=== PATIENT | male | born 1955 | race Caucasian/White ===

== ENCOUNTER 2019-03-14 15:33 | Emergency (ER) | payer OTHER ==
--- OUTSIDE RECORDS SUMMARY | 2019-03-14 15:35 | XMS REPORT ---
:1955 [facility] [address] [place] [address] Care Team Providers Name Role Phone Unavailable Unavailable Unavailable Problems This patient has no known problems. Allergies, Adverse Reactions, Alerts This patient has no known allergies or adverse reactions. Medications This patient has no known medications.
[2019-03-14] MEDS ORDERED: METOPROLOL TARTRATE 5 MG/5 ML INJ IV ONE (15:47)
[2019-03-14] MEDS ORDERED: NA CHLORIDE 0.9% 1,000 ML ONE (15:48)
[2019-03-14 16:14] LABS: Absolute Lymphocytes (CBC) 1.3 K/uL (0.7-4.9); Basophils % 0.3 % (0-1.3); Hematocrit 30.5 % (39.6-49.0); Lymphocytes % 4.1 % (15.3-44.8); MPV 9.5 fL (7.6-11.3); RBC Red Blood Cell Count 3.16 M/uL (4.33-5.43)
[2019-03-14 16:18] LABS: Protime INR 2.06
[2019-03-14 16:29] LABS: Blood Morphology Comment NOT SEEN (NOT SEEN); Platelet Estimate ADEQ
[2019-03-14] MEDS ORDERED: PANTOPRAZOLE 40 MG INJ ONE (16:33)
[2019-03-14 16:43] LABS: ALT/SGPT 26 U/L (12-78); AST/SGOT 36 U/L (15-37); Albumin 1.5 g/dL (3.4-5.0); Alkaline Phosphatase 77 U/L (45-117); BUN Blood Urea Nitrogen 13 mg/dL (7-18); Bicarbonate 16 mmol/L (21-32); Bilirubin Direct 0.6 mg/dL (0-0.2); Bilirubin Total 0.9 mg/dL (0.2-1.0); Creatine Phosphokinase 54 U/L (39-308); Glucose Level 75 mg/dL (74-106); Lipase 671 U/L (73-393); Protein, Total 5.6 g/dL (6.4-8.2); Sodium Level 140 mmol/L (136-145); Troponin (Emerg Dept Use Only) < 0.02 ng/mL (0.0-0.045)
[2019-03-14] MEDS ORDERED: NOREPINEPHRINE 4mg/D5W 250mL 4 MG/250 ML BAG IV ONE (16:47)
[2019-03-14 16:52] LABS: Magnesium 0.7 mg/dL (1.8-2.4)
[2019-03-14] MEDS ORDERED: NA CHLORIDE 0.9% 2,000 ML ONE (16:56)
--- NOTE | 2019-03-14 17:53 | RAD REPORT ---
EXAM DESCRIPTION: CT - Abdomen Pelvis Wo Contrast - 03/14/2019 5:27 pm CLINICAL HISTORY: Abdominal pain COMPARISON: None TECHNIQUE: Computed axial tomography of the abdomen and pelvis was obtained. IV and oral contrast we re not requested. All CT scans are performed using dose optimization technique as appropriate and may include automated exposure control or mA/KV adjustment according to patient size. FINDINGS: The evaluation of solid organs, vessels and bowel is limited secondary to the lack of con trast administration. A line has its tip posterior to the right common femoral vessels. It is not appear to lie within a ve ssel. Fatty liver Postsurgical changes of a Whipple's under procedure A 5 x 2.5 centimeter ill-defined fluid collection abuts a loop of bowel within the left abdomen. A 4 x 1.5 centimeter fluid collection abuts a loop of bowel within the anterior left abdomen near midline . . There is ill-defined fluid within the anterior lower abdomen. The spleen, adrenals and kidneys appear grossly normal. A filter is present within the IVC appear No bowel obstruction Small incisional hernia is suspected IMPRESSION: A right femoral line is malpositioned. Postsurgical changes of a Whipple's procedure. There are several small fluid collections probably early abscesses. Additional ill-defined fluid with in the abdomen probably infectious.
[2019-03-14] MEDS ORDERED: VANCOMYCIN 2 GM in NA CHLORIDE 0.9% 500 ML IVPB ONE (18:00)
[2019-03-14] MEDS ORDERED: CEFEPIME/SWI 1gm 10 ML IVP SCH (18:00)
[2019-03-14] MEDS ORDERED: LIDOCAINE 1% MPF 30 ML VIAL ONE (18:01)
--- NOTE | 2019-03-14 18:09 | RAD REPORT ---
EXAM DESCRIPTION: Stan Single View03/14/2019 4:23 pm CLINICAL HISTORY: sob COMPARISON: none FINDINGS: The lungs appear clear of acute infiltrate. The heart is normal size IMPRESSION: No acute abnormalities displayed
[2019-03-14] MEDS ORDERED: FENTANYL CITR 100 MCG/2 ML ONE ×2 (19:16→21:36)
[2019-03-14] MEDS ORDERED: ONDANSETRON 4 MG/2 ML VIAL ONE (19:16)
[2019-03-14] MEDS ORDERED: D5W 250 ML IV ONE ×2 (19:56→20:29)
[2019-03-14] MEDS ORDERED: NOREPINEPHRINE 4 MG/4 ML VIAL ONE (19:56)
[2019-03-14] MEDS ORDERED: Magnesium Sulfate 2gm IVPB 2 G/50 ML BAG IV ONE (20:09)
[2019-03-14] MEDS ORDERED: NA CHLORIDE 0.9% 500 ML ONE (20:09)
[2019-03-14] MEDS ORDERED: KCL 20 MEQ/100 mL IVPB 20 MEQ/100 ML BAG IV ONE (20:09)
--- NOTE | 2019-03-14 20:10 | RAD REPORT ---
EXAM DESCRIPTION: RADChest Single View03/14/2019 7:29 pm CLINICAL HISTORY: Device placement/central venous catheter placement IMPRESSION: Central venous catheter with its tip in the superior vena cava No pneumothorax
[2019-03-14] MEDS ORDERED: CALCIUM GLUCONATE 1 GM IVPB 1 GM/50 ML BAG IV ONE (20:13)
--- NOTE | 2019-03-14 20:27 | ER ---
Nurse's Notes [facility] Name: Delroy Novoa Jr Age: 63 yrs Sex: Male : 1955 Arrival Date: 03/14/2019 Time: 15:41 Bed 3 Private MD: Diagnosis: Severe sepsis with septic shock;Intra-Abdominal Abscess Presentation: 03/14 15:40 Presenting complaint: EMS states: Toned out for SOB on exertion transferring from [facility] wheelchair to bed, pt was in A Fib / RVR HR 120s on arrival at residence, until just prior to arrival to ER and he jumped to 190s, BP systolic 80s. Pt c/o LUQ abdominal pain. Transition of care: patient was not received from another setting of care. Onset of symptoms was March 14, 2019. Risk Assessment: Do you want to hurt yourself or someone else? Patient reports no desire to harm self or others. Initial Sepsis Screen: Does the patient meet any 2 criteria? RR > 20 per min. Systolic BP < 90 mmHg. Mean Arterial Pressure (MAP) < 65. HR > 90 bpm. Yes Does the patient have a suspected source of infection? Yes: Acute abdominal pain. Care prior to arrival: Medication(s) given: Normal saline infusion, 500 mL, IV initiated. 20 GA, in the right forearm. 15:40 Method Of Arrival: EMS: [facility] 15:40 Acuity: CHELSIE 2 Historical: - Allergies: 15:56 Ativan; 16:33 Zosyn; tw2 16:33 Hydrocodone-Acetaminophen; tw2 - Home Meds: 16:09 pregabalin 100 mg Oral 1 cap 2 times per day [Active]; enoxaparin 40 mg/0.4 mL tw2 subcutaneous syrg once daily [Active]; enoxaparin 40 mg/0.4 mL subcutaneous syrg every 12 hours [Active]; digoxin 125 mcg Oral tab 1 tab once daily [Active]; paroxetine HCl 10 mg oral tab 1 tab once daily [Active]; tramadol 50 mg Oral tab 2 tabs every 6 hours [Active]; chlorpromazine 25 mg Oral tab 1 tab [Active]; pantoprazole 40 mg oral TbEC 1 tab once daily [Active]; 16:15 Lantus 100 unit/mL Sub-Q soln [Active]; tw2 - PMHx: 16:09 Sleep Apnea; Respiratory failure d/t sepsis; GI Bleed; tw2 16:15 Diabetes - IDDM; 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 - Social history:: Smoking status: Patient uses tobacco products, chewing tobacco, per daughter, Kay Bundy, ph#[phone]. - Ebola Screening: : Patient denies travel to an Ebola-affected area in the 21 days before illness onset. Screenin:29 Abuse screen: Denies threats or abuse. Nutritional screening: No deficits noted. tw2 Tuberculosis screening: No symptoms or risk factors identified. Fall Risk Secondary diagnosis (15 points) impaired mobility. Assessment: 15:42 General: Appears distressed, obese, Behavior is calm, cooperative. Pain: Complains of tw2 pain in abdomen. Neuro: Level of Consciousness is awake, alert, obeys commands, Oriented to person, place, time, situation. Cardiovascular: Heart tones S1 S2 Capillary refill is > 3 seconds. Respiratory: Airway is patent Respiratory effort is labored, Respiratory pattern is regular, symmetrical, Breath sounds are diminished bilaterally. GI: Abdomen is round obese, Bowel sounds present X 4 quads. Reports lower abdominal pain, upper abdominal pain, pt reports a week ago having b/l james drains to abdomen removed. : No signs and/or symptoms were reported regarding the genitourinary system. EENT: No signs and/or symptoms were reported regarding the EENT system. Derm: Skin is fragile, is thin, Skin is Skin is dusky, pale, Skin temperature is cold. Musculoskeletal: Range of motion: intact in all extremities. 16:43 Reassessment: No changes from previously documented assessment. Patient and/or family tw2 updated on plan of care and expected duration. Pain level reassessed. pt still alert and oriented at this time. 17:30 Reassessment: No changes from previously documented assessment. Patient and/or family tw2 updated on plan of care and expected duration. Pain level reassessed. 18:30 Reassessment: Jean-Paul Marie at [facility],RN at bedside at this time attempted to perform central tw2 line placement in LEFT IJ, pt not tolerating it well at this time, lidocaine at bedside for pts comfort level to help tolerate px at this time. 18:43 Reassessment: Jean-Paul Marie PA at bedside at this time with KARYNA Lanier at bedside at this tw2 time to assist with IJ central line place, Dr. Nguyễn at bedside at this time to help with placement at this time. 19:18 General: Appears in no apparent distress. comfortable, Behavior is calm, cooperative, jd3 appropriate for age. Pain: Complains of pain in abdomen. Neuro: Level of Consciousness is awake, alert, obeys commands, Oriented to person, place, time, situation. Cardiovascular: Heart tones S1 S2 present Capillary refill is > 3 seconds Rhythm is sinus tachycardia. Respiratory: Airway is patent Respiratory effort is even, unlabored, Respiratory pattern is regular, symmetrical, Breath sounds are diminished. GI: Abdomen is round obese, Bowel sounds present X 4 quads. Reports lower abdominal pain, upper abdominal pain. : No signs and/or symptoms were reported regarding the genitourinary system. EENT: No signs and/or symptoms were reported regarding the EENT system. Derm: Skin is intact, Skin is dry, Skin is normal, Skin temperature is warm. Musculoskeletal: Circulation, motion, and sensation intact. Range of motion: intact in all extremities. 19:57 Reassessment: Patient appears in no apparent distress at this time. No changes from jd3 previously documented assessment. Patient and/or family updated on plan of care and expected duration. Pain level reassessed. awaiting disposition. 21:12 Reassessment: Patient appears in no apparent distress at this time. No changes from jd3 previously documented assessment. Patient and/or family updated on plan of care and expected duration. Pain level reassessed. report given to [facility] K[facility]NA Austin. 21:45 Reassessment: Patient appears in no apparent distress at this time. No changes from jd3 previously documented assessment. Patient and/or family updated on plan of care and expected duration. Pain level reassessed. report given to Life flight nurse. 22:14 Reassessment: Patient appears in no apparent distress at this time. Patient and/or jd3 family updated on plan of care and expected duration. Pain level reassessed. assisted life flight with moving the pt over to the life flight stretcher. pt with IV accesses healthy with no redness or swelling, medication infusing at prescribed rate. pt with even and unlabored respirations. Vital Signs: 15:41 BP 77 / 39; Pulse 80; Resp 22; Temp 97.8(TE); Pulse Ox 96% on R/A; Weight 131.09 kg tw2 (R); Height 6 ft. 1 in. (185.42 cm); 15:55 BP 72 / 39; Pulse 197; Resp 22; Pulse Ox 97% on R/A; tw2 16:00 BP 59 / 43; Pulse 107; Resp 22; Pulse Ox 97% on R/A; tw2 16:15 BP 87 / 64; Pulse 111; Resp 18; Pulse Ox 98% on R/A; tw2 16:42 BP 56 / 46; Pulse 111; Resp 26; Pulse Ox 100% on R/A; tw2 17:00 BP 86 / 55; Pulse 111; Resp 20; Pulse Ox 100% on R/A; tw2 17:25 BP 78 / 48; Pulse 111; Resp 20; Pulse Ox 93% on R/A; tw2 17:30 BP 77 / 42; Pulse 112; Resp 22; Pulse Ox 98% on 2 lpm NC; rv 17:35 BP 58 / 44; Pulse 114; Resp 25; Pulse Ox 100% on 2 lpm NC; rv 17:40 BP 104 / 90; Pulse 110; Resp 19; Pulse Ox 100% on R/A; tw2 17:45 BP 71 / 33; Pulse 115; Resp 24; Pulse Ox 99% on 2 lpm NC; rv 17:50 BP 111 / 88; Pulse 115; Resp 27; Pulse Ox 100% on 2 lpm NC; rv 17:55 BP 130 / 92; Pulse 114; Resp 25; Pulse Ox 100% on 2 lpm NC; rv 18:00 BP 92 / 61; Pulse 112; Resp 28; Pulse Ox 100% on 2 lpm NC; rv 18:05 BP 93 / 61; Pulse 113; Resp 27; Pulse Ox 100% on 2 lpm NC; rv 18:10 BP 105 / 72; Pulse 122; Resp 19; Pulse Ox 100% on R/A; tw2 18:15 BP 95 / 57; Pulse 112; Resp 26; Pulse Ox 100% on 2 lpm NC; rv 18:20 BP 86 / 63; Pulse 118; Resp 17; Pulse Ox 100% on 2 lpm NC; tw2 18:25 BP 105 / 80; Pulse 107; Resp 17; Pulse Ox 100% on 2 lpm NC; tw2 18:30 BP 105 / 46; Pulse 149; Resp 20; Pulse Ox 100% on 2 lpm NC; tw2 18:35 BP 126 / 75; Pulse 115; Resp 20; Pulse Ox 100% on 2 lpm NC; tw2 18:40 BP 104 / 70; Pulse 113; Resp 23; Pulse Ox 99% on 2 lpm NC; tw2 19:23 BP 88 / 57; Pulse 115; Resp 21 S; Pulse Ox 99% on R/A; jd3 19:57 BP 91 / 52; Pulse 117; Resp 19 S; Pulse Ox 100% on 2 lpm NC; jd3 20:10 BP 82 / 40; Pulse 115; Resp 25 S; Pulse Ox 100% on 2 lpm NC; jd3 20:22 BP 80 / 57; Pulse 118; Resp 23 S; Pulse Ox 99% on 2 lpm NC; jd3 20:22 BP 96 / 31; Pulse 116; Resp 25 S; Pulse Ox 100% on 2 lpm NC; jd3 20:33 BP 103 / 60; Pulse 116; Resp 24 S; Pulse Ox 100% on 2 lpm NC; jd3 20:40 BP 72 / 40; Pulse 114; Resp 25 S; Pulse Ox 100% on 2 lpm NC; jd3 20:41 BP 69 / 34; Pulse 114; Resp 24 S; Pulse Ox 100% on 2 lpm NC; jd3 20:51 BP 85 / 50; Pulse 113; Resp 19 S; Pulse Ox 100% on 2 lpm NC; jd3 20:55 BP 86 / 53; Pulse 112; Resp 25 S; Pulse Ox 100% on 2 lpm NC; jd3 21:07 BP 94 / 59; Pulse 115; Resp 20 S; Pulse Ox 100% on 2 lpm NC; jd3 21:31 BP 93 / 54; Pulse 115; Resp 19 S; Temp 97.8(O); Pulse Ox 100% on 2 lpm NC; jd3 15:41 Body Mass Index 38.13 (131.09 kg, 185.42 cm) tw2 15:55 provider at bedside at this time, medicated as ordered tw2 16:15 provider at bedside at this time performing central line tw2 16:42 provider at bedside at this time, RT at bedside for ABG \T\ hgb at this time. tw2 ED Course: 15:40 Placed in gown. Bed in low position. Call light in reach. Side rails up X2. Cardiac tw2 monitor on. Pulse ox on. NIBP on. Warm blanket given. 15:41 Patient arrived in ED. jr8 15:41 Frank Worthington PA is PHCP. jr8 15:41 Stef Nguyễn MD is Attending Physician. jr8 15:41 Arm band placed on. EKG completed in triage. Results shown to MD. tw2 15:45 Inserted saline lock: 22 gauge in right forearm, using aseptic technique. Blood tw2 collected. 15:48 Inserted saline lock: 20 gauge in left antecubital area, using aseptic technique. tw2 ,using aseptic technique. per KARYNA Martell Blood collected. 15:56 Triage completed. jl7 16:01 Filomena Wheeler RN is Primary Nurse. tw2 16:28 Assisted provider with central line placement. Set up central line tray. Triple lumen tw2 line placed in right femoral. Line placed by Frank MANUEL Placement verified by blood return, Dressed with Tegaderm, Patient tolerated well. Before procedure, did Practitioner(s) obtain informed consent? Yes. Patient \T\ family education about procedure, CLABSI prevention and S/S of infection? Yes. 16:30 Chest Single View XRAY In Process Unspecified. EDMS 16:30 Notified Nurse Practitioner and/or Physician Neon Tube Pumper of a critical lab result(s), WBC hb 32.0. 17:30 CT Abd/Pelvis - Without Contrast In Process Unspecified. EDMS 18:08 Assisted provider with central line placement. Set up central line tray. Triple lumen tw2 line placed in left femoral. CT results show placement of RIGHT central line as not in position and it has not been used at this time, PRICILLA Danielle to removed after placement of left femoral central line, pt needed more lidocaine to help during procedure as he was unable to keep left leg still at this time. pt did not tolerate placement of the LEFT femoral central line, Jean-Paul Marie PA preparing to do LEFT IJ central line placement at this time. 19:00 Primary Nurse role handed off by Filomena Wheeler RN jd3 19:00 Report given to KARYNA Whipple. tw2 19:00 One on one care till 2144. jd3 19:02 Nathen Pandya, KARYNA is Primary Nurse. jd3 19:09 Assisted provider with central line placement. Set up central line tray. Triple lumen tw2 line placed in left internal jugular. Line placed by Stef Nguyễn MD Placement verified by CXR, blood return, Dressed with Tegaderm, Patient tolerated well. 19:14 IV discontinued, intact, bleeding controlled, No redness/swelling at site. Pressure tw2 dressing applied, Central line to RIGHT femoral discontinued by Jean-Paul Marie PA and pressure dressing applied. 19:29 Chest Single View XRAY In Process Unspecified. EDMS 20:06 Notified Nurse Practitioner and/or Physician Neon Tube Pumper of a critical lab result(s), aa1 lactate 6.7. 21:51 Gallagher cath inserted, using sterile technique, 16 Fr., by ri, balloon inflated, to jd3 gravity drainage, returned ventura urine. Patient tolerated well. Administered Medications: 15:55 Drug: Metoprolol 5 mg Route: IVP; Site: left antecubital; tw2 16:00 Follow up: Response: No adverse reaction; No adverse reaction, HR lowered at this time. tw2 16:00 Drug: NS 0.9% 1000 ml Route: IV; Rate: 1000 ml; Site: left antecubital; tw2 17:20 Follow up: Response: No adverse reaction; IV Status: Completed infusion; IV Intake: tw2 1000ml 16:42 Drug: ProTONIX 40 mg Route: IVP; Site: left antecubital; tw2 18:29 Follow up: Response: No adverse reaction tw2 17:00 Drug: Levophed (4 mg/250 mL D5W 4 mcg/min {Note: started at 10mcg/kg per pricilla danielle.} jr8 Route: IV; Rate: calculated rate; Site: left antecubital; 17:31 Follow up: Rate change 12 mcg/kg/min; d/t pts condition jr8 18:28 Follow up: Rate change 20 mcg/kg/min; per Jean-Paul Marie PA at this time tw2 21:50 Follow up: Response: No adverse reaction; IV Status: Infusion continued upon transfer jd3 17:00 Drug: NS 0.9% 1000 ml Route: IV; Rate: 1 bolus; Site: right forearm; jr8 19:10 Follow up: Response: No adverse reaction; IV Status: Completed infusion jd3 18:10 Drug: Cefepime 1 grams {Note: IVP available only from pharmacy.} Route: IVPB; Rate: 200 tw2 ml/hr; Infused Over: 5 mins; Site: right forearm; 18:14 Follow up: Response: No adverse reaction; IV Status: Completed infusion tw2 18:15 Drug: vancoMYCIN 2 grams Route: IVPB; Rate: calculated rate; Site: right forearm; tw2 20:15 Follow up: Response: No adverse reaction; IV Status: Completed infusion jd3 19:08 Drug: NS 0.9% 1000 ml Route: IV; Rate: 1 bolus; Site: right forearm; tw2 20:00 Follow up: Response: No adverse reaction; IV Status: Completed infusion jd3 19:18 Drug: Zofran 4 mg Route: IVP; Site: right forearm; tw2 20:18 Follow up: Response: No adverse reaction jd3 19:20 Drug: fentaNYL (PF) 50 mcg Route: IVP; Site: right forearm; tw2 20:20 Follow up: Response: No adverse reaction; RASS: Alert and Calm (0) jd3 20:15 Drug: Potassium Chloride 20 mEq Route: IV; Rate: calculated rate; Site: left jugular; jd3 21:50 Follow up: Response: No adverse reaction; IV Status: Completed infusion jd3 20:15 Drug: Magnesium Sulfate 2 grams Route: IVPB; Infused Over: 2 hrs; Site: left jugular; jd3 21:50 Follow up: Response: No adverse reaction; IV Status: Completed infusion jd3 20:15 Drug: Calcium Gluconate 1 grams Route: IVPB; Infused Over: 60 mins; Site: left jugular; jd3 21:15 Follow up: Response: No adverse reaction; IV Status: Completed infusion jd3 20:15 Drug: NS 0.9% 500 ml Route: IV; Rate: bolus; Site: left jugular; jd3 21:50 Follow up: Response: No adverse reaction; IV Status: Completed infusion jd3 20:52 Drug: Rick-Synephrine 100 mcg/min Route: IV; Rate: calculated rate; Site: left jugular; jd3 21:50 Follow up: Response: No adverse reaction; IV Status: Infusion continued upon transfer jd3 21:45 Drug: fentaNYL (PF) 25 mcg Route: IVP; Site: left antecubital; jd3 21:50 Follow up: Response: No adverse reaction jd3 21:57 Drug: NS 0.9% 100 ml Route: IV; Rate: calculated rate; Site: left jugular; jd3 03/15 01:07 Follow up: Response: No adverse reaction; IV Status: Infusion continued upon transfer jd3 Point of Care Testing: Blood Glucose: 03/14 15:44 Blood Glucose: 76 mg/dL; tw2 15:44 provider notified. tw2 Ranges: Intake: 17:20 IV: 1000ml; Total: 1000ml. tw2 Outcome: 20:24 ER care complete, transfer ordered by . jr8 22:13 Transferred by helicopter to [facility], Transfer form completed. X-rays jd3 sent w/ patient. 22:13 Condition: stable 22:13 Instructed on the need for transfer, Demonstrated understanding of instructions. 22:31 Patient left the ED. jd3 Signatures: Dispatcher [employer] EDMS Sury Salguero RN RN aa1 Frank Worthington PA PA jr8 Yolande Rubio RN RN Filomena Wheeler RN RN tw2 Jayshree Deras RN RN jl7 Nathen Pandya RN RN jd3 Martin Herman RN RN rv Corrections: (The following items were deleted from the chart) 16:33 16:09 Allergies: unknown abx; tw2 tw2 18:35 18:30 Reassessment: Jean-Paul Marie [facility],RN at bedside at this time attempted to perform tw2 central line placement in LEFT IJ, pt not tolerating it well at this time, lidocaine at bedside for pts comfort tw2 21:08 19:57 BP 91 / 52; Pulse 117bpm; Resp 19bpm; Spontaneous; Pulse Ox 100% RA; jd3 jd3 21:08 20:22 BP 96 / 31; Pulse 116bpm; Resp 25bpm; Spontaneous; Pulse Ox 100% RA; jd3 jd3 22:30 19:57 Reassessment: Patient appears in no apparent distress at this time. No changes jd3 from previously documented assessment. Patient and/or family updated on plan of care and expected duration. Pain level reassessed. awaiting disposition. jd3 22:30 21:12 Reassessment: report given to [facility] K[facility]NA Austin [facility] 21:45 Reassessment: report given to Life flight nurse [place] [id number] 22:51 22:50 Nathen Pandya RN is Primary Nurse. [place] [id number] 22: 22:50 Patient left the ED. [place] [id number] 22: 22:50 Primary Nurse role handed off by Filomena Wheeler RN [place] [id number] 22:52 19:05 KARYNA Sena primary nurse [place] [id number] 22:54 21:31 BP 93 / 54; Pulse 115bpm; Resp 19bpm; Spontaneous; Pulse Ox 100% 2 lpm Nasal jd3 Cannula; [facility] 03/15 00:53 03/14 21:31 BP 93 / 54; Pulse 115bpm; Resp 19bpm; Spontaneous; Pulse Ox 100% 2 lpm jd3 Nasal Cannula; Temp 97.8F Oral; [facility] 03/15 01:14 01:13 Response: No adverse reaction; IV Status: Infusion continued upon transfer hi romo
--- NOTE | 2019-03-14 20:27 | EDPHYS ---
Physician Documentation [facility] Name: Delroy Novoa Jr Age: 63 yrs Sex: Male : 1955 Arrival Date: 03/14/2019 Time: 15:41 Bed 3 Private MD: ED Physician Stef Nguyễn HPI: 03/14 15:55 This 63 yrs old Male presents to ER via Unassigned with complaints of jr8 shortness of breath. 15:55 The patient has shortness of breath at rest. Onset: The symptoms/episode began/occurred jr8 acutely, today. Duration: The symptoms are intermittent. The patient's shortness of breath has no apparent modifying factors. Associated signs and symptoms: The patient has no apparent associated signs or symptoms. Severity of symptoms: At their worst the symptoms were moderate in the emergency department the symptoms have resolved. It is unknown whether or not the patient has had similar symptoms in the past. The patient has been recently seen by a physician:. Patient stated that he was just released from rehabilitation facility after undergoing Whipple procedure for pancreatic cancer. Stated that while transferring from furniture started to have acute onset shortness of breath. Stated that he feels better now. Stated that he has been nauseated and had vomited a few times over last few days. EMS also said patients BP has been persistently low for them. Patient with history of atrial fib. Currently in RVR. Historical: - Allergies: 15:56 Ativan; jl7 16:33 Zosyn; tw2 16:33 Hydrocodone-Acetaminophen; tw2 - Home Meds: 16:09 pregabalin 100 mg Oral 1 cap 2 times per day [Active]; enoxaparin 40 mg/0.4 mL tw2 subcutaneous syrg once daily [Active]; enoxaparin 40 mg/0.4 mL subcutaneous syrg every 12 hours [Active]; digoxin 125 mcg Oral tab 1 tab once daily [Active]; paroxetine HCl 10 mg oral tab 1 tab once daily [Active]; tramadol 50 mg Oral tab 2 tabs every 6 hours [Active]; chlorpromazine 25 mg Oral tab 1 tab [Active]; pantoprazole 40 mg oral TbEC 1 tab once daily [Active]; 16:15 Lantus 100 unit/mL Sub-Q soln [Active]; tw2 - PMHx: 16:09 Sleep Apnea; Respiratory failure d/t sepsis; GI Bleed; tw2 16:15 Diabetes - IDDM; 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 - Social history:: Smoking status: Patient uses tobacco products, chewing tobacco, per daughter, Kay Bundy, ph#[phone]. - Ebola Screening: : Patient denies travel to an Ebola-affected area in the 21 days before illness onset. ROS: 15:55 Eyes: Negative for injury, pain, redness, and discharge, ENT: Negative for injury, jr8 pain, and discharge, Neck: Negative for injury, pain, and swelling, Cardiovascular: Negative for chest pain, palpitations, and edema, Back: Negative for injury and pain, MS/Extremity: Negative for injury and deformity, Skin: Negative for injury, rash, and discoloration, Neuro: Negative for headache, weakness, numbness, tingling, and seizure. 15:55 Respiratory: Positive for shortness of breath. 15:55 Abdomen/GI: Positive for abdominal pain, nausea and vomiting, Negative for diarrhea. Exam: 15:55 Eyes: Pupils equal round and reactive to light, extra-ocular motions intact. Lids and jr8 lashes normal. Conjunctiva and sclera are non-icteric and not injected. Cornea within normal limits. Periorbital areas with no swelling, redness, or edema. ENT: Nares patent. No nasal discharge, no septal abnormalities noted. Tympanic membranes are normal and external auditory canals are clear. Oropharynx with no redness, swelling, or masses, exudates, or evidence of obstruction, uvula midline. Mucous membranes moist. Neck: Trachea midline, no thyromegaly or masses palpated, and no cervical lymphadenopathy. Supple, full range of motion without nuchal rigidity, or vertebral point tenderness. No Meningismus. Back: No spinal tenderness. No costovertebral tenderness. Full range of motion. MS/ Extremity: Pulses equal, no cyanosis. Neurovascular intact. Full, normal range of motion. Neuro: Awake and alert, GCS 15, oriented to person, place, time, and situation. Cranial nerves II-XII grossly intact. Motor strength 5/5 in all extremities. Sensory grossly intact. Cerebellar exam normal. Normal gait. 15:55 Respiratory: Lungs have equal breath sounds bilaterally, clear to auscultation and percussion. No rales, rhonchi or wheezes noted. No increased work of breathing, no retractions or nasal flaring. 15:55 Cardiovascular: Rate: tachycardic, Rhythm: irregularly irregular, Pulses: Pulses are 2+ in right radial artery and left radial artery. Heart sounds: normal, normal S1and S2, no S3 or S4, no murmur, no rub, no gallop, Edema: is not appreciated, JVD: is not appreciated. 15:55 Abdomen/GI: Inspection: obese scar(s), vertical mid abdominal scar noted, Bowel sounds: active, all quadrants, Palpation: soft, in all quadrants, moderate abdominal tenderness, in the upper abdomen , mass, is not appreciated, rebound tenderness, is not appreciated, voluntary guarding, is not appreciated, involuntary guarding, is not appreciated, no appreciated organomegaly, Indicators: McBurney's point is not tender, Blackwell's sign is negative, Rovsing's sign is negative, Liver: tenderness, is not appreciated. 15:55 Skin: Appearance: Color: pale, Temperature: cool. Vital Signs: 15:41 BP 77 / 39; Pulse 80; Resp 22; Temp 97.8(TE); Pulse Ox 96% on R/A; Weight 131.09 kg tw2 (R); Height 6 ft. 1 in. (185.42 cm); 15:55 BP 72 / 39; Pulse 197; Resp 22; Pulse Ox 97% on R/A; tw2 16:00 BP 59 / 43; Pulse 107; Resp 22; Pulse Ox 97% on R/A; tw2 16:15 BP 87 / 64; Pulse 111; Resp 18; Pulse Ox 98% on R/A; tw2 16:42 BP 56 / 46; Pulse 111; Resp 26; Pulse Ox 100% on R/A; tw2 17:00 BP 86 / 55; Pulse 111; Resp 20; Pulse Ox 100% on R/A; tw2 17:25 BP 78 / 48; Pulse 111; Resp 20; Pulse Ox 93% on R/A; tw2 17:30 BP 77 / 42; Pulse 112; Resp 22; Pulse Ox 98% on 2 lpm NC; rv 17:35 BP 58 / 44; Pulse 114; Resp 25; Pulse Ox 100% on 2 lpm NC; rv 17:40 BP 104 / 90; Pulse 110; Resp 19; Pulse Ox 100% on R/A; tw2 17:45 BP 71 / 33; Pulse 115; Resp 24; Pulse Ox 99% on 2 lpm NC; rv 17:50 BP 111 / 88; Pulse 115; Resp 27; Pulse Ox 100% on 2 lpm NC; rv 17:55 BP 130 / 92; Pulse 114; Resp 25; Pulse Ox 100% on 2 lpm NC; rv 18:00 BP 92 / 61; Pulse 112; Resp 28; Pulse Ox 100% on 2 lpm NC; rv 18:05 BP 93 / 61; Pulse 113; Resp 27; Pulse Ox 100% on 2 lpm NC; rv 18:10 BP 105 / 72; Pulse 122; Resp 19; Pulse Ox 100% on R/A; tw2 18:15 BP 95 / 57; Pulse 112; Resp 26; Pulse Ox 100% on 2 lpm NC; rv 18:20 BP 86 / 63; Pulse 118; Resp 17; Pulse Ox 100% on 2 lpm NC; tw2 18:25 BP 105 / 80; Pulse 107; Resp 17; Pulse Ox 100% on 2 lpm NC; tw2 18:30 BP 105 / 46; Pulse 149; Resp 20; Pulse Ox 100% on 2 lpm NC; tw2 18:35 BP 126 / 75; Pulse 115; Resp 20; Pulse Ox 100% on 2 lpm NC; tw2 18:40 BP 104 / 70; Pulse 113; Resp 23; Pulse Ox 99% on 2 lpm NC; tw2 19:23 BP 88 / 57; Pulse 115; Resp 21 S; Pulse Ox 99% on R/A; jd3 19:57 BP 91 / 52; Pulse 117; Resp 19 S; Pulse Ox 100% on 2 lpm NC; jd3 20:10 BP 82 / 40; Pulse 115; Resp 25 S; Pulse Ox 100% on 2 lpm NC; jd3 20:22 BP 80 / 57; Pulse 118; Resp 23 S; Pulse Ox 99% on 2 lpm NC; jd3 20:22 BP 96 / 31; Pulse 116; Resp 25 S; Pulse Ox 100% on 2 lpm NC; jd3 20:33 BP 103 / 60; Pulse 116; Resp 24 S; Pulse Ox 100% on 2 lpm NC; jd3 20:40 BP 72 / 40; Pulse 114; Resp 25 S; Pulse Ox 100% on 2 lpm NC; jd3 20:41 BP 69 / 34; Pulse 114; Resp 24 S; Pulse Ox 100% on 2 lpm NC; jd3 20:51 BP 85 / 50; Pulse 113; Resp 19 S; Pulse Ox 100% on 2 lpm NC; jd3 20:55 BP 86 / 53; Pulse 112; Resp 25 S; Pulse Ox 100% on 2 lpm NC; jd3 21:07 BP 94 / 59; Pulse 115; Resp 20 S; Pulse Ox 100% on 2 lpm NC; jd3 21:31 BP 93 / 54; Pulse 115; Resp 19 S; Temp 97.8(O); Pulse Ox 100% on 2 lpm NC; jd3 15:41 Body Mass Index 38.13 (131.09 kg, 185.42 cm) tw2 15:55 provider at bedside at this time, medicated as ordered tw2 16:15 provider at bedside at this time performing central line tw2 16:42 provider at bedside at this time, RT at bedside for ABG \T\ hgb at this time. tw2 Procedures: 19:20 Central Line: the site was prepped with Betadine, in sterile fashion, a triple lumen jr8 catheter was inserted, in the right femoral vein, in 1 attempts. placement was verified, by blood return, the patient tolerated the procedure, well, Had to discontinue after checking placement. Variant in anatomy that caused malalignment of line. 19:20 Central Line: the site was prepped with Betadine, in sterile fashion, a triple lumen jr8 catheter was inserted, in the left internal jugular vein, in 1 attempts. placement was verified, by CXR, by blood return, the site was dressed with using sterile technique, the patient tolerated the procedure, well. MDM: 15:41 Patient medically screened. jr8 19:19 ED course: Abx were initially delayed due to extremely hard IV access. IJ finally jr8 placed successfully . 20:22 Data reviewed: vital signs, nurses notes, lab test result(s), EKG, radiologic studies, jr8 CT scan, plain films. Data interpreted: Pulse oximetry: on room air is 98 %. Interpretation: normal. Counseling: I had a detailed discussion with the patient and/or guardian regarding: the historical points, exam findings, and any diagnostic results supporting the discharge/admit diagnosis, lab results, radiology results, the need to transfer to another facility, for higher level of care. ED course: Dr. Martin at [facility] accepted patient to MICU. 03/14 15:42 Order name: Basic Metabolic Panel; Complete Time: 17:04 [facility] 03/14 15:42 Order name: Blood Culture Adult (2) [facility] 03/14 15:42 Order name: CBC with Diff; Complete Time: 16:50 [facility] 03/14 15:42 Order name: CPK; Complete Time: 17:04 [facility] 03/14 15:42 Order name: Lactate; Complete Time: 17:04 [facility] 03/14 15:42 Order name: LFT's; Complete Time: 17:04 [facility] 03/14 15:42 Order name: Lipase; Complete Time: 17:04 [facility] 03/14 15:42 Order name: Procalcitonin; Complete Time: 16:50 [facility] 03/14 15:42 Order name: Protime (+inr); Complete Time: 16:50 [facility] 03/14 15:42 Order name: Ptt, Activated; Complete Time: 16:50 [facility] 03/14 15:42 Order name: Troponin (emerg Dept Use Only); Complete Time: 17:04 [facility] 03/14 15:42 Order name: TS; Complete Time: 16:50 [facility] 03/14 15:42 Order name: Magnesium; Complete Time: 17:04 [facility] 03/14 15:42 Order name: Chest Single View XRAY; Complete Time: 19:04 [facility] 03/14 16:04 Order name: Glucose, Ancillary Testing; Complete Time: 16:12 EDMS 03/14 16:32 Order name: Manual Differential EDNM 03/14 16:42 Order name: CT Abd/Pelvis - Without Contrast; Complete Time: 19:04 tw2 03/14 19:01 Order name: Chest Single View XRAY; Complete Time: 20:21 ak1 03/14 19:43 Order name: ABO/RH no charge; Complete Time: 20:00 EDMS 03/14 20:08 Order name: Lactate Sepsis 2 HR Follow-up; Complete Time: 20:12 EDMS 03/14 22:01 Order name: ABG; Complete Time: 22:19 03/14 15:42 Order name: Accucheck; Complete Time: 16:03/14 15:42 Order name: Cardiac monitoring; Complete Time: 16:03/14 15:42 Order name: EKG - Nurse/Tech; Complete Time: 16:03/14 15:42 Order name: IV Saline Lock - Large Bore; Complete Time: 16:03/14 15:42 Order name: Labs collected and sent; Complete Time: 16:03/14 15:42 Order name: O2 Per Protocol; Complete Time: 16:03/14 15:42 Order name: O2 Sat Monitoring; Complete Time: 16:03/14 21:50 Order name: Cath; Complete Time: 21:50 jd3 Administered Medications: 15:55 Drug: Metoprolol 5 mg Route: IVP; Site: left antecubital; tw2 16:00 Follow up: Response: No adverse reaction; No adverse reaction, HR lowered at this time. tw2 16:00 Drug: NS 0.9% 1000 ml Route: IV; Rate: 1000 ml; Site: left antecubital; tw2 17:20 Follow up: Response: No adverse reaction; IV Status: Completed infusion; IV Intake: tw2 1000ml 16:42 Drug: ProTONIX 40 mg Route: IVP; Site: left antecubital; tw2 18:29 Follow up: Response: No adverse reaction tw2 17:00 Drug: Levophed (4 mg/250 mL D5W 4 mcg/min {Note: started at 10mcg/kg per pricilla zaragoza.} [facility] Route: IV; Rate: calculated rate; Site: left antecubital; 17:31 Follow up: Rate change 12 mcg/kg/min; d/t pts condition jr8 18:28 Follow up: Rate change 20 mcg/kg/min; per Jean-Paul Marie PA at this time tw2 21:50 Follow up: Response: No adverse reaction; IV Status: Infusion continued upon transfer jd3 17:00 Drug: NS 0.9% 1000 ml Route: IV; Rate: 1 bolus; Site: right forearm; jr8 19:10 Follow up: Response: No adverse reaction; IV Status: Completed infusion jd3 18:10 Drug: Cefepime 1 grams {Note: IVP available only from pharmacy.} Route: IVPB; Rate: 200 tw2 ml/hr; Infused Over: 5 mins; Site: right forearm; 18:14 Follow up: Response: No adverse reaction; IV Status: Completed infusion tw2 18:15 Drug: vancoMYCIN 2 grams Route: IVPB; Rate: calculated rate; Site: right forearm; tw2 20:15 Follow up: Response: No adverse reaction; IV Status: Completed infusion jd3 19:08 Drug: NS 0.9% 1000 ml Route: IV; Rate: 1 bolus; Site: right forearm; tw2 20:00 Follow up: Response: No adverse reaction; IV Status: Completed infusion jd3 19:18 Drug: Zofran 4 mg Route: IVP; Site: right forearm; tw2 20:18 Follow up: Response: No adverse reaction jd3 19:20 Drug: fentaNYL (PF) 50 mcg Route: IVP; Site: right forearm; tw2 20:20 Follow up: Response: No adverse reaction; RASS: Alert and Calm (0) jd3 20:15 Drug: Potassium Chloride 20 mEq Route: IV; Rate: calculated rate; Site: left jugular; jd3 21:50 Follow up: Response: No adverse reaction; IV Status: Completed infusion jd3 20:15 Drug: Magnesium Sulfate 2 grams Route: IVPB; Infused Over: 2 hrs; Site: left jugular; jd3 21:50 Follow up: Response: No adverse reaction; IV Status: Completed infusion jd3 20:15 Drug: Calcium Gluconate 1 grams Route: IVPB; Infused Over: 60 mins; Site: left jugular; jd3 21:15 Follow up: Response: No adverse reaction; IV Status: Completed infusion jd3 20:15 Drug: NS 0.9% 500 ml Route: IV; Rate: bolus; Site: left jugular; jd3 21:50 Follow up: Response: No adverse reaction; IV Status: Completed infusion jd3 20:52 Drug: Rick-Synephrine 100 mcg/min Route: IV; Rate: calculated rate; Site: left jugular; jd3 21:50 Follow up: Response: No adverse reaction; IV Status: Infusion continued upon transfer jd3 21:45 Drug: fentaNYL (PF) 25 mcg Route: IVP; Site: left antecubital; jd3 21:50 Follow up: Response: No adverse reaction jd3 21:57 Drug: NS 0.9% 100 ml Route: IV; Rate: calculated rate; Site: left jugular; jd3 03/15 01:07 Follow up: Response: No adverse reaction; IV Status: Infusion continued upon transfer jd3 Point of Care Testing: Blood Glucose: 03/14 15:44 Blood Glucose: 76 mg/dL; tw2 15:44 provider notified. tw2 Ranges: Critical Glucose Levels:Adult <50 mg/dl or >400 mg/dl <40 mg/dl or >180 mg/dl Disposition: 03/15 02:41 Critical Care:. jr8 Disposition: 03/14/19 20:24 Transfer ordered to [facility]. Diagnosis are Severe sepsis with septic shock, Intra-Abdominal Abscess . - Reason for transfer: Higher level of care. - Accepting physician is Dr. Beka Martin. - Condition is Serious. - Problem is new. - Symptoms have improved. Critical care time excluding procedures: 02:41 Critical care time: Bedside Care: 20 minutes, Consultation: 15 minutes, Family jr8 Intervention: 15 minutes. Total time: 50 minutes Addendum: 03/16/2019 15:17 Co-signature as Attending Physician, Stef Nguyễn MD. m a2 Signatures: Dispatcher [employer] EDMS Frank Worthington PA PA jr8 Filomena Wheeler RN RN tw2 Jayshree Deras RN RN jl7 Nathen Pandya RN RN jd3 Stef Nguyễn MD MD ma2 Corrections: (The following items were deleted from the chart) 03/14 16:11 15:55 Patient stated that he was just released from rehabilitation facility after jr8 undergoing Whipple procedure for pancreatic cancer. Stated that while transferring from furniture started to have acute onset shortness of breath. Stated that he feels better now. EMS noted that patient had coffee ground like emesis to mouth. Stated that he has been nauseated and had vomited a few times over last few days. EMS also said patients BP has been persistently low for them . jr8 16:33 16:09 Allergies: unknown abx; tw2 tw2 17:04 16:27 Arterial Blood Gas+RC.LAB.BRZ ordered. EDNM EDMS 22:31 20:24 03/14/2019 20:24 Transfer ordered to [facility]. Diagnosis is jd3 Severe sepsis with septic shock; Intra-Abdominal Abscess . Reason for transfer: Higher level of care. Accepting physician is Dr. Beka Martin. Condition is Serious. Problem is new. Symptoms have improved. jr8 22:50 22:31 03/14/2019 20:24 Transfer ordered to [facility]. Diagnosis is jd3 Severe sepsis with septic shock; Intra-Abdominal Abscess . Reason for transfer: Higher level of care. Accepting physician is Dr. Beka Martin. Condition is Serious. Problem is new. Symptoms have improved. jd3
[2019-03-14] MEDS ORDERED: Phenylephrine HCl 10 MG/ML 1 ML VIAL ONE (20:29)
[2019-03-14] MEDS ORDERED: NA CHLORIDE 0.9% 100 ML IV ONE (21:40)
[2019-03-14 22:13] LABS: Arterial Blood Carboxyhemoglob 0.8 % (0-1.5); Blood Gas Oxyhemoglobin 94.8 % (94-97); Blood O2 Saturation 96.9 % (92-98.5)
[2019-03-14 22:43] VITALS: TEMP 97.8
[2019-03-14 23:16] VITALS: O2SAT 100
[2019-03-14 23:29] VITALS: BP 93/54
--- NOTE | 2019-03-16 20:51 | EKG ---
Test Date: 2019-03-14 Test Time: 15:52:42 Slat [employer]ister: HOPE MEASUREMENT RESULTS: Intervals: Rate: 100 NM: 160 QRSD: 84 QT: 336 QTc: 433 [place]: P: 63 NM: 160 QRS: 12 T: 61 INTERPRETIVE STATEMENTS: Normal sinus rhythm Low voltage QRS Nonspecific T wave abnormality Abnormal ECG No previous ECG available for comparison Electronically Signed On 03-16-19 20:47:08 [employer] by Ean Mo
== END 2019-03-14 22:50 | disposition short-term general hospital (02) ==
LOC: ER 15:33
PROC: 06HM33Z Insertion of Infusion Device into Right Femoral Vein, Percutaneous Approach (ICD-10-PCS; principal; 2019-03-14)
PROC: 05HN33Z Insertion of Infusion Device into Left Internal Jugular Vein, Percutaneous Approach (ICD-10-PCS; 2019-03-14)
DX: A41.9 Sepsis, unspecified organism (principal); R65.21 Severe sepsis with septic shock; L02.211 Cutaneous abscess of abdominal wall; E11.9 Type 2 diabetes mellitus without complications; Z72.0 Tobacco use; Z85.07 Personal history of malignant neoplasm of pancreas
CPT/HCPCS: 96365; 96367; 96361; 96368; 93005; 87040 ×2; 85025; 80048; 36415; 86900; 83735; 86850; 82550; 85610; 86901; 82947; 80076; 83605 ×2; 85730; 84484; 83690; 84145; 74176; 71045 ×2; 82805; 51702; 96375; 99291; 99292; 36556 ×2; J2370; C9113; J3010 ×2; J3475; J0610; J0692; J7060 ×2; J7040 ×2; J7030 ×2; J2405

== ENCOUNTER 2019-05-01 14:50 | Inpatient (IN) | payer OTHER ==
--- OUTSIDE RECORDS SUMMARY | 2019-05-01 14:52 | XMS REPORT ---
:1955 [facility] Address [address] [place] [address] Care Team Providers Name Role Phone Unavailable Unavailable Unavailable Problems This patient has no known problems. Allergies, Adverse Reactions, Alerts This patient has no known allergies or adverse reactions. Medications This patient has no known medications.
--- OUTSIDE RECORDS SUMMARY | 2019-05-01 14:53 | XMS REPORT | Continuity of Care Document ---
:1955 Author Organization [facility] Address [address] [place] [address] Allergies, Adverse Reactions, Alerts Allergen Type Severity Reaction Last Updated Verified Status Lorazepam Allergy Moderate RASH/ITCHING April 12, Yes Active ([id number]) 2019 Piperacillin Adverse Moderate ITCHING April 12, Yes Active ([id number]) Reaction 2019 Tazobactam Adverse Moderate ITCHING April 12, Yes Active ([id number]) Reaction 2019 Medications Medication Status Dose Units Route Sig Qty Days Start End Instructions Date Date Acetamin/Codeine Active 2 ORAL Every 6 15 300/30 Mg * Hours As Needed as needed for Amino Active 30 ORAL Once Acids-Protein Daily Hydrolysat Ascorbic Acid Active 1 ORAL Daily 30 30 Chlorpromazine Active 25 ORAL Three Hcl Times Daily Before Meals Digoxin Discontinued 0.125 ORAL Once Daily for April 18, 2019 Hypertension 11:58am (One-Time) Digoxin Active 1 ORAL Once Daily Docusate Sodium Active 1 ORAL Twice A Day 60 30 Gabapentin Active 1 ORAL Three Times A Day 90 Ipratropium-Albuterol Active 1 RESPIRATORY Twice A Day as 60 30 (INHALATION) needed for Shortness Of Breath Metoprolol Discontinued 25 ORAL Twice A Day for April 18, Tartrate Hypertension 2019 11:58am (One-Time) Nystatin Active TOPICAL Twice A Day (Topical) Oyster Shell Active 1 ORAL Once Daily 60 30 Pantoprazole Discontinued 40 ORAL Before March Sodium Breakfast for 2019 Gerd 11:58am Paroxetine * Active 1 ORAL Daily 30 30 Prednisone Discontinued 20 ORAL Daily for 5 March Steroids 2019 12:57pm Zolpidem Tartrate Discontinued 5 ORAL At Bedtime As April 18, 2019 Needed as needed 12:49pm (One-Time) for Insomnia Amlodipine Besylate Discontinued 1 ORAL Daily April 11, 2019 Cyclobenzaprine Hcl Discontinued 10 ORAL Every 12 October Hours As 2014 Needed as 6:28pm needed for Muscle Spasms Ferrous Sulfate Discontinued 1 ORAL Daily 30 April 18, 2019 Glipizide Discontinued 1 ORAL Once Daily 60 April 18, 2019 Hydrocodone-Acetaminop Discontinued 1 ORAL Every 6 Hours March hen 10/325MG * As Needed as 2019 needed for Pain Hydrocodone-Acetaminop Discontinued 2 ORAL Every 6 Hours March hen 10/325MG* As Needed 2019 Levofloxacin Discontinued 1 ORAL Daily 29 OctoberMarch 27, 20142019 6:28pm Losartan Discontinued 1 ORAL Daily 23 April Potassium/Hctz 100/25 2019 Mg * Methylprednisolone Discontinued 1 ORAL As Directed 23 OctoberMarch 27, 20142019 6:28pm Pantoprazole Sodium Discontinued 40 ORAL Before March Paroxetine Hcl * Discontinued 20 ORAL Once Daily April 11, 2019 Problems Active Problems Medical Problem Onset Date Status Accidental overdose Active Degenerative arthritis of hip Active Degenerative joint disease of left hip Active Encounter for chronic pain management Active Generalized muscle ache Active Generalized muscle ache Active Generalized muscle ache Active Generalized muscle ache Active Generalized muscle ache Active 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 Hypotension Active Insomnia Active Left hip pain Active Lumbar radiculopathy Active Morbid obesity Active Pancreatic cancer Active Rib pain on left side Active Rib pain on left side Active Tachycardia Active UTI (urinary tract infection) Active Procedures Procedure Date Performed Status COMPREHEN METABOLIC PANEL March 25, 2019 completed COMPLETE CBC W/AUTO DIFF WBC March 25, 2019 completed ROUTINE VENIPUNCTURE March 25, 2019 completed March 25, 2019 completed VITAMIN D 25 HYDROXY March 26, 2019 completed ASSAY OF PSA TOTAL March 26, 2019 completed ASSAY THYROID STIM HORMONE March 26, 2019 completed LIPID PANEL March 26, 2019 completed ASSAY OF DIGOXIN TOTAL March 26, 2019 completed GLYCOSYLATED HEMOGLOBIN TEST March 26, 2019 completed ROUTINE VENIPUNCTURE March 26, 2019 completed March 26, 2019 completed ASSAY OF AMMONIA April 11, 2019 completed COMPREHEN METABOLIC PANEL April 11, 2019 completed COMPLETE CBC W/AUTO DIFF WBC April 11, 2019 completed ROUTINE VENIPUNCTURE April 11, 2019 completed April 11, 2019 completed Computed tomography of abdomen and pelvis without April 11, 2019 completed contrast X-ray of chest, single view April 12, 2019 completed Computed tomography of head without contrast April 12, 2019 completed X-ray of chest, single view April 15, 2019 completed Relevant Diagnostic Tests and/or Laboratory Data Laboratory Results Test Date/Time Result Interpretation Reference Result Comment Performing Range Site White Blood Amada 7.6 4.0-12.3 [facility], [address] Count 2019 8:[address] [place] [id number] Red Blood Count Amada 2.94 3.80-5.80 [facility], [address] 2019 8:[address] [place] [address]1979 Hemoglobin Amada 9.6 11.7-17.2 [facility], [address] 2019 8:[address] [place] [address]28 Hematocrit Amada 29.2 35.0-51.0 [facility], [address] 2019 8:[address] [place] [address] [place] [address] Mean Amada 99.3 83-100 [facility], [address] Corpuscular 2019 Volume 8:[address] [place] [address] 99670 Mean Amada 32.7 26.8-33.4 [facility], [address] Corpuscular 2019 Hemoglobin 8:[address] [place] [address] 31961 Mean Amada 32.9 30-35 [facility], [address] Corpuscular 2019 Hemoglobin 8:[address] [place], [place] [id number] Concent Red Cell Amada 20.5 12.0-14.0 [facility], [address] Distribution 2019 Width 8:[address] [place] [address] 9[address]46 Platelet Count March 213 175-450 [facility], [address] 2019 8:[address] [place] [address] 34599 Mean Platelet Amada 9.1 9.4-12.6 [facility], [address] Volume 2019 8:[address] [place] [address] 85560 Neutrophils (%) March 79.4 44.7-82.4 [facility], [address] (Auto) 2019 8:[address] [place] [address] 23616 Immature Amada 0.7 0.0-0.4 [facility], [address] Granulocyte % 2019 (Auto) 8:[address] [place] [address] 10084 Lymphocytes (%) Amada 12.6 10.0-50.0 [facility], [address] (Auto) 2019 8:[address] [place] [address] 46319 Monocytes (%) March 7.3 3.9-13.4 [facility], [address] (Auto) 2019 8:[address] [place] [address] 26179 Eosinophils (%) Amada 0 0.0-6.4 [facility], [address] [facility] [address] (Auto) 2019 8:43[facility] [address] Basophils (%) Amada 0.0 0.2-1.2 [facility], [address] [facility] (Auto) 2019 8:43[facility] [address] Neutrophils # Amada 6.00 1.78-5.38 [facility], [address] [facility] (Auto) 2019 8:43[facility] 310[address] Absolute Amada 0.1 0.0-0.03 [facility], [address] [facility] Immature 2019 Granulocyte 8:43[facility] [address] (auto Lymphocytes # Amada 1.0 1.32-3.57 [facility], [address] [facility] (Auto) 2019 8:43[facility] [address] Monocytes # Amada 0.55 0.30-0.82 [facility], [address] [facility] (Auto) 2019 8:43[facility] 55463 Eosinophils # Amada 0.00 0.04-0.54 [facility], [address] [facility] (Auto) 2019 8:43[facility] 318[address] Basophils # Amada 0.00 0.01-0.08 [facility], [address] [facility] (Auto) 2019 8:43[facility] 95971 Nucleated Red Amada 0 0-0.2 [facility], [address] [facility] Blood Cells % 2019 8:43[facility] 14505 Nucleated Red Amada 0 0 [facility], [address] [facility] Blood Cells # 2019 8:43[facility] 6[address] Urine Color Amada YELLOW [facility], [address] [facility] 2019 5:33pm [facility] [address] Urine Amada TUBID CLEAR [facility], [address] [facility] Appearance 2019 5:33pm [facility] 09393 Urine Glucose Amada NEGATIVE NEGATIVE [facility], [address] [facility] (UA) 2019 5:33pm [facility] 27291 Urine Bilirubin Amada NEGATIVE NEGATIVE [facility], [address] [facility] 2019 5:33pm [facility] 74545 Urine Ketones Amada NEGATIVE NEGATIVE [facility], [address] [facility] 2019 5:33pm [facility] 04452 Urine Specific Amada 1.005 1.003-1.03 [facility], [address] [facility] [place] 2019 0 5:33pm [place] [address] Urine Blood March LARGE NEGATIVE [facility], [address] 2019 5:33pm [place] [address] Urine pH March 8.500 5-9 [facility], [address] 2019 5:33pm [place] [address] Urine Protein March 2+ (100 NEGATIVE [facility], [address] 2019 mg/dL) 5:33pm [facility] 935[address] Urine Amada 0.2 0.2-1.0 [facility], [address] Urobilinogen 2019 5:33pm [place] [address] Urine Nitrate March POSITIVE NEGATIVE [facility], [address] 2019 5:33pm [place] [address] Urine Leukocyte March 3+ LARGE NEGATIVE [facility], [address] Esterase 2019 5:33pm [place] [address] Urine RBC March 4-6 0-5 [facility], [address] 2019 5:33pm [place] [address] Urine WBC March 30-49 0-5 [facility], 104 2019 5:33pm [place] [address] Urine Amada 0-5 0-5 [facility], [address] Epithelial 2019 Cells 5:33pm [facility] 14126 Urine Bacteria March LARGE None [facility], [address] 2019 (3+) Detect 5:33pm [facility] [address] Urine Culture March YES [facility], [address] Reflexed 2019 5:33pm [facility] [address]120 Arterial Blood March 7.43 7.35-7.45 [facility], [address] pH 2019 10:45am [facility] 10941 Arterial Blood March 38 35-45 [facility], [address] Partial 2019 Pressure CO2 10:45am [facility] 24996 Arterial Blood March 84 75-100 [facility], [address] Partial 2019 Pressure O2 10:45am [facility] 37988 Arterial Blood March 25.0 22-26 [facility], [address] HCO3 2019 10:45am [facility] 71582 POC Capillary March 93 70 - 110 [facility], [address] Blood Glucose 2019 (Chem) 10:29pm [facility] 69984 Arterial Blood March 0.7 -2.0-2.0 [facility], [address] Base Excess 2019 10:45am [facility] 69690 Arterial Blood March 23.5 23.0-33.0 [facility], [address] Total CO2 2019 10:45am [facility] 35337 Arterial Blood March 97 95-100 This is a [facility], [address] Oxygen 2019 calculated Saturation 10:45am result. [facility] 34922 Oxygen Content March 5.5 [facility], [address] 2019 10:45am [facility] 18586 Lactic Acid Amada 1.89 0.5-2.2 [facility], [address] Level 2019 7:11am [facility] 20914 Random Glucose March 87 82-115 [facility], [address] 2019 8:48am [facility] 07436 Blood Urea March 14 8-23 [facility], [address] Nitrogen 2019 8:48am [facility] 70324 Serum March 281 280-300 [facility], [address] Osmolality 2019 8:48am [facility] 75844 Creatinine Amada 0.8 0.70-1.20 [facility], [address] 2019 8:48am [facility] 31160 Glomerular Amada > 60.00 GFR RESULTS ARE [facility], [address] Filtration Rate 2019 REPORTED IN Calc 8:48am mL/min/1.73m2.N [facility] 72811 ormal GFR: >60mL/minModera tely decreased GFR: 30-59 mL/minSeverely decreased GFR: 15-29 mL/minKidney Failure (or Dialysis): <15 mL/minThe calculated eGFR is not valid for patients younger than 18 years or older than 75 years. BUN/Creatinine March 17.5 12-20 [facility], [address] Ratio 2019 8:48am [facility] 13911 Sodium Level March 141 135-145 [facility], [address] 2019 8:48am [facility] 26759 Potassium Level March 3.3 3.5-5.2 [facility], [address] 2019 8:48am [facility] 51614 Chloride Level March 105 98-108 [facility] [address] 2019 8:48am [facility] 35930 Carbon Dioxide March 26 21-32 [facility], [address] Level 2019 8:48[facility] [address] Anion Gap Amada 13.3 12-20 [facility], 104 2019 8:48[facility] [address]82 Calcium Level Amada 7.5 8.8-10.2 [facility], 104 2019 8:48[facility] [address]846 Phosphorus Amada 2.9 2.5-4.5 [facility], [address] [facility] Level 2019 8:43[facility] [address] Magnesium Level Amada 2.0 1.6-2.4 [facility], 104 2019 8:43[facility] 9[address]75 Total Protein Amada 6.3 6.6-8.7 [facility], [address] [facility] 2019 8:43[facility] 76427 Albumin Amada 2.3 3.5-5.2 [facility], [address] [facility] 2019 8:43[facility] [address]120 Globulin Amada 4.0 [facility], [address] [facility] 2019 8:43[facility] [address]693 Albumin/Globuli Amada 0.6 >1.0 [facility], [address] n Ratio 2019 8:43[facility] 53286 Total Bilirubin March 0.4 0.0-1.2 [facility], [address] [facility] 2019 8:43[facility] [address]642 Aspartate Amino March 65 15-40 [facility], [address] [facility] Transf 2019 (AST/SGOT) 8:43[facility] [address]63 Alanine March 26 0-41 [facility], 104 Aminotransferas 2019 e (ALT/SGPT) 8:43[facility] 36678 Ammonia Amada 51.3 16-60 [facility], [address] [facility] 2019 10:05[facility] 26830 Hemoglobin A1c March 4.6 4.0-6.0 [facility], [address] [facility] 2019 7:39[facility] [address] DF-Xlm-W-Type Amada 392 0-125 [facility], [address] [facility] Natriuretic 2019 Peptide 6:12[facility] 17068 Prostate Amada 0.21 0.0-4.00 [facility], [address] [facility] Specific 2019 Antigen Total 11:07[facility] 31255 Total Alkaline Amada 110 40-130 [facility], [address] [facility] Phosphatase 2019 8:43am [facility] 66414 Cholesterol March 47 150-200 [facility], [address] [place] [address] Level 2019 7:39am [facility] 73328 Triglycerides March 54 <[address] 2019 7:39am [facility] 369[address] HDL Cholesterol March 16 >55 HDL EXPECTED [address] 2019 VALUES:FEMALES: 7:39am >65 mg/dL NO [facility] [address]135 RISK 45-65 mg/dL MODERATE RISK <45 mg/dL HIGH RISKMALES: >55 mg/dL NO RISK 35-55 mg/dL MODERATE RISK <35 mg/dL HIGH RISK LDL Cholesterol April 12 <100 LDL Expected [address] 2019 Values:Optimal 7:39am <100 mg/dLNear [facility] [address]64[address] optimal/above optimal 100-129 mg/dLBorderline high 130-159 mg/dLHigh 160-189 mg/dLVery high >190 mg/dL Coronary Heart March 2.[address] Disease Risk 2019 NATIONAL Ratio 7:39am CHOLESTEROL [facility] [address]3333 GUIDELINES [facility] ([facility]) guidelines for classificaton, testing and management of cholesterol levels in adults over 20 years of age. This new classification creates three categories of risk for coronary heart disease, regardless of age or sex, according to total and LDL cholesterols levels: Based on total cholesterol levelDesirable <200 mg/dlBorderline -high 200-239 mg/dlHigh >=240 mg/dl Based on cholesterol ratioCHD RISK CHOL/HDL RATIO ----- MALE FEMALE0.5 x Average 3.4 3.31.0 x Average 5.0 4.42.0 x Average 9.6 7.13.0 x Average 13.5 11.0 Cortisol 8am March 9.3 6.20-19.[address] Sample 2019 8:24am [facility] 01833 Digoxin Level Amada 0.63 0.8-2.0 A specimen [address] 2019 should be 4:07pm collected at [place] [address] least 6 to 8 hours after drug administration. By this time, serum digoxin levels are expected to be in equilibrium with tissue levels and should correlate with pharmacologic effects. Vancomycin March 28.9 01-11 Results have [address] Level Trough 2019 been 10:50pm broadcasted to [place] [address] patient's location and called to (ROOPA). By NELIA LEWIS 04/13/19 [email or web address] read back for confirmation. Thyroid March 0.51 0.36-3.74 [place] [address] [address] Stimulating 2019 Hormone (TSH) 7:39am [place] [address] Free Thyroxine March 0.91 0.93-1.[address] 2019 7:39am [place] [address] Vitamin D March 5.56 6.4-49.[address] 25-Hydroxy 2019 11:07am [place] [address] Troponin I March < 0.30 0.0-0.[address] 2019 clinical 8:24am studies have [place] [address] shown elevations of cTnI in patients with myocardial injury, as seen in unstable angina pectoris, cardiac contusions, and heart transplants. Elevations have also been seen in patients with rhabdomyolysis and polymyositis.El evated troponin levels point to myocardial injury, but are not necessarily indicative of an ischemic mechanism. The term NC should be used when there is evidence of cardiac damage, as detected by marker proteins in a clinical setting consistent with myocardial ischemia. If the clinical circumstance suggests that an ischemic mechanism is unlikely, other causes of cardiac injury should be considered.For diagnostic purposes, the results should always be assessed in conjunction with the patient's medical history, clinical examination and other findings. Microbiology Results Procedure Source Result Collection Result Result Performing Date/Time Date/Time Comment Site Blood Culture BLOOD FINAL REPORT. April 12March [facility], [address] 2019 8:39am 2019 8:44am [place] [address] Urine Culture URINE,STEPHANIE PROTEUS April 11March [facility], [address] [place] 2019 5:33pm 2019 8:42am [place] [id number] Diagnostic Imaging Reports Report Dictated Date/Time Dictated By Status April 11, 2019 3:25pm YANI MADERA MD completed Patient: BOBBI NOVOA JR MR#: [id number] : [address] AISHA JAFFE DO Pt Status : REG ER Pt Location: [facility] Date/Time: 04/11/19 1335 Primary Care Physician: AISHA JAFFE DO Technologist(s): PENNY UCELLAR Procedure(s): [id number] CT/CT ABD & PELVIS W/O Signed EXAM: CT Abdomen and Pelvis WITHOUT contrast INDICATION: Pain. COMPARISON: None. TECHNIQUE: Abdomen and pelvis were scanned utilizing a multidetector helical scanner from the lung base to the pubic symphysis without administration of IV contrast. Absence of intravenous contrast decreases sensitivity for detection of focal lesions and vascular pathology. Coronal and sagittal reformations were obtained. Routine protocol was performed. IV CONTRAST: None. ORAL CONTRAST: Water RADIATION DOSE: Total DLP 1559.66 mGy*cm Estimated effective dose: (DLP x 0.015 x size factor) mSv COMPLICATIONS: None FINDINGS: LINES and TUBES: None. LOWER THORAX: Unremarkable HEPATOBILIARY: The liver is markedly diffuse hypodense compared to the spleen, consistent with diffuse hepatic diffuse hepatic steatosis. No focal hepatic lesions. Mild pneumobilia. GALLBLADDER: Absent. SPLEEN: No splenomegaly. PANCREAS: Findings suggestive of pancreatic head resection. No focal masses or ductal dilatation. ADRENALS: No adrenal nodules KIDNEYS/URETERS: No hydronephrosis. 2.5 cm lesion exophytic of the lower pole of the right kidney demonstrate a higher than water attenuation, possibly due to hyperkinesis content or hemorrhage. No stones. GI TRACT: Evaluation limited due to the lack of contrast postoperative changes involving small bowel loops in the left anterior mid abdomen with postoperative changes suggesting of partial gastrectomy with gastrojejunal anastomosis. There is mild distention of the jejunal loop up to 4.6 cm extending into an infiltration in the epigastric region as seen on axial image 27 series 2, however, there is gas and stool throughout the colon and rectum. There is swirling of the mesenteric vasculature in the midabdomen as seen on axial image 48 which may be post surgical anatomic change, however, which can also be seen with internal hernia. Diffuse wall thickening of the rectosigmoid which may reflect stercoral colitis. There is also evidence of status post right hemicolectomy and transverse colon resection, with ileal ascending anastomosis. Descending and sigmoid colon diverticulosis, consistent with mild nonspecific stranding of the surrounding fat. PELVIC ORGANS/BLADDER: Unremarkable. LYMPH NODES: Mildly prominent lymph nodes in the left upper quadrant and retroperitoneum. This may reflect reactive lymphadenopathy. VESSELS: An IVC filter is present. Atherosclerotic secretions of the aorta and iliac arteries without aneurysmal dilatation. PERITONEUM / RETROPERITONEUM: No free air or fluid. BONES: There are degenerative changes in the lumbar spine. Severe degenerative changes of the right hip. SOFT TISSUES: Anasarca. IMPRESSION: 1. Mild colonic diverticulosis with concern for descending/sigmoid diverticulitis without abscess formation. 2. Findings may reflect mild stercoral colitis. 3. Postoperative changes involving the gastrointestinal tract including probable status post Whipple's procedure as detailed above. Recommend correlation with past surgical history. Mild focal ileus involving the pharyngeal jejunal loop. 4. Mildly complex right lower pole renal cyst. Consider further evaluation with nonemergent ultrasound of kidneys. 5. Severe hepatic steatosis. 6. Mild upper abdominal mesenteric and retroperitoneal lymphadenopathy may be reactive, however, recommend attention on follow-up. Signed by: Dr. Jessica Madera M.D. on 04/11/2019 3:25 PM Transcribed By: [employer] SIGNED <electronically signed by YANI MADERA MD> [id number] YANI MADERA MD April 12, 2019 9:35am BARBIE HONG MD completed Patient: BOBBI NOVOA JR MR#: [id number] : [address] SHERRI HOUSE MD Pt Status: ADM IN [facility] Date/Time: 04/12/19 0805 Primary Care Physician: AISHA JAFFE DO Technologist(s): PENNY CUELLAR Procedure(s): [id number] RAD/CHEST 1 VIEW Signed EXAMINATION: CHEST 1 VIEW INDICATION: Pneumonia COMPARISON: CT abdomen and pelvis 04/11/2019 FINDINGS: AP view TUBES and LINES: None. LUNGS: Lungs are well inflated. Bibasilar airspace opacities, left greater than right, unchanged. No new consolidations or pulmonary edema. PLEURA: Trace bilateral pleural effusions, stable. No pneumothorax. HEART AND MEDIASTINUM: The cardiac silhouette is prominent likely due to presence of a small pericardial effusion as noted on recent CT abdomen and pelvis. BONES AND SOFT TISSUES: No acute osseous lesion. Soft tissues are unremarkable. UPPER ABDOMEN: No free air under the diaphragm. IMPRESSION: Bibasilar airspace opacities are suggestive of atelectasis when compared to CT from 04/11/2019. No new consolidations. Trace bilateral pleural effusions, unchanged. Signed by: Dr. Barbie Easley M.D. on 04/12/2019 9:35 AM Transcribed By: [employer] SIGNED <electronically signed by BARBIE EASLEY MD> BARBIE EASLEY MD April 12, 2019 2:29pm BELGICA ESCOBEDO MD completed Patient: BOBBI NOVOA JR MR#: [id number] : 1955 Ordering DrHector: SHERRI HOUSE MD Pt Status: ADM IN Pt Location: [facility] Date/Time: 04/12/19 0856 Primary Care Physician: AISHA JAFFE DO Technologist(s): PENNY CUELLAR Procedure(s): [id number] CT/CT HEAD W/O CONTRAST Signed EXAMINATION: Head CT Images made available for interpretation on 04/12/2019 at 2:25 PM. HISTORY: Right-sided numbness, history of cancer, episodes of hypoglycemia COMPARISON: None. TECHNIQUE: Multidetector axial images were obtained without contrast from the foramen magnum to the vertex . The images were reconstructed using brain and bone algorithms. Thin section brain images were reformatted into coronal and sagittal planes. Image quality: Motion/streaking artifact limits the evaluation of the skull base and posterior cranial fossa. Dose modulation, iterative reconstruction, and/or weight based adjustment of the mA/kV was utilized to reduce the radiation dose to as low as reasonably achievable. FINDINGS: Parenchyma: 1. Few scattered white matter hypodensities, most likely nonspecific chronic microvascular ischemic changes. 2. No mass or hemorrhage. No CT evidence of acute territorial vascular insult. Extra-axial spaces:No abnormal density. No extra-axial fluid collections Brain volume: Normal for age. Ventricles: No hydrocephalus or displacement. Arteries: No density suggestive of thrombus. Dural sinuses: No abnormal density. Foramen magnum: No mass, Chiari malformation, or basilar invagination. Sella: No obvious mass. Paranasal/mastoid sinuses: Imaged portions unremarkable. Skull/Scalp: No lytic or blastic lesions. No fractures. IMPRESSION: 1. No acute intracranial hemorrhage or cortical infarct. If there is clinical concern for acute infarction consider brain MRI for further evaluation. 2. Mild white matter chronic microvascular ischemic changes. Signed by: Dr. Belgica Escobedo M.D. on 04/12/2019 2:29 PM Transcribed By: [employer] SIGNED <electronically signed by BELGICA ESCOBEDO MD> [id number] BELGICA ESCOBEDO MD April 15, 2019 7:36am Roel Figueroa DO completed Patient: BOBBI NOVOA JR MR#: [id number] : [address] AMANUEL BANERJEE MD [facility]: [id number] Pt Location: [facility] Date/Time: 04/15/19 0600 Primary Care Physician: AISHA JAFFE DO Technologist(s): QIANA DE LEÓN Procedure(s): [id number] RAD/CHEST 1 VIEW Signed EXAMINATION: CHEST 1 VIEW INDICATION: Pulmonary edema COMPARISON: Chest x-ray 04/12/2019 FINDINGS: TUBES and LINES: None. LUNGS/PLEURA: Low lung volumes. Slightly prominent pulmonary interstitial lung markings. Prominent central pulmonary vasculature. The costophrenic sulci are not well delineated. No pneumothorax HEART AND MEDIASTINUM: The cardiomediastinal silhouette is borderline enlarged. BONES AND SOFT TISSUES: No acute osseous lesion. Soft tissues are unremarkable. UPPER ABDOMEN: No free air under the diaphragm. IMPRESSION: Low lung volumes with bibasilar atelectasis. Pulmonary vascular congestion. Early mild pulmonary interstitial edema and trace pleural effusions are possible. Borderline cardiomegaly versus cardiac accentuation due to low lung volume. Signed by: Roel Figueroa DO on 04/15/2019 7:36 AM Transcribed By: [employer] SIGNED <electronically signed by Roel Figueroa DO> Roel Figueroa DO Health Concerns No known health concerns documented Advance Directives Advance Directive Response Recorded Date/Time Advance Directives No November 18, 2014 4:16am Advance Directive on File No April 11, 2019 7:13pm Directive to Physicians/Living Will No November 18, 2014 4:16am Health Care Proxy No November 18, 2014 4:16am Name of Surrogate/Decision Maker EDUIN SANTANA April 11, 2019 11:17am Organ Donor No November 18, 2014 4:16am Medical Power of Dairy Frozen Manager No November 18, 2014 4:16am Patient/Family Given Education Material No April 11, 2019 7:13pm R/T Directives? 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 Pancreatic cancer Encounters Encounter Location(s) Arrival/Admit Date Discharge/Depart Date Provider(s) Discharged [place] April 11, 2019 [facility] Ctr Registered [place] April 11, 2019 [facility] 10:03am [facility] C[facility] Registered [place] March 26, 2019 [facility] 11:01am [facility] Ctr Registered [place] March 25, 2019 [facility] 1:50pm [facility] Ctr Recent Diagnosis Onset Date UTI (urinary tract infection) 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 [address] Contact Info. Home Phone: Payer Policy Id Coverage Id Subscriber's Subscriber Id Effective Expiration Name Date Date Medicare [id number] Bobbi Novoa Jr [id number] 2009 Plan of Treatment Future Tests Future scheduled test information is unavailable Pending Tests Pending diagnostic test information is unavailable Future Visits Future appointment information is unavailable Referrals to Other Providers Referral information is unavailable Future Procedures Future procedure information is unavailable Future Medications Future medication information is unavailable Patient Instructions Metoprolol extended-release tablets Pantoprazole tablets Digoxin tablets or capsules Social History Smoking Status Status Date of Observation Smokes tobacco daily (finding) April 11, 2019 7:13pm Observation Status Observation Response Date of Response Hx Physical Abuse No April 11, 2019 7:56pm Assigned Sex Male Vital Signs Vital Reading Result Collection Date/Time Hospital Discharge Instructions Additional Instructions Instructions Physician Documentation [place] follow up instructions * If you have any questions or concerns, please contact [phone] and ask for the hospitalist on duty. If you are having a medical emergency, please report to the nearest emergency room in your area. * Access your patient portal or follow up with your PCP regarding any procedures or tests that have not yet been resulted. Follow up with: manager of sales, PCP, director independent Follow up appointment in: 7 days Activity on discharge: fall precautions Diet on discharge: cardiac Condition on discharge: stable
[2019-05-01] MEDS ORDERED: NA CHLORIDE 0.9% 1,000 ML ONE ×3 (15:12→19:47)
[2019-05-01 15:31] LABS: Absolute Lymphocytes (CBC) 0.4 K/uL (0.7-4.9); Basophils % 0.4 % (0-1.3); Hematocrit 35.2 % (39.6-49.0); Lymphocytes % 4.8 % (15.3-44.8); MPV 8.8 fL (7.6-11.3); RBC Red Blood Cell Count 3.47 M/uL (4.33-5.43)
[2019-05-01 15:32] LABS: Protime INR 1.28
[2019-05-01 16:38] LABS: ALT/SGPT 24 U/L (12-78); AST/SGOT 48 U/L (15-37); Albumin 1.7 g/dL (3.4-5.0); Alkaline Phosphatase 104 U/L (45-117); BUN Blood Urea Nitrogen 12 mg/dL (7-18); Bicarbonate 24 mmol/L (21-32); Bilirubin Direct 0.3 mg/dL (0-0.2); Bilirubin Total 0.5 mg/dL (0.2-1.0); Glucose Level 144 mg/dL (74-106); Magnesium 1.5 mg/dL (1.8-2.4); NT PRO-BNP 800 pg/mL (<125); Potassium 3.8 mmol/L (3.5-5.1); Protein, Total 5.4 g/dL (6.4-8.2); Sodium Level 141 mmol/L (136-145); Troponin (Emerg Dept Use Only) < 0.02 ng/mL (0.0-0.045)
--- NOTE | 2019-05-01 17:08 | RAD REPORT ---
EXAM DESCRIPTION: RAD - Chest Single View - 05/01/2019 5:01 pm CLINICAL HISTORY: CONGESTION Chest pain. COMPARISON: Chest Single View dated 03/14/2019; Chest Single View dated 03/14/2019 FINDINGS: Portable technique limits examination quality. The left lung base is hazy suspicious for mild infiltrate/ pleural effusion. The remainder the visual ized lung torres are clear. The heart is normal in size. No displaced fractures.
[2019-05-01 17:31] LABS: Anisocytosis 1+; Blood Morphology Comment NOTED (NOT SEEN); Platelet Estimate ADEQ; Urine White Blood Cell Casts OK
[2019-05-01] MEDS ORDERED: CEFTRIAXONE/SWI 1gm 1 GM/10 ML SYR ONE (17:48)
[2019-05-01] MEDS ORDERED: AZITHROMYCIN IV 500 MG in NA CHLORIDE 0.9% 250 ML IVPB ONE (18:00)
--- NOTE | 2019-05-01 18:03 | ER ---
Nurse's Notes [facility] Name: Delroy Novoa Jr Age: 63 yrs Sex: Male : 1955 Arrival Date: 05/01/2019 Time: 14:56 Bed 4 Private MD: Diagnosis: Pneumonia in diseases classified elsewhere Presentation: 05/01 14:46 Presenting complaint: EMS states: called out for high HR and chills. Daughter informed EMS that pt was taken off of Metoprolol 2 days ago d/t some orthostatic issues. Today he started having high HR, denies CP, SOB. Daughter gave 1/2 tab of his metoprolol. Transition of care: patient was not received from another setting of care. Onset of symptoms was May 01, 2019. Risk Assessment: Do you want to hurt yourself or someone else? Patient reports no desire to harm self or others. Initial Sepsis Screen: Does the patient meet any 2 criteria? HR > 90 bpm. No. Patient's initial sepsis screen is negative. Does the patient have a suspected source of infection? No. Patient's initial sepsis screen is negative. Care prior to arrival: None. 14:46 Method Of Arrival: EMS[facility] 14:46 Acuity: CHELSIE 2 sv Triage Assessment: 14:46 General: Appears in no apparent distress. comfortable, obese, well developed, Behavior sv is calm, cooperative, appropriate for age, Reports chills for 0-12 hours. Pain: Denies pain. Neuro: Level of Consciousness is awake, alert, obeys commands, Oriented to person, place, time, situation, Speech is normal. Cardiovascular: Rhythm is sinus tachycardia. Respiratory: Respiratory effort is even, unlabored, Respiratory pattern is regular, symmetrical. Derm: Skin is normal. Historical: - Allergies: 15:00 Ativan; sv 15:00 Hydrocodone-Acetaminophen; sv 15:00 Zosyn; sv - Home Meds: 15:00 gabapentin 300 mg oral cap twice a day [Active]; metoprolol tartrate 25 mg Oral tab 1 sv tab 2 times per day [Active]; pantoprazole 40 mg Oral TbEC 1 tab once daily [Active]; digoxin 125 mcg Oral tab 1 tab once daily [Active]; paroxetine HCl 10 mg Oral tab 1 tab once daily [Active]; - PMHx: 15:00 Diabetes - IDDM; GI Bleed; Respiratory failure d/t sepsis; Sleep Apnea; toxic megacolon;sv 15:32 Atrial Fib; sv - PSHx: 15:00 whipple surgery; pancreatic cancer; sv - Immunization history:: Adult Immunizations up to date. - Coronavirus screen:: The patient has NOT traveled to [place], [place], or [place] in the past 14 days. Proceed with normal triage process as indicated. The patient has NOT had contact with known/suspected case of Coronavirus? Proceed with normal triage procedures. - Social history:: Patient/guardian denies using alcohol, street drugs, The patient lives with family, Smoking status: Patient denies any tobacco usage or history of. - Family history:: not pertinent. - Ebola Screening: : No symptoms or risks identified at this time. Screenin:01 Abuse screen: Denies threats or abuse. Denies injuries from another. Nutritional sv screening: No deficits noted. Tuberculosis screening: No symptoms or risk factors identified. Fall Risk None identified. Assessment: 15:15 General: Appears ill, Behavior is calm. Pain: Denies pain. Neuro: Level of ah Consciousness is awake, alert, obeys commands, Oriented to person, place, time, situation, Appropriate for age Bottle Inspector are equal bilaterally Speech is normal. Cardiovascular: Denies chest pain, Heart tones S1 S2 present Capillary refill < 3 seconds Patient's skin is warm and dry. Pulses are palpable in right radial artery, right dorsalis pedis artery, left radial artery and left dorsalis pedis artery Rhythm is sinus tachycardia. Respiratory: Airway is patent Respiratory effort is even, unlabored, Breath sounds are clear bilaterally. GI: Abdomen is round Bowel sounds present X 4 quads. : No signs and/or symptoms were reported regarding the genitourinary system. Derm: No deficits noted. Skin is intact, is healthy with good turgor, Skin is pale, Skin temperature is warm. 15:15 Reassessment: Informed MD that patient blood pressure had decreased and he gave orders to hold the metoprolol at this time and just adminitster the NS and monitor his BP. 15:22 Reassessment: Daughter states that he has been off of his Coumadin and is unsure how sv long he has been off of it. Pt was here in February for a GI bleed. He got transferred to a rehabilitation and was discharged about a week ago to his daughter. 15:58 Reassessment: Inside lab at the bedside to obtain recollect. sv 16:36 Reassessment: Xray at the bedside. sv 17:10 Reassessment: Patient appears in no apparent distress at this time. No changes from sv previously documented assessment. Patient and/or family updated on plan of care and expected duration. Pain level reassessed. Patient is alert, oriented x 3, equal unlabored respirations, skin warm/dry/pink. Dr Nguyễn discussed pt being admitted with pt and daughter. Pt ok with admission. 17:30 Reassessment: Shavon from inside lab at bedside obtaining lactate and blood cultures. sv 17:35 Reassessment: Dr Lala at the bedside. sv 18:32 Reassessment: Patient appears in no apparent distress at this time. Patient and/or ah family updated on plan of care and expected duration. Pain level reassessed. Patient is alert, oriented x 3, equal unlabored respirations, skin warm/dry/pink. 19:00 General: Appears in no apparent distress. comfortable, Behavior is calm, cooperative, rr5 appropriate for age, ongoing central line insertion by dr. paz. 19:00 Pain: Denies pain. Neuro: Level of Consciousness is awake, alert, obeys commands, rr5 Oriented to person, place, time, situation, Appropriate for age. Cardiovascular: Capillary refill < 3 seconds Patient's skin is warm and dry. Respiratory: Airway is patent Respiratory effort is even, unlabored, Respiratory pattern is regular, symmetrical. GI: Abdomen is round obese. : No signs and/or symptoms were reported regarding the genitourinary system. EENT: No signs and/or symptoms were reported regarding the EENT system. Derm: Skin is intact, is healthy with good turgor, is fragile, is thin, Skin is pink, warm \T\ dry. Skin temperature is warm Bruising that is dark purple, on right arm and left arm. Musculoskeletal: Capillary refill < 3 seconds. 19:35 Reassessment: Central line insertion attempt multiple times unsuccessful by Ed rr5 provider. dr. paz order to start Levophed drip in peripheral line. 20:20 Reassessment: Patient appears in no apparent distress at this time. Patient is alert, rr5 oriented x 3, equal unlabored respirations, skin warm/dry/pink. BP rechecked, no complaints made for ICU admission. 21:00 Reassessment: Patient appears in no apparent distress at this time. Patient is alert, rr5 oriented x 3, equal unlabored respirations, skin warm/dry/pink. transfer to ICU awake conscious and coherent not in distress, denies any pain. attached air sampling and monitoring vitally stable, with IV cannula intact ongoing Levophed drip at 10 mcg/min. Vital Signs: 14:48 BP 111 / 91; Pulse 130; Resp 20; Temp 97.6; Pulse Ox 100% ; Weight 131.54 kg; Height 5 sv ft. 10 in. (177.80 cm); Pain 0/10; 15:21 BP 82 / 58; Pulse 126; Resp 20; Pulse Ox 97% ; sv 15:44 BP 88 / 58 RA (man/); sv 16:12 BP 71 / 60; Pulse 10; Resp 17; Pulse Ox 88% on R/A; sv 16:47 BP 85 / 52; Pulse 101; Resp 24; Pulse Ox 100% on 3 lpm NC; sv 17:19 BP 77 / 49; Pulse 102; Resp 20; Pulse Ox 100% on 3 lpm NC; sv 18:31 BP 102 / 62; Pulse 104; Resp 22; Pulse Ox 100% on 3 lpm NC; ah 19:00 BP 80 / 48; Pulse 101; Resp 22; Pulse Ox 96% on 3 lpm NC; sv 20:00 BP 78 / 41; Pulse 91; Resp 22; Pulse Ox 97% ; rr5 20:10 BP 93 / 53; Pulse 88; Resp 21; Pulse Ox 99% ; rr5 20:38 BP 101 / 54; Pulse 86; Resp 23; Temp 99.6; Pulse Ox 98% ; rr5 21:00 BP 105 / 62; Pulse 95; Resp 20; Pulse Ox 98% on R/A; rr5 14:48 Body Mass Index 41.61 (131.54 kg, 177.80 cm) sv 16:12 Pt placed on O2 \T\ 3L per NC. O2 sat up to 99%. Informed Dr Nguyễn of the vitals, sv ordered to give NS 500 mls bolus. ED Course: 14:50 Arm band placed on. sv 14:50 Patient has correct armband on for positive identification. Placed in gown. Bed in low sv position. Call light in reach. Side rails up X2. quality assurance monitor final on. Pulse ox on. NIBP on. Door closed. Warm blanket given. Head of bed elevated. 14:56 Patient arrived in ED. sv 14:57 Triage completed. sv 15:00 Stef Nguyễn MD is Attending Physician. ma2 15:00 Sandy Dupont FNP-C [facility]. snw 15:00 ED physician to see patient. sv 15:03 Daisy Montanez, RN is Primary Nurse. sv 15:10 Inserted saline lock: 20 gauge in left antecubital area, using aseptic technique. Blood sv collected. Flushed left antecubital with 5 ml normal saline. 15:36 IV is patent, is intact, with fluids infusing freely. sv 16:26 Awaiting for x-ray. sv 16:41 CXR XRAY Sent. sv 17:04 CXR XRAY In Process Unspecified. EDMT 18:02 Hayden Lala MD is Hospitalizing Provider. ma 18:32 Awaiting bed assignment. 18:50 Assisted provider with central line placement. Set up central line tray. Single lumen tw2 line placed in right femoral. unsuccessful, set up for central line using US. 19:13 Report given to Sury TRONCOSO and True TRONCOSO. sv 19:50 Inserted saline lock: 20 gauge in right hand, using aseptic technique. ,using aseptic rr5 technique. inserted by Orlin/ true TRONCOSO. 20:47 Patient admitted, IV remains in place. intact, No redness/swelling at site. rr5 Administered Medications: 15:21 Drug: NS 0.9% 500 ml Route: IV; Rate: 1 bolus; Site: left antecubital; 15:58 Follow up: Response: No adverse reaction; IV Status: Completed infusion; IV Intake: sv 500ml 15:58 CANCELLED (Physician Discretion): Metoprolol 12.5 mg PO once sv 16:20 Drug: NS 0.9% 500 ml Route: IV; Rate: bolus; Site: left antecubital; sv 16:52 Follow up: Response: No adverse reaction; IV Status: Completed infusion; IV Intake: sv 500ml 17:16 Drug: NS 0.9% 1000 ml Route: IV; Rate: 125 ml/hr; Site: left antecubital; 21:47 Follow up: Response: No adverse reaction; IV Status: Infusion continued upon admission; rr5 IV Intake: 500ml 17:21 Drug: NS 0.9% 1000 ml Route: IV; Rate: 1000 ml; Site: left antecubital; sv 19:00 Follow up: Response: No adverse reaction; IV Status: Completed infusion; IV Intake: rr5 1000ml 18:13 Drug: Rocephin 1 grams Route: IV; Rate: calculated rate; Site: left antecubital; 19:15 Follow up: Response: No adverse reaction; IV Status: Completed infusion; IV Intake: [id number] 18:15 Drug: AZITHromycin 500 mg Route: IVPB; Infused Over: 1 hrs; Site: left antecubital; 19:15 Follow up: Response: No adverse reaction; IV Status: Completed infusion; IV Intake: rr5 250ml 19:50 Drug: Norepinephrine (4 mg/250 mL D5W) 4 mcg/min {Note: BP 78/64 mmHg.} Route: IV; rr5 Rate: calculated rate; Site: left antecubital; 20:00 Follow up: BP 78 / 41; Pulse 91 bpm; Resp 22 bpm; Pulse Ox 97% ; Rate change 10 mcg/min rr5 21:47 Follow up: Response: No adverse reaction; IV Status: Infusion continued upon admission rr5 Intake: 15:58 IV: 500ml; Total: 500ml. sv 16:52 IV: 500ml; Total: 1000ml. sv 19:00 IV: 1000ml; Total: 2000ml. rr5 19:15 IV: 250ml; Total: 2250ml. rr5 19:15 IV: 10ml; Total: 2260ml. rr5 21:47 IV: 500ml; Total: 2760ml. rr5 Outcome: 18:02 Decision to Hospitalize by Provider. ma2 20:47 Admitted to ICU accompanied by nurse, via stretcher, room 1, with chart, Report called rr5 to juan 20:47 Condition: stable 20:47 Instructed on the need for admit. 21:20 Patient left the ED. rr5 Signatures: Dispatcher [employer] Viji Lynn RN RN sv Therrien, Shelly, [employer] WRAPPER TENDER-C [employer]PER TENDER-[employer] Filomena Wheeler RN RN tw2 Stef Nguyễn MD MD ma2 True Bethea, RN RN rr5 Daisy Montanez, RN RN ah
--- NOTE | 2019-05-01 18:03 | EDPHYS ---
Physician Documentation [facility] Name: Delroy Novoa Jr Age: 63 yrs Sex: Male : 1955 Arrival Date: 05/01/2019 Time: 14:56 Bed 4 Private MD: ED Physician Stef Nguyễn HPI: 05/01 17:32 This 63 yrs old Male presents to ER via EMS with complaints of Tachycardia. ma2 17:32 The patient has shortness of breath at rest. Onset: The symptoms/episode began/occurred ma2 suddenly, 1 day(s) ago. Duration: The symptoms are chronic, are continuous. The patient's shortness of breath is alleviated by inhaler, OTC meds, sitting up, application of supplemental oxygen. Context: The symptoms occur at rest. Onset: The symptoms/episode began/occurred just prior to arrival. Associated signs and symptoms: Pertinent negatives: productive cough, dizziness, hemoptysis. Severity of symptoms: At their worst the symptoms were mild in the emergency department the symptoms are unchanged. Historical: - Allergies: 15:00 Ativan; sv 15:00 Hydrocodone-Acetaminophen; sv 15:00 Zosyn; sv - Home Meds: 15:00 gabapentin 300 mg oral cap twice a day [Active]; metoprolol tartrate 25 mg Oral tab 1 sv tab 2 times per day [Active]; pantoprazole 40 mg Oral TbEC 1 tab once daily [Active]; digoxin 125 mcg Oral tab 1 tab once daily [Active]; paroxetine HCl 10 mg Oral tab 1 tab once daily [Active]; - PMHx: 15:00 Diabetes - IDDM; GI Bleed; Respiratory failure d/t sepsis; Sleep Apnea; toxic megacolon;sv 15:32 Atrial Fib; sv - PSHx: 15:00 whipple surgery; pancreatic cancer; sv - Immunization history:: Adult Immunizations up to date. - Coronavirus screen:: The patient has NOT traveled to [place], [place], or [place] in the past 14 days. Proceed with normal triage process as indicated. The patient has NOT had contact with known/suspected case of Coronavirus? Proceed with normal triage procedures. - Social history:: Patient/guardian denies using alcohol, street drugs, The patient lives with family, Smoking status: Patient denies any tobacco usage or history of. - Family history:: not pertinent. - Ebola Screening: : No symptoms or risks identified at this time. ROS: 17:32 Constitutional: Negative for fever, chills, and weight loss. ma2 17:32 All other systems are negative. Exam: 17:32 Constitutional: This is a well developed, well nourished patient who is awake, alert, ma2 and in no acute distress. Head/Face: Normocephalic, atraumatic. Chest/axilla: Normal chest wall appearance and motion. Nontender with no deformity. No lesions are appreciated. Cardiovascular: Regular rate and rhythm with a normal S1 and S2. No gallops, murmurs, or rubs. Normal PMI, no JVD. No pulse deficits. Respiratory: Lungs have equal breath sounds bilaterally, clear to auscultation and percussion. No rales, rhonchi or wheezes noted. No increased work of breathing, no retractions or nasal flaring. Abdomen/GI: Soft, non-tender, with normal bowel sounds. No distension or tympany. No guarding or rebound. No evidence of tenderness throughout. MS/ Extremity: Pulses equal, no cyanosis. Neurovascular intact. Full, normal range of motion. Neuro: Awake and alert, GCS 15, oriented to person, place, time, and situation. Cranial nerves II-XII grossly intact. Motor strength 5/5 in all extremities. Sensory grossly intact. Cerebellar exam normal. Normal gait. Vital Signs: 14:48 BP 111 / 91; Pulse 130; Resp 20; Temp 97.6; Pulse Ox 100% ; Weight 131.54 kg; Height 5 sv ft. 10 in. (177.80 cm); Pain 0/10; 15:21 BP 82 / 58; Pulse 126; Resp 20; Pulse Ox 97% ; sv 15:44 BP 88 / 58 RA (man/); sv 16:12 BP 71 / 60; Pulse 10; Resp 17; Pulse Ox 88% on R/A; sv 16:47 BP 85 / 52; Pulse 101; Resp 24; Pulse Ox 100% on 3 lpm NC; sv 17:19 BP 77 / 49; Pulse 102; Resp 20; Pulse Ox 100% on 3 lpm NC; sv 18:31 BP 102 / 62; Pulse 104; Resp 22; Pulse Ox 100% on 3 lpm NC; ah 19:00 BP 80 / 48; Pulse 101; Resp 22; Pulse Ox 96% on 3 lpm NC; sv 20:00 BP 78 / 41; Pulse 91; Resp 22; Pulse Ox 97% ; rr5 20:10 BP 93 / 53; Pulse 88; Resp 21; Pulse Ox 99% ; rr5 20:38 BP 101 / 54; Pulse 86; Resp 23; Temp 99.6; Pulse Ox 98% ; rr5 21:00 BP 105 / 62; Pulse 95; Resp 20; Pulse Ox 98% on R/A; rr5 14:48 Body Mass Index 41.61 (131.54 kg, 177.80 cm) sv 16:12 Pt placed on O2 \T\ 3L per NC. O2 sat up to 99%. Informed Dr Nguyễn of the vitals, sv ordered to give NS 500 mls bolus. MDM: 15:00 Patient medically screened. ma2 17:32 Differential diagnosis: arrythmia, pneumonia, Pneumothorax reactive airway disease, ma2 Sepsis. Data reviewed: vital signs, nurses notes. Counseling: I had a detailed discussion with the patient and/or guardian regarding: the historical points, exam findings, and any diagnostic results supporting the discharge/admit diagnosis, the presence of at least one elevated blood pressure reading (>120/80) during this emergency department visit, the need for further work-up and treatment in the hospital. Response to treatment: the patient's symptoms have mildly improved after treatment. 18:02 ED course: . 05/01 15:03 Order name: Basic Metabolic Panel; Complete Time: 16:58 05/01 15:03 Order name: CBC with Diff; Complete Time: 19:23 05/01 15:03 Order name: LFT's; Complete Time: 16:58 05/01 15:03 Order name: Magnesium; Complete Time: 16:58 ia05/01 15:03 Order name: NT PRO-BNP; Complete Time: 16:58 ia05/01 15:03 Order name: PT-INR; Complete Time: 16:14 05/01 15:03 Order name: Troponin (emerg Dept Use Only); Complete Time: 16:58 ia05/01 17:19 Order name: Blood Culture Adult (2) 05/01 17:19 Order name: Lactate; Complete Time: 19:23 ia2 05/01 17:32 Order name: CBC Smear Scan; Complete Time: 19:23 EDMS 05/01 19:01 Order name: CBC with Automated Diff EDMS 05/01 19:01 Order name: CBC with Automated Diff EDMS 05/01 19:01 Order name: Comprehensive Metabolic Panel [facility] 05/01 19:01 Order name: Comprehensive Metabolic Panel EDAZ 05/01 15:03 Order name: EKG; Complete Time: 15:09 ia2 05/01 15:03 Order name: Cardiac monitoring; Complete Time: 15:04 ia2 05/01 16:20 Order name: CXR XRAY; Complete Time: 17:17 ia2 05/01 19:01 Order name: CONS Pharmacy Consult E[facility] 05/01 19:01 Order name: Troponin I [facility] 05/01 19:01 Order name: Troponin I [facility] 05/01 19:01 Order name: Troponin I [facility] 05/01 19:01 Order name: Troponin I [facility] 05/01 15:03 Order name: EKG - Nurse/Tech; Complete Time: 15:04 ia2 05/01 15:03 Order name: IV Saline Lock; Complete Time: 15:20 ia2 05/01 15:03 Order name: Labs collected and sent; Complete Time: 15:20 ia2 05/01 15:03 Order name: O2 Per Protocol; Complete Time: 15:04 ia2 05/01 15:03 Order name: O2 Sat Monitoring; Complete Time: 15:04 ia2 05/01 15:37 Order name: Labs - recollect needed: recollect chemisty tube; Complete Time: 16:26 eb Administered Medications: 15:21 Drug: NS 0.9% 500 ml Route: IV; Rate: 1 bolus; Site: left antecubital; ah 15:58 Follow up: Response: No adverse reaction; IV Status: Completed infusion; IV Intake: sv 500ml 15:58 CANCELLED (Physician Discretion): Metoprolol 12.5 mg PO once sv 16:20 Drug: NS 0.9% 500 ml Route: IV; Rate: bolus; Site: left antecubital; sv 16:52 Follow up: Response: No adverse reaction; IV Status: Completed infusion; IV Intake: sv 500ml 17:16 Drug: NS 0.9% 1000 ml Route: IV; Rate: 125 ml/hr; Site: left antecubital; 21:47 Follow up: Response: No adverse reaction; IV Status: Infusion continued upon admission; rr5 IV Intake: 500ml 17:21 Drug: NS 0.9% 1000 ml Route: IV; Rate: 1000 ml; Site: left antecubital; sv 19:00 Follow up: Response: No adverse reaction; IV Status: Completed infusion; IV Intake: rr5 1000ml 18:13 Drug: Rocephin 1 grams Route: IV; Rate: calculated rate; Site: left antecubital; 19:15 Follow up: Response: No adverse reaction; IV Status: Completed infusion; IV Intake: [id number] 18:15 Drug: AZITHromycin 500 mg Route: IVPB; Infused Over: 1 hrs; Site: left antecubital; 19:15 Follow up: Response: No adverse reaction; IV Status: Completed infusion; IV Intake: rr5 250ml 19:50 Drug: Norepinephrine (4 mg/250 mL D5W) 4 mcg/min {Note: BP 78/64 mmHg.} Route: IV; rr5 Rate: calculated rate; Site: left antecubital; 20:00 Follow up: BP 78 / 41; Pulse 91 bpm; Resp 22 bpm; Pulse Ox 97% ; Rate change 10 mcg/min rr5 21:47 Follow up: Response: No adverse reaction; IV Status: Infusion continued upon admission rr5 Disposition: 05/01/19 18:02 Hospitalization ordered by Hayden Lala for Inpatient Admission. Preliminary diagnosis is Pneumonia in diseases classified elsewhere. - Bed requested for Intensive Care Unit. - Status is Inpatient Admission. rr5 - Condition is Stable. - Problem is new. - Symptoms are unchanged. Signatures: Dispatcher [employer] Viji Lynn RN RN Nirmala Hernández RN RN Stef Nguyễn MD MD [facility] Esthela Ramirez Raymond RN RN 5 Daisy Montanez RN RN Corrections: (The following items were deleted from the chart) 15:58 15:03 Metoprolol 12.5 mg PO once ordered. [facility] 15:58 15:13 Metoprolol 12.5 mg PO once ordered. [facility] 15:58 15:57 Metoprolol 12.5 mg PO once ordered. sv 19:37 18:02 Hospitalization Ordered by Hayden Lala MD for Inpatient Admission. Preliminary cg diagnosis is Pneumonia in diseases classified elsewhere. Bed requested for Telemetry/MedSurg (Inpatient). Status is Inpatient Admission. Condition is Stable. Problem is new. Symptoms are unchanged. ma2 19:54 19:37 05/01/2019 18:02 Hospitalization Ordered by Hayden Lala MD for Inpatient cg Admission. Preliminary diagnosis is Pneumonia in diseases classified elsewhere. Bed requested for Telemetry/MedSurg (Inpatient). Status is Inpatient Admission. Condition is Stable. Problem is new. Symptoms are unchanged. cg 20:06 19:54 05/01/2019 18:02 Hospitalization Ordered by Hayden Lala MD for Inpatient cg Admission. Preliminary diagnosis is Pneumonia in diseases classified elsewhere. Bed requested for Telemetry/MedSurg (Inpatient). Status is Inpatient Admission. Condition is Stable. Problem is new. Symptoms are unchanged. cg 21:20 20:06 05/01/2019 18:02 Hospitalization Ordered by Hayden Lala MD for Inpatient rr5 Admission. Preliminary diagnosis is Pneumonia in diseases classified elsewhere. Bed requested for Intensive Care Unit. Status is Inpatient Admission. Condition is Stable. Problem is new. Symptoms are unchanged.
[2019-05-01] MEDS ORDERED: MORPHINE 2 MG/ML SYR IV PRN (18:55)
[2019-05-01] MEDS ORDERED: ONDANSETRON 4 MG/2 ML VIAL IV PRN (18:55)
[2019-05-01] MEDS ORDERED: LIDOCAINE 1% MPF 30 ML VIAL ONE (19:25)
[2019-05-01] MEDS ORDERED: NOREPINEPHRINE 4mg/D5W 250mL 4 MG/250 ML BAG IV ONE (19:46)
--- NOTE | 2019-05-01 20:40 | P.HP ---
Certification for Inpatient Patient admitted to: Inpatient With expected LOS: >2 Midnights Practitioner: I am a practitioner with admitting privileges, knowledge of patient current condition, hospital course, and medical plan of care. Services: Services provided to patient in accordance with Admission requirements found in Title 42 Section 412.3 of the Code of Federal Regulations Patient History Date of Service: 05/01/19 Reason for admission: Rapid heart rate History of Present Illness: 63-year-old gentleman with a history of multiple medical problems including DM type 2, atrial fibrillation, hypertension, history of sepsis and toxic megacolon , history of pancreatic cancer status post Whipple's procedure was brought to the emergency department because of rapid heart rate. Patient is reported to have been hypertensive over the last few days. His metoprolol was discontinued because of the hypotension. Daughter reports patient's patient support representative noted he has orthostatic hypotension. Patient at baseline has poor functional performance status and has been gradually recovering with rehab. Daughter reports his appetite has improved since last week after discharge from rehab. In the ED, patient was noted to be hypotensive. He has no fever, no leukocytosis. Chest x-ray demonstrated left lower lung haziness suggestive of mild pleural effusion versus mild infiltrate. The patient was still hypotensive after 2 L of IV normal saline bolus given in the ED. He has been started on Levophed drip. Noted lactic acid is elevated. UA suggest the presence of UTI. Patient meets criteria for sepsis. He is admitted for further management. Allergies hydrocodone Allergy (Verified 05/01/19 21:30) unknown lorazepam [From Ativan] Allergy (Verified 05/01/19 21:30) biligerent piperacillin [From Zosyn] Allergy (Verified 05/01/19 21:30) Hives tazobactam [From Zosyn] Allergy (Verified 05/01/19 21:30) Hives Home Medications: Digoxin [Lanoxin] 0.125 mg PO DAILY 05/01/19 Gabapentin 300 mg PO BID 05/01/19 Metoprolol Tartrate [Lopressor] 25 mg PO BID 05/01/19 PARoxetine HCl [Paxil] 10 mg PO DAILY 05/01/19 Pantoprazole [Protonix Tab*] 40 mg PO DAILY 05/01/19 - Past Medical/Surgical History -: DM type 2 -: Hypertension -: Atrial fibrillator -: Heart failure -: History of toxic megacolon -: Whipple's procedure -: Colostomy with reversal - Family History Mother -: Cancer Brother -: Hypertension Sister -: Hypertension - Social History Smoking Status: Never smoker Alcohol use: Yes CD- Drugs: No Place of Residence: Home Review of Systems Other: General: No fever, no malaise, no unintentional weight loss. Eyes: No eye discharge, Respiratory: No cough, no shortness of breath. CVS: No chest pain, no palpitation, no lightheadedness. GI: No abdominal pain, no nausea no vomit, no constipation, no diarrhea. Genitourinary: No dysuria, no urinary frequency, no incontinence, no hematuria. Musculoskeletal: No joint pains, or joint swelling. Neurology: No headache, no asymmetric weakness, no problem with swallowing. Except as documented, all other systems reviewed and negative. Physical Examination - Physical Exam General: Alert, In no apparent distress, Oriented x3, Obese HEENT: Mucous membr. moist/pink, Sclerae nonicteric Neck: Supple, JVD not distended Respiratory: Clear to auscultation bilaterally, Normal air movement Cardiovascular: No edema, Normal S1 S2, Irregular heart rate/rhythm Capillary refill: <2 Seconds Gastrointestinal: Normal bowel sounds, Soft and benign, Non-distended, No tenderness Musculoskeletal: No swelling, No erythema Integumentary: No rashes Neurological: Normal speech, Normal strength at 5/5 x4 extr - Studies Laboratory Data (last 24 hrs) 05/01/19 16:03: Sodium 141, Potassium 3.8, BUN 12, Creatinine 0.98, Glucose 144 H, Magnesium 1.5 L D, Total Bilirubin 0.5, AST 48 H, ALT 24, Alkaline Phosphatase 104 05/01/19 15:10: PT 15.0 H, INR 1.28 05/01/19 15:10: WBC 8.6, Hgb 11.4 L, Hct 35.2 L, Plt Count 196 Assessment and Plan - Problems (Diagnosis) (1) Sepsis Current Visit: Yes Status: Acute (2) Pneumonia Current Visit: Yes Status: Acute (3) Hypotension Current Visit: Yes Status: Acute (4) DM type 2 (diabetes mellitus, type 2) Current Visit: Yes Status: Acute (5) Chronic atrial fibrillation Current Visit: Yes Status: Acute (6) UTI (urinary tract infection) Current Visit: Yes Status: Acute - Plan Admit to ICU. Continue IV hydration Titrate Levophed drip. Broad-spectrum antibiotics-IV levaquin and vancomycin Follow blood cultures. Follow urine culture. Hold metoprolol. Continue digoxin for rate control. Obtain echocardiogram Per daughter, patient is currently not on any anticoagulation for the AFib. He was on warfarin. She stated they stopped given him the warfarin while at rehab. There is a recorded history of GI bleed. Daughter states she does not know the specific reason for stopping the warfarin. PT/OT. - Advance Directives Does patient have a Living Will: No Does patient have a Durable POA for Healthcare: No
[2019-05-01] MEDS: INSULIN -REGULAR HUMAN 50 UNIT/0.5 ML ML SQ SCH (21:00)
[2019-05-01 21:53] VITALS: BMI 39.8
[2019-05-01 22:19] LABS: Urine Appearance CLEAR; Urine Bilirubin NEGATIVE (NEG); Urine Blood 1+ (NEG); Urine Color YELLOW; Urine Glucose NEGATIVE (NEG); Urine Protein NEGATIVE (NEG); Urine Specific Gravity 1.015 (1.005-1.030); Urine Urobilinogen 0.2 mg/dL (0.2-1.0); Urine pH 6.5 (5.0-7.0)
[2019-05-01 22:32] LABS: Urine Microscopic Reflex ORDER UMIC
[2019-05-01 22:43] LABS: Urine Bacteria 20-50 /HPF (NONE SEEN); Urine Culture Reflex Order REFLEXED; Urine Mucus 2+ /HPF (NONE SEEN)
[2019-05-01] MEDS ORDERED: Magnesium Sulfate 2gm IVPB 2 G/50 ML BAG IV ONE (22:49)
[2019-05-01] MEDS ORDERED: POTASSIUM CL SA 10 MEQ TAB PO ONE (22:49)
[2019-05-01] MEDS: Levofloxacin 750mg IV 750 MG/150 ML BAG IV SCH (23:41)
[2019-05-02 04:56] LABS: Absolute Lymphocytes (CBC) 1.3 K/uL (0.7-4.9); Basophils % 1.2 % (0-1.3); Hematocrit 28.3 % (39.6-49.0); Lymphocytes % 17.5 % (15.3-44.8); MPV 8.2 fL (7.6-11.3); RBC Red Blood Cell Count 2.79 M/uL (4.33-5.43)
[2019-05-02 05:15] LABS: ALT/SGPT 22 U/L (12-78); AST/SGOT 37 U/L (15-37); Albumin 1.5 g/dL (3.4-5.0); Alkaline Phosphatase 105 U/L (45-117); BUN Blood Urea Nitrogen 10 mg/dL (7-18); Bicarbonate 24 mmol/L (21-32); Bilirubin Total 0.4 mg/dL (0.2-1.0); Glucose Level 107 mg/dL (74-106); Magnesium 1.9 mg/dL (1.8-2.4); Potassium 3.8 mmol/L (3.5-5.1); Protein, Total 5.2 g/dL (6.4-8.2); Sodium Level 142 mmol/L (136-145); Troponin I < 0.02 ng/mL (0.0-0.045)
[2019-05-02] MEDS: INSULIN -REGULAR HUMAN 50 UNIT/0.5 ML ML SQ SCH ×4 (07:30→21:00)
[2019-05-02] MEDS ORDERED: VANCOMYCIN 1 GM in NA CHLORIDE 0.9% 250 ML IVPB SCH (09:00)
[2019-05-02] MEDS ORDERED: VANCOMYCIN 2 GM in NA CHLORIDE 0.9% 250 ML IVPB SCH (09:00)
[2019-05-02] MEDS: VANCOMYCIN 2 GM in NA CHLORIDE 0.9% 500 ML IVPB SCH ×2 (09:05→20:32)
--- NOTE | 2019-05-02 11:00 | P.PN ---
Subjective Date of Service: 05/02/19 Chief Complaint: Rapid heart rate Subjective: No new changes, Tolerating diet (-anxious to go -patient with history of chronic AF , and intermittent low BP admitted for right base pneumonia and tachycardia. Overnight he was on Levophed drip for low blood pressure after taking discontinued metoprolol), Doing well Review of Systems 10-point ROS is otherwise unremarkable Physical Examination - Vital Signs Temperature: 97 F Blood Pressure: 99/49 Pulse: 88 Respirations: 15 Pulse Ox (%): 97 - Physical Exam General: Alert, Oriented x3, Obese HEENT: Atraumatic, Normocephalic Neck: Supple, 2+ carotid pulse no bruit Respiratory: Diminished, Crackles/rales Cardiovascular: Regular rate/rhythm, Normal S1 S2 Gastrointestinal: Normal bowel sounds, Soft and benign, No ascites Musculoskeletal: No clubbing, No tenderness Neurological: Cranial nerves 3-12 intact, Abnormal tone - Studies Laboratory Data (last 24 hrs) 05/01/19 16:03: Sodium 141, Potassium 3.8, BUN 12, Creatinine 0.98, Glucose 144 H, Magnesium 1.5 L D, Total Bilirubin 0.5, AST 48 H, ALT 24, Alkaline Phosphatase 104 05/01/19 15:10: PT 15.0 H, INR 1.28 05/01/19 15:10: WBC 8.6, Hgb 11.4 L, Hct 35.2 L, Plt Count 196 Laboratory Last Values WBC 7.4 K/uL (4.3-10.9) 05/02/19 04:41 RBC 2.79 M/uL (4.33-5.43) L 05/02/19 04:41 Hgb 9.4 g/dL (13.6-17.9) L 05/02/19 04:41 Hct 28.3 % (39.6-49.0) L D 05/02/19 04:41 MCV 101.4 fL (80-100) H 05/02/19 04:41 MCH 33.7 pg (27.0-35.0) 05/02/19 04:41 MCHC 33.3 g/dL (32.0-36.0) 05/02/19 04:41 RDW 19.2 % (12.1-15.2) H 05/02/19 04:41 Plt Count 138 K/uL (152-406) L D 05/02/19 04:41 MPV 8.2 fL (7.6-11.3) 05/02/19 04:41 Neutrophils % 68.6 % (41.7-73.7) 05/02/19 04:41 Lymphocytes % 17.5 % (15.3-44.8) 05/02/19 04:41 Monocytes % 9.5 % (3.3-12.3) 05/02/19 04:41 Eosinophils % 3.2 % (0-4.4) 05/02/19 04:41 Basophils % 1.2 % (0-1.3) 05/02/19 04:41 Absolute Neutrophils 5.1 K/uL (1.8-8.0) 05/02/19 04:41 Absolute Lymphocytes 1.3 K/uL (0.7-4.9) 05/02/19 04:41 Absolute Monocytes 0.7 K/uL (0.1-1.3) 05/02/19 04:41 Absolute Eosinophils 0.2 K/uL (0-0.5) 05/02/19 04:41 Absolute Basophils 0.1 K/uL (0-0.5) 05/02/19 04:41 Anisocytosis 1+ 05/01/19 15:10 Morphology Comment Noted (NOT SEEN) 05/01/19 15:10 PT 15.0 SECONDS (9.5-12.5) H 05/01/19 15:10 INR 1.28 05/01/19 15:10 Sodium 142 mmol/L (136-145) 05/02/19 04:41 Potassium 3.8 mmol/L (3.5-5.1) 05/02/19 04:41 Chloride 112 mmol/L (98-107) H 05/02/19 04:41 Carbon Dioxide 24 mmol/L (21-32) 05/02/19 04:41 BUN 10 mg/dL (7-18) 05/02/19 04:41 Creatinine 0.79 mg/dL (0.55-1.3) 05/02/19 04:41 Estimated GFR > 90 mL/min (=/>90) 05/02/19 04:41 Glucose 107 mg/dL (74-106) H 05/02/19 04:41 POC Glucose 78 mg/dl (65-120) 05/02/19 07:21 Lactic Acid 3.1 mmol/L (0.4-2.0) H 05/01/19 23:39 Calcium 7.2 mg/dL (8.5-10.1) L 05/02/19 04:41 Magnesium 1.9 mg/dL (1.8-2.4) 05/02/19 04:41 Total Bilirubin 0.4 mg/dL (0.2-1.0) 05/02/19 04:41 Direct Bilirubin 0.3 mg/dL (0-0.2) H 05/01/19 16:03 AST 37 U/L (15-37) 05/02/19 04:41 ALT 22 U/L (12-78) 05/02/19 04:41 Alkaline Phosphatase 105 U/L (45-117) 05/02/19 04:41 Rapid Troponin I < 0.02 ng/mL (0.0-0.045) 05/01/19 16:03 Troponin I < 0.02 ng/mL (0.0-0.045) 05/02/19 04:41 NT-Pro-B Natriuret Pep 800 pg/mL (<125) H 05/01/19 16:03 Serum Total Protein 5.2 g/dL (6.4-8.2) L 05/02/19 04:41 Albumin 1.5 g/dL (3.4-5.0) L 05/02/19 04:41 Globulin 3.7 g/dL (2.3-3.5) H 05/02/19 04:41 Albumin/Globulin Ratio 0.4 (1.1-1.8) L 05/02/19 04:41 Urine Color Yellow 05/01/19 21:45 Urine Appearance Clear 05/01/19 21:45 Urine pH 6.5 (5.0-7.0) 05/01/19 21:45 Ur Specific [place] 1.015 (1.005-1.030) 05/01/19 21:45 Glucose (UA)(Auto) Negative (NEG) 05/01/19 21:45 Urine Ketones Negative (NEG) 05/01/19 21:45 Urine Blood 1+ (NEG) H 05/01/19 21:45 Urine Nitrite Negative (NEG) 05/01/19 21:45 Urine Bilirubin Negative (NEG) 05/01/19 21:45 Urine Urobilinogen 0.2 mg/dL (0.2-1.0) 05/01/19 21:45 Ur Leukocyte Esterase Trace (NEG) H 05/01/19 21:45 Urine RBC 5-10 /HPF (NONE SEEN) H 05/01/19 21:45 Urine WBC 5-10 /HPF (<5) H 05/01/19 21:45 Ur Squamous Epith Cells 5-10 /HPF (NONE SEEN) H 05/01/19 21:45 Urine Bacteria 20-50 /HPF (NONE SEEN) H 05/01/19 21:45 Hyaline Casts 0-5 /LPF (NONE SEEN) 05/01/19 21:45 Urine Mucus 2+ /HPF (NONE SEEN) 05/01/19 21:45 Urine Culture Reflexed Reflexed 05/01/19 21:45 Urine Total Protein Negative (NEG) 05/01/19 21:45 Medications List Reviewed: Yes Assessment & Plan - Problems (Diagnosis) (1) DM type 2 (diabetes mellitus, type 2) Current Visit: Yes Status: Acute Qualifiers: Diabetes mellitus complication status: with diabetic arthropathy (2) Hypotension Current Visit: Yes Status: Acute (3) Pneumonia Current Visit: Yes Status: Acute (4) Sepsis Current Visit: Yes Status: Acute (5) UTI (urinary tract infection) Current Visit: Yes Status: Acute Physician Review: Patient Assessed, Agree with Above Assessment and Plan Physician Review Additional Text: Pneumonia and-on antibiotics with IV vancomycin/Rocephin -no evidence of cough, unable to get sputum culture and sensitivity. -follow blood culture -leukocytosis improving -blood pressure above improving, off Levophed now -will transfer from ICU to floor to the -saturating well without oxygen # hypotension/sepsis-improving -will add low-dose midodrine although off IV pressors # bed-bound status-chronic, patient refusing retirement placement -state able to transfer -follow PT # DM - c/w ISSS DISPOSITION-POSSIBLE HOME IN A.M. Time Spent Managing Pts Care (In Minutes): 41
[2019-05-02] MEDS ORDERED: INFLUENZA VACCINE (for 3y+) 0.5 ML DOSE IMVAC ONE (13:00)
[2019-05-02] MEDS ORDERED: PNEUMOCOCCAL VACCINE 0.5 ML IMVAC ONE (13:00)
[2019-05-02] MEDS ORDERED: PARoxetine HCl 10 MG TAB PO SCH (18:00)
[2019-05-02] MEDS: METOPROLOL TAR 25 MG TAB PO SCH (18:00)
[2019-05-02] MEDS: GABAPENTIN 300 MG CAP PO SCH (18:00)
[2019-05-02] MEDS ORDERED: CODEINE 30MG/APAP 300MG TAB PO PRN ×2 (18:51→21:00)
[2019-05-02] MEDS ORDERED: CODEINE 30MG/APAP 300MG TAB PO SCH (21:00)
[2019-05-02] MEDS: Levofloxacin 750mg IV 750 MG/150 ML BAG IV SCH (23:30)
[2019-05-03 05:37] LABS: Absolute Lymphocytes (CBC) 1.4 K/uL (0.7-4.9); Basophils % 0.8 % (0-1.3); Hematocrit 27.1 % (39.6-49.0); MPV 8.8 fL (7.6-11.3); RBC Red Blood Cell Count 2.69 M/uL (4.33-5.43)
[2019-05-03] MEDS: METOPROLOL TAR 25 MG TAB PO SCH ×2 (05:50→18:00)
[2019-05-03 05:55] LABS: ALT/SGPT 19 U/L (12-78); AST/SGOT 30 U/L (15-37); Albumin 1.5 g/dL (3.4-5.0); Alkaline Phosphatase 96 U/L (45-117); BUN Blood Urea Nitrogen 9 mg/dL (7-18); Bicarbonate 22 mmol/L (21-32); Bilirubin Total 0.6 mg/dL (0.2-1.0); Glucose Level 83 mg/dL (74-106); Potassium 3.3 mmol/L (3.5-5.1); Protein, Total 5.1 g/dL (6.4-8.2); Sodium Level 143 mmol/L (136-145); Troponin I < 0.02 ng/mL (0.0-0.045)
[2019-05-03] MEDS: INSULIN -REGULAR HUMAN 50 UNIT/0.5 ML ML SQ SCH ×4 (07:30→21:00)
[2019-05-03] MEDS: VANCOMYCIN 2 GM in NA CHLORIDE 0.9% 500 ML IVPB SCH (08:42)
[2019-05-03] MEDS: NICOTINE 21 MG/PAT TD SCH (08:42)
[2019-05-03] MEDS: GABAPENTIN 300 MG CAP PO SCH ×2 (08:43→21:18)
[2019-05-03] MEDS ORDERED: POTASSIUM CL SA 10 MEQ TAB PO ONE (09:00)
[2019-05-03] MEDS ORDERED: PARoxetine HCl 10 MG TAB PO SCH (09:00)
--- NOTE | 2019-05-03 09:15 | P.PN ---
Subjective Date of Service: 05/03/19 Chief Complaint: Rapid heart rate Subjective: No new changes, Tolerating diet, Improving (BP much better - able to transfer but assist now -anxious to go home today) Review of Systems 10-point ROS is otherwise unremarkable Physical Examination - Vital Signs Temperature: 97.6 F Blood Pressure: 130/60 Pulse: 81 Respirations: 18 Pulse Ox (%): 96 - Physical Exam General: Alert, In no apparent distress, Oriented x3, Obese HEENT: Atraumatic, Normocephalic, PERRLA, Mucous membr. moist/pink Neck: Supple, 2+ carotid pulse no bruit Respiratory: Normal air movement, Diminished Cardiovascular: Normal pulses, Regular rate/rhythm, Normal S1 S2 Gastrointestinal: Normal bowel sounds, Soft and benign, Non-distended, No tenderness Integumentary: No tenderness/swelling, No ulcers Neurological: Normal speech, Sensation intact, Abnormal tone (B/L LE) - Studies Laboratory Last Values WBC 5.9 K/uL (4.3-10.9) D 05/03/19 04:56 RBC 2.69 M/uL (4.33-5.43) L 05/03/19 04:56 Hgb 9.0 g/dL (13.6-17.9) L 05/03/19 04:56 Hct 27.1 % (39.6-49.0) L 05/03/19 04:56 MCV 100.9 fL (80-100) H 05/03/19 04:56 MCH 33.5 pg (27.0-35.0) 05/03/19 04:56 MCHC 33.2 g/dL (32.0-36.0) 05/03/19 04:56 RDW 19.4 % (12.1-15.2) H 05/03/19 04:56 Plt Count 141 K/uL (152-406) L 05/03/19 04:56 MPV 8.8 fL (7.6-11.3) 05/03/19 04:56 Neutrophils % 57.6 % (41.7-73.7) 05/03/19 04:56 Lymphocytes % 24.0 % (15.3-44.8) 05/03/19 04:56 Monocytes % 12.1 % (3.3-12.3) 05/03/19 04:56 Eosinophils % 5.5 % (0-4.4) H 05/03/19 04:56 Basophils % 0.8 % (0-1.3) 05/03/19 04:56 Absolute Neutrophils 3.4 K/uL (1.8-8.0) 05/03/19 04:56 Absolute Lymphocytes 1.4 K/uL (0.7-4.9) 05/03/19 04:56 Absolute Monocytes 0.7 K/uL (0.1-1.3) 05/03/19 04:56 Absolute Eosinophils 0.3 K/uL (0-0.5) 05/03/19 04:56 Absolute Basophils 0.0 K/uL (0-0.5) 05/03/19 04:56 Anisocytosis 1+ 05/01/19 15:10 Morphology Comment Noted (NOT SEEN) 05/01/19 15:10 PT 15.0 SECONDS (9.5-12.5) H 05/01/19 15:10 INR 1.28 05/01/19 15:10 Sodium 143 mmol/L (136-145) 05/03/19 04:56 Potassium 3.3 mmol/L (3.5-5.1) L 05/03/19 04:56 Chloride 113 mmol/L (98-107) H 05/03/19 04:56 Carbon Dioxide 22 mmol/L (21-32) 05/03/19 04:56 BUN 9 mg/dL (7-18) 05/03/19 04:56 Creatinine 0.75 mg/dL (0.55-1.3) 05/03/19 04:56 Estimated GFR > 90 mL/min (=/>90) 05/03/19 04:56 Glucose 83 mg/dL (74-106) 05/03/19 04:56 POC Glucose 87 mg/dl (65-120) 05/03/19 07:20 Lactic Acid 3.1 mmol/L (0.4-2.0) H 05/01/19 23:39 Calcium 7.4 mg/dL (8.5-10.1) L 05/03/19 04:56 Magnesium 1.9 mg/dL (1.8-2.4) 05/02/19 04:41 Total Bilirubin 0.6 mg/dL (0.2-1.0) 05/03/19 04:56 Direct Bilirubin 0.3 mg/dL (0-0.2) H 05/01/19 16:03 AST 30 U/L (15-37) 05/03/19 04:56 ALT 19 U/L (12-78) 05/03/19 04:56 Alkaline Phosphatase 96 U/L (45-117) 05/03/19 04:56 Rapid Troponin I < 0.02 ng/mL (0.0-0.045) 05/01/19 16:03 Troponin I < 0.02 ng/mL (0.0-0.045) 05/03/19 04:56 NT-Pro-B Natriuret Pep 800 pg/mL (<125) H 05/01/19 16:03 Serum Total Protein 5.1 g/dL (6.4-8.2) L 05/03/19 04:56 Albumin 1.5 g/dL (3.4-5.0) L 05/03/19 04:56 Globulin 3.6 g/dL (2.3-3.5) H 05/03/19 04:56 Albumin/Globulin Ratio 0.4 (1.1-1.8) L 05/03/19 04:56 Urine Color Yellow 05/01/19 21:45 Urine Appearance Clear 05/01/19 21:45 Urine pH 6.5 (5.0-7.0) 05/01/19 21:45 Ur Specific [place] 1.015 (1.005-1.030) 05/01/19 21:45 Glucose (UA)(Auto) Negative (NEG) 05/01/19 21:45 Urine Ketones Negative (NEG) 05/01/19 21:45 Urine Blood 1+ (NEG) H 05/01/19 21:45 Urine Nitrite Negative (NEG) 05/01/19 21:45 Urine Bilirubin Negative (NEG) 05/01/19 21:45 Urine Urobilinogen 0.2 mg/dL (0.2-1.0) 05/01/19 21:45 Ur Leukocyte Esterase Trace (NEG) H 05/01/19 21:45 Urine RBC 5-10 /HPF (NONE SEEN) H 05/01/19 21:45 Urine WBC 5-10 /HPF (<5) H 02/07/20 21:45 Ur Squamous Epith Cells 5-10 /HPF (NONE SEEN) H 05/01/19 21:45 Urine Bacteria 20-50 /HPF (NONE SEEN) H 05/01/19 21:45 Hyaline Casts 0-5 /LPF (NONE SEEN) 05/01/19 21:45 Urine Mucus 2+ /HPF (NONE SEEN) 05/01/19 21:45 Urine Culture Reflexed Reflexed 05/01/19 21:45 Urine Total Protein Negative (NEG) 05/01/19 21:45 Microbiology Data (last 24 hrs): 05/01/19 18:00 Blood - Blood Aerobic Blood Culture - Preliminary 05/01/19 18:00 Blood - Blood Blood Culture Gram Stain - Preliminary 05/01/19 18:00 Blood - Blood Anaerobic Blood Culture - Preliminary No growth in 24 hours. 05/01/19 17:45 Blood - Blood Aerobic Blood Culture - Preliminary No growth in 24 hours. 05/01/19 17:45 Blood - Blood Anaerobic Blood Culture - Preliminary No growth in 24 hours. Medications List Reviewed: Yes Assessment & Plan - Problems (Diagnosis) (1) DM type 2 (diabetes mellitus, type 2) Current Visit: Yes Status: Acute Qualifiers: Diabetes mellitus complication status: with diabetic arthropathy (2) Hypotension Current Visit: Yes Status: Acute (3) Pneumonia Current Visit: Yes Status: Acute (4) Sepsis Current Visit: Yes Status: Acute (5) UTI (urinary tract infection) Current Visit: Yes Status: Acute Physician Review: Patient Assessed, Agree with Above Assessment and Plan Physician Review Additional Text: Pneumonia and-on antibiotics with IV vancomycin/Rocephin -since improving , will dc vanco -c/w Rocephin and zithromax -remain on room air # Gram positive cocci - in 1/4 bottles , likely contamination -will not change abx regime for now - follow culture identification and if skin contaminant , can still dc patient # Hypotension/sepsis-resolved # Sinus Tachycardia - with hx of atrial fib -HR improved with restart of low dose Toprol, can c/w at 12.5 mg bid # bed-bound status-chronic , due to neuropathy -able to assist with transfer at baseline - still wants to go home , already have home PT - patient refusing fpc placement -c/w PT # DM - c/w ISSS DISPOSITION-possible home prn negative full blood cx
[2019-05-03 15:10] LABS: BUN Blood Urea Nitrogen 9 mg/dL (7-18); Bicarbonate 24 mmol/L (21-32); Glucose Level 130 mg/dL (74-106); Potassium 3.7 mmol/L (3.5-5.1); Sodium Level 143 mmol/L (136-145)
[2019-05-03] MEDS: PARoxetine HCl 10 MG TAB PO SCH (17:56)
[2019-05-04] MEDS: METOPROLOL TAR 25 MG TAB PO SCH ×2 (06:09→17:16)
[2019-05-04 06:19] LABS: Absolute Lymphocytes (CBC) 1.4 K/uL (0.7-4.9); Basophils % 0.2 % (0-1.3); Hematocrit 24.9 % (39.6-49.0); Lymphocytes % 29.5 % (15.3-44.8); MPV 8.9 fL (7.6-11.3); RBC Red Blood Cell Count 2.47 M/uL (4.33-5.43)
[2019-05-04] MEDS: INSULIN -REGULAR HUMAN 50 UNIT/0.5 ML ML SQ SCH ×3 (07:30→16:30)
[2019-05-04 08:11] LABS: ALT/SGPT 20 U/L (12-78); AST/SGOT 31 U/L (15-37); Albumin 1.5 g/dL (3.4-5.0); Alkaline Phosphatase 97 U/L (45-117); BUN Blood Urea Nitrogen 8 mg/dL (7-18); Bicarbonate 25 mmol/L (21-32); Bilirubin Total 0.8 mg/dL (0.2-1.0); Glucose Level 83 mg/dL (74-106); Potassium 3.5 mmol/L (3.5-5.1); Sodium Level 144 mmol/L (136-145); Troponin I < 0.02 ng/mL (0.0-0.045)
[2019-05-04] MEDS: NICOTINE 21 MG/PAT TD SCH (08:20)
[2019-05-04] MEDS: GABAPENTIN 300 MG CAP PO SCH (08:21)
[2019-05-04 08:30] LABS: Platelet Estimate DECR
[2019-05-04 08:31] LABS: Anisocytosis 1+; Blood Morphology Comment NOTED (NOT SEEN); Hypochromasia 1+; Macrocytosis 1+
[2019-05-04] MEDS ORDERED: levoFLOXacin 750 MG TAB PO SCH (09:00)
[2019-05-04] MEDS ORDERED: POTASSIUM CL SA 10 MEQ TAB PO ONE (09:00)
[2019-05-04 09:06] VITALS: TEMP 97.4
--- NOTE | 2019-05-04 09:26 | EKG ---
Test Date: 2019-05-01 Test Time: 14:50:28 Scientific Publications Editor: NIKKI MEASUREMENT RESULTS: Intervals: Rate: 134 ND: 146 QRSD: 72 QT: 278 QTc: 415 Dubois: P: 46 ND: 146 QRS: 37 T: 79 INTERPRETIVE STATEMENTS: Sinus tachycardia Nonspecific T wave abnormality Abnormal ECG Compared to ECG 03/14/2019 15:52:42 Sinus rhythm no longer present T-wave abnormality still present Electronically Signed On 05-04-19 09:25:54 ACCREDITED LEGAL SECRETARY by Roly Montanez
[2019-05-04 09:39] VITALS: O2SAT 97
[2019-05-04] MEDS: Meropenem 1,000 MG in NA CHLORIDE 0.9% 100 ML IV SCH ×2 (11:49→16:51)
[2019-05-04] MEDS ORDERED: ERTAPENEM SODIUM 1 GM VIAL IM ONE (17:00)
[2019-05-04] MEDS ORDERED: PNEUMOCOCCAL VACCINE 0.5 ML IMVAC ONE (17:00)
[2019-05-04] MEDS ORDERED: LIDOCAINE 1% MPF 5 ML VIAL IM ONE (17:00)
[2019-05-04] MEDS ORDERED: INFLUENZA VACCINE (for 3y+) 0.5 ML DOSE IMVAC ONE (17:00)
[2019-05-04] MEDS: PARoxetine HCl 10 MG TAB PO SCH (17:16)
[2019-05-04 18:36] VITALS: BP 118/64
--- NOTE | 2019-05-05 01:53 | DS ---
Date of Discharge: 05/04/2019 Hospital Course: This patient is a 63-year-old gentleman who presented for rapid heart rate. He has a history of multiple medical problems including type 2 diabetes, atrial fibrillation, hypertension, sepsis, toxic megacolon, pancreatic cancer, status post Whipple's procedure. The patient reported discontinuing metoprolol because of hypotension. He had poor functional performance. In the ED, he was found to be hypotensive. Chest x-ray demonstrated left lower infiltrates suggesting pneumonia. The patient was given 2 L of IV normal saline bolus and was put on Levophed drip. UA demonstrate a UTI. He was admitted for sepsis and pneumonia. He was admitted to the ICU. He received IV hydration and Levophed. He received Levaquin and vancomycin. One of blood culture grow gram-positive cocci and repeated blood culture negative. This suggests contamination. Urine culture grow Acinetobacter, which is MDRO and only sensitive to meropenem. We then started IV meropenem. Overall, this patient is getting better. No fever or chills. Vital was stable with heart rate 76. Blood pressure is stable, which is 104/ 54. He is eager to go home. This patient need Invanz for MDRO for at least one week. Discussed with lead case manager, who arranged home health for Invanz IM. Physical Examination: General: Patient is awake and alert, in no acute distress. Vital Signs: Temperature 97.9, pulse 76, respiratory rate 15, blood pressure 104/54, oxygen saturation 97% on room air. HEENT: Unremarkable. Normocephalic, atraumatic. Neck: Supple. No JVD. Chest: Clear to auscultation. No respiratory distress. No wheezing. Heart: Normal S1, S2. Regular rhythm and rate. No murmur. Abdomen: Soft, nontender, obese. Extremities: No edema, no cyanosis. Neuro: Patient awake, alert, and oriented x3, nonfocal. Psych: Mood stable. No anxiety or agitation. Skin: No rashes. Laboratory Data: WBC 4.7, hemoglobin 8.2. Sodium 144, potassium 3.5, creatinine 0.84, blood sugar 132. Discharge Diagnoses: 1. Sepsis. 2. Pneumonia. 3. Urinary tract infection with MDRO. 4. Sinus tachycardia. 5. Anemia. 6. Chronic atrial fibrillation. Discharge Medications: Invanz 1 g IM for 1 week. For the rest, please see discharge medication list. Discharge Instructions: 1. Please follow PCP in 1 week. 2. Need to check CBC and BMP in 1 week with home health nurse. Discharge Activity: As tolerated. I spent about 30 minutes to discharge patient including review of the chart and the patient education and discharge summary. QT/MODL Voice ID: [id number] Report ID: [id number]
== END 2019-05-04 17:48 | disposition home health service (06) | DRG 871 ==
LOC: ER 14:50 → ERHOLD 19:18 → 3RD-ICU 20:48 → 2ND 05-02 12:08
PROVIDERS: ADMIT Internal Medicine; ATTEND Internal Medicine
DX: A41.9 Sepsis, unspecified organism (principal); J18.9 Pneumonia, unspecified organism; N39.0 Urinary tract infection, site not specified; Z16.24 Resistance to multiple antibiotics; I48.20 Chronic atrial fibrillation, unspecified; B96.89 Other specified bacterial agents as the cause of diseases classified elsewhere; R00.0 Tachycardia, unspecified; D64.9 Anemia, unspecified; Z85.07 Personal history of malignant neoplasm of pancreas; I95.9 Hypotension, unspecified; Z74.01 Bed confinement status; E11.40 Type 2 diabetes mellitus with diabetic neuropathy, unspecified; E66.9 Obesity, unspecified; Z68.39 Body mass index [BMI] 39.0-39.9, adult; Z23 Encounter for immunization
CPT/HCPCS: 36415; 71045; 80048; 80053; 80076; 80202; 81003; 81015; 82947; 83605; 83735; 83880; 84484; 85025; 85610; 87040; 87077; 87086; 87088; 87186; 87205; 90471; 90670; 93005; 94760; 96361; 96365; 96366; 96367; 96368; 99285; J0456; J0696; J1335; J3475; J7030; J7040; Q2035

== ENCOUNTER 2019-05-17 11:18 | Inpatient (IN) | payer OTHER ==
--- OUTSIDE RECORDS SUMMARY | 2019-05-17 11:21 | XMS REPORT ---
:1955 [facility] [address] [place] [address] Care Team Providers Name Role Phone Unavailable Unavailable Unavailable Problems This patient has no known problems. Allergies, Adverse Reactions, Alerts This patient has no known allergies or adverse reactions. Medications This patient has no known medications.
[2019-05-17] MEDS ORDERED: CEFTRIAXONE/SWI 1gm 1 GM/10 ML SYR ONE (11:59)
[2019-05-17] MEDS ORDERED: NA CHLORIDE 0.9% 2,000 ML ONE (11:59)
--- NOTE | 2019-05-17 12:13 | RAD REPORT ---
EXAM DESCRIPTION: Stan Single View05/17/2019 11:52 am CLINICAL HISTORY: Shortness of breath COMPARISON: May 01, 2019 FINDINGS: The lungs appear clear of acute infiltrate. The heart is normal size. A small left pleural effusion unchanged
[2019-05-17 12:45] LABS: Absolute Lymphocytes (CBC) 1.2 K/uL (0.7-4.9); Basophils % 0.7 % (0-1.3); Hematocrit 28.6 % (39.6-49.0); Lymphocytes % 12.3 % (15.3-44.8); MPV 8.3 fL (7.6-11.3); RBC Red Blood Cell Count 2.81 M/uL (4.33-5.43)
[2019-05-17 13:05] LABS: ALT/SGPT 12 U/L (12-78); AST/SGOT 40 U/L (15-37); Albumin 1.3 g/dL (3.4-5.0); Alkaline Phosphatase 101 U/L (45-117); Amylase Level 40 U/L (25-115); BUN Blood Urea Nitrogen 7 mg/dL (7-18); Bicarbonate 25 mmol/L (21-32); Bilirubin Direct 0.8 mg/dL (0-0.2); Bilirubin Total 1.2 mg/dL (0.2-1.0); Creatine Phosphokinase 12 U/L (39-308); Glucose Level 98 mg/dL (74-106); Lipase 410 U/L (73-393); Potassium 3.2 mmol/L (3.5-5.1); Protein, Total 5.7 g/dL (6.4-8.2); Sodium Level 137 mmol/L (136-145); Troponin (Emerg Dept Use Only) < 0.02 ng/mL (0.0-0.045)
[2019-05-17 13:11] LABS: Magnesium 1.4 mg/dL (1.8-2.4)
[2019-05-17 13:16] LABS: Urine Blood 3+ (NEG); Urine Glucose NEGATIVE (NEG); Urine Protein 1+ (NEG); Urine Specific Gravity 1.015 (1.005-1.030)
[2019-05-17 13:19] LABS: Blood Morphology Comment NOT SEEN (NOT SEEN); Platelet Estimate ADEQ; Urine White Blood Cell Casts OK
[2019-05-17] MEDS ORDERED: KCL 20 MEQ/100 mL IVPB 0 MEQ/0 ML BAG IV ONE (13:29)
[2019-05-17] MEDS ORDERED: Magnesium Sulfate 2gm IVPB 2 G/50 ML BAG IV ONE (13:29)
[2019-05-17 13:55] LABS: Urine Bacteria <20 /HPF (NONE SEEN); Urine Culture Reflex Order REFLEXED; Urine RBC >50 /HPF (NONE SEEN)
[2019-05-17] MEDS ORDERED: CALCIUM GLUCONATE 1gm/100 ML NS (4.65 mEq/100mL) IV ONE ×2 (14:00)
[2019-05-17 14:06] LABS: Protime INR 6.43
[2019-05-17] MEDS ORDERED: VANCOMYCIN/NS 1 gm 1 GM/250 ML BAG IV ONE (14:15)
--- NOTE | 2019-05-17 14:35 | RAD REPORT ---
EXAM DESCRIPTION: CT - Abdomen Pelvis W Contrast - 05/17/2019 2:08 pm CLINICAL HISTORY: Abdominal pain COMPARISON: February 2019 TECHNIQUE: Computed axial tomography of the abdomen pelvis was obtained. 100 cc Isovue-300 was admin istered intravenously. Oral contrast was not requested which limits evaluation of bowel. All CT scans are performed using dose optimization technique as appropriate and may include automated exposure control or mA/KV adjustment according to patient size. FINDINGS: Small bilateral pleural effusions with bibasilar atelectasis Markedly fatty liver. Pneumobilia Whipple's procedure. Gastrojejunostomy. The wall of the stomach is thickened. The spleen, adrenals and kidneys appear unremarkable Mild anterior subluxation of L5 on S1. L5 spondylolysis. Right hemicolectomy. No evidence of diverticulitis. Rectum is mildly distended with stool. A filter i s present within the inferior vena cava. A Gallagher catheter is present within the bladder. Small incisional hernia within upper abdomen. Small amount of ascites. Sub centimeter abdominal lymph nodes IMPRESSION: Small bilateral pleural effusions Thickening of the wall of the stomach may indicate gastritis Small amount of ascites.
--- NOTE | 2019-05-17 15:20 | ER ---
Nurse's Notes [facility] Name: Delroy Novoa Jr Age: 63 yrs Sex: Male : 1955 Arrival Date: 05/17/2019 Time: 11:27 Bed 3 Private MD: Diagnosis: Bacteremia;Severe sepsis with septic shock;Hypomagnesemia;Hypocalcemia;Hypokalemia Presentation: 05/17 11:28 Presenting complaint: EMS states: 2 DAYS ABDOMINAL PAIN AND VOMITING. Transition of bp care: patient was not received from another setting of care. Onset of symptoms is unknown. Risk Assessment: Do you want to hurt yourself or someone else? Patient reports no desire to harm self or others. Initial Sepsis Screen: Does the patient meet any 2 criteria? Systolic BP < 90 mmHg. HR > 90 bpm. Yes Does the patient have a suspected source of infection? Yes: Acute abdominal pain. Care prior to arrival: Medication(s) given: Normal saline infusion, 500 mL, IV initiated. 20 GA, in the right forearm. 11:28 Method Of Arrival: EMS: [facility] bp 11:28 Acuity: CHELSIE 2 bp Triage Assessment: 11:28 General: Appears in no apparent distress. comfortable, obese, Behavior is calm, bp cooperative, appropriate for age. Pain: Complains of pain in abdomen. EENT: No deficits noted. Neuro: No deficits noted. Cardiovascular: Rhythm is sinus tachycardia. Respiratory: No deficits noted. GI: Abdomen is obese, Reports nausea, vomiting. : No signs and/or symptoms were reported regarding the genitourinary system. Derm: No deficits noted. Musculoskeletal: No deficits noted. Historical: - Allergies: 16:25 Hydrocodone-Acetaminophen; bp 16:25 Zosyn; bp 16:25 Ativan; bp - Home Meds: 16:25 digoxin 125 mcg Oral tab 1 tab once daily [Active]; gabapentin 300 mg Oral cap twice a bp day [Active]; Lantus 100 unit/mL Sub-Q soln [Active]; metoprolol tartrate 25 mg Oral tab 1 tab 2 times per day [Active]; paroxetine HCl 10 mg Oral tab 1 tab once daily [Active]; pantoprazole 40 mg Oral TbEC 1 tab once daily [Active]; 20:06 nicotine 21 mg/24 hr TD pt24 1 patch once daily [Active]; lp1 - PMHx: 16:25 Atrial Fib; Diabetes - IDDM; GI Bleed; Respiratory failure d/t sepsis; Sleep Apnea; bp toxic megacolon; - Immunization history:: Adult Immunizations up to date. - Coronavirus screen:: The patient has NOT traveled to [place] in the past 14 days. The patient has NOT had contact with known/suspected case of Coronavirus?. - Social history:: Smoking status: Patient denies any tobacco usage or history of. - Ebola Screening: : No symptoms or risks identified at this time. Screenin:33 Abuse screen: Denies threats or abuse. Denies injuries from another. Nutritional bp screening: No deficits noted. Tuberculosis screening: No symptoms or risk factors identified. Fall Risk None identified. Assessment: 11:29 General: SEE TRIAGE NOTE. CODE SEPSIS 1129. bp 12:30 Reassessment: ALL INITIAL SEPSIS ORDERS COMPLETED. PT STATING SOME IMPROVEMENT IN S/S. bp 13:35 Reassessment: PHLEBOTOMY AT B/ FOR RECOLLECT. IVF AND ABX INFUSING. bp 14:03 Reassessment: PT TO CT WITH DIRECTOR OF CUSTOMER SERVICE. bp 14:22 Reassessment: PT RETURNED FROM CT. PIV INFILTRATED DURING CT. bp 14:34 Reassessment: UNABLE TO OBTAIN PIV. PROVIDER INFORMED. bp 14:57 Reassessment: PT REFUSING CVC AND EJ. HOSPITALIST CONTACTED FOR POSSIBLE PICC. bp 15:27 Reassessment: MIDLINE PLACEMENT UNSUCCESSFUL, VESSEL CREW MEMBER AT B/S FOR PIV ATTEMPT. bp 19:30 Reassessment: Patient appears in no apparent distress at this time. Patient is alert, lp1 oriented x 3, equal unlabored respirations, skin warm/dry/pink. Patient denies pain at this time. Neuro:. GI: Abdomen is round obese, Bowel sounds present X 4 quads. Abd is soft and non tender X 4 quads. Vital Signs: 11:29 BP 83 / 45; Pulse 103; Resp 18; Temp 98.8(O); Pulse Ox 96% on R/A; Weight 167.83 kg; ph 12:30 BP 94 / 73; Pulse 106; Resp 22; Pulse Ox 98% ; bp 13:35 BP 96 / 62; Pulse 104; Resp 19; Pulse Ox 99% ; bp 14:35 BP 106 / 51; Pulse 104; Resp 14; Pulse Ox 100% ; bp 15:30 BP 110 / 89; Pulse 113; Resp 14; Pulse Ox 100% ; bp 16:30 BP 116 / 91; Pulse 107; Resp 17; Pulse Ox 98% ; bp 17:36 BP 92 / 77; Pulse 110; Resp 18; Pulse Ox 97% ; bp 19:30 BP 118 / 66; Pulse 115; Resp 16; Temp 97.9(O); Pulse Ox 97% on R/A; lp1 ED Course: 11:27 Patient arrived in ED. bp 11:28 Frank Worthington PA is PHCP. jr8 11:28 Ganga Baez MD is Attending Physician. jr8 11:30 Triage completed. bp 11:30 Arm band placed on Patient placed in an exam room, on a stretcher, on monitor car operator, ph on pulse oximetry. 11:30 Maintain EMS IV. Dressing intact. Good blood return noted. Site clean \T\ dry. Gauge \T\ bp site: 20 GA R FA. 11:33 Patient has correct armband on for positive identification. Bed in low position. Call bp light in reach. Side rails up X2. Adult w/ patient. 11:38 Evan Wu, RN is Primary Nurse. bp 11:45 EKG done, by ED staff, reviewed by Frank MANUEL. jb1 11:53 Chest Single View XRAY In Process Unspecified. EDMS 13:00 Gallagher cath inserted, using sterile technique, 18 Fr., by va, balloon inflated, to bp gravity drainage, urine specimen collected. 13:12 Urine collected: Gallagher catheter specimen, cloudy, tea colored. jb1 13:41 Radiology exam delayed due to pt gertting labs done at this time. mw3 14:10 CT Abd/Pelvis - IV Contrast Only In Process Unspecified. EDMS 15:17 Collins Celestin MD is Hospitalizing Provider. jr8 20:17 No provider procedures requiring assistance completed. Patient admitted, IV remains in lp1 place. Administered Medications: 12:00 Drug: NS 0.9% (30 ml/kg) 30 ml/kg Route: IV; Rate: bolus; Site: right forearm; bp 20:32 Follow up: IV Status: Completed infusion lp1 12:30 Drug: Rocephin 1 grams Route: IV; Rate: calculated rate; Site: right forearm; bp 16:49 Follow up: IV Status: Completed infusion; IV Intake: 50ml bp 13:30 Drug: Magnesium Sulfate 2 grams Route: IVPB; Infused Over: 2 hrs; Site: right forearm; bp 16:48 Follow up: IV Status: Completed infusion; IV Intake: 50ml bp 13:30 Drug: Potassium Chloride 20 mEq Route: IV; Rate: calculated rate; Site: right forearm; bp 14:45 Drug: Vitamin K1 10 mg Route: Sub-Q; Site: left upper arm; bp 16:00 Drug: Calcium Gluconate 1 grams Route: IVPB; Infused Over: 60 mins; Site: left forearm; bp 16:49 Follow up: IV Status: Completed infusion; IV Intake: 100ml bp 16:30 Drug: vancoMYCIN 1 grams Route: IVPB; Infused Over: 2 hrs; Site: left forearm; bp Intake: 16:48 IV: 50ml; Total: 50ml. bp 16:49 IV: 100ml; Total: 150ml. bp 16:49 IV: 50ml; Total: 200ml. bp Outcome: 15:18 Decision to Hospitalize by Provider. alex 20:17 Admitted to ICU accompanied by nurse, accompanied by tech, via stretcher, room 8, on lp1 monitor, with chart, Report called to KARYNA Rivera 20:17 Condition: stable 20:17 Instructed on the need for admit. 20:32 Patient left the ED. lp1 Signatures: Dispatcher [employer] Ovidio Greenfield jb1 Mellissa Dillard, KARYNA RN lp1 Frank Worthington PA PA jr8 Radha Ortega RN RN ph Peltier, Brian, RN RN bp Willis, Michelle 3
--- NOTE | 2019-05-17 15:21 | EDPHYS ---
Physician Documentation [facility] Name: Delroy Novoa Jr Age: 63 yrs Sex: Male : 1955 Arrival Date: 05/17/2019 Time: 11:27 Bed 3 Private MD: ED Physician Ganga Baez HPI: 05/17 11:57 This 63 yrs old Male presents to ER via EMS with complaints of Abdominal jr8 Pain/dark urine. 11:57 The patient presents with abdominal pain in the upper abdomen. Onset: The jr8 symptoms/episode began/occurred gradually, 1 day(s) ago. The symptoms do not radiate. Associated signs and symptoms: Pertinent positives: nausea and vomiting, change in urine color . The symptoms are described as dull. Modifying factors: The symptoms are alleviated by nothing, the symptoms are aggravated by nothing. Severity of pain: At its worst the pain was moderate in the emergency department the pain is unchanged. The patient has not experienced similar symptoms in the past. The patient has not recently seen a physician. Patient admitted about 2 weeks ago for sepsis and pneumonia. Stated that he was released but now having dark along with decreased urine, nausea, vomiting, and abdominal discomfort secondary to the vomiting. EMS was called. Found that patient had low BP . Historical: - Allergies: 16:25 Hydrocodone-Acetaminophen; bp 16:25 Zosyn; bp 16:25 Ativan; bp - Home Meds: 16:25 digoxin 125 mcg Oral tab 1 tab once daily [Active]; gabapentin 300 mg Oral cap twice a bp day [Active]; Lantus 100 unit/mL Sub-Q soln [Active]; metoprolol tartrate 25 mg Oral tab 1 tab 2 times per day [Active]; paroxetine HCl 10 mg Oral tab 1 tab once daily [Active]; pantoprazole 40 mg Oral TbEC 1 tab once daily [Active]; 20:06 nicotine 21 mg/24 hr TD pt24 1 patch once daily [Active]; lp1 - PMHx: 16:25 Atrial Fib; Diabetes - IDDM; GI Bleed; Respiratory failure d/t sepsis; Sleep Apnea; bp toxic megacolon; - Immunization history:: Adult Immunizations up to date. - Coronavirus screen:: The patient has NOT traveled to [place] in the past 14 days. The patient has NOT had contact with known/suspected case of Coronavirus?. - Social history:: Smoking status: Patient denies any tobacco usage or history of. - Ebola Screening: : No symptoms or risks identified at this time. ROS: 11:57 Eyes: Negative for injury, pain, redness, and discharge, ENT: Negative for injury, jr8 pain, and discharge, Neck: Negative for injury, pain, and swelling, Cardiovascular: Negative for chest pain, palpitations, and edema, Respiratory: Negative for shortness of breath, cough, wheezing, and pleuritic chest pain, Back: Negative for injury and pain, MS/Extremity: Negative for injury and deformity, Skin: Negative for injury, rash, and discoloration, Neuro: Negative for headache, weakness, numbness, tingling, and seizure. 11:57 Abdomen/GI: Positive for abdominal pain, nausea and vomiting, Negative for diarrhea, constipation, abdominal cramps, abdominal distension. 11:57 : Positive for small amounts. Exam: 11:57 Eyes: Pupils equal round and reactive to light, extra-ocular motions intact. Lids and jr8 lashes normal. Conjunctiva and sclera are non-icteric and not injected. Cornea within normal limits. Periorbital areas with no swelling, redness, or edema. ENT: Nares patent. No nasal discharge, no septal abnormalities noted. Tympanic membranes are normal and external auditory canals are clear. Oropharynx with no redness, swelling, or masses, exudates, or evidence of obstruction, uvula midline. Mucous membranes moist. Neck: Trachea midline, no thyromegaly or masses palpated, and no cervical lymphadenopathy. Supple, full range of motion without nuchal rigidity, or vertebral point tenderness. No Meningismus. Respiratory: Lungs have equal breath sounds bilaterally, clear to auscultation and percussion. No rales, rhonchi or wheezes noted. No increased work of breathing, no retractions or nasal flaring. Back: No spinal tenderness. No costovertebral tenderness. Full range of motion. Skin: Warm, dry with normal turgor. Normal color with no rashes, no lesions, and no evidence of cellulitis. MS/ Extremity: Pulses equal, no cyanosis. Neurovascular intact. Full, normal range of motion. Neuro: Awake and alert, GCS 15, oriented to person, place, time, and situation. Cranial nerves II-XII grossly intact. Motor strength 5/5 in all extremities. Sensory grossly intact. 11:57 Cardiovascular: Rate: tachycardic, Rhythm: irregular, Pulses: Pulses are 2+ in right radial artery and left radial artery. Heart sounds: normal, normal S1and S2, no S3 or S4, no murmur, no rub, no gallop, Edema: 2+ edema to level of left midcalf, left ankle, left foot, right midcalf, right ankle and right foot, JVD: is not appreciated. 11:57 Abdomen/GI: Inspection: obese Bowel sounds: active, all quadrants, Palpation: soft, in all quadrants, mild abdominal tenderness, in the right upper quadrant and left upper quadrant, mass, is not appreciated, rebound tenderness, is not appreciated, voluntary guarding, is not appreciated, involuntary guarding, is not appreciated, no appreciated organomegaly, Indicators: McBurney's point is not tender, Blackwell's sign is negative, Rovsing's sign is negative, Liver: tenderness, is not appreciated. 12:38 ECG was reviewed by the Attending Physician. jr8 Vital Signs: 11:29 BP 83 / 45; Pulse 103; Resp 18; Temp 98.8(O); Pulse Ox 96% on R/A; Weight 167.83 kg; ph 12:30 BP 94 / 73; Pulse 106; Resp 22; Pulse Ox 98% ; bp 13:35 BP 96 / 62; Pulse 104; Resp 19; Pulse Ox 99% ; bp 14:35 BP 106 / 51; Pulse 104; Resp 14; Pulse Ox 100% ; bp 15:30 BP 110 / 89; Pulse 113; Resp 14; Pulse Ox 100% ; bp 16:30 BP 116 / 91; Pulse 107; Resp 17; Pulse Ox 98% ; bp 17:36 BP 92 / 77; Pulse 110; Resp 18; Pulse Ox 97% ; bp 19:30 BP 118 / 66; Pulse 115; Resp 16; Temp 97.9(O); Pulse Ox 97% on R/A; lp1 MDM: 11:29 Patient medically screened. jr8 15:15 Data reviewed: vital signs, nurses notes, lab test result(s), EKG, radiologic studies, jr8 CT scan, plain films. Data interpreted: Pulse oximetry: on room air is 100 %. Interpretation: normal. Post IV fluid administration reassessment for Sepsis: Sepsis focused reassessment complete. Focused Assessment performed: May 17, 2019 at 15:15 Heart: Regular rate/rhythm noted. S1,S2 auscultated. Lungs: Noted to be clear bilaterally. Capillary refill examination performed. Capillary refill noted to be < 2 seconds. Peripheral pulse evaluation performed. Radial Peripheral pulses noted to be 2+ slightly diminished. Skin examination performed. Skin noted to have normal turgor. Current vital signs reviewed: Yes. Passive leg raise examination performed. Cardio: Cardiovascular examination improved from previous exam. Heart rate and blood pressure have improved. Counseling: I had a detailed discussion with the patient and/or guardian regarding: the historical points, exam findings, and any diagnostic results supporting the discharge/admit diagnosis, lab results, radiology results, the need for further work-up and treatment in the hospital. 15:16 Physician consultation: Collins Celestin MD was called at 15:16, was contacted at 15:16, jr8 regarding admission, to the ICU, consult, patient's condition, and will see patient in ED. 05/17 11:29 Order name: Amylase, Serum; Complete Time: 13:14 05/17 11:29 Order name: Basic Metabolic Panel; Complete Time: 13:14 05/17 11:29 Order name: Blood Culture Adult (2) 05/17 11:29 Order name: CBC with Diff; Complete Time: 13:24 05/17 11:29 Order name: CPK; Complete Time: 13:14 05/17 11:29 Order name: Lactate; Complete Time: 13:14 05/17 11:29 Order name: LFT's; Complete Time: 13:14 05/17 11:29 Order name: Lipase; Complete Time: 13:14 05/17 11:29 Order name: Procalcitonin; Complete Time: 13:31 05/17 11:29 Order name: Protime (+inr); Complete Time: 14:17 05/17 11:29 Order name: Ptt, Activated; Complete Time: 14:17 05/17 11:29 Order name: Troponin (emerg Dept Use Only); Complete Time: 13:14 05/17 11:29 Order name: Urine Microscopic Only; Complete Time: 14:05/17 11:29 Order name: Magnesium; Complete Time: 13:14 8 05/17 11:29 Order name: Chest Single View XRAY; Complete Time: 12:31 8 05/17 13:13 Order name: Urine Dipstick--Ancillary (enter results); Complete Time: 13:24 ms 05/17 13:15 Order name: CT Abd/Pelvis - IV Contrast Only; Complete Time: 14:42 8 05/17 13:20 Order name: CBC Smear Scan; Complete Time: 13:24 EDMS 05/17 14:07 Order name: Urine Culture EDMS 05/17 16:27 Order name: Thyroid Stimulating Hormone EDMS 05/17 16:27 Order name: CBC with Automated Diff EDMS 05/17 16:27 Order name: CBC with Automated Diff EDMS 05/17 16:27 Order name: Comprehensive Metabolic Panel EDMS 05/17 16:27 Order name: Comprehensive Metabolic Panel EDMS 05/17 16:27 Order name: Protime (+INR) EDMS 05/17 16:27 Order name: Protime (+INR) EDMS 05/17 16:32 Order name: Vancomycin Level Trough EDMS 05/17 16:44 Order name: Lactate Sepsis 2 HR Follow-up; Complete Time: 16:46 EDMS 05/17 16:52 Order name: Digoxin Level EDVA 05/17 11:29 Order name: Accucheck; Complete Time: 12:55 05/17 11:29 Order name: Cardiac monitoring; Complete Time: 11:46 8 05/17 11:29 Order name: EKG - Nurse/Tech; Complete Time: 11:46 05/17 11:29 Order name: IV Saline Lock - Large Bore; Complete Time: 12:55 05/17 11:29 Order name: Labs collected and sent; Complete Time: 12:55 8 05/17 11:29 Order name: O2 Per Protocol; Complete Time: 11:46 05/17 11:29 Order name: O2 Sat Monitoring; Complete Time: 11:46 05/17 11:29 Order name: Urine Dipstick-Ancillary (obtain specimen); Complete Time: 12:58 8 05/17 11:29 Order name: Gallagher; Complete Time: 12:54 [facility] 05/17 13:04 Order name: Labs - recollect needed; Complete Time: 13:14 ms 05/17 16:27 Order name: Tray Smyth (ADA) [address] EDMS EC:38 Rate is 107 beats/min. Rhythm is irregular, Sinus tachycardia with PACs. QRS [place] is jr8 Normal. [place] interval is normal at 150 msec. QRS interval is normal at 84 msec. QT interval is normal at 400 msec. No Q waves. T waves are Flattened in leads I, aVL, V5, V6. No ST changes noted. Clinical impression: NSR w/ Non-specific ST/T Changes. Interpreted by me. Reviewed by me. Administered Medications: 12:00 Drug: NS 0.9% (30 ml/kg) 30 ml/kg Route: IV; Rate: bolus; Site: right forearm; bp 20:32 Follow up: IV Status: Completed infusion lp1 12:30 Drug: Rocephin 1 grams Route: IV; Rate: calculated rate; Site: right forearm; bp 16:49 Follow up: IV Status: Completed infusion; IV Intake: 50ml bp 13:30 Drug: Magnesium Sulfate 2 grams Route: IVPB; Infused Over: 2 hrs; Site: right forearm; bp 16:48 Follow up: IV Status: Completed infusion; IV Intake: 50ml bp 13:30 Drug: Potassium Chloride 20 mEq Route: IV; Rate: calculated rate; Site: right forearm; bp 14:45 Drug: Vitamin K1 10 mg Route: Sub-Q; Site: left upper arm; bp 16:00 Drug: Calcium Gluconate 1 grams Route: IVPB; Infused Over: 60 mins; Site: left forearm; bp 16:49 Follow up: IV Status: Completed infusion; IV Intake: 100ml bp 16:30 Drug: vancoMYCIN 1 grams Route: IVPB; Infused Over: 2 hrs; Site: left forearm; bp Disposition: 05/17/19 15:18 Hospitalization ordered by Collins Celestin for Inpatient Admission. Preliminary diagnosis are Bacteremia, Severe sepsis with septic shock, Hypomagnesemia, Hypocalcemia, Hypokalemia. - Bed requested for Intensive Care Unit. - Status is Inpatient Admission. lp1 - Condition is Fair. - Problem is new. - Symptoms have improved. Addendum: 05/19/2019 19:04 Co-signature as Attending Physician, Ganga Baez MD. r n Signatures: Dispatcher [employer] [facility] Mercedes Weathers ms, Roman, MD MD rn Pena, Mellissa, RN RN lp1 Frank Worthington PA PA jr8 Evan Wu, RN RN bp Corrections: (The following items were deleted from the chart) 05/17 11:29 11:29 Gallagher ordered. jr8 jr8 18:48 15:18 Hospitalization Ordered by Collins Celestin MD for Inpatient Admission. Preliminary ms diagnosis is Bacteremia; Severe sepsis with septic shock; Hypomagnesemia; Hypocalcemia; Hypokalemia. Bed requested for Intensive Care Unit. Status is Inpatient Admission. Condition is Fair. Problem is new. Symptoms have improved. jr8 20:32 18:48 05/17/2019 15:18 Hospitalization Ordered by Collins Celestin MD for Inpatient lp1 Admission. Preliminary diagnosis is Bacteremia; Severe sepsis with septic shock; Hypomagnesemia; Hypocalcemia; Hypokalemia. Bed requested for Intensive Care Unit. Status is Inpatient Admission. Condition is Fair. Problem is new. Symptoms have improved. ms
--- NOTE | 2019-05-17 16:17 | P.HP ---
Certification for Inpatient Patient admitted to: Inpatient With expected LOS: >2 Midnights Practitioner: I am a practitioner with admitting privileges, knowledge of patient current condition, hospital course, and medical plan of care. Services: Services provided to patient in accordance with Admission requirements found in Title 42 Section 412.3 of the Code of Federal Regulations Patient History Date of Service: 05/17/19 Reason for admission: Abdominal pain and dark urine History of Present Illness: 63-year-old male with a past medical history of diabetes, AFib, hypertension, history of sepsis and toxic megacolon, history of pancreatic cancer status post Whipple's procedure, who was recently been admitted to the hospital for last sepsis pneumonia and UTI. Has been doing fine but started having abdominal pain and noticed dark urine for the last 2 days and was brought to ER. Pain is mostly located in the upper abdomen with no radiation sharp pain with no modifying factors. Denies any diarrhea but has nausea vomiting. He also noticed a discoloration of the urine and slight dysuria. Has cough.,without expectoration. denies any shortness of breath, no chest pain Patient was noticed to have low blood pressures in the ER and was started on IV fluids. The patient is being admitted for further workup and management for possible sepsis and hypercoagulation this is INR was more than 6. Allergies hydrocodone Allergy (Verified 05/01/19 21:30) unknown lorazepam [From Ativan] Allergy (Verified 05/01/19 21:30) biligerent piperacillin [From Zosyn] Allergy (Verified 05/01/19 21:30) Hives tazobactam [From Zosyn] Allergy (Verified 05/01/19 21:30) Hives Home medications list reviewed: Yes Home Medications: Digoxin [Lanoxin*] 0.125 mg PO DAILY 05/01/19 Gabapentin 300 mg PO BID 05/01/19 Metoprolol Tartrate [Lopressor*] 25 mg PO BID 05/01/19 PARoxetine HCl [Paxil*] 10 mg PO DAILY 05/01/19 Pantoprazole [Protonix Tab*] 40 mg PO DAILY 05/01/19 Insulin Glargine,Hum.rec.anlog [Lantus] 5 unit SQ DAILY PRN 05/02/19 Ertapenem Na [Invanz] 1 gm IM DAILY vial 02/10/20 Nicotine [Nicoderm*] 21 mg TD DAILY #14 patch.td24 05/04/19 - Past Medical/Surgical History Diabetic: Yes Past Medical History: Reviewed- Non-Contributory -: DM type 2 -: Hypertension -: Atrial fibrillator -: Heart failure -: History of toxic megacolon -: Pancreatic Ca Past Surgical History: Reviewed- Non-Contributory -: Whipple's procedure -: Colostomy with reversal - Family History Family History: Reviewed- Non-Contributory - Family History Mother -: Cancer Brother -: Hypertension Sister -: Hypertension - Social History Smoking Status: Never smoker Alcohol use: Yes CD- Drugs: No Caffeine use: Yes Review of Systems 10-point ROS is otherwise unremarkable Physical Examination - Vital Signs Temperature: 98.8 F Blood Pressure: 95/62 Pulse: 103 Respirations: 18 Pulse Ox (%): 94 - Physical Exam General: Alert, Mild distress, Obese HEENT: Atraumatic, Normocephalic Neck: Supple Respiratory: Clear to auscultation bilaterally Cardiovascular: Other (Tachycardia ) Capillary refill: <2 Seconds Gastrointestinal: W/out hepatosplenomegaly, No guarding, Distended Musculoskeletal: No clubbing Integumentary: No rashes Neurological: Normal speech, Normal strength at 5/5 x4 extr Lymphatics: No axilla or inguinal lymphadenopathy Urinary: Gallagher catheter External genitalia: Deferred Rectal: Deferred - Studies Laboratory Data (last 24 hrs) 05/17/19 13:40: PT 70.6 H, INR 6.43 H*, APTT 71.6 H 05/17/19 12:30: WBC 9.9 D, Hgb 9.5 L, Hct 28.6 L, Plt Count 190 05/17/19 12:30: Sodium 137, Potassium 3.2 L, BUN 7, Creatinine 0.79, Glucose 98 , Magnesium 1.4 L* D, Total Bilirubin 1.2 H, AST 40 H, ALT 12, Alkaline Phosphatase 101, Amylase 40, Lipase 410 H Laboratory Last Values WBC 9.9 K/uL (4.3-10.9) D 05/17/19 12:30 RBC 2.81 M/uL (4.33-5.43) L 05/17/19 12:30 Hgb 9.5 g/dL (13.6-17.9) L 05/17/19 12:30 Hct 28.6 % (39.6-49.0) L 05/17/19 12:30 MCV 101.8 fL (80-100) H 05/17/19 12:30 MCH 33.8 pg (27.0-35.0) 05/17/19 12:30 MCHC 33.2 g/dL (32.0-36.0) 05/17/19 12:30 RDW 16.7 % (12.1-15.2) H 05/17/19 12:30 Plt Count 190 K/uL (152-406) 05/17/19 12:30 MPV 8.3 fL (7.6-11.3) 05/17/19 12:30 Neutrophils % 76.5 % (41.7-73.7) H 05/17/19 12:30 Lymphocytes % 12.3 % (15.3-44.8) L 05/17/19 12:30 Monocytes % 9.5 % (3.3-12.3) 05/17/19 12:30 Eosinophils % 1.0 % (0-4.4) 05/17/19 12:30 Basophils % 0.7 % (0-1.3) 05/17/19 12:30 Absolute Neutrophils 7.6 K/uL (1.8-8.0) 05/17/19 12:30 Absolute Lymphocytes 1.2 K/uL (0.7-4.9) 05/17/19 12:30 Absolute Monocytes 0.9 K/uL (0.1-1.3) 05/17/19 12:30 Absolute Eosinophils 0.1 K/uL (0-0.5) 05/17/19 12:30 Absolute Basophils 0.1 K/uL (0-0.5) 05/17/19 12:30 Morphology Comment Not seen (NOT SEEN) 05/17/19 12:30 PT 70.6 SECONDS (9.5-12.5) H 05/17/19 13:40 INR 6.43 H* 05/17/19 13:40 APTT 71.6 SECONDS (24.3-36.9) H 05/17/19 13:40 Sodium 137 mmol/L (136-145) 05/17/19 12:30 Potassium 3.2 mmol/L (3.5-5.1) L 05/17/19 12:30 Chloride 105 mmol/L (98-107) 05/17/19 12:30 Carbon Dioxide 25 mmol/L (21-32) 05/17/19 12:30 BUN 7 mg/dL (7-18) 05/17/19 12:30 Creatinine 0.79 mg/dL (0.55-1.3) 05/17/19 12:30 Estimated GFR > 90 mL/min (=/>90) 05/17/19 12:30 Glucose 98 mg/dL (74-106) 05/17/19 12:30 Lactic Acid 2.4 mmol/L (0.4-2.0) H 05/17/19 12:30 Calcium 7.1 mg/dL (8.5-10.1) L 05/17/19 12:30 Magnesium 1.4 mg/dL (1.8-2.4) L* D 05/17/19 12:30 Total Bilirubin 1.2 mg/dL (0.2-1.0) H 05/17/19 12:30 Direct Bilirubin 0.8 mg/dL (0-0.2) H 05/17/19 12:30 AST 40 U/L (15-37) H 05/17/19 12:30 ALT 12 U/L (12-78) 05/17/19 12:30 Alkaline Phosphatase 101 U/L (45-117) 05/17/19 12:30 Creatine Kinase 12 U/L (39-308) L 05/17/19 12:30 Rapid Troponin I < 0.02 ng/mL (0.0-0.045) 05/17/19 12:30 Serum Total Protein 5.7 g/dL (6.4-8.2) L 05/17/19 12:30 Albumin 1.3 g/dL (3.4-5.0) L 05/17/19 12:30 Globulin 4.4 g/dL (2.3-3.5) H 05/17/19 12:30 Albumin/Globulin Ratio 0.3 (1.1-1.8) L 05/17/19 12:30 Amylase 40 U/L (25-115) 05/17/19 12:30 Lipase 410 U/L (73-393) H 05/17/19 12:30 Procalcitonin 17.65 ng/mL (<0.50) H 05/17/19 12:30 Urine pH 6.0 (5.0-7.0) 05/17/19 13:13 Ur Specific [place] 1.015 (1.005-1.030) 05/17/19 13:13 Glucose (UA)(Auto) Negative (NEG) 05/17/19 13:13 Urine Ketones Negative (NEG) 05/17/19 13:13 Urine Blood 3+ (NEG) H 05/17/19 13:13 Urine Nitrite Negative (NEG) 05/17/19 13:13 Ur Leukocyte Esterase Negative (NEG) 05/17/19 13:13 Urine RBC >50 /HPF (NONE SEEN) H 05/17/19 13:05 Urine WBC 5-10 /HPF (<5) H 05/17/19 13:05 Ur Squamous Epith Cells <5 /HPF (NONE SEEN) 05/17/19 13:05 Urine Bacteria <20 /HPF (NONE SEEN) 05/17/19 13:05 Urine Culture Reflexed Reflexed 05/17/19 13:05 Urine Total Protein 1+ (NEG) H 05/17/19 13:13 Assessment and Plan - Problems (Diagnosis) (1) Chronic atrial fibrillation Current Visit: No Status: Chronic (2) DM type 2 (diabetes mellitus, type 2) Current Visit: No Status: Chronic Qualifiers: Diabetes mellitus complication status: with diabetic arthropathy (3) Sepsis Current Visit: No Status: Acute Qualifiers: Sepsis type: sepsis due to unspecified organism (4) UTI (urinary tract infection) Current Visit: No Status: Acute Qualifiers: Urinary tract infection type: site unspecified Hematuria presence: with hematuria Qualified Code(s): N39.0 - Urinary tract infection, site not specified; R31.9 - Hematuria, unspecified - Plan Sepsis Possible UTI Hypercoagulopathy due to Coumadin Hematuria Anemia of chronic disease Hypomagnesemia Hypokalemia Hypocalcemia Elevated liver enzymes Lactic acidosis Elevated lipase Elevated procalcitonin DM H/o HTN Chronic AFib History of pancreatic cancer status post Whipple resection Plan Monitor under telemetry Aggressive hydration start on broad-spectrum IV antibiotic Patient had a recent MDRO UTI Was start on meropenem and vancomycin Change antibiotic as per the sensitivity Electrolytes monitored and replaced Give vitamin K given hematuria Will hold Coumadin for now Monitor renal parameters along with liver profile Awaiting further cultures Monitor CBC daily Transfuse p.r.n. Continue home medication Insulin sliding scale Serial lactic acid GI/DVT prophylaxis Advanced directives full code Discharge Plan: Home Plan to discharge in: Greater than 2 days - Advance Directives Does patient have a Living Will: No Does patient have a Durable POA for Healthcare: No Time Spent Managing Pts Care (In Minutes): 45
[2019-05-17] MEDS ORDERED: ALBUTEROL 2.5 MG/3 ML NEB SOL NEB PRN (16:18)
[2019-05-17] MEDS ORDERED: MAGNESIUM SULFATE 1 gm IVPB 1 GM/100 ML BAG IV ONE (16:26)
[2019-05-17] MEDS: INSULIN -REGULAR HUMAN 50 UNIT/0.5 ML ML SQ SCH ×2 (16:30→21:00)
[2019-05-17] MEDS ORDERED: INSULIN GLARGINE 100 UNITS/ML SQ PRN (16:41)
[2019-05-17] MEDS: Meropenem 500 MG VIAL IV SCH ×2 (17:00→23:07)
[2019-05-17] MEDS ORDERED: VANCOMYCIN 1.25 GM in NA CHLORIDE 0.9% 250 ML IVPB SCH (17:00)
[2019-05-17] MEDS: KCL 10 MEQ/100 ML IVPB 10 MEQ/100 ML BAG IV SCH ×2 (17:00→18:00)
[2019-05-17] MEDS: METOPROLOL TAR 25 MG TAB PO SCH (21:00)
[2019-05-17] MEDS: NA CHLORIDE 0.9% 1,000 ML IV SCH (21:30)
[2019-05-17 22:18] LABS: Thyroid Stimulating Hormone 1.76 uIU/mL (0.360-3.740)
[2019-05-17] MEDS ORDERED: POTASSIUM CL SA 10 MEQ TAB PO ONE (22:54)
[2019-05-17] MEDS ORDERED: KCL 20 MEQ/100 mL IVPB 20 MEQ/100 ML BAG IV ONE (22:58)
[2019-05-17] MEDS: TRAMADOL HCL 50 MG TAB PO PRN (23:07)
[2019-05-17] MEDS: GABAPENTIN 300 MG CAP PO SCH (23:08)
[2019-05-18] MEDS: NA CHLORIDE 0.9% 1,000 ML IV SCH ×2 (03:00→13:00)
[2019-05-18] MEDS ORDERED: VANCOMYCIN 1 GM/VIAL ONE (04:26)
[2019-05-18] MEDS ORDERED: NA CHLORIDE 0.9% 500 ML ONE (04:27)
[2019-05-18] MEDS ORDERED: VANCOMYCIN 2 GM in NA CHLORIDE 0.9% 500 ML IVPB SCH (04:30)
[2019-05-18 05:41] LABS: Protime INR 6.5
[2019-05-18 05:49] LABS: ALT/SGPT 11 U/L (12-78); AST/SGOT 39 U/L (15-37); Albumin 1.1 g/dL (3.4-5.0); Alkaline Phosphatase 90 U/L (45-117); BUN Blood Urea Nitrogen 7 mg/dL (7-18); Bicarbonate 24 mmol/L (21-32); Glucose Level 96 mg/dL (74-106); Potassium 3.3 mmol/L (3.5-5.1); Protein, Total 5.3 g/dL (6.4-8.2); Sodium Level 140 mmol/L (136-145)
[2019-05-18] MEDS ORDERED: POTASSIUM CL SA 10 MEQ TAB PO ONE ×2 (06:00→17:00)
[2019-05-18] MEDS ORDERED: CALCIUM GLUC 10% INJ 4.65 MEQ in NA CHLORIDE 0.9% 100 ML IV ONE (06:08)
[2019-05-18 06:17] LABS: Absolute Lymphocytes (CBC) 1.3 K/uL (0.7-4.9); Basophils % 0.6 % (0-1.3); Hematocrit 24.9 % (39.6-49.0); Lymphocytes % 14.7 % (15.3-44.8); MPV 8.4 fL (7.6-11.3); RBC Red Blood Cell Count 2.44 M/uL (4.33-5.43)
[2019-05-18] MEDS ORDERED: CALCIUM GLUCONATE 1 GM IVPB 1 GM/50 ML BAG IV ONE (06:26)
[2019-05-18 06:44] LABS: Magnesium 1.7 mg/dL (1.8-2.4)
[2019-05-18] MEDS: INSULIN -REGULAR HUMAN 50 UNIT/0.5 ML ML SQ SCH ×4 (07:30→21:00)
[2019-05-18] MEDS ORDERED: MAGNESIUM SULFATE 1 gm IVPB 1 GM/100 ML BAG IV ONE (08:00)
--- NOTE | 2019-05-18 08:54 | EKG ---
Test Date: 2019-05-17 Test Time: 11:42:16 Keyliner: HOPE MEASUREMENT RESULTS: Intervals: Rate: 107 KS: 150 QRSD: 84 QT: 300 QTc: 400 [place]: P: 37 KS: 150 QRS: 15 T: 141 INTERPRETIVE STATEMENTS: Sinus tachycardia Low voltage QRS Nonspecific T wave abnormality Abnormal ECG Compared to ECG 05/01/2019 14:50:28 Low QRS voltage now present T-wave abnormality still present Electronically Signed On 05-18-19 08:53:33 [employer] DEPARTMENT CHAIR by Roly Montanez
[2019-05-18] MEDS: METOPROLOL TAR 25 MG TAB PO SCH ×2 (09:00→21:29)
[2019-05-18] MEDS ORDERED: VITAMIN K (ADULT) 10 MG/ML SQ SCH (09:00)
[2019-05-18] MEDS: NICOTINE 21 MG/PAT TD SCH (09:17)
[2019-05-18] MEDS: Meropenem 500 MG in NA CHLORIDE 0.9% 100 ML IV SCH ×2 (09:17→16:33)
[2019-05-18] MEDS: PANTOPRAZOLE 40MG TABLET PO SCH (09:17)
[2019-05-18] MEDS: DIGOXIN 0.125 MG TABLET PO SCH (09:17)
[2019-05-18] MEDS: PARoxetine HCL 10 MG TAB PO SCH (09:17)
[2019-05-18] MEDS: GABAPENTIN 300 MG CAP PO SCH ×2 (09:17→20:21)
--- NOTE | 2019-05-18 11:32 | P.PN ---
Subjective Date of Service: 05/18/19 Chief Complaint: Abdominal pain and dark urine Hematuria resolved. Patient denies any nausea or vomiting but endorsed poor appetite and poor oral intake. His blood pressure has improved. He reports daily bulky loose to soft stool. No recorded fever. Physical Examination - Vital Signs Temperature: 98 F Blood Pressure: 97/67 Pulse: 105 Respirations: 21 Pulse Ox (%): 100 - Physical Exam General: Alert, In no apparent distress, Oriented x3, Obese HEENT: Mucous membr. moist/pink, Sclerae nonicteric Neck: Supple, JVD not distended Respiratory: Clear to auscultation bilaterally, Diminished Cardiovascular: Regular rate/rhythm, Normal S1 S2, Other (Tachycardia), Edema (1 + bilateral lower extremity pitting edema) Capillary refill: <2 Seconds Gastrointestinal: Normal bowel sounds, Soft and benign, Non-distended, No ascites Musculoskeletal: No swelling, No erythema Integumentary: No rashes Neurological: Normal speech, Normal strength at 5/5 x4 extr, Cranial nerves 3- 12 intact - Studies Laboratory Data (last 24 hrs) 05/17/19 13:40: PT 70.6 H, INR 6.43 H*, APTT 71.6 H 05/17/19 12:30: WBC 9.9 D, Hgb 9.5 L, Hct 28.6 L, Plt Count 190 05/17/19 12:30: Sodium 137, Potassium 3.2 L, BUN 7, Creatinine 0.79, Glucose 98 , Magnesium 1.4 L* D, Total Bilirubin 1.2 H, AST 40 H, ALT 12, Alkaline Phosphatase 101, Amylase 40, Lipase 410 H Assessment And Plan - Current Problems (Diagnosis) (1) Hypotension Current Visit: No Status: Acute (2) Sepsis Current Visit: No Status: Acute Qualifiers: Sepsis type: sepsis due to unspecified organism (3) Chronic atrial fibrillation Current Visit: No Status: Chronic (4) Pancreatic cancer Current Visit: Yes Status: Acute (5) DM type 2 (diabetes mellitus, type 2) Current Visit: No Status: Chronic Qualifiers: Diabetes mellitus complication status: with diabetic arthropathy (6) Hematuria Current Visit: Yes Status: Resolved (7) Acute blood loss anemia Current Visit: Yes Status: Acute (8) Supratherapeutic INR Current Visit: Yes Status: Acute (9) History of DVT (deep vein thrombosis) Current Visit: Yes Status: Acute - Plan Continue current antibiotics. Follow cultures IV hydration Feeding as tolerated Given another vitamin K today to reverse supratherapeutic INR given hematuria and drop in hemoglobin. Check stool for occult blood. Transfuse p.r.n. for hemoglobin less than 7. Digoxin and metoprolol for atrial fibrillation rate control Optimize electrolytes. Replete calcium and potassium. Physical therapy
[2019-05-18 12:59] LABS: BUN Blood Urea Nitrogen 6 mg/dL (7-18); Bicarbonate 23 mmol/L (21-32); Glucose Level 107 mg/dL (74-106); Potassium 3.8 mmol/L (3.5-5.1); Sodium Level 139 mmol/L (136-145)
[2019-05-18] MEDS: VANCOMYCIN 2 GM in NA CHLORIDE 0.9% 500 ML IVPB SCH (17:38)
[2019-05-19] MEDS: Meropenem 500 MG in NA CHLORIDE 0.9% 100 ML IV SCH ×3 (00:34→17:43)
[2019-05-19] MEDS: VANCOMYCIN 2 GM in NA CHLORIDE 0.9% 500 ML IVPB SCH ×2 (04:09→17:00)
[2019-05-19] MEDS: NA CHLORIDE 0.9% 1,000 ML IV SCH ×2 (04:09→09:00)
[2019-05-19 05:12] LABS: Absolute Lymphocytes (CBC) 1.3 K/uL (0.7-4.9); Basophils % 0.8 % (0-1.3); Hematocrit 26.6 % (39.6-49.0); Lymphocytes % 14.6 % (15.3-44.8); MPV 8.6 fL (7.6-11.3); RBC Red Blood Cell Count 2.62 M/uL (4.33-5.43)
[2019-05-19 05:20] VITALS: BMI 41.6
[2019-05-19 05:38] LABS: BUN Blood Urea Nitrogen 6 mg/dL (7-18); Bicarbonate 24 mmol/L (21-32); Glucose Level 83 mg/dL (74-106); Sodium Level 141 mmol/L (136-145)
[2019-05-19 05:51] LABS: Magnesium 1.9 mg/dL (1.8-2.4); Potassium 3.8 mmol/L (3.5-5.1)
[2019-05-19] MEDS: INSULIN -REGULAR HUMAN 50 UNIT/0.5 ML ML SQ SCH ×4 (07:30→20:14)
[2019-05-19 07:36] LABS: Protime INR 2.8
[2019-05-19] MEDS: PARoxetine HCL 10 MG TAB PO SCH (08:34)
[2019-05-19] MEDS: DIGOXIN 0.125 MG TABLET PO SCH (08:35)
[2019-05-19] MEDS: PANTOPRAZOLE 40MG TABLET PO SCH (08:35)
[2019-05-19] MEDS: METOPROLOL TAR 25 MG TAB PO SCH ×2 (08:35→20:11)
[2019-05-19] MEDS: NICOTINE 21 MG/PAT TD SCH (08:35)
[2019-05-19] MEDS: GABAPENTIN 300 MG CAP PO SCH ×2 (08:35→20:11)
[2019-05-19] MEDS ORDERED: POTASSIUM CL SA 10 MEQ TAB PO ONE (09:00)
--- NOTE | 2019-05-19 12:56 | P.PN ---
Subjective Date of Service: 05/19/19 Chief Complaint: Abdominal pain and dark urine Patient appeared rather confused today. 2 blood culture bottles growing Gram positive cocci. No fever record His blood pressure has improved and stable. No hematuria. Denies report 2 bulky bowel movements since last Physical Examination - Vital Signs Temperature: 97.9 F Blood Pressure: 101/57 Pulse: 84 Respirations: 19 Pulse Ox (%): 96 - Physical Exam General: In no apparent distress, Cooperative, Confused HEENT: PERRLA, Mucous membr. moist/pink, Sclerae nonicteric Neck: Supple, JVD not distended Respiratory: Clear to auscultation bilaterally, Normal air movement Cardiovascular: Regular rate/rhythm, Normal S1 S2, Edema (Bilateral lower extremities.) Capillary refill: <2 Seconds Gastrointestinal: Normal bowel sounds, Soft and benign, No tenderness Musculoskeletal: No erythema Integumentary: No rashes Neurological: Normal strength at 5/5 x4 extr, Other (Confused) - Studies Microbiology Data (last 24 hrs): 05/17/19 13:05 Clean Catch Urine Burton Count - Final 05/17/19 13:05 Clean Catch Urine - Final No growth. 05/17/19 12:15 Blood - Blood Gram Stain - Final Assessment And Plan - Current Problems (Diagnosis) (1) Hypotension Current Visit: No Status: Resolved (2) Sepsis Current Visit: No Status: Acute Qualifiers: Sepsis type: sepsis due to unspecified organism (3) Chronic atrial fibrillation Current Visit: No Status: Chronic (4) Pancreatic cancer Current Visit: Yes Status: Acute (5) DM type 2 (diabetes mellitus, type 2) Current Visit: No Status: Chronic Qualifiers: Diabetes mellitus complication status: with diabetic arthropathy (6) Hematuria Current Visit: Yes Status: Resolved (7) Acute blood loss anemia Current Visit: Yes Status: Acute (8) Supratherapeutic INR Current Visit: Yes Status: Resolved (9) History of DVT (deep vein thrombosis) Current Visit: Yes Status: Acute (10) Bacteremia due to Gram-positive bacteria Current Visit: Yes Status: Acute - Plan Continue current antibiotics. Repeat blood cultures. Feeding as tolerated Discontinue vitamin K Transfuse p.r.n. for hemoglobin less than 7. Digoxin and metoprolol for atrial fibrillation rate control Optimize electrolytes. Replete calcium and potassium as needed. Physical therapy
[2019-05-19] MEDS ORDERED: ALBUTEROL 2.5 MG/3 ML NEB SOL NEB PRN (17:00)
[2019-05-20] MEDS: Meropenem 500 MG in NA CHLORIDE 0.9% 100 ML IV SCH ×5 (00:30→23:03)
[2019-05-20 05:54] LABS: BUN Blood Urea Nitrogen 6 mg/dL (7-18); Bicarbonate 21 mmol/L (21-32); Glucose Level 91 mg/dL (74-106); Potassium 3.5 mmol/L (3.5-5.1); Sodium Level 143 mmol/L (136-145)
[2019-05-20 06:10] LABS: Absolute Lymphocytes (CBC) 1.3 K/uL (0.7-4.9); Basophils % 0.8 % (0-1.3); Hematocrit 24.8 % (39.6-49.0); Lymphocytes % 21.4 % (15.3-44.8); MPV 7.8 fL (7.6-11.3); RBC Red Blood Cell Count 2.45 M/uL (4.33-5.43)
[2019-05-20] MEDS: INSULIN -REGULAR HUMAN 50 UNIT/0.5 ML ML SQ SCH ×4 (07:30→20:40)
[2019-05-20 08:03] LABS: Blood Morphology Comment NOT SEEN (NOT SEEN); Platelet Estimate ADEQ
[2019-05-20] MEDS: METOPROLOL TAR 25 MG TAB PO SCH ×2 (08:33→20:42)
[2019-05-20] MEDS: PARoxetine HCL 10 MG TAB PO SCH (08:33)
[2019-05-20] MEDS: PANTOPRAZOLE 40MG TABLET PO SCH (08:34)
[2019-05-20] MEDS: GABAPENTIN 300 MG CAP PO SCH ×2 (08:34→20:43)
[2019-05-20] MEDS: DIGOXIN 0.125 MG TABLET PO SCH (08:34)
[2019-05-20] MEDS: NICOTINE 21 MG/PAT TD SCH (08:35)
[2019-05-20] MEDS: CALCIUM GLUC 10% INJ 4.65 MEQ in NA CHLORIDE 0.9% 100 ML IV SCH ×2 (12:00→12:34)
--- NOTE | 2019-05-20 12:20 | P.PN ---
Subjective Date of Service: 05/20/19 Chief Complaint: Abdominal pain and dark urine Patient denies any complain. His blood pressure has been stable. No more hematuria Repeat blood culture shows no growth. Some apathy noted No fever record Physical Examination - Vital Signs Temperature: 97.9 F Blood Pressure: 131/75 Pulse: 80 Respirations: 18 Pulse Ox (%): 95 - Physical Exam General: In no apparent distress, Oriented x3, Other (Psychomotor retardation) HEENT: Mucous membr. moist/pink, Sclerae nonicteric Neck: Supple, JVD not distended Respiratory: Clear to auscultation bilaterally, Normal air movement Cardiovascular: Normal S1 S2, Edema (Bilateral lower extremities), Irregular heart rate/rhythm Gastrointestinal: Normal bowel sounds, Soft and benign, Non-distended, No tenderness Musculoskeletal: No swelling, No erythema Integumentary: No rashes Neurological: Normal speech, Normal strength at 5/5 x4 extr, Cranial nerves 3- 12 intact - Studies Microbiology Data (last 24 hrs): 05/17/19 13:05 Clean Catch Urine Turner Count - Final 05/17/19 13:05 Clean Catch Urine - Final No growth. 05/17/19 12:15 Blood - Blood Gram Stain - Final Assessment And Plan - Current Problems (Diagnosis) (1) Hypotension Current Visit: No Status: Resolved (2) Sepsis Current Visit: No Status: Acute Qualifiers: Sepsis type: sepsis due to unspecified organism (3) Chronic atrial fibrillation Current Visit: No Status: Chronic (4) Pancreatic cancer Current Visit: Yes Status: Chronic (5) DM type 2 (diabetes mellitus, type 2) Current Visit: No Status: Chronic Qualifiers: Diabetes mellitus complication status: with diabetic arthropathy (6) Hematuria Current Visit: Yes Status: Resolved (7) Acute blood loss anemia Current Visit: Yes Status: Acute (8) Supratherapeutic INR Current Visit: Yes Status: Resolved (9) History of DVT (deep vein thrombosis) Current Visit: Yes Status: Acute (10) Bacteremia due to Gram-positive bacteria Current Visit: Yes Status: Acute - Plan Continue current antibiotics. Repeat blood culture shows no growth to date. Hemoglobin has been stable at 8.2 Feeding as tolerated Transfuse p.r.n. for hemoglobin less than 7. Digoxin and metoprolol for atrial fibrillation rate control Optimize electrolytes. Replete calcium and potassium as needed. Physical therapy.
[2019-05-21 06:43] LABS: Absolute Lymphocytes (CBC) 1.5 K/uL (0.7-4.9); Basophils % 0.6 % (0-1.3); Hematocrit 26.2 % (39.6-49.0); Lymphocytes % 23.8 % (15.3-44.8); MPV 8.6 fL (7.6-11.3); RBC Red Blood Cell Count 2.53 M/uL (4.33-5.43)
[2019-05-21 07:21] LABS: BUN Blood Urea Nitrogen 7 mg/dL (7-18); Bicarbonate 23 mmol/L (21-32); Glucose Level 94 mg/dL (74-106); Phosphorus 2.1 mg/dL (2.5-4.9); Potassium 3.4 mmol/L (3.5-5.1); Sodium Level 146 mmol/L (136-145)
[2019-05-21] MEDS: INSULIN -REGULAR HUMAN 50 UNIT/0.5 ML ML SQ SCH ×4 (07:30→20:29)
[2019-05-21] MEDS ORDERED: POTASSIUM 25 MEQ EFFERV TAB PO ONE (09:00)
[2019-05-21] MEDS: DIGOXIN 0.125 MG TABLET PO SCH (09:03)
[2019-05-21] MEDS: METOPROLOL TAR 25 MG TAB PO SCH ×2 (09:09→21:00)
[2019-05-21] MEDS: Meropenem 500 MG in NA CHLORIDE 0.9% 100 ML IV SCH ×2 (09:10→16:30)
[2019-05-21] MEDS: GABAPENTIN 300 MG CAP PO SCH ×2 (09:12→20:29)
[2019-05-21] MEDS: PARoxetine HCL 10 MG TAB PO SCH (09:13)
[2019-05-21] MEDS: PANTOPRAZOLE 40MG TABLET PO SCH (09:14)
[2019-05-21] MEDS: POTASS/SODIUM PHOSPHATE 1 PKT POWD.PACK PO SCH ×3 (09:14→10:45)
[2019-05-21] MEDS: VANCOMYCIN 2 GM in NA CHLORIDE 0.9% 500 ML IVPB SCH (10:44)
[2019-05-21] MEDS: NICOTINE 21 MG/PAT TD SCH (10:44)
--- NOTE | 2019-05-21 11:18 | P.PN ---
Subjective Date of Service: 05/21/19 Chief Complaint: Abdominal pain and dark urine Subjective: Improving Review of Systems 10-point ROS is otherwise unremarkable Physical Examination - Vital Signs Temperature: 97.4 F Blood Pressure: 110/68 Pulse: 72 Respirations: 20 Pulse Ox (%): 96 - Physical Exam General: Alert, In no apparent distress HEENT: Atraumatic, Normocephalic Neck: Supple Respiratory: Clear to auscultation bilaterally, Normal air movement Cardiovascular: No edema, Regular rate/rhythm Capillary refill: <2 Seconds Gastrointestinal: Soft and benign Musculoskeletal: No clubbing Integumentary: No rashes Neurological: Normal speech, Other (Alert Awake ) Lymphatics: No axilla or inguinal lymphadenopathy External genitalia: Deferred Rectal: Deferred - Studies Laboratory Last Values WBC 6.2 K/uL (4.3-10.9) 05/21/19 06:00 RBC 2.53 M/uL (4.33-5.43) L 05/21/19 06:00 Hgb 8.7 g/dL (13.6-17.9) L 05/21/19 06:00 Hct 26.2 % (39.6-49.0) L 05/21/19 06:00 MCV 103.6 fL (80-100) H 05/21/19 06:00 MCH 34.4 pg (27.0-35.0) 05/21/19 06:00 MCHC 33.2 g/dL (32.0-36.0) 05/21/19 06:00 RDW 16.6 % (12.1-15.2) H 05/21/19 06:00 Plt Count 192 K/uL (152-406) 05/21/19 06:00 MPV 8.6 fL (7.6-11.3) D 05/21/19 06:00 Neutrophils % 58.1 % (41.7-73.7) 05/21/19 06:00 Lymphocytes % 23.8 % (15.3-44.8) 05/21/19 06:00 Monocytes % 14.3 % (3.3-12.3) H 05/21/19 06:00 Eosinophils % 3.2 % (0-4.4) 05/21/19 06:00 Basophils % 0.6 % (0-1.3) 05/21/19 06:00 Absolute Neutrophils 3.6 K/uL (1.8-8.0) 05/21/19 06:00 Segmented Neutrophils 73 % (40-80) 05/20/19 06:02 Absolute Lymphocytes 1.5 K/uL (0.7-4.9) 05/21/19 06:00 Lymphocytes 15 % (15-42) 05/20/19 06:02 Monocytes 6 % (0-10) 05/20/19 06:02 Absolute Monocytes 0.9 K/uL (0.1-1.3) 05/21/19 06:00 Eosinophils 6 % (0-3) H 05/20/19 06:02 Absolute Eosinophils 0.2 K/uL (0-0.5) 05/21/19 06:00 Absolute Basophils 0.0 K/uL (0-0.5) 05/21/19 06:00 Morphology Comment Not seen (NOT SEEN) 05/20/19 06:02 PT 31.8 SECONDS (9.5-12.5) H 05/19/19 07:21 INR 2.80 05/19/19 07:21 APTT 71.6 SECONDS (24.3-36.9) H 05/17/19 13:40 Sodium 146 mmol/L (136-145) H 05/21/19 06:00 Potassium 3.4 mmol/L (3.5-5.1) L 05/21/19 06:00 Chloride 116 mmol/L (98-107) H 05/21/19 06:00 Carbon Dioxide 23 mmol/L (21-32) 05/21/19 06:00 BUN 7 mg/dL (7-18) 05/21/19 06:00 Creatinine 0.71 mg/dL (0.55-1.3) 05/21/19 06:00 Estimated GFR > 90 mL/min (=/>90) 05/21/19 06:00 Glucose 94 mg/dL (74-106) 05/21/19 06:00 POC Glucose 99 mg/dl (65-120) 05/21/19 07:41 Lactic Acid 3.0 mmol/L (0.4-2.0) H 05/17/19 16:17 Calcium 7.1 mg/dL (8.5-10.1) L 05/21/19 06:00 Ionized Calcium 4.1 mg/dL (4.8-5.6) L 05/18/19 06:27 Phosphorus 2.1 mg/dL (2.5-4.9) L 05/21/19 06:00 Magnesium 1.9 mg/dL (1.8-2.4) 05/19/19 04:52 Total Bilirubin 1.0 mg/dL (0.2-1.0) 05/18/19 04:41 Direct Bilirubin 0.8 mg/dL (0-0.2) H 05/17/19 12:30 AST 39 U/L (15-37) H 05/18/19 04:41 ALT 11 U/L (12-78) L 05/18/19 04:41 Alkaline Phosphatase 90 U/L (45-117) 05/18/19 04:41 Creatine Kinase 12 U/L (39-308) L 05/17/19 12:30 Rapid Troponin I < 0.02 ng/mL (0.0-0.045) 05/17/19 12:30 Serum Total Protein 5.3 g/dL (6.4-8.2) L 05/18/19 04:41 Albumin 1.1 g/dL (3.4-5.0) L 05/18/19 04:41 Globulin 4.2 g/dL (2.3-3.5) H 05/18/19 04:41 Albumin/Globulin Ratio 0.3 (1.1-1.8) L 05/18/19 04:41 Amylase 40 U/L (25-115) 05/17/19 12:30 Lipase 410 U/L (73-393) H 05/17/19 12:30 Procalcitonin 17.65 ng/mL (<0.50) H 05/17/19 12:30 TSH 1.760 uIU/mL (0.360-3.740) 05/17/19 21:45 Urine pH 6.0 (5.0-7.0) 05/17/19 13:13 Ur Specific [place] 1.015 (1.005-1.030) 05/17/19 13:13 Glucose (UA)(Auto) Negative (NEG) 05/17/19 13:13 Urine Ketones Negative (NEG) 05/17/19 13:13 Urine Blood 3+ (NEG) H 05/17/19 13:13 Urine Nitrite Negative (NEG) 05/17/19 13:13 Ur Leukocyte Esterase Negative (NEG) 05/17/19 13:13 Urine RBC >50 /HPF (NONE SEEN) H 05/17/19 13:05 Urine WBC 5-10 /HPF (<5) H 05/17/19 13:05 Ur Squamous Epith Cells <5 /HPF (NONE SEEN) 05/17/19 13:05 Urine Bacteria <20 /HPF (NONE SEEN) 05/17/19 13:05 Urine Culture Reflexed Reflexed 05/17/19 13:05 Urine Total Protein 1+ (NEG) H 05/17/19 13:13 Vancomycin Trough 16.8 ug/mL (5.0-20.0) 05/21/19 06:00 Digoxin 0.50 ng/mL (0.80-2.00) L 05/17/19 21:45 Assessment & Plan - Problems (Diagnosis) (1) Chronic atrial fibrillation Current Visit: No Status: Chronic (2) DM type 2 (diabetes mellitus, type 2) Current Visit: No Status: Chronic Qualifiers: Diabetes mellitus complication status: with diabetic arthropathy (3) Sepsis Current Visit: No Status: Acute Qualifiers: Sepsis type: sepsis due to unspecified organism (4) UTI (urinary tract infection) Current Visit: No Status: Acute Plan: Continue current antibiotics. Repeat blood culture shows no growth Hemoglobin has been stable Feeding as tolerated Transfuse p.r.n. for hemoglobin less than 7. Digoxin and metoprolol for atrial fibrillation rate control Optimize electrolytes. Replete calcium and potassium as needed. Physical therapy. Will get a repeat UA and urine culture Discussed in detail with the patient's family Patient is getting recurrent UTIs since the whipples surgery Will get an ID consult for recurrent UTI and may need prophylactic antibiotics to prevent UTIs Also advised to follow up with the surgeon who performed whipples surgery PT discuss with case management Possibly may need placement Qualifiers: Urinary tract infection type: site unspecified Hematuria presence: with hematuria Qualified Code(s): N39.0 - Urinary tract infection, site not specified; R31.9 - Hematuria, unspecified Time Spent Managing Pts Care (In Minutes): 42
[2019-05-21 12:18] LABS: Protime INR 1.93
[2019-05-21 14:28] LABS: Urine Appearance TURBID; Urine Blood 3+ (NEG); Urine Color DK YELLOW; Urine Glucose NEGATIVE (NEG); Urine Protein TRACE (NEG); Urine Specific Gravity 1.025 (1.005-1.030); Urine Urobilinogen 0.2 mg/dL (0.2-1.0)
[2019-05-21 15:12] LABS: Urine Microscopic Reflex ORDER UMIC
[2019-05-21 15:39] LABS: Urine Bacteria 20-50 /HPF (NONE SEEN); Urine RBC 20-50 /HPF (NONE SEEN)
[2019-05-21 15:40] LABS: Urine Culture Reflex Order REFLEXED; Urine Mucus 3+ /HPF (NONE SEEN)
[2019-05-21 16:40] LABS: Urine Bilirubin 1+ (NEG)
[2019-05-21] MEDS ORDERED: VANCOMYCIN 2 GM in NA CHLORIDE 0.9% 500 ML IVPB SCH (17:00)
[2019-05-22] MEDS: Meropenem 500 MG in NA CHLORIDE 0.9% 100 ML IV SCH ×3 (00:28→16:00)
[2019-05-22 05:59] LABS: Absolute Lymphocytes (CBC) 1.4 K/uL (0.7-4.9); Basophils % 0.7 % (0-1.3); MPV 8.2 fL (7.6-11.3); RBC Red Blood Cell Count 2.22 M/uL (4.33-5.43)
[2019-05-22 06:23] LABS: BUN Blood Urea Nitrogen 7 mg/dL (7-18); Bicarbonate 24 mmol/L (21-32); Glucose Level 84 mg/dL (74-106); Phosphorus 2.4 mg/dL (2.5-4.9); Potassium 3.6 mmol/L (3.5-5.1); Sodium Level 146 mmol/L (136-145)
[2019-05-22] MEDS: INSULIN -REGULAR HUMAN 50 UNIT/0.5 ML ML SQ SCH ×4 (07:30→20:21)
[2019-05-22] MEDS ORDERED: POTASSIUM PHOS IN 0.9 % NACL 15 MMOL/250 ML BAG IV ONE (07:49)
[2019-05-22] MEDS ORDERED: CALCIUM GLUC 10% INJ 9.3 MEQ in NA CHLORIDE 0.9% 100 ML IV ONE (07:49)
[2019-05-22] MEDS: METOPROLOL TAR 25 MG TAB PO SCH ×2 (09:04→20:19)
[2019-05-22] MEDS: PANTOPRAZOLE 40MG TABLET PO SCH (09:04)
[2019-05-22] MEDS: PARoxetine HCL 10 MG TAB PO SCH (09:04)
[2019-05-22] MEDS: NICOTINE 21 MG/PAT TD SCH (09:04)
[2019-05-22] MEDS: DIGOXIN 0.125 MG TABLET PO SCH (09:04)
[2019-05-22] MEDS: GABAPENTIN 300 MG CAP PO SCH ×2 (09:04→20:19)
--- NOTE | 2019-05-22 09:35 | P.PN ---
Subjective Date of Service: 05/22/19 Chief Complaint: Abdominal pain and dark urine Subjective: No new changes, Improving Review of Systems 10-point ROS is otherwise unremarkable Physical Examination - Vital Signs Temperature: 97.6 F Blood Pressure: 106/65 Pulse: 79 Respirations: 16 Pulse Ox (%): 99 - Physical Exam General: Alert, In no apparent distress, Obese HEENT: Atraumatic, Normocephalic Neck: Supple Respiratory: Clear to auscultation bilaterally, Normal air movement Cardiovascular: Regular rate/rhythm Capillary refill: <2 Seconds Gastrointestinal: Soft and benign, W/out hepatosplenomegaly Musculoskeletal: No clubbing, Swelling Integumentary: No rashes Neurological: Other (Alert Awake ) Lymphatics: No axilla or inguinal lymphadenopathy External genitalia: Deferred Rectal: Deferred - Studies Laboratory Last Values WBC 4.6 K/uL (4.3-10.9) D 05/22/19 05:17 RBC 2.22 M/uL (4.33-5.43) L 05/22/19 05:17 Hgb 7.8 g/dL (13.6-17.9) L* 05/22/19 05:17 Hct 23.0 % (39.6-49.0) L 05/22/19 05:17 MCV 103.8 fL (80-100) H 05/22/19 05:17 MCH 35.2 pg (27.0-35.0) H 05/22/19 05:17 MCHC 33.9 g/dL (32.0-36.0) 05/22/19 05:17 RDW 16.4 % (12.1-15.2) H 05/22/19 05:17 Plt Count 162 K/uL (152-406) 05/22/19 05:17 MPV 8.2 fL (7.6-11.3) 05/22/19 05:17 Neutrophils % 49.8 % (41.7-73.7) 05/22/19 05:17 Lymphocytes % 31.0 % (15.3-44.8) 05/22/19 05:17 Monocytes % 14.9 % (3.3-12.3) H 05/22/19 05:17 Eosinophils % 3.6 % (0-4.4) 05/22/19 05:17 Basophils % 0.7 % (0-1.3) 05/22/19 05:17 Absolute Neutrophils 2.3 K/uL (1.8-8.0) 05/22/19 05:17 Segmented Neutrophils 73 % (40-80) 05/20/19 06:02 Absolute Lymphocytes 1.4 K/uL (0.7-4.9) 05/22/19 05:17 Lymphocytes 15 % (15-42) 05/20/19 06:02 Monocytes 6 % (0-10) 05/20/19 06:02 Absolute Monocytes 0.7 K/uL (0.1-1.3) 05/22/19 05:17 Eosinophils 6 % (0-3) H 05/20/19 06:02 Absolute Eosinophils 0.2 K/uL (0-0.5) 05/22/19 05:17 Absolute Basophils 0.0 K/uL (0-0.5) 05/22/19 05:17 Morphology Comment Not seen (NOT SEEN) 05/20/19 06:02 PT 22.2 SECONDS (9.5-12.5) H 05/21/19 11:35 INR 1.93 05/21/19 11:35 APTT 71.6 SECONDS (24.3-36.9) H 05/17/19 13:40 Sodium 146 mmol/L (136-145) H 05/22/19 05:17 Potassium 3.6 mmol/L (3.5-5.1) 05/22/19 05:17 Chloride 117 mmol/L (98-107) H 05/22/19 05:17 Carbon Dioxide 24 mmol/L (21-32) 05/22/19 05:17 BUN 7 mg/dL (7-18) 05/22/19 05:17 Creatinine 0.58 mg/dL (0.55-1.3) 05/22/19 05:17 Estimated GFR > 90 mL/min (=/>90) 05/22/19 05:17 Glucose 84 mg/dL (74-106) 05/22/19 05:17 POC Glucose 96 mg/dl (65-120) 05/22/19 11:17 Lactic Acid 3.0 mmol/L (0.4-2.0) H 05/17/19 16:17 Calcium 6.8 mg/dL (8.5-10.1) L* 05/22/19 05:17 Ionized Calcium 4.1 mg/dL (4.8-5.6) L 05/18/19 06:27 Phosphorus 2.4 mg/dL (2.5-4.9) L 05/22/19 05:17 Magnesium 1.9 mg/dL (1.8-2.4) 05/19/19 04:52 Total Bilirubin 1.0 mg/dL (0.2-1.0) 05/18/19 04:41 Direct Bilirubin 0.8 mg/dL (0-0.2) H 05/17/19 12:30 AST 39 U/L (15-37) H 05/18/19 04:41 ALT 11 U/L (12-78) L 05/18/19 04:41 Alkaline Phosphatase 90 U/L (45-117) 05/18/19 04:41 Creatine Kinase 12 U/L (39-308) L 05/17/19 12:30 Rapid Troponin I < 0.02 ng/mL (0.0-0.045) 05/17/19 12:30 Serum Total Protein 5.3 g/dL (6.4-8.2) L 05/18/19 04:41 Albumin 1.1 g/dL (3.4-5.0) L 05/18/19 04:41 Globulin 4.2 g/dL (2.3-3.5) H 05/18/19 04:41 Albumin/Globulin Ratio 0.3 (1.1-1.8) L 05/18/19 04:41 Amylase 40 U/L (25-115) 05/17/19 12:30 Lipase 410 U/L (73-393) H 05/17/19 12:30 Procalcitonin 17.65 ng/mL (<0.50) H 05/17/19 12:30 TSH 1.760 uIU/mL (0.360-3.740) 05/17/19 21:45 Urine Color Dk yellow 05/21/19 14:00 Urine Appearance Turbid 05/21/19 14:00 Urine pH 6.0 (5.0-7.0) 05/21/19 14:00 Ur Specific [place] 1.025 (1.005-1.030) 05/21/19 14:00 Glucose (UA)(Auto) Negative (NEG) 05/21/19 14:00 Urine Ketones Trace (NEG) 05/21/19 14:00 Urine Blood 3+ (NEG) H 05/21/19 14:00 Urine Nitrite Negative (NEG) 05/21/19 14:00 Urine Bilirubin 1+ (NEG) H 05/21/19 14:00 Urine Urobilinogen 0.2 mg/dL (0.2-1.0) 05/21/19 14:00 Ur Leukocyte Esterase 3+ (NEG) H 05/21/19 14:00 Urine RBC 20-50 /HPF (NONE SEEN) H 05/21/19 14:00 Urine WBC 20-50 /HPF (<5) H 05/21/19 14:00 Ur Squamous Epith Cells 5-10 /HPF (NONE SEEN) H 05/21/19 14:00 Urine Bacteria 20-50 /HPF (NONE SEEN) H 05/21/19 14:00 Urine Mucus 3+ /HPF (NONE SEEN) H 05/21/19 14:00 Urine Culture Reflexed Reflexed 05/21/19 14:00 Urine Total Protein Trace (NEG) 05/21/19 14:00 Vancomycin Trough 19.2 ug/mL (5.0-20.0) 05/22/19 07:25 Digoxin 0.50 ng/mL (0.80-2.00) L 05/17/19 21:45 Assessment & Plan - Problems (Diagnosis) (1) Chronic atrial fibrillation Current Visit: No Status: Chronic (2) DM type 2 (diabetes mellitus, type 2) Current Visit: No Status: Chronic Qualifiers: Diabetes mellitus complication status: with diabetic arthropathy (3) Sepsis Current Visit: No Status: Acute Qualifiers: Sepsis type: sepsis due to unspecified organism (4) UTI (urinary tract infection) Current Visit: No Status: Acute Plan: Continue current antibiotics. Repeat blood culture shows no growth Hemoglobin has been stable Transfuse p.r.n. for hemoglobin less than 7. Digoxin and metoprolol for atrial fibrillation rate control Optimize electrolytes. Physical therapy. Repeat urine culture pending Discussed in detail with the patient's family Patient is getting recurrent UTIs since the whipples surgery Will get an ID consult for recurrent UTI and may need prophylactic antibiotics to prevent UTIs Also advised to follow up with the surgeon who performed whipples surgery Discuss with infectious disease Start on Diflucan and recommended p.o. levofloxacin at the time of discharge PT discuss with case management Possibly may need placement Qualifiers: Urinary tract infection type: site unspecified Hematuria presence: with hematuria Qualified Code(s): N39.0 - Urinary tract infection, site not specified; R31.9 - Hematuria, unspecified Time Spent Managing Pts Care (In Minutes): 42
[2019-05-22] MEDS: VANCOMYCIN 2 GM in NA CHLORIDE 0.9% 500 ML IVPB SCH (10:58)
--- NOTE | 2019-05-22 16:29 | CON ---
History Of Present Illness: Patient is a 63-year-old male, coming in for urinary tract infection and sepsis. Patient consulted for urinary tract infection and sepsis. Patient has significant history of diabetes mellitus, morbid obesity, atrial fibrillation, hypertension, history of sepsis, and toxic megacolon with also significant history of pancreatic cancer, status post Whipple procedure. Patimarino parker on last admission had sepsis, pneumonia, and urinary tract infection. At this time, patient coming in with abdominal discomfort and blood in the urine. Past Medical History: As per HPI. Social History: Nonsmoker and nondrinker. Family History: Noncontributory. Medication: Fluconazole, meropenem, and vancomycin. See MAR for other medications. Allergies: ZOSYN, LORAZEPAM, HYDROCODONE. Review of Systems: A 10-point review was performed. Physical Examination: General: This is a 63-year-old male, lying in bed, not in any acute cardiopulmonary distress. Vital Signs: Temperature 97.6, pulse 79, respirations 16, blood pressure 106/65. HEENT: Unremarkable. Neck: Supple. Lungs: Basal crackles. Heart: S1, S2. Regular. Abdomen: Soft, nontender. Bowel sounds present. Extremities: Trace edema. : Gallagher catheter in place. Peripheral line in place. Laboratory Data: Shows WBC 4.6, hemoglobin 7.8, platelets are 152. Chemistry showed sodium 146, pot assium 3.6, chloride 117, bicarb 24, BUN 7, creatinine 0.58, glucose is 84. Procalcitonin level of 1 7, done on . Assessment And Plan: A 63-year-old male with multiple medical problems, coming in with urinary tract infection and hematuria. No growth on the cultures. Questionable growth of yeast after few days of antibiotic at this time and we will recommend to continue fluconazole and patient can be switched to Cipro on discharge. Total course of 10 days of treatment. Repeat urinalysis at the end of antibiot ic therapy. Continue to monitor for signs of infection. We will follow the patient closely. Thank you Dr. Celestin for consult. NF/MODL Voice ID: [id number] Report ID: [id number]
[2019-05-22] MEDS: LACTOBACILLUS/ACIDOPHILUS TAB PO SCH (20:19)
[2019-05-22] MEDS: ENSURE HIGH PROTEIN 237 ML CAN PO SCH (20:20)
[2019-05-22] MEDS: JUVEN PACKET PO SCH (20:20)
[2019-05-23] MEDS: Meropenem 500 MG in NA CHLORIDE 0.9% 100 ML IV SCH ×3 (00:59→16:27)
[2019-05-23] MEDS ORDERED: NA CHLORIDE 0.9% 250 ML ONE (01:06)
[2019-05-23 05:12] LABS: Absolute Lymphocytes (CBC) 1.6 K/uL (0.7-4.9); Basophils % 1.2 % (0-1.3); Hematocrit 24.6 % (39.6-49.0); Lymphocytes % 29.3 % (15.3-44.8); MPV 8.8 fL (7.6-11.3); RBC Red Blood Cell Count 2.39 M/uL (4.33-5.43)
[2019-05-23 05:27] LABS: BUN Blood Urea Nitrogen 8 mg/dL (7-18); Bicarbonate 25 mmol/L (21-32); Glucose Level 93 mg/dL (74-106); Potassium 3.7 mmol/L (3.5-5.1); Sodium Level 144 mmol/L (136-145)
[2019-05-23] MEDS: INSULIN -REGULAR HUMAN 50 UNIT/0.5 ML ML SQ SCH ×4 (07:30→20:58)
[2019-05-23] MEDS: PARoxetine HCL 10 MG TAB PO SCH (08:51)
[2019-05-23] MEDS: METOPROLOL TAR 25 MG TAB PO SCH ×2 (08:51→20:58)
[2019-05-23] MEDS: LACTOBACILLUS/ACIDOPHILUS TAB PO SCH ×2 (08:52→20:58)
[2019-05-23] MEDS: NICOTINE 21 MG/PAT TD SCH (08:52)
[2019-05-23] MEDS: DIGOXIN 0.125 MG TABLET PO SCH (08:53)
[2019-05-23] MEDS: FLUCONAZOLE 100 MG TAB PO SCH (08:53)
[2019-05-23] MEDS: PANTOPRAZOLE 40MG TABLET PO SCH (08:53)
[2019-05-23] MEDS: GABAPENTIN 300 MG CAP PO SCH ×2 (08:53→20:57)
[2019-05-23] MEDS: ENSURE HIGH PROTEIN 237 ML CAN PO SCH ×3 (08:54→21:00)
[2019-05-23] MEDS: JUVEN PACKET PO SCH ×2 (08:54→20:58)
[2019-05-23] MEDS ORDERED: POTASSIUM CL SA 10 MEQ TAB PO ONE (09:00)
--- NOTE | 2019-05-23 10:55 | P.PN ---
Subjective Date of Service: 05/23/19 Chief Complaint: Abdominal pain and dark urine Subjective: No new changes, Improving Review of Systems 10-point ROS is otherwise unremarkable Physical Examination - Vital Signs Temperature: 97 F Blood Pressure: 121/57 Pulse: 79 Respirations: 18 Pulse Ox (%): 96 - Physical Exam General: Alert, In no apparent distress, Obese HEENT: Atraumatic, Normocephalic Neck: Supple Respiratory: Clear to auscultation bilaterally Cardiovascular: Regular rate/rhythm Capillary refill: <2 Seconds Gastrointestinal: Normal bowel sounds, Soft and benign Musculoskeletal: No clubbing, Swelling Integumentary: No rashes Neurological: Normal speech, Other (Alert Awake ) External genitalia: Deferred Rectal: Deferred - Studies Laboratory Last Values WBC 5.4 K/uL (4.3-10.9) D 05/23/19 05:01 RBC 2.39 M/uL (4.33-5.43) L 05/23/19 05:01 Hgb 8.1 g/dL (13.6-17.9) L 05/23/19 05:01 Hct 24.6 % (39.6-49.0) L 05/23/19 05:01 MCV 102.8 fL (80-100) H 05/23/19 05:01 MCH 34.0 pg (27.0-35.0) 05/23/19 05:01 MCHC 33.1 g/dL (32.0-36.0) 05/23/19 05:01 RDW 16.4 % (12.1-15.2) H 05/23/19 05:01 Plt Count 209 K/uL (152-406) D 05/23/19 05:01 MPV 8.8 fL (7.6-11.3) 05/23/19 05:01 Neutrophils % 52.6 % (41.7-73.7) 05/23/19 05:01 Lymphocytes % 29.3 % (15.3-44.8) 05/23/19 05:01 Monocytes % 12.9 % (3.3-12.3) H 05/23/19 05:01 Eosinophils % 4.0 % (0-4.4) 05/23/19 05:01 Basophils % 1.2 % (0-1.3) 05/23/19 05:01 Absolute Neutrophils 2.8 K/uL (1.8-8.0) 05/23/19 05:01 Segmented Neutrophils 73 % (40-80) 05/20/19 06:02 Absolute Lymphocytes 1.6 K/uL (0.7-4.9) 05/23/19 05:01 Lymphocytes 15 % (15-42) 05/20/19 06:02 Monocytes 6 % (0-10) 05/20/19 06:02 Absolute Monocytes 0.7 K/uL (0.1-1.3) 05/23/19 05:01 Eosinophils 6 % (0-3) H 05/20/19 06:02 Absolute Eosinophils 0.2 K/uL (0-0.5) 05/23/19 05:01 Absolute Basophils 0.1 K/uL (0-0.5) 05/23/19 05:01 Morphology Comment Not seen (NOT SEEN) 05/20/19 06:02 PT 22.2 SECONDS (9.5-12.5) H 05/21/19 11:35 INR 1.93 05/21/19 11:35 APTT 71.6 SECONDS (24.3-36.9) H 05/17/19 13:40 Sodium 144 mmol/L (136-145) 05/23/19 05:01 Potassium 3.7 mmol/L (3.5-5.1) 05/23/19 05:01 Chloride 115 mmol/L (98-107) H 05/23/19 05:01 Carbon Dioxide 25 mmol/L (21-32) 05/23/19 05:01 BUN 8 mg/dL (7-18) 05/23/19 05:01 Creatinine 0.61 mg/dL (0.55-1.3) 05/23/19 05:01 Estimated GFR > 90 mL/min (=/>90) 05/23/19 05:01 Glucose 93 mg/dL (74-106) 05/23/19 05:01 POC Glucose 91 mg/dl (65-120) 05/23/19 07:26 Lactic Acid 3.0 mmol/L (0.4-2.0) H 05/17/19 16:17 Calcium 7.0 mg/dL (8.5-10.1) L 05/23/19 05:01 Ionized Calcium 4.1 mg/dL (4.8-5.6) L 05/18/19 06:27 Phosphorus 2.4 mg/dL (2.5-4.9) L 05/22/19 05:17 Magnesium 1.9 mg/dL (1.8-2.4) 05/19/19 04:52 Total Bilirubin 1.0 mg/dL (0.2-1.0) 05/18/19 04:41 Direct Bilirubin 0.8 mg/dL (0-0.2) H 05/17/19 12:30 AST 39 U/L (15-37) H 05/18/19 04:41 ALT 11 U/L (12-78) L 05/18/19 04:41 Alkaline Phosphatase 90 U/L (45-117) 05/18/19 04:41 Creatine Kinase 12 U/L (39-308) L 05/17/19 12:30 Rapid Troponin I < 0.02 ng/mL (0.0-0.045) 05/17/19 12:30 Serum Total Protein 5.3 g/dL (6.4-8.2) L 05/18/19 04:41 Albumin 1.1 g/dL (3.4-5.0) L 05/18/19 04:41 Globulin 4.2 g/dL (2.3-3.5) H 05/18/19 04:41 Albumin/Globulin Ratio 0.3 (1.1-1.8) L 05/18/19 04:41 Amylase 40 U/L (25-115) 05/17/19 12:30 Lipase 410 U/L (73-393) H 05/17/19 12:30 Procalcitonin 17.65 ng/mL (<0.50) H 05/17/19 12:30 TSH 1.760 uIU/mL (0.360-3.740) 05/17/19 21:45 Urine Color Dk yellow 05/21/19 14:00 Urine Appearance Turbid 05/21/19 14:00 Urine pH 6.0 (5.0-7.0) 05/21/19 14:00 Ur Specific [place] 1.025 (1.005-1.030) 05/21/19 14:00 Glucose (UA)(Auto) Negative (NEG) 05/21/19 14:00 Urine Ketones Trace (NEG) 05/21/19 14:00 Urine Blood 3+ (NEG) H 05/21/19 14:00 Urine Nitrite Negative (NEG) 05/21/19 14:00 Urine Bilirubin 1+ (NEG) H 05/21/19 14:00 Urine Urobilinogen 0.2 mg/dL (0.2-1.0) 05/21/19 14:00 Ur Leukocyte Esterase 3+ (NEG) H 05/21/19 14:00 Urine RBC 20-50 /HPF (NONE SEEN) H 05/21/19 14:00 Urine WBC 20-50 /HPF (<5) H 05/21/19 14:00 Ur Squamous Epith Cells 5-10 /HPF (NONE SEEN) H 05/21/19 14:00 Urine Bacteria 20-50 /HPF (NONE SEEN) H 05/21/19 14:00 Urine Mucus 3+ /HPF (NONE SEEN) H 05/21/19 14:00 Urine Culture Reflexed Reflexed 05/21/19 14:00 Urine Total Protein Trace (NEG) 05/21/19 14:00 Vancomycin Trough 19.2 ug/mL (5.0-20.0) 05/22/19 07:25 Digoxin 0.50 ng/mL (0.80-2.00) L 05/17/19 21:45 Microbiology Data (last 24 hrs): 05/17/19 12:15 Blood - Blood Aerobic Blood Culture - Final No growth in 5 days. 05/17/19 12:15 Blood - Blood Anaerobic Blood Culture - Final 05/17/19 12:15 Blood - Blood Gram Stain - Final 05/17/19 12:30 Blood - Blood Aerobic Blood Culture - Final No growth in 5 days. 05/17/19 12:30 Blood - Blood Anaerobic Blood Culture - Final 05/17/19 12:30 Blood - Blood Gram Stain - Final Assessment & Plan - Problems (Diagnosis) (1) Chronic atrial fibrillation Current Visit: No Status: Chronic (2) DM type 2 (diabetes mellitus, type 2) Current Visit: No Status: Chronic Qualifiers: Diabetes mellitus complication status: with diabetic arthropathy (3) Sepsis Current Visit: No Status: Acute Qualifiers: Sepsis type: sepsis due to unspecified organism (4) UTI (urinary tract infection) Current Visit: No Status: Acute Plan: Continue current antibiotics. Repeat blood culture shows no growth Hemoglobin has been stable Transfuse p.r.n. for hemoglobin less than 7. Digoxin and metoprolol for atrial fibrillation rate control Optimize electrolytes. Physical therapy. Repeat urine culture pending Discussed in detail with the patient's family Patient is getting recurrent UTIs since the whipples surgery Appreciate ID consult for recurrent UTI Also advised to follow up with the surgeon who performed whipples surgery Discuss with infectious disease on Diflucan and recommended p.o. levofloxacin at the time of discharge PT discuss with case management Possibly may need placement But family wanted to take him home with home health Possibly DC in a.m. Qualifiers: Urinary tract infection type: site unspecified Hematuria presence: with hematuria Qualified Code(s): N39.0 - Urinary tract infection, site not specified; R31.9 - Hematuria, unspecified Time Spent Managing Pts Care (In Minutes): 42
[2019-05-23 11:57] LABS: Magnesium 1.8 mg/dL (1.8-2.4); Phosphorus 2.2 mg/dL (2.5-4.9)
[2019-05-23 14:06] LABS: C.diff Antigen/Toxin Ag neg : Tox neg (NEG : NEG)
[2019-05-23] MEDS ORDERED: MAGNESIUM SULFATE 1 gm IVPB 1 GM/100 ML BAG IV ONE (15:00)
[2019-05-23] MEDS: POTASS/SODIUM PHOSPHATE 1 PKT POWD.PACK PO SCH ×3 (15:47→16:59)
[2019-05-23] MEDS: TRAMADOL HCL 50 MG TAB PO PRN (20:56)
[2019-05-23] MEDS ORDERED: VANCOMYCIN 2 GM in NA CHLORIDE 0.9% 500 ML IVPB SCH (21:00)
[2019-05-24] MEDS: Meropenem 500 MG in NA CHLORIDE 0.9% 100 ML IV SCH ×3 (00:21→16:14)
[2019-05-24 06:53] LABS: Absolute Lymphocytes (CBC) 1.6 K/uL (0.7-4.9); Basophils % 1.2 % (0-1.3); Hematocrit 23.8 % (39.6-49.0); Lymphocytes % 29.7 % (15.3-44.8); MPV 8.7 fL (7.6-11.3); RBC Red Blood Cell Count 2.35 M/uL (4.33-5.43)
[2019-05-24 07:01] LABS: BUN Blood Urea Nitrogen 7 mg/dL (7-18); Bicarbonate 24 mmol/L (21-32); Glucose Level 88 mg/dL (74-106); Phosphorus 2.1 mg/dL (2.5-4.9); Potassium 3.8 mmol/L (3.5-5.1); Sodium Level 142 mmol/L (136-145)
[2019-05-24] MEDS: INSULIN -REGULAR HUMAN 50 UNIT/0.5 ML ML SQ SCH ×4 (07:30→21:00)
[2019-05-24 08:40] LABS: Blood Morphology Comment NOT SEEN (NOT SEEN); Platelet Estimate ADEQ
[2019-05-24] MEDS ORDERED: POTASSIUM CL SA 10 MEQ TAB PO ONE (09:00)
[2019-05-24] MEDS: METOPROLOL TAR 25 MG TAB PO SCH ×2 (09:06→21:10)
[2019-05-24] MEDS: LACTOBACILLUS/ACIDOPHILUS TAB PO SCH ×2 (09:06→21:10)
[2019-05-24] MEDS: PARoxetine HCL 10 MG TAB PO SCH (09:06)
[2019-05-24] MEDS: FLUCONAZOLE 100 MG TAB PO SCH (09:06)
[2019-05-24] MEDS: PANTOPRAZOLE 40MG TABLET PO SCH (09:07)
[2019-05-24] MEDS: DIGOXIN 0.125 MG TABLET PO SCH (09:07)
[2019-05-24] MEDS: NICOTINE 21 MG/PAT TD SCH (09:07)
[2019-05-24] MEDS: GABAPENTIN 300 MG CAP PO SCH ×2 (09:07→21:10)
[2019-05-24] MEDS: ENSURE HIGH PROTEIN 237 ML CAN PO SCH ×2 (09:09→21:00)
[2019-05-24] MEDS: JUVEN PACKET PO SCH ×2 (09:10→21:00)
--- NOTE | 2019-05-24 12:21 | P.PN ---
Subjective Date of Service: 05/24/19 Chief Complaint: Abdominal pain and dark urine Patient denies any complain. Patient states he feels much better today His blood pressure has been stable. No more hematuria. He has poor appetite and poor oral intake. Physical Examination - Vital Signs Temperature: 96.9 F Blood Pressure: 120/67 Pulse: 72 Respirations: 15 Pulse Ox (%): 98 - Physical Exam General: Alert, In no apparent distress, Obese HEENT: Mucous membr. moist/pink, Sclerae nonicteric Neck: Supple, JVD not distended Respiratory: Clear to auscultation bilaterally, Normal air movement Cardiovascular: No edema, Normal S1 S2, Irregular heart rate/rhythm Gastrointestinal: Normal bowel sounds, Soft and benign, Non-distended Musculoskeletal: No erythema Neurological: Other (He moves all extremities) - Studies Microbiology Data (last 24 hrs): 05/17/19 12:15 Blood - Blood Aerobic Blood Culture - Final No growth in 5 days. 05/17/19 12:15 Blood - Blood Anaerobic Blood Culture - Final 05/17/19 12:15 Blood - Blood Gram Stain - Final 05/17/19 12:30 Blood - Blood Aerobic Blood Culture - Final No growth in 5 days. 05/17/19 12:30 Blood - Blood Anaerobic Blood Culture - Final 05/17/19 12:30 Blood - Blood Gram Stain - Final Assessment And Plan - Current Problems (Diagnosis) (1) Hypotension Current Visit: No Status: Resolved (2) Sepsis Current Visit: No Status: Acute Qualifiers: Sepsis type: sepsis due to unspecified organism (3) Chronic atrial fibrillation Current Visit: No Status: Chronic (4) Pancreatic cancer Current Visit: Yes Status: Chronic (5) DM type 2 (diabetes mellitus, type 2) Current Visit: No Status: Chronic Qualifiers: Diabetes mellitus complication status: with diabetic arthropathy (6) Hematuria Current Visit: Yes Status: Resolved (7) Acute blood loss anemia Current Visit: Yes Status: Acute (8) Supratherapeutic INR Current Visit: Yes Status: Resolved (9) History of DVT (deep vein thrombosis) Current Visit: Yes Status: Acute (10) Bacteremia due to Gram-positive bacteria Current Visit: Yes Status: Acute - Plan Antibiotics day 8. Seen by infectious disease. Continue current antibiotics and transition to oral Cipro on discharge. Hemoglobin has been stable at 8 Feeding as tolerated Transfuse p.r.n. for hemoglobin less than 7. Digoxin and metoprolol for atrial fibrillation rate control Physical therapy to continue assessing patient's functional status.
[2019-05-24] MEDS ORDERED: VANCOMYCIN 250 MG in NA CHLORIDE 0.9% 100 ML IVPB ONE (16:00)
[2019-05-24] MEDS: POTASS/SODIUM PHOSPHATE 1 PKT POWD.PACK PO SCH ×3 (21:09→22:00)
[2019-05-25] MEDS: Meropenem 500 MG in NA CHLORIDE 0.9% 100 ML IV SCH ×3 (00:19→17:16)
[2019-05-25] MEDS: TRAMADOL HCL 50 MG TAB PO PRN (03:45)
[2019-05-25] MEDS: ONDANSETRON 4 MG/2 ML VIAL IV PRN ×2 (03:46→17:25)
[2019-05-25] MEDS: INSULIN -REGULAR HUMAN 50 UNIT/0.5 ML ML SQ SCH ×4 (07:30→21:00)
[2019-05-25] MEDS ORDERED: NA CHLORIDE 0.9% 250 ML ONE (08:16)
[2019-05-25] MEDS: METOPROLOL TAR 25 MG TAB PO SCH ×2 (08:17→21:55)
[2019-05-25] MEDS: LACTOBACILLUS/ACIDOPHILUS TAB PO SCH ×2 (08:17→21:55)
[2019-05-25] MEDS: GABAPENTIN 300 MG CAP PO SCH ×2 (08:17→21:55)
[2019-05-25] MEDS: PANTOPRAZOLE 40MG TABLET PO SCH (08:18)
[2019-05-25] MEDS: DIGOXIN 0.125 MG TABLET PO SCH (08:18)
[2019-05-25] MEDS: NICOTINE 21 MG/PAT TD SCH (08:18)
[2019-05-25] MEDS: PARoxetine HCL 10 MG TAB PO SCH (08:18)
[2019-05-25] MEDS: FLUCONAZOLE 100 MG TAB PO SCH (08:18)
[2019-05-25] MEDS: ENSURE HIGH PROTEIN 237 ML CAN PO SCH ×2 (08:19→21:00)
[2019-05-25] MEDS: JUVEN PACKET PO SCH ×2 (08:19→21:00)
[2019-05-25 08:22] LABS: BUN Blood Urea Nitrogen 8 mg/dL (7-18); Bicarbonate 22 mmol/L (21-32); Glucose Level 108 mg/dL (74-106); Phosphorus 2.5 mg/dL (2.5-4.9); Potassium 4.7 mmol/L (3.5-5.1); Sodium Level 141 mmol/L (136-145)
[2019-05-25 08:47] LABS: Absolute Lymphocytes (CBC) 1.2 K/uL (0.7-4.9); Basophils % 0.5 % (0-1.3); Hematocrit 30.8 % (39.6-49.0); Lymphocytes % 11.8 % (15.3-44.8); MPV 8.9 fL (7.6-11.3); RBC Red Blood Cell Count 3.01 M/uL (4.33-5.43)
[2019-05-25] MEDS: ACETAMINOPHEN 500 MG TAB PO PRN ×2 (09:16→22:10)
--- NOTE | 2019-05-25 17:20 | PN ---
Date of Progress Note: 05/25/2019 Subjective: Patient seen and examined. Chart reviewed and case discussed with RN. Patient did not seem to be doing well, had episode of nausea and vomiting earlier, did not eat his breakfast. Medica tion list reviewed. Physical Examination: Vital Signs: Temperature 97.4, heart rate 92, blood pressure 121/57, respirations 20, O2 98% on room air. General: Awake, alert, oriented x3. Morbidly obese male. CV: S1, S2. Regular rate and rhythm. Peripheral pulses present. Respiratory: Diminished breath sounds at the bases. No wheezes or stridor. Gastrointestinal: Abdomen is soft. Mild tenderness to palpation in the epigastric region. No rebou nd or guarding. Positive bowel sounds. Extremities: No clubbing, cyanosis. Patient has peripheral edema. Neuro: Nonfocal. The patient does have generalized weakness. Laboratory Data: Sodium 141, potassium 4.7, chloride 111, CO2 22, BUN 8, creatinine 0.53, glucose 10 8, calcium 7.5, phosphorus 2.5. WBC 10.4, H and H 10.5 and 30.8, platelets 358, neutrophils 77%. Bl ood cultures, no growth to date, final x2, different cultures. Urine culture greater than 100,000 co lony-forming units, 4+ yeast. Assessment And Plan: 1.Sepsis likely secondary to urinary tract infection, improving. We will continue antimicrobials. 2.Hypertension. Blood pressure is improved. 3.Chronic atrial fibrillation. We will continue with metoprolol 25 mg b.i.d. We will continue anti coagulation. Patient's INR initially was elevated at 6.5. Continue digoxin. 4.Supratherapeutic INR, resolved. 5.Acute blood loss anemia. Continue to monitor hemoglobin, transfuse for less than 7. 6.Hematuria. No further hematuria. 7.History of deep venous thrombosis. 8.Bacteremia due to gram-positive bacteria, likely contaminant. Final cultures are negative. 9.Morbid obesity. BMI 41.6. 10.Generalized weakness. Continue with physical therapy. Patient not interested in going [facility] or [facility]hab. States that he would rather continue with home health with physical the rapy. He also has a nurse that comes in and an aide. Patient understands the risks of going home an d not going to alf facility including fall, bleeding. Patient is usually on anticoagulat ion, may result in him fractured, brain bleed, or even . 11.Disposition. Continue Diflucan. Appreciate Infectious Disease input. /ABISAI Voice ID: [id number] Report ID: [id number]
--- NOTE | 2019-05-25 20:35 | PN ---
Subjective: Patient is lying in bed. Had episode of vomiting yesterday. Complains of some stomach soreness. Otherwise, no problems. No fevers. Patient has Gallagher catheter, which still shows dark co mikel urine. Objective: Vital Signs: Temperature 97, pulse 98, respiration 18, blood pressure 110/63. Lungs: Clear to auscultation. Heart: S1, S2. Regular. Abdomen: Soft, nontender. Bowel sounds present. Extremities: Trace edema. Laboratory Data: WBC 10.4, hemoglobin 10.5, platelets are 358. Chemistry shows sodium 141, potassiu m 4.7, chloride 111, bicarb 22, BUN 8, creatinine 0.5. Glucose is 90. Medications: Currently on meropenem, vancomycin, and Diflucan. Assessment And Plan: Urinary tract infection and sepsis. Recommend to repeat UA. We will follow th e patient as needed. NF/MODL Voice ID: [id number] Report ID: [id number]
[2019-05-25 23:13] LABS: Protime INR 1.73
[2019-05-26] MEDS: Meropenem 500 MG in NA CHLORIDE 0.9% 100 ML IV SCH ×3 (01:20→17:37)
[2019-05-26 03:09] LABS: Protime INR 1.85
[2019-05-26 03:10] LABS: Absolute Lymphocytes (CBC) 1.7 K/uL (0.7-4.9); Basophils % 0.7 % (0-1.3); Hematocrit 27.1 % (39.6-49.0); Lymphocytes % 9.8 % (15.3-44.8); RBC Red Blood Cell Count 2.65 M/uL (4.33-5.43)
[2019-05-26 03:19] LABS: ALT/SGPT 18 U/L (12-78); AST/SGOT 47 U/L (15-37); Alkaline Phosphatase 75 U/L (45-117); BUN Blood Urea Nitrogen 10 mg/dL (7-18); Bicarbonate 25 mmol/L (21-32); Bilirubin Total 1.5 mg/dL (0.2-1.0); Glucose Level 105 mg/dL (74-106); Potassium 4.2 mmol/L (3.5-5.1); Protein, Total 5.4 g/dL (6.4-8.2); Sodium Level 138 mmol/L (136-145)
[2019-05-26] MEDS ORDERED: VANCOMYCIN 2.25 GM in NA CHLORIDE 0.9% 500 ML IVPB SCH ×4 (04:00)
[2019-05-26 06:14] LABS: Urine Appearance TURBID; Urine Blood 3+ (NEG); Urine Color ORANGE; Urine Glucose NEGATIVE (NEG); Urine Protein 1+ (NEG); Urine Specific Gravity >=1.030 (1.005-1.030); Urine Urobilinogen 0.2 mg/dL (0.2-1.0)
[2019-05-26 06:24] LABS: Urine Bilirubin 1+ (NEG)
[2019-05-26 06:33] LABS: Urine Bacteria 20-50 /HPF (NONE SEEN); Urine Culture Reflex Order REFLEXED; Urine Mucus SLIGHT /HPF (NONE SEEN); Urine RBC 20-50 /HPF (NONE SEEN)
[2019-05-26 06:34] LABS: Urine Amorphous Sediment 3+ /HPF (NONE SEEN); Urine Yeast with Hyphae PRESENT
[2019-05-26] MEDS: INSULIN -REGULAR HUMAN 50 UNIT/0.5 ML ML SQ SCH ×4 (07:30→21:00)
[2019-05-26] MEDS: ENSURE HIGH PROTEIN 237 ML CAN PO SCH ×2 (09:00→21:00)
[2019-05-26] MEDS: JUVEN PACKET PO SCH ×2 (09:00→21:00)
[2019-05-26] MEDS: DIGOXIN 0.125 MG TABLET PO SCH (09:17)
[2019-05-26] MEDS: LACTOBACILLUS/ACIDOPHILUS TAB PO SCH ×2 (09:17→21:46)
[2019-05-26] MEDS: FLUCONAZOLE 100 MG TAB PO SCH (09:17)
[2019-05-26] MEDS: PARoxetine HCL 10 MG TAB PO SCH (09:17)
[2019-05-26] MEDS: NICOTINE 21 MG/PAT TD SCH (09:17)
[2019-05-26] MEDS: PANTOPRAZOLE 40MG TABLET PO SCH (09:18)
[2019-05-26] MEDS: GABAPENTIN 300 MG CAP PO SCH ×2 (09:18→21:46)
[2019-05-26] MEDS: METOPROLOL TAR 25 MG TAB PO SCH ×2 (09:18→21:46)
[2019-05-26] MEDS: WARFARIN SODIUM 3 MG TAB PO SCH (14:25)
--- NOTE | 2019-05-26 17:20 | RAD REPORT ---
EXAM DESCRIPTION: RAD - Abdomen 1 View (KUB) - 05/26/2019 5:09 pm CLINICAL HISTORY: Abdomen pain. FINDINGS: The bowel gas pattern is unremarkable. Calcifications in the pelvis probably phleboliths. Marked osteoarthritis left hip.
[2019-05-26] MEDS: ACETAMINOPHEN 500 MG TAB PO PRN (19:22)
--- NOTE | 2019-05-26 20:02 | PN ---
Date of Progress Note: 05/26/2019 Subjective: Patient seen and examined, chart reviewed, and case discussed with RN and Dr. Hamilton. Camilo kelly did not have any further nausea or vomiting; however, does complain of some discomfort, genera lized malaise, not really getting out of bed to work with Physical Therapy. Medication list reviewed . Objective: Vital Signs: Temperature 97.9, heart rate 79, blood pressure 111/57, respirations 19, O2 is 96% on room air. General: Awake, alert, oriented x3. Elderly male, morbidly obese, ill-appearing. CV: S1, S2. Regular rate and rhythm. Peripheral pulses present. Respiratory: Diminished breath sounds at the bases. No wheezing or stridor. Gastrointestinal: Abdomen is soft, nondistended, nontender. Positive bowel sounds. Extremities: No clubbing, cyanosis, or edema. Neuro: Nonfocal. Laboratory Data: Sodium 138, potassium 4.2, chloride 107, CO2 of 25, BUN 10, creatinine 0.64, glucos e 105, calcium 7.1, total bilirubin 1.5, albumin 1. Repeat UA shows 3+ blood, negative nitrite, 2+ l eukocyte esterase, 20 to 50 rbc's, 20 to 50 wbc's, 20 to 50 urine bacteria. INR 1.85. WBC increased to 17.3, H and H 9 and 27.1, platelets 301, neutrophils 79%. Blood cultures x2 sets negative. Deepika l urine culture from 05/21 growing out yeast. Repeat urine culture is pending. Assessment: A 63-year-old male with: 1.Sepsis secondary to urinary tract infection. Patient's white blood cell count is trending back up , currently at 17,000. Patient is on broad-spectrum IV antibiotics and antifungals. Repeat UA shows worsening. Patient will likely need long-term IV antibiotics. We will obtain PICC line. 2.Essential hypertension, stable. 3.Chronic atrial fibrillation. Continue metoprolol and digoxin. INR now 1.85. We will resume home Coumadin dose. 4.Supratherapeutic INR, corrected. 5.Acute blood loss anemia. Continue to monitor H and H, transfuse for hemoglobin less than 7. Murali turia is resolved. 6.Hematuria, resolved, secondary to above. 7.History of deep venous thrombosis, on Coumadin. 8.Bacteremia due to gram-positive bacteremia, likely contaminant. Final cultures are negative. 9.Morbid obesity, BMI of 41.6. 10.Generalized weakness. Continue PT. Plan: PICC line placement. Long-term IV antibiotics set up for home. Patient refusing to go to [facility]. Appreciate ID input. We will follow up on repeat urine culture. MAKENNA Voice ID: [id number] Report ID: [id number]
[2019-05-27] MEDS: Meropenem 500 MG in NA CHLORIDE 0.9% 100 ML IV SCH ×3 (00:24→17:40)
[2019-05-27 05:20] LABS: Absolute Lymphocytes (CBC) 1.6 K/uL (0.7-4.9); Basophils % 0.8 % (0-1.3); Lymphocytes % 13.1 % (15.3-44.8); MPV 8.4 fL (7.6-11.3); RBC Red Blood Cell Count 2.22 M/uL (4.33-5.43)
[2019-05-27 05:21] LABS: Protime INR 2.02
[2019-05-27 05:41] LABS: ALT/SGPT 20 U/L (12-78); AST/SGOT 65 U/L (15-37); Albumin 0.9 g/dL (3.4-5.0); Alkaline Phosphatase 74 U/L (45-117); BUN Blood Urea Nitrogen 10 mg/dL (7-18); Bicarbonate 25 mmol/L (21-32); Bilirubin Total 1.3 mg/dL (0.2-1.0); Glucose Level 84 mg/dL (74-106); Sodium Level 141 mmol/L (136-145)
[2019-05-27] MEDS ORDERED: VANCOMYCIN 2 GM in NA CHLORIDE 0.9% 500 ML IVPB SCH (06:00)
[2019-05-27] MEDS ORDERED: NA CHLORIDE 0.9% 250 ML ONE (06:01)
[2019-05-27] MEDS: INSULIN -REGULAR HUMAN 50 UNIT/0.5 ML ML SQ SCH ×4 (07:30→21:00)
[2019-05-27] MEDS: PARoxetine HCL 10 MG TAB PO SCH (08:40)
[2019-05-27] MEDS: PANTOPRAZOLE 40MG TABLET PO SCH (08:41)
[2019-05-27] MEDS: GABAPENTIN 300 MG CAP PO SCH ×2 (08:41→21:11)
[2019-05-27] MEDS: LACTOBACILLUS/ACIDOPHILUS TAB PO SCH ×2 (08:41→21:10)
[2019-05-27] MEDS: METOPROLOL TAR 25 MG TAB PO SCH ×2 (08:41→21:00)
[2019-05-27] MEDS: WARFARIN SODIUM 3 MG TAB PO SCH (08:41)
[2019-05-27] MEDS: FLUCONAZOLE 100 MG TAB PO SCH (08:41)
[2019-05-27] MEDS: DIGOXIN 0.125 MG TABLET PO SCH (08:41)
[2019-05-27] MEDS: JUVEN PACKET PO SCH ×2 (08:42→21:00)
[2019-05-27] MEDS: ENSURE HIGH PROTEIN 237 ML CAN PO SCH ×2 (08:42→21:00)
[2019-05-27] MEDS: NICOTINE 21 MG/PAT TD SCH (08:42)
[2019-05-27 09:26] LABS: Anisocytosis 1+; Blood Morphology Comment NOTED (NOT SEEN); Platelet Estimate ADEQ; Poikilocytosis 1+
--- NOTE | 2019-05-27 11:07 | RAD REPORT ---
EXAM DESCRIPTION: Chest Single View CLINICAL HISTORY: 63 years Male PICC line Placement COMPARISON: None. FINDINGS: Suboptimal study from patient body habitus. The PICC tip is suboptimally visualized secondary to underpenetration. It likely overlies the SVC. The cardiomediastinal silhouette appears unremarkable. No consolidating infiltrates or pleural effusions. No pneumothorax. IMPRESSION: The study is suboptimal from patient body habitus. The PICC tip is suboptimally visualiz ed but likely overlies the SVC. PA and lateral chest x-ray could be obtained to better evaluate if in dicated. Electronically signed by: Oswaldo Alegre MD 05/26/2019 9:57 PM [employer] Due to temporary technical issues with the PACS/Fluency reporting system, reports are being signed by the in house radiologist as a courtesy to ensure prompt reporting. The interpreting radiologist is f ully responsible for the content of the report.
[2019-05-27 15:27] LABS: Hematocrit 22.5 % (39.6-49.0)
--- NOTE | 2019-05-27 17:04 | PN ---
Subjective: Patient lying in bed, somnolent, not in any distress at this time. Objective: Vital Signs: Temperature 97, pulse 90, respirations 18, blood pressure 106/56. No montiel es in examination. Laboratory Data: Shows WBC 12.3, hemoglobin 7.5, platelets are 235. Chemistry shows sodium 141, pot assium 4, chloride 109, bicarb 25, BUN 10, creatinine 0.6, glucose is 82. Albumin level is 0.9. Assessment And Plan: Urinary tract infection, anemia, possible loss from GI tract, severe protein-ca svitlana malnourishment. Continue empiric antibiotic as cultures are negative. Repeat urinalysis in 5 days. We will follow the patient closely. Consider long-term care. NF/MODL Voice ID: [id number] Report ID: [id number]
--- NOTE | 2019-05-27 18:09 | PN ---
Date of Progress Note: 05/27/2019 Subjective: Patient seen and examined. Chart reviewed and case discussed with RN and Dr. Hamilton. P atient very weak, not getting out of bed, not really able to work with Physical Therapy. Overall, pricilla simons states he still has some nausea, but said he would attempt to eat his breakfast. Medications: List reviewed. Physical Examination: Vital Signs: Temperature 97.8, heart rate 90, blood pressure 106/56, respirations 20, O2 94% on room air. General: Awake, alert, oriented x3, ill-appearing male in some mild distress. Morbidly obese, ill-a ppearing. CV: S1, S2. Peripheral pulses present. Respiratory: Diminished breath sounds at the bases. Gastrointestinal: Abdomen is soft, nontender, nondistended. Positive bowel sounds. Extremities: No clubbing, cyanosis. Patient has peripheral edema. Neurologic: Nonfocal. Patient does have generalized weakness. Laboratory Data: Sodium 141, potassium 4, chloride 109, CO2 of 25, BUN 10, creatinine 0.6, glucose 8 4, calcium 7, total bilirubin 1.3, AST 65, ALT is 20, alkaline phosphatase 74, albumin 0.9. WBC 12.3 , H and H 7.5 and 23, platelets 235, neutrophils 72%. Repeat hemoglobin and hematocrit of 7.7 and 22 .5. Occult blood is positive. KUB from yesterday shows bowel gas pattern unremarkable. Marked oste oarthritis of the left hip. Assessment: 63-year-old male with: 1.Sepsis secondary to urinary tract infection. White blood cell count slightly improved today, down to 12,000. We will need to adjust IV antibiotics. We will switch to Zyvox. Continue antifungal. Follow up on repeat UA. 2.Essential hypertension. Patient now currently hypotensive. We will hold blood pressure medicatio ns. 3.Chronic atrial fibrillation, on metoprolol and digoxin. INR is now therapeutic. Continue Coumadi n. 4.Acute blood loss anemia. Hemoglobin dropped again to 7.5, repeat is 7.7. Occult blood is positiv e. We will consult GI. 5.Hematuria, resolved. We will discontinue urinary catheter. 6.History of deep venous thrombosis, on Coumadin. 7.Morbid obesity, BMI of 41.6. 8.Disuse myopathy, generalized weakness. Patient not really working with physical therapy. Plan: Patient to be set up with long-term IV antibiotics once clinically improved. Appreciate Dr. Yelena galeano's input. /ABISAI Voice ID: [id number] Report ID: [id number]
[2019-05-27] MEDS: LINEZOLID 600 MG TAB PO SCH (21:11)
[2019-05-27] MEDS: ACETAMINOPHEN 500 MG TAB PO PRN (21:11)
[2019-05-28] MEDS: Meropenem 500 MG in NA CHLORIDE 0.9% 100 ML IV SCH ×3 (00:14→16:24)
[2019-05-28 05:47] LABS: Protime INR 1.82
[2019-05-28 05:56] LABS: ALT/SGPT 24 U/L (12-78); AST/SGOT 73 U/L (15-37); Alkaline Phosphatase 86 U/L (45-117); BUN Blood Urea Nitrogen 9 mg/dL (7-18); Bicarbonate 25 mmol/L (21-32); Bilirubin Total 1.1 mg/dL (0.2-1.0); Glucose Level 92 mg/dL (74-106); Potassium 3.6 mmol/L (3.5-5.1); Protein, Total 5.2 g/dL (6.4-8.2); Sodium Level 140 mmol/L (136-145)
[2019-05-28 06:06] LABS: Absolute Lymphocytes (CBC) 1.4 K/uL (0.7-4.9); Basophils % 1.1 % (0-1.3); Hematocrit 22.2 % (39.6-49.0); Lymphocytes % 19.8 % (15.3-44.8); MPV 8.3 fL (7.6-11.3); RBC Red Blood Cell Count 2.13 M/uL (4.33-5.43)
[2019-05-28] MEDS: INSULIN -REGULAR HUMAN 50 UNIT/0.5 ML ML SQ SCH ×4 (07:00→21:00)
[2019-05-28] MEDS ORDERED: POTASSIUM CL SA 10 MEQ TAB PO ONE (07:18)
[2019-05-28] MEDS: DIGOXIN 0.125 MG TABLET PO SCH (08:09)
[2019-05-28] MEDS: GABAPENTIN 300 MG CAP PO SCH ×2 (08:09→21:28)
[2019-05-28] MEDS: NICOTINE 21 MG/PAT TD SCH (08:10)
[2019-05-28] MEDS: WARFARIN SODIUM 3 MG TAB PO SCH (08:10)
[2019-05-28] MEDS: FLUCONAZOLE 100 MG TAB PO SCH (08:10)
[2019-05-28] MEDS: METOPROLOL TAR 25 MG TAB PO SCH ×2 (08:10→21:00)
[2019-05-28] MEDS: PANTOPRAZOLE 40MG TABLET PO SCH (08:10)
[2019-05-28] MEDS: JUVEN PACKET PO SCH (08:11)
[2019-05-28] MEDS: LACTOBACILLUS/ACIDOPHILUS TAB PO SCH ×2 (08:12→21:27)
[2019-05-28] MEDS: ENSURE HIGH PROTEIN 237 ML CAN PO SCH (08:12)
[2019-05-28] MEDS: LINEZOLID 600 MG TAB PO SCH ×2 (09:43→21:00)
[2019-05-28] MEDS: ACETAMINOPHEN 500 MG TAB PO PRN (11:00)
[2019-05-28 12:35] LABS: Hematocrit 20.7 % (39.6-49.0)
[2019-05-28] MEDS ORDERED: FUROSEMIDE 20 MG/ 2ML VIAL IV ONE (18:00)
[2019-05-28] MEDS ORDERED: NA CHLORIDE 0.9% 250 ML ONE (18:24)
--- NOTE | 2019-05-28 18:29 | PN ---
Date of Progress Note: 05/28/2019 Subjective: Patient is seen and examined. Chart reviewed and case discussed with RN and Dr. Hamilton. Patient now agreeable to SNF. Social workers involved. We will start to refer patient over for lo ng-term IV antibiotics. Overall, patient is doing well. Gallagher catheter has been discontinued. Medications: List reviewed. Physical Examination: Vital Signs: Temperature 97.2, heart rate 82, blood pressure 99/54, respirations 18, O2 97% on room air. General: Awake, alert, oriented x3, morbidly obese male, in some mild distress. CV: S1, S2. Regular rate and rhythm. Peripheral pulses present. Respiratory: Diminished breath sounds at the bases. No wheezing or stridor. Gastrointestinal: Abdomen is soft, nontender, nondistended. Positive bowel sounds. Extremities: No clubbing or cyanosis. Patient has peripheral edema. Neuro: Nonfocal. Laboratory Data: Sodium 140, potassium 3.6, chloride 110, CO2 of 25, BUN 9, creatinine 0.6, glucose 92, calcium 7. Albumin 1. WBC 7.2, H and H 7.4 and 22.2, platelets 239. Repeat H and H are 7 and 2 0.7. Cultures: Urine culture growing out yeast. Blood cultures, no growth to date, final. Assessment: 63-year-old male with: 1.Sepsis secondary to urinary tract infection. WBC count now trending down. Patient was switched o lovely to Zyvox. We will continue Merrem. Cultures growing out yeast. Patient is on Diflucan. 2.Essential hypertension. Patient currently hypotensive. Blood pressure medications on hold. 3.Chronic atrial fibrillation. Metoprolol on hold due to hypotension. Continue digoxin. Patient i s on Coumadin; however, needs to be held due to recent drop in hemoglobin. 4.Acute blood loss, acute on chronic anemia, microcytic. Patient's repeat hemoglobin is 7. We will hold Coumadin for now. We will transfuse 1 unit of blood. Stool occult blood was positive. GI has been consulted. May need to repeat CT scan. 5.Hematuria, resolved. 6.History of deep venous thrombosis, on Coumadin, currently on hold due to anemia. 7.Morbid obesity. Body mass index of 41. 8.Disuse myopathy, generalized weakness. Not really working with physical therapy. Plan: Patient now agreeable to SNF. Will refer patient to SNF for long-term IV antibiotics with Zyv ox, Merrem, and Diflucan for 10 days. /ABISAI Voice ID: [id number] Report ID: [id number]
--- NOTE | 2019-05-28 18:35 | RAD REPORT ---
EXAM DESCRIPTION: CT - Abdomen Pelvis W Contrast - 05/28/2019 5:56 pm CLINICAL HISTORY: abd pain COMPARISON: Abdomen Pelvis W Contrast dated 05/17/2019 TECHNIQUE: Biphasic, helical CT imaging of the abdomen and pelvis was performed following 100 ml non -ionic IV contrast. Oral contrast was given. All CT scans are performed using dose optimization technique as appropriate and may include automated exposure control or mA/KV adjustment according to patient size. FINDINGS: Small to moderate bilateral pleural effusions are present matching comparison. Lung base a telectasis present. Pericardial effusion is present small in size but new. No focal liver lesions seen. Liver is diffusely fatty infiltrated. Pneumobilia is present. Gallbladde r is absent. History indicates Whipple procedure. Spleen is normal size. No pancreatic or peripancrea tic region mass. Head and uncinate process of the pancreas are not identifiable. Symmetric renal function is seen with no hydronephrosis or suspicious renal mass. No pyelonephritis o r acute parenchymal process. Urinary bladder is fully contracted. Air in the bladder is probably from a catheterization but can be correlated with any procedures. No adrenal abnormalities. Oral contrast has reached the distal rectum. There is no extravasation of oral contrast. Gastric surg ical changes are present consistent with a Whipple history. Gastric harkins are diffusely thickened and edematous. This generally matches the prior study. Gastritis would be a primary consideration. Air a long the anterior superior peritoneal cavity is believed to be contained within bowel. Pattern is sim ilar to May 17 imaging. No definitive extraluminal free air. Free intraperitoneal fluid is pres ent. This is increased attenuation relative to the liver but still measures very low attenuation valu e. Intraperitoneal hemorrhage therefore is not suspected. Fluid retention is present in the subcutane ous fatty tissues. No hernia, mass or bulky lymphadenopathy. No suspicious bony findings. IMPRESSION: Suspected gastritis. Diffusely prominent gastric wall thickening and edema are present. Pattern is not substantially different from May 17. Oral contrast was administered and has reached the distal rectum. There is no extravasation of contra st. No convincing evidence for extraluminal free air. Small amount of free fluid similar to comparison. Attenuation is similar to comparison. Very pronounced fatty infiltration of the liver.
[2019-05-28] MEDS: ENSURE ENLIVE 237 ML CAN PO SCH (21:27)
[2019-05-29] MEDS: Meropenem 500 MG in NA CHLORIDE 0.9% 100 ML IV SCH ×3 (00:32→16:38)
[2019-05-29 00:49] LABS: Hematocrit 23.9 % (39.6-49.0)
[2019-05-29 05:51] LABS: Basophils % 0.9 % (0-1.3); Hematocrit 21.8 % (39.6-49.0); Lymphocytes % 15.9 % (15.3-44.8); MPV 7.8 fL (7.6-11.3); RBC Red Blood Cell Count 2.17 M/uL (4.33-5.43)
[2019-05-29 06:05] LABS: ALT/SGPT 24 U/L (12-78); AST/SGOT 71 U/L (15-37); Albumin 0.9 g/dL (3.4-5.0); Alkaline Phosphatase 93 U/L (45-117); BUN Blood Urea Nitrogen 8 mg/dL (7-18); Bicarbonate 25 mmol/L (21-32); Bilirubin Total 1.3 mg/dL (0.2-1.0); Glucose Level 99 mg/dL (74-106); Potassium 3.2 mmol/L (3.5-5.1); Protein, Total 5.1 g/dL (6.4-8.2); Sodium Level 142 mmol/L (136-145)
[2019-05-29] MEDS ORDERED: POTASSIUM 25 MEQ EFFERV TAB PO ONE (06:25)
[2019-05-29] MEDS: KCL 20 MEQ/100 mL IVPB 20 MEQ/100 ML BAG IV SCH ×2 (07:21→09:42)
[2019-05-29] MEDS ORDERED: NA CHLORIDE 0.9% 500 ML ONE (07:22)
[2019-05-29] MEDS: INSULIN -REGULAR HUMAN 50 UNIT/0.5 ML ML SQ SCH ×4 (07:30→20:10)
[2019-05-29] MEDS: LINEZOLID 600 MG TAB PO SCH ×3 (09:00→20:02)
[2019-05-29] MEDS: METOPROLOL TAR 25 MG TAB PO SCH ×3 (09:00→20:04)
[2019-05-29] MEDS: GABAPENTIN 300 MG CAP PO SCH ×2 (09:00→20:02)
[2019-05-29] MEDS: DIGOXIN 0.125 MG TABLET PO SCH ×2 (09:00→11:28)
[2019-05-29] MEDS: PANTOPRAZOLE 40MG TABLET PO SCH ×2 (09:00→11:28)
[2019-05-29] MEDS: ENSURE ENLIVE 237 ML CAN PO SCH ×2 (09:00→20:04)
[2019-05-29] MEDS: LACTOBACILLUS/ACIDOPHILUS TAB PO SCH ×3 (09:00→20:02)
[2019-05-29] MEDS: FLUCONAZOLE 100 MG TAB PO SCH ×2 (09:00→11:27)
[2019-05-29] MEDS: NICOTINE 21 MG/PAT TD SCH (09:42)
[2019-05-29 12:22] LABS: Urine Appearance CLEAR; Urine Bilirubin NEGATIVE (NEG); Urine Blood 2+ (NEG); Urine Color YELLOW; Urine Glucose NEGATIVE (NEG); Urine Protein NEGATIVE (NEG); Urine Specific Gravity 1.025 (1.005-1.030); Urine Urobilinogen 0.2 mg/dL (0.2-1.0)
[2019-05-29 12:36] LABS: Urine Bacteria NONE SEEN /HPF (NONE SEEN); Urine RBC 20-50 /HPF (NONE SEEN)
[2019-05-29 12:37] LABS: Urine Culture Reflex Order NOT NEEDED
--- NOTE | 2019-05-29 14:36 | PN ---
Subjective: Patient lying in bed, waiting for EGD for him having bloody stools and blood clots in hi s stools and nausea and vomiting. Patient denies any problems at this time. Objective: Vital Signs: Temperature 97.5, pulse 85, respirations 16, blood pressure 110/60. HEENT: Unremarkable. Neck: Supple. Lungs: Clear to auscultation. Heart: S1, S2 regular. Abdomen: Soft. Bowel sounds present. Tenderness in epigastric area. Extremities: No edema. Laboratory Data: Shows WBC 6.5, hemoglobin 7.5, platelets are 217. Chemistry shows sodium 142, pota ssium 3.2, chloride 112, bicarb 25, BUN 8, creatinine 0.5, glucose is 99. Albumin level is 0.9. Assessment And Plan: Urinary tract infection causing sepsis. Patient is currently being treated wit h Zyvox and meropenem. Awaiting EGD to evaluate for possibility of gastric ulcer and gastritis. Con tinue current antibiotics. Repeat urinalysis today. We will follow the patient closely. Patient bhat s extremely low albumin putting him at risk of future infections and low immune system, also morbid o besity. Patient has a recent episode of hematochezia. Awaiting EGD. We will follow the patient as needed. NF/MODL Voice ID: [id number] Report ID: [id number]
--- NOTE | 2019-05-29 15:06 | PN ---
Date of Progress Note: 05/29/2019 Subjective: Patient seen and examined. Chart reviewed and case discussed with RN. Patient going for EGD today. Overall, no acute events overnight. Patient received 1 unit of blood transfusion yesterday. Medications: List reviewed. Physical Examination: Vital Signs: Temperature 97.5, heart rate 85, blood pressure 110/60, respirations 16, O2 of 94% on room air. General: Awake, alert, and oriented x3. Elderly male, morbidly obese, mildly ill-appearing. CV: S1, S2. Peripheral pulses present. Respiratory: Diminished breath sounds at the bases. No wheezing or stridor. Gastrointestinal: Abdomen is soft, nontender, nondistended. Positive bowel sounds. Extremities: No clubbing, cyanosis. Patient has peripheral edema. Neurologic: Nonfocal. Laboratory Data: Sodium 142, potassium 3.2, chloride 112, CO2 of 25, BUN 8, creatinine 0.59, glucose 99 calcium 6.8, total bilirubin 1.3, albumin 0.9. WBC 6.5, H and H 7.5, 21.8, platelets 217. Cultures, repeat urine culture also showing yeast. Assessment And Plan: A 63-year-old male with; 1. Sepsis secondary to Urinary tract infection, improving. Patient currently on Zyvox and meropenem, as well as Diflucan. 2. Acute cystitis without hematuria secondary to yeast. Continue Diflucan. 3. Essential hypertension. Patient is currently hypotensive, stable. 4. Chronic atrial fibrillation. Continue metoprolol and digoxin. Coumadin is being held due to recent anemia. 5. Acute blood loss anemia, acute on chronic. Patient required 1 unit of blood transfusion yesterday. Going for EGD today. Appreciate GI input. Repeat CT scan showed suspected gastritis, diffuse prominent gastric wall thickening and edema. Small amount of free fluid and very pronounced fatty liver, infiltration of the liver. 6. Hematuria, resolved. 7. History of deep vein thrombosis, on Coumadin, on hold due to anemia. 8. Disuse myopathy and generalized weakness. Continue with PT as much as possible. 9. Morbid obesity BMI of 41. 10. Severe protein calorie malnutrition. Supplements. 11. Fatty liver disease. Patient was referred to SNF, however, turns out he does not have any SNF days left and daughter is working on co-pay for the infusions at home. I would recommend LTAC for this patient due to his multiple comorbidities and for close monitoring with multiple IV medications, which were likely not feasible to be done at home without significant amount of help and monitoring. MAKENNA Voice ID: [id number] Report ID: [id number] MTDD
[2019-05-29] MEDS ORDERED: NA CHLORIDE 0.9% 0 ML ONE (15:28)
[2019-05-29] MEDS ORDERED: propofoL 200 MG/20 ML VIAL IV ONE (15:41)
--- NOTE | 2019-05-29 16:06 | ENDO RPT ---
[address], [address] EGD PROCEDURE REPORT EXAM DATE: 05/29/2019 PATIENT NAME: Delroy Novoa MR#: [id number] BIRTHDATE: 1955 ATTENDING: Robert Rajan Dr STATUS: inpatient - 7 DESIGN ASSISTANT: Shanda DAILEY and Lizzeth Ro RN INDICATIONS: The patient is a 63 yr old Male here for an EGD due to anemia, G.I. bleeding, abnormal CT abdomen/pelvis revealing gastritis with thickening of the stomach wall PROCEDURE PERFORMED: EGD with biopsy MEDICATIONS: Per Anesthesia. TOPICAL ANESTHETIC: none CONSENT: The patient understands the risks and benefits of the procedure and understands that these risks include, but are not limited to: sedation, allergic reaction, infection, perforation and/or bleeding. Alternative means of evaluation and treatment include, among others: physical exam, x-rays, and/or surgical intervention. The patient elects to proceed with this endoscopic procedure. DESCRIPTION OF PROCEDURE: During intra-op preparation period all mechanical medical equipment was checked for proper function. Hand hygiene and appropriate measures for infection prevention was taken. Procedure, possible complications, and alternatives including but not limited to the possibility of bleeding, perforation, tear, infection, sepsis, need for surgery, need for blood transfusion, and anesthesia related complications were explained to the patient. After the risks, benefits and alternatives of the procedure were thoroughly explained, Informed consent was verified, confirmed and timeout was successfully executed by the treatment team. The patient was placed in the left lateral position. The patient was anesthetized with topical anesthesia. Through the anesthetized oropharyngeal area, the scope was passed without any difficulty. The Pentax EG-[id number] ([id number]) endoscope was introduced through the mouth and advanced to the mid jejunum. Retroflexed views revealed no abnormalities. The gastroscope was then slowly withdrawn and removed. Moderate edema / hypertrophy of gastric mucosa was found in the body and the antrum of the stomach. Multiple biopsies were obtained and sent to pathology. Anastomosis was noted in the antrum with efferent / afferent jejunal limbs from Whipple surgery. ADVERSE EVENTS: There were no complications. IMPRESSIONS: 1. Moderate edema / hypertrophy of gastric mucosa in the body and the antrum of the stomach 2. Anastomosis was noted in the antrum with efferent / afferent jejunal limbs from Whipple surgery. RECOMMENDATIONS: 1. await biopsy results 2. acid suppression therapy 3. colonoscopy 4. tagged RBC / bleeding scan REPEAT EXAM: Robert Rajan Dr eSigned: Robert Rajan Dr 05/29/2019 4:05 PM cc: CPT CODES: ICD9 CODES: PATIENT NAME: Delroy Novoa MR#: [id number]
[2019-05-29] MEDS ORDERED: NA CHLORIDE 0.9% 250 ML ONE (17:04)
[2019-05-29] MEDS ORDERED: POTASSIUM CL SA 10 MEQ TAB PO ONE (20:00)
[2019-05-29] MEDS: ACETAMINOPHEN 500 MG TAB PO PRN (20:04)
[2019-05-29 22:13] LABS: Hematocrit 25.7 % (39.6-49.0)
[2019-05-30] MEDS: Meropenem 500 MG in NA CHLORIDE 0.9% 100 ML IV SCH ×3 (00:38→18:06)
[2019-05-30 04:53] LABS: BUN Blood Urea Nitrogen 7 mg/dL (7-18); Bicarbonate 27 mmol/L (21-32); Glucose Level 84 mg/dL (74-106); Potassium 3.7 mmol/L (3.5-5.1); Sodium Level 143 mmol/L (136-145)
[2019-05-30] MEDS: INSULIN -REGULAR HUMAN 50 UNIT/0.5 ML ML SQ SCH ×4 (07:30→21:00)
[2019-05-30] MEDS ORDERED: FUROSEMIDE 20 MG/ 2ML VIAL IV ONE (08:03)
[2019-05-30] MEDS: FLUCONAZOLE 100 MG TAB PO SCH (08:41)
[2019-05-30] MEDS: DIGOXIN 0.125 MG TABLET PO SCH (08:41)
[2019-05-30] MEDS: ENSURE ENLIVE 237 ML CAN PO SCH ×2 (08:42→21:00)
[2019-05-30] MEDS: METOPROLOL TAR 25 MG TAB PO SCH ×2 (08:43→22:22)
[2019-05-30] MEDS: LACTOBACILLUS/ACIDOPHILUS TAB PO SCH ×2 (08:44→22:22)
[2019-05-30] MEDS: GABAPENTIN 300 MG CAP PO SCH ×2 (08:44→22:22)
[2019-05-30] MEDS: PANTOPRAZOLE 40MG TABLET PO SCH (08:44)
[2019-05-30] MEDS: NICOTINE 21 MG/PAT TD SCH (08:45)
[2019-05-30] MEDS: LINEZOLID 600 MG TAB PO SCH ×2 (08:48→22:22)
[2019-05-30] MEDS: BUPROPION HCL XL 150 MG TAB PO SCH (08:56)
[2019-05-30] MEDS ORDERED: POTASSIUM CL SA 10 MEQ TAB PO ONE (09:00)
[2019-05-30] MEDS ORDERED: NA CHLORIDE 0.9% 500 ML ONE (10:22)
[2019-05-30] MEDS ORDERED: METOCLOPRAMIDE 10 MG/2mL INJ IV PRN (13:23)
[2019-05-30] MEDS ORDERED: MAGNESIUM CITRATE 300 ML BOT PO ONE (14:00)
[2019-05-30] MEDS ORDERED: GOLYTELY 4000 ML PO ONE (14:00)
--- NOTE | 2019-05-30 16:36 | PN ---
Date of Progress Note: 05/30/2019 Subjective: Patient seen and examined. Chart reviewed and case discussed with RN. Patient seems to be doing better. Had endoscopy done yesterday, was transfused unit of blood. Medications: List reviewed. Physical Examination: Vital Signs: Temperature 97, heart rate 73, blood pressure 104/73, respirations 20, O2 97% on room a ir. General: Awake, alert, oriented x3. Elderly male, ill-appearing, morbidly obese. BMI of 41.6. CV: S1 and S2. Regular rate and rhythm. Peripheral pulses present. Respiratory: Diminished breath sounds at the bases, otherwise moving air well. Gastrointestinal: Abdomen is soft, nontender, nondistended. Positive bowel sounds. Extremities: No clubbing or cyanosis. Patient has peripheral edema. Neurologic: Nonfocal. Laboratory Data: Sodium 143, potassium 3.7, chloride 113, CO2 of 27, BUN 7, creatinine 0.53, glucose 84, calcium 7. WBC is pending. Urine culture from 05/29/2019, now showing no growth. Urine cultur e from 05/26/2019 showing yeast. Assessment: A 63-year-old male with; 1.Sepsis secondary to urinary tract infection, improving. Continue with Zyvox, Merrem, and Diflucan . 2.Acute cystitis without hematuria secondary to yeast. Repeat culture from 05/28 not showing any ye ast. We will continue with Diflucan. 3.Hypotension. Blood pressure in the low 100s, asymptomatic. 4.Chronic atrial fibrillation. Continue metoprolol, digoxin. Coumadin was discontinued due to his gastrointestinal bleed. 5.Acute blood loss anemia, acute on chronic, status post 2 units PRBCs. Hemoglobin is improved. St atus post EGD with gastritis and erosion of the anastomotic area. Appreciate Dr. Rajan's input. We will continue with PPI. 6.Fatty liver infiltration. 7.Hematuria, resolved. 8.History of deep venous thrombosis. Coumadin on hold currently due to anemia. 9.Disuse myopathy. Patient not really working well with PT. 10.Generalized weakness. 11.Morbid obesity. BMI of 41. Plan: Due to patient's complicated medical history, has inability to ambulate on his own, not able t o get out of bed and being on 3 antimicrobials, patient should go to a facility such as SNF or LTAC. school social worker is working with family regarding co-pay situation. Patient needs a total of 10 more d ays of the antimicrobials. We will discuss with Social Work. /ABISAI Voice ID: [id number] Report ID: [id number]
[2019-05-30 17:45] LABS: Hematocrit 30.9 % (39.6-49.0)
[2019-05-30] MEDS ORDERED: METOCLOPRAMIDE 10 MG/2mL INJ IV ONE (18:00)
[2019-05-31] MEDS ORDERED: METOCLOPRAMIDE 10 MG/2mL INJ IV ONE
[2019-05-31] MEDS ORDERED: METOCLOPRAMIDE 10 MG/2mL INJ IV SCH
[2019-05-31] MEDS: Meropenem 500 MG in NA CHLORIDE 0.9% 100 ML IV SCH ×3 (00:26→18:47)
[2019-05-31 06:03] LABS: BUN Blood Urea Nitrogen 7 mg/dL (7-18); Bicarbonate 26 mmol/L (21-32); Glucose Level 85 mg/dL (74-106); Magnesium 1.7 mg/dL (1.8-2.4); Potassium 3.5 mmol/L (3.5-5.1); Sodium Level 141 mmol/L (136-145)
[2019-05-31] MEDS ORDERED: MAGNESIUM SULFATE 1 gm IVPB 1 GM/100 ML BAG IV ONE (06:38)
[2019-05-31] MEDS: INSULIN -REGULAR HUMAN 50 UNIT/0.5 ML ML SQ SCH ×4 (07:30→21:00)
[2019-05-31] MEDS ORDERED: NA CHLORIDE 0.9% 0 ML ONE (08:24)
[2019-05-31 08:37] LABS: Absolute Lymphocytes (CBC) 1.1 K/uL (0.7-4.9); Basophils % 1.4 % (0-1.3); Hematocrit 27.6 % (39.6-49.0); Lymphocytes % 19.9 % (15.3-44.8); MPV 7.6 fL (7.6-11.3); Protime INR 2.12; RBC Red Blood Cell Count 2.84 M/uL (4.33-5.43)
[2019-05-31] MEDS ORDERED: LIDOCAINE 1% MPF 5 ML VIAL ONE (08:57)
[2019-05-31] MEDS ORDERED: propofoL 200 MG/20 ML VIAL IV ONE (08:57)
[2019-05-31] MEDS ORDERED: POTASSIUM CL SA 10 MEQ TAB PO ONE (09:00)
[2019-05-31] MEDS: ENSURE ENLIVE 237 ML CAN PO SCH ×2 (09:00→21:00)
[2019-05-31] MEDS ORDERED: NA CHLORIDE 0.9% 1,000 ML ONE (09:10)
--- NOTE | 2019-05-31 10:29 | ENDO RPT ---
[address], [address] COLONOSCOPY PROCEDURE REPORT EXAM DATE: 05/31/2019 PATIENT NAME: Delroy Novoa MR #: [id number] BIRTHDATE: 1955 ATTENDING: Robert Rajan Dr STATUS: inpatient - 7 SYSTEM ADMINISTRATION MANAGER: Azeem Zavala, Lizzeth Ro RN, Mercedes CURRY, Adrianne Willams RESPIRATORY CARE ASSISTANT, and Yazmin Guardado RN INDICATIONS: The patient is a 63 yr old Male here for a colonoscopy due to anemia and hematochezia PROCEDURE PERFORMED: Colonoscopy MEDICATIONS: Per Anesthesia. ESTIMATED BLOOD LOSS: None CONSENT: The patient understands the risks and benefits of the procedure and understands that these risks include, but are not limited to: sedation, allergic reaction, infection, perforation and/or bleeding. Alternative means of evaluation and treatment include, among others: physical exam, x-rays, and/or surgical intervention. The patient elects to proceed with this endoscopic procedure. DESCRIPTION OF PROCEDURE: During intra-op preparation period all mechanical medical equipment was checked for proper function. Hand hygiene and appropriate measures for infection prevention was taken. Procedure, possible complications, alternatives including, but not limited to possibility of bleeding, perforation, tear, infection, sepsis, need for surgery, need for blood transfusion, were explained to the patient. After the risks, benefits and alternatives of the procedure were thoroughly explained, Informed consent was verified, confirmed and timeout was successfully executed by the treatment team. The patient was placed in the left lateral position. A digital rectal exam was performed and revealed no abnormalities of the rectum. After appropriate level of anesthesia, the scope was passed. The EC-[id number] ([id number]) endoscope was introduced through the anus and advanced to the ileum. The quality of the prep was fair. The instrument was then slowly withdrawn as the colon was fully examined. Scope withdrawal time was 7 minutes. COLON FINDINGS: Mild diverticulosis was noted in the sigmoid colon. Internal hemorrhoids were found. There was evidence of a prior end-to-side ileocolonic surgical anastomosis in the transverse colon with sutures present. Retroflexed views revealed small hemorrhoids. No active bleeding noted. The scope was then completely withdrawn from the patient and the procedure terminated. ADVERSE EVENTS: There were no complications. IMPRESSIONS: 1. Mild diverticulosis in the sigmoid colon 2. Anastomosis in the transverse colon 3. Internal hemorrhoids 4.. Intubation to terminal ileum 5. No active bleeding noted RECOMMENDATIONS: 1. Small Bowel Follow Through 2. pillcam / capsule endoscopy 3. tagged RBC bleeding scan RECALL: Robert Rajan Dr eSigned: Robert Rajan Dr 05/31/2019 10:28 AM cc: CPT CODES: ICD9 CODES: PATIENT NAME: Delroy Novoa MR#: [id number]
[2019-05-31] MEDS: LINEZOLID 600 MG TAB PO SCH ×2 (11:21→21:00)
[2019-05-31] MEDS: BUPROPION HCL XL 150 MG TAB PO SCH (11:22)
[2019-05-31] MEDS: NICOTINE 21 MG/PAT TD SCH (11:23)
[2019-05-31] MEDS: PANTOPRAZOLE 40MG TABLET PO SCH (11:24)
[2019-05-31] MEDS: METOPROLOL TAR 25 MG TAB PO SCH ×2 (11:24→22:27)
[2019-05-31] MEDS: GABAPENTIN 300 MG CAP PO SCH ×2 (11:24→22:26)
[2019-05-31] MEDS: LACTOBACILLUS/ACIDOPHILUS TAB PO SCH ×2 (11:24→22:25)
[2019-05-31] MEDS: FLUCONAZOLE 100 MG TAB PO SCH (11:24)
[2019-05-31] MEDS: DIGOXIN 0.125 MG TABLET PO SCH (11:25)
--- NOTE | 2019-05-31 13:56 | CON ---
Date of Consultation: 05/28/2019 Reason For Consultation: Anemia, heme-positive stool with hematochezia. History Of Present Illness: Patient is a 63-year-old white male with history of diabetes, hypertensi on, atrial fibrillation, sepsis, toxic megacolon, history of pancreatic cancer status post Whipple pr taliadure. Patient presented to the hospital with abdominal pain, dark urine. He also had a history o f pneumonia and UTI previously and had been sent home, but again came back with abdominal pain and da rk urine for 2 days prior to admission on this admission. Pain was mainly noted in the upper abdomen . CT scan revealed gastritis. The patient notes some midepigastric pain with nausea, vomiting occas ionally. He is noted to be anemic with hemoglobin dropping from 9.5 down to 7.0, heme-positive stool . Patient also reports some hematochezia off and on, and on admission, he also had urinary tract inf ection with a white count of 17.3, now down to 6.5. The patient knows that hematochezia has been min imal at most. Past Medical History: Significant for: 1.Diabetes. 2.Hypertension. 3.Atrial fibrillation. 4.Status post toxic megacolon. 5.Pancreatic cancer status post Whipple procedure looks like possible colon surgery as well. 6.Heart failure. Past Surgical History: Whipple procedure with colon resection with reversal. Social History: He is , 3 kids. Positive for tobacco, half pack per day. Positive alcohol. Family History: Father of bladder cancer. Mother of old age, chart states she had cancer. Brother, hypertension. Sister, hypertension. Medications: At home include digoxin, gabapentin, metoprolol, Paxil, Protonix, Lantus insulin, Invan z, and Nicoderm. Allergies: TO HYDROCODONE, LORAZEPAM, ZOSYN. Review of Systems: Patient has occasional hematochezia, midepigastric pain. Occasional nausea, vomiting is mild. He bhat s malaise and fatigue. He denies any melena, hematemesis, coffee-grounds emesis, hematuria, dysuria, polydipsia, chest pain, shortness of breath, seizure, syncope, muscle aches, joint aches. He does h ave lower extremity edema and some mild shortness of breath, but occasional. Physical Examination: Vital Signs: He is 5 feet 10 inches, 290 pounds, BMI of 42 kg/sq m. Temperature of 97.2 degrees Fah renheit, pulse 82, respirations 18, blood pressure 99/54. Laboratory Data: Reveal white count of 7.2, down from 17.3; hemoglobin of 10.5 down to 7.0 today; MC V of 104; platelet count of 239; polys of 64%, lymphs 20%, monocytes 13%, eosinophils 2%, basophils 1 %. PT of 21, INR of 1.82, PTT of 35.2, and a sodium 140, potassium 3.6, chloride 110, bicarb 25, BUN of 9, creatinine of 0.6, glucose 92, calcium 7.0, total bilirubin 1.1, AST 73, ALT of 24, alkaline p hosphatase 86, total protein 5.2, albumin 1.0. UA on the revealed trace ketones, 3+ blood, negat ken nitrite, 1+ bilirubin, 2+ leukocyte esterase, 20-50 RBCs, 20-50 white blood cells, 3+ squamous ep ithelial, 20-50 bacteria, 1+ total protein, yeast was present as well, light mucus. Culture was done , no growth looks like, that was on the . Urine culture there, greater than 100,000 CFU/mL, show ed yeast overgrowth. Imaging: CT scan abdomen and pelvis reveals diffuse prominent gastric wall thickening with edema jamil pect gastritis or other. What was felt different from May 17 CT, very pronounced fatty infilt ration of liver. Impression: 1.Anemia. Hemoglobin down from 10 to 7 and now 7.5 with blood transfusion. Heme-positive stool. P T of 21 and INR of 0.8. 2.Hematochezia. Need to investigate with esophagogastroduodenoscopy and colonoscopy. 3.Gastritis with CT of the pelvis revealing markedly thickened stomach wall. Has midepigastric pain with occasional nausea, vomiting. Investigate with esophagogastroduodenoscopy. 4.Urinary tract infection. White count of 17.3 down to 6.5 now. 5.Protein-calorie malnutrition. Albumin of 0.9, calcium 6.8. 6.Fatty liver noted on CT and pelvis. 7.History of atrial fibrillation, on Coumadin. Also diabetes, hypertension, and others per above ob esity. Recommendations: 1.Serial H and H and transfuse p.r.n. 2.PPI therapy. 3.Agree with holding on Coumadin. 4.EGD and then probable colonoscopy. 5.Monitor labs. 6.Increase nutrition. 7.Fatty liver workup as outpatient. 8.Continue IV antibiotics for urinary tract infection. OSWALDO/ABISAI Voice ID: [id number] Report ID: [id number]
--- NOTE | 2019-05-31 15:14 | PN ---
Date of Progress Note: 05/31/2019 Subjective: Patient seen and examined. Chart reviewed and case discussed with RN. Patient doing si gnificantly better and going for colonoscopy this morning. Daughter is at the bedside. I explained to them that the patient likely needs placement in LTAC. He does not have any significant benefits l eft. Daughter will think about it. Medications: List reviewed. Physical Examination: Vital Signs: Temperature 97.9, heart rate 72, blood pressure 130/76, respirations 18, O2 of 100% on room air. General: Awake, alert, oriented x3. Elderly male, morbidly obese, ill-appearing. CV: S1, S2. Regular rate and rhythm. Peripheral pulses present. Respiratory: Diminished breath sounds at the bases. No wheezing or stridor. Gastrointestinal: Abdomen is soft, nondistended, nontender. Positive bowel sounds. Extremities: No clubbing or cyanosis. Patient has edema of the lower extremities. Laboratory Data: Sodium 141, potassium 3.5, chloride 111, CO2 of 26, BUN 7, creatinine 0.56, glucose 85, calcium 7.1, magnesium 1.7. WBC 5.5, H and H 9.5 and 27.6, platelets 201, neutrophils 65%. Assessment: 63-year-old male with: 1.Sepsis, resolved secondary to urinary tract infection. 2.Acute cystitis without hematuria secondary to yeast. We will continue Diflucan. Monitor repeat c ultures. 3.Hypotension, asymptomatic. Blood pressure now improved. 4.Chronic atrial fibrillation. We will continue metoprolol, digoxin. Coumadin held due to his GI b leed. 5.Acute blood loss anemia, acute on chronic, status post 3 units of packed red blood cells. Hemoglo bin improved, status post esophagogastroduodenoscopy, which showed gastritis. The patient also has a Whipple surgery with anastomosis in the antrum with afferent and efferent jejunal limbs. Appreciate Dr. Rajan's input. 6.Fatty liver infiltration. 7.Hematuria, resolved. 8.History of deep venous thrombosis. Coumadin on hold due to anemia. 9.Disuse myopathy. 10.Generalized weakness. Encourage working with Physical Therapy. 11.Morbid obesity. BMI of 41. 12.Hypomagnesemia. We will replace and monitor. Plan: We will recommend LTAC for this patient due to his chronic medical conditions. Patient also h as to be on multiple IV antibiotics and needs physical therapy. We will discuss with Case Management and Social Work. Daughter seems to be agreeable. MAKENNA Voice ID: [id number] Report ID: [id number]
--- NOTE | 2019-05-31 19:43 | RAD REPORT ---
EXAM DESCRIPTION: RAD - Small Bowel Series - 05/31/2019 7:33 pm CLINICAL HISTORY: occult GI bleeding Abdominal pain COMPARISON: Abdomen Pelvis W Contrast dated 05/28/2019; Abdomen 1 View (KUB) dated 05/26/2019; Abdomen Pelvis W Contrast dated 05/17/2019 FINDINGS: Postsurgical clips are present in the central abdomen. IVC filter is noted. Mild thickening of the stomach and duodenum mucosa is seen suggesting mild inflammation is present. T he proximal small bowel loops appear otherwise normal caliber. Contrast is seen refluxing into the bi liary system from the duodenum region. The small intestine appears shortened and contrast is seen roseline enoch the colon in less than 4 hours. No fluoroscopy was performed. Total images acquired: 36 IMPRESSION: Moderate nonspecific inflammatory changes of the stomach and proximal small bowel suspec roseanne. Contrast is seen refluxing into the biliary system. This is presumably related previous papillotomy o r biliary surgery.
[2019-06-01] MEDS: Meropenem 500 MG in NA CHLORIDE 0.9% 100 ML IV SCH ×2 (00:24→10:38)
[2019-06-01 05:09] LABS: Absolute Lymphocytes (CBC) 1.1 K/uL (0.7-4.9); Basophils % 1.2 % (0-1.3); Lymphocytes % 17.3 % (15.3-44.8); MPV 7.6 fL (7.6-11.3); RBC Red Blood Cell Count 2.75 M/uL (4.33-5.43)
[2019-06-01 05:48] LABS: ALT/SGPT 23 U/L (12-78); AST/SGOT 62 U/L (15-37); Albumin 1.1 g/dL (3.4-5.0); Alkaline Phosphatase 81 U/L (45-117); BUN Blood Urea Nitrogen 5 mg/dL (7-18); Bicarbonate 26 mmol/L (21-32); Bilirubin Total 1.4 mg/dL (0.2-1.0); Ferritin 446.4 ng/mL (26-388); Glucose Level 94 mg/dL (74-106); Magnesium 1.9 mg/dL (1.8-2.4); Phosphorus 2.4 mg/dL (2.5-4.9); Potassium 3.4 mmol/L (3.5-5.1); Protein, Total 5.5 g/dL (6.4-8.2); Sodium Level 139 mmol/L (136-145); Transferrin 59 mg/dL (200-360); Uric Acid 4.6 mg/dL (3.5-7.2)
[2019-06-01 06:30] LABS: Anisocytosis 1+; Blood Morphology Comment NOTED (NOT SEEN); Platelet Estimate ADEQ; Urine White Blood Cell Casts OK
[2019-06-01] MEDS ORDERED: POTASSIUM 25 MEQ EFFERV TAB PO ONE (07:20)
[2019-06-01] MEDS: INSULIN -REGULAR HUMAN 50 UNIT/0.5 ML ML SQ SCH ×4 (07:30→21:00)
[2019-06-01] MEDS ORDERED: KCL 20 MEQ/100 mL IVPB 20 MEQ/100 ML BAG IV ONE (08:00)
[2019-06-01] MEDS ORDERED: POTASS/SODIUM PHOSPHATE 1 PKT POWD.PACK PO SCH (08:00)
[2019-06-01] MEDS ORDERED: POTASSIUM PHOS IN 0.9 % NACL 15 MMOL/250 ML BAG IV ONE (08:00)
[2019-06-01] MEDS: NICOTINE 21 MG/PAT TD SCH (10:38)
[2019-06-01] MEDS: LACTOBACILLUS/ACIDOPHILUS TAB PO SCH ×2 (10:39→20:39)
[2019-06-01] MEDS: GABAPENTIN 300 MG CAP PO SCH ×2 (10:40→20:39)
[2019-06-01] MEDS: PANTOPRAZOLE 40MG TABLET PO SCH (10:40)
[2019-06-01] MEDS: DIGOXIN 0.125 MG TABLET PO SCH (10:41)
[2019-06-01] MEDS: FLUCONAZOLE 100 MG TAB PO SCH (10:41)
[2019-06-01] MEDS: ENSURE ENLIVE 237 ML CAN PO SCH ×2 (10:45→20:46)
[2019-06-01] MEDS: METOPROLOL TAR 25 MG TAB PO SCH ×2 (10:45→20:39)
[2019-06-01] MEDS: BUPROPION HCL XL 150 MG TAB PO SCH (10:46)
[2019-06-01] MEDS: LINEZOLID 600 MG TAB PO SCH ×2 (10:46→20:40)
[2019-06-01] MEDS ORDERED: NA CHLORIDE 0.9% 500 ML ONE (10:55)
--- NOTE | 2019-06-01 12:33 | CON ---
Chief Complaint: Psychiatry is consulted to evaluate patient with history of depression and make medication recommendations as Paxil has been discontinue due to concern over risk of interaction with Zyvox History Of Present Illness: Mr. Potts is a 63-year-old male with past psychiatric history significant for major depressive disorder; have significant comorbid medical pathology which include diabetes mellitus; atrial fibrillation; hypertension; pancreatic cancer status post Whipple procedure; history of sepsis and toxic megacolon. Patient is admitted to the hospital on May 17, 2019 on account of sepsis, obstructive pneumonia, and UTI. On evaluation, patient admits with history of depression but currently reports no depressive symptoms. Despite his medical conditions, his mood is currently stable. Denies depressed mood for most part of the day. Denies anhedonia. Denies feeling hopeless and helpless. Denies suicidal and homicidal ideation. Admits to anxiety, which is related with worrying about his medical issues, but denies panic attack. States he has been on Paxil for over 10 years which managed his symptoms appropriately. Patient denies history of bipolar disorder. No psychotic symptoms reported. Denies history of any cognitive impairment. No waxing or waning of patient's cognitive functioning in patient' s level of consciousness. Denies history of alcohol addiction or illicit substance abuse. Physical Examination: Vital signs: Blood pressure 99/56, pulse rate is 65, respiratory rate is 17, temperature is 96.9. Pain intensity is 0. General: Patient is an obese male, ill looking, but not in any acute cardiorespiratory distress, lying in bed. Mental status: Revealed, the patient is rested most of the time, cooperative with interview. No stereotypic movements noted. No perseveration. Made good eye contacts. Speech is essentially normal. Memory and concentration are fair. Mood really described as worried. Affect is more congruent but mildly restricted. Thought process linear. Thought content, no delusional thinking. No suicidal or homicidal ideation. No rumination or obsession. Insight, judgement, impulse control are limited to fair. Fund of knowledge is fair. Language skills fair, fluent in Turkmen. Suicidal risk assessment is low. Diagnoses: 1. Major depressive disorder, recurrent in remission 2. Anxiety disorder unspecified Plan: 1. Recommend starting Wellbutrin 150 mg p.o. daily. 2. Patient to follow up with Psychiatry post discharge. Recommendations were discussed with patient's physician. HAROLDO Voice ID: [id number] Report ID: [id number]
--- NOTE | 2019-06-01 15:53 | PN ---
Date of Progress Note: 06/01/2019 Subjective: Patient seen and examined. Chart reviewed and case discussed with RN and Dr. Rajan. P atamaury had colonoscopy yesterday, not much was found other than diverticulitis. Patient will need a PillCam. Patient overall is doing fair, somewhat more lethargic this morning. Medications: List reviewed. Physical Examination: Vital Signs: Temperature 97.2, heart rate 55, blood pressure 109/60, respirations 18, O2 96% on room air. General: Asleep, but able to be woken up, somewhat lethargic, elderly male ill-appearing obese. CV: S1 and S2. Regular rate and rhythm. Peripheral pulses present. Respiratory: Diminished breath sounds. No wheezing or stridor. Gastrointestinal: Abdomen is soft, nontender, nondistended. Positive bowel sounds. Extremities: No clubbing, cyanosis. Patient has diffuse edema. Neuro: Overall has generalized weakness with no focal neurological deficit. Laboratory Data: Sodium 139, potassium 3.4, chloride 109, CO2 of 26, BUN 5, creatinine 0.51, glucose 94, uric acid 4.6, calcium 7, phosphorus 2.4, magnesium 1.9. Iron 75, TIBC 83, transferrin 90.4, fe rritin 446, total bilirubin 1.4, AST 62, ALT 23, albumin 1.1, vitamin B12 of 1019, folate 6, TSH 3.03 . WBC 6.2, H and H 9.1 and 27, platelets 203, neutrophils 67%. Repeat urine culture, no growth. Sm all bowel series shows moderate nonspecific inflammatory changes of the stomach and proximal small elda wel suspected, contrast was seen refluxing into the biliary system. This is presumably related to pr evious papillotomy or biliary surgery. Assessment: A 63-year-old male with; 1.Sepsis, resolved secondary to urinary tract infection. 2.Acute cystitis without hematuria secondary to yeast. Continue Diflucan. I appreciate IDs input. Repeat cultures negative. 3.Hypotension, asymptomatic. Blood pressure is improving. 4.Chronic atrial fibrillation, on metoprolol, digoxin. Coumadin held due to GI bleed. 5.Acute blood loss anemia secondary to iron deficiency and blood loss, status post 3 units of PRBCs, status post esophagogastroduodenoscopy and colonoscopy. Patient will need PillCam with GI as outpat ient. 6.Fatty liver infiltration. 7.Hematuria, resolved. 8.History of deep venous thrombosis, Coumadin on hold due to anemia. 9.Disuse myopathy. 10.Generalized weakness. Continue with PT. 11.Morbid obesity, BMI of 41. 12.Hypomagnesemia, replace and monitor. 13.Deep venous thrombosis prophylaxis, SCDs. No chemical anticoagulation due to bleed. Plan: Patient has completed his course of meropenem for a total of 14 days. He is now on Zyvox, whi ch is oral. Diflucan, which is IV, was started on the . Patient has had 9 days. We will try to set up for 5 more days of Diflucan. May need LTAC versus home healthcare with infusion therapy. Sherman simons is very weak, but at baseline is nonambulatory. SA/MODL Voice ID: [id number] Report ID: [id number]
[2019-06-01] MEDS: ACETAMINOPHEN 500 MG TAB PO PRN (20:45)
[2019-06-01 23:59] LABS: Urine Protein/Creatinine Ratio 0.65 ratio (<0.15)
[2019-06-02 00:01] LABS: Urine Appearance CLEAR; Urine Bilirubin NEGATIVE (NEG); Urine Blood 2+ (NEG); Urine Color YELLOW; Urine Glucose NEGATIVE (NEG); Urine Protein NEGATIVE (NEG); Urine Specific Gravity 1.015 (1.005-1.030); Urine Urobilinogen 0.2 mg/dL (0.2-1.0); Urine pH 6.5 (5.0-7.0)
[2019-06-02 00:04] LABS: Urine Microscopic Reflex ORDER UMIC
[2019-06-02 00:44] LABS: Urine Bacteria <20 /HPF (NONE SEEN); Urine Urothelial Cells <5 /HPF (NONE SEEN)
[2019-06-02 00:45] LABS: Urine Culture Reflex Order NOT NEEDED
--- NOTE | 2019-06-02 02:09 | CON ---
Date of Consultation: 06/01/2019 Chief Complaint: Acute on chronic kidney injury, nonoliguric associated with multiple causes including prerenal azotemia. Lab work showed severe anemia. Patient was found to have hemoglobin of 7.5 recently it improved to 9.1, platelet count is within normal limits and leukocytosis is normal. Although chemistry panel showed hypokalemia and this hypokalemia. Potassium level was 3.5, and calcium level was 6.8 and up to 7.1, phosphorus was 2.4 on May 31 and it improved from 2.1. Uric acid was 4.6, ionized calcium was below normal ranges, was 4.1, normal range is from 4.8 to 5.6. History Of Present Illness: Patient is a 63-year-old man with history of psychiatric problems significant for major depressive disease. He has multiple comorbidities including diabetes mellitus, diabetic kidney disease, hypertension , hypertensive kidney disease, pancreatic cancer status post Whipple procedure, history of sepsis, obstructive pneumonia, and urinary tract infections. Patient today denies new complaints. Patient denies nausea or vomiting. Review of Systems: Constitutional: Denies fevers, chills. Eyes: Denies vision changes. Ears, Nose, Mouth and Throat: Denies sore throat or earache. Respiratory: Denies PND or orthopnea. Cardiovascular: Denies chest pain or palpitation. GI: Denies nausea or vomiting. : Denies dysuria or hematuria. Musculoskeletal: Denies muscle aches or joint swelling. All other systems reviewed and all are negative. Past Medical History: Diabetes mellitus, hypertension, atrial fibrillation. 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 Social History: He is and has 3 children. Positive for tobacco half a pack per day. Positive for alcohol. Family History: Father had bladder cancer. Mother of old age. Brother with hypertension. Sister hypertension. Physical Examination: General: Patient is awake, alert, follows commands. Eyes: Anicteric, sclerae, EOMI. Ears, Nose, Mouth, and Throat: Oral mucosa moist. No pallor. Neck: Supple. No bruits. Lungs: Clear to auscultation bilaterally. Heart: S1-S2. No pericardial friction rub Abdomen: Soft, benign. No rebound Extremities: Minimal edema. No oozing SKIN ; warm and dry no oozing Impression And Plan: 1. Electrolytes abnormalities hypocalcemia with lower ionized calcium. Plan is to check intact PTH and vitamin D level. 2. Hypokalemia. Avoid hydrochlorothiazide diuretics. Patient may need to have potassium sparing diuretic. Continue potassium replacement. 3. Diabetes mellitus. Continue insulin. 4. Atrial fibrillation, rate is controlled. 5. Pancreatic cancer. GI workup is pending. MONIK/ABISAI Voice ID: [id number] Report ID: [id number] MTDDick
[2019-06-02 04:12] LABS: Absolute Lymphocytes (CBC) 1.3 K/uL (0.7-4.9); Basophils % 1.1 % (0-1.3); Hematocrit 26.1 % (39.6-49.0); Lymphocytes % 20.2 % (15.3-44.8); MPV 7.4 fL (7.6-11.3); RBC Red Blood Cell Count 2.63 M/uL (4.33-5.43)
[2019-06-02 04:21] LABS: ALT/SGPT 24 U/L (12-78); AST/SGOT 68 U/L (15-37); Albumin 1.1 g/dL (3.4-5.0); Alkaline Phosphatase 79 U/L (45-117); BUN Blood Urea Nitrogen 6 mg/dL (7-18); Bicarbonate 28 mmol/L (21-32); Bilirubin Total 1.3 mg/dL (0.2-1.0); Glucose Level 89 mg/dL (74-106); Magnesium 1.9 mg/dL (1.8-2.4); Phosphorus 2.6 mg/dL (2.5-4.9); Potassium 3.5 mmol/L (3.5-5.1); Protein, Total 5.3 g/dL (6.4-8.2); Sodium Level 140 mmol/L (136-145)
[2019-06-02] MEDS ORDERED: POTASSIUM CL SA 10 MEQ TAB PO ONE (04:48)
[2019-06-02] MEDS: INSULIN -REGULAR HUMAN 50 UNIT/0.5 ML ML SQ SCH ×3 (07:30→16:30)
[2019-06-02] MEDS: ENSURE ENLIVE 237 ML CAN PO SCH (09:00)
[2019-06-02 09:29] VITALS: O2SAT 96
[2019-06-02] MEDS: LINEZOLID 600 MG TAB PO SCH (09:37)
[2019-06-02] MEDS: BUPROPION HCL XL 150 MG TAB PO SCH (09:37)
[2019-06-02] MEDS: NICOTINE 21 MG/PAT TD SCH (09:38)
[2019-06-02] MEDS: LACTOBACILLUS/ACIDOPHILUS TAB PO SCH (09:38)
[2019-06-02] MEDS: GABAPENTIN 300 MG CAP PO SCH (09:38)
[2019-06-02] MEDS: METOPROLOL TAR 25 MG TAB PO SCH (09:38)
[2019-06-02] MEDS: FLUCONAZOLE 100 MG TAB PO SCH (09:38)
[2019-06-02] MEDS: DIGOXIN 0.125 MG TABLET PO SCH (09:38)
[2019-06-02] MEDS: PANTOPRAZOLE 40MG TABLET PO SCH (09:39)
--- NOTE | 2019-06-02 14:14 | RAD REPORT ---
EXAM DESCRIPTION: US - Renal Ultrasound-Complete - 06/02/2019 2:00 pm CLINICAL HISTORY: . Chronic renal disease COMPARISON: None. FINDINGS: The right kidney measures 11 cm with a normal echotexture. A 1.6 centimeter cyst extends o ff of the right kidney The left kidney poorly visualized secondary to overlying bowel gas Bladder also poorly seen secondary overlying bowel gas IMPRESSION: 1.6 centimeter right renal cyst Nondiagnostic evaluation of the left kidney
--- NOTE | 2019-06-02 15:01 | PN ---
Subjective: Patient lying in bed. No new acute event. Denies any headache, nausea, vomiting, chest pain, abdominal pain, constipation, diarrhea. Patient to be discharged today. Objective: Vital Signs: Reviewed. Lungs: Clear to auscultation. Heart: S1, S2. Regular. Abdomen: Soft, nontender. Bowel sounds present. Extremities: No edema. Laboratory Data: Shows WBC 6.3, hemoglobin 8.9, platelets 179. Chemistry shows sodium 140, potassiu m 3.5, chloride 109, bicarb 28, BUN is 6, creatinine 0.5, glucose is 89. Assessment And Plan: Urinary tract infection, improving. Continue antibiotic and antifungals. We w ill follow the patient closely. Patient to be discharged home. Consider visiting Primary Care after finishing the antibiotic. WILLIAM/MODL Voice ID: [id number] Report ID: [id number]
--- NOTE | 2019-06-02 16:40 | PN ---
Date of Progress Note: 06/02/2019 Subjective: Patient seen and examined. Chart reviewed and case discussed with RN and Dr. Hamilton. T he patient's daughter at the bedside, treatment plan explained, all questions answered. She will silke e the patient home with home health and IV infusion therapy. She has a builder beam for the patient as well, as well as OT and aide that comes out. Patient will not qualify for LTAC as he is no longer re quiring 3 different antibiotics through the IV. Medications: List reviewed. Physical Examination: Vital Signs: Temperature 97.2, heart rate 78, blood pressure 120/57, respirations 19, O2 95% on room air. General: Awake, alert, oriented x3. Not in any acute distress. Slightly ill-appearing male, morbid ly obese, BMI 41. CV: S1, S2. Regular rate and rhythm. Peripheral pulses weak. Respiratory: Diminished breath sounds at the bases. No wheezing or stridor. Gastrointestinal: Abdomen is soft, nontender, nondistended. Positive bowel sounds. Extremities: No clubbing, cyanosis. Patient has diffuse edema. Neuro: Nonfocal. Laboratory Data: Sodium 140, potassium 3.5, chloride 109, CO2 of 28, BUN 6, creatinine 0.51, glucose 89, calcium 7.1, phosphorus 2.6, magnesium 1.9, total bilirubin 1.3, AST 68, ALT 24, albumin 1.1, vi tamin D 12.4, PTH is 40. WBC 6.3, H and H 8.9 and 26.1, platelets 179. Assessment: 63-year-old male with: 1.Sepsis, resolved, secondary to urinary tract infection. 2.Acute cystitis without hematuria secondary to yeast. Continue Diflucan for 5 more days. Repeat c ultures are now negative. 3.Hypertension, asymptomatic. The blood pressure is now improved and normotensive. 4.Chronic atrial fibrillation. Continue metoprolol and digoxin. Coumadin has been held due to tonia rointestinal bleed. 5.Acute blood loss anemia secondary to iron deficiency and blood loss, status post 3 units of packed red blood cells, status post esophagogastroduodenoscopy and colonoscopy. Continue with outpatient w orkup with PillCam. Appreciate Dr. Rajan's input. 6.Fatty liver infiltration. 7.Hematuria, resolved. 8.History of deep venous thrombosis. Coumadin on hold due to anemia. 9.Disuse myopathy. Encouraged to work with Physical Therapy. 10.Generalized weakness. 11.Morbid obesity. BMI greater than 40. 12.Hypomagnesemia. Replace and monitor. 13.Deep venous thrombosis prophylaxis. We will add Lovenox. Patient is nonambulatory, high risk fo r deep vein thrombosis, unable to resume Coumadin at this time due to his gastrointestinal bleed. Mcknight s not had any further bleeding at this time. Plan is for setting up home health, for 5 more days of Diflucan and Zyvox. Will not qualify for LTAC as he only has 1 IV antibiotic therapy. Patient does have a caregiver at home along with PT, OT, an aide that comes out. Family aware of the plan. MAKENNA Voice ID: [id number] Report ID: [id number]
[2019-06-02] MEDS ORDERED: ENOXAPARIN 40 MG/0.4 ML SQ SCH (17:00)
[2019-06-02 17:08] VITALS: BP 131/63; TEMP 97.7
--- NOTE | 2019-06-03 02:55 | PN ---
Date of Progress Note: 06/02/2019 Subjective: The patient was admitted with acute kidney injury. Patient had IV hydration. After IV hydration, patient started having improvement in the kidney function. Patient has some cystitis. Physical Examination: Vital Signs: When I saw the patient, blood pressure of 131/63, pulse of 78, afebrile. The patient h ad good urine output. Chest: Decreased entry, bilateral base. Heart: S1, S2. Regular. Abdomen: Soft, nontender. Extremities: Trace edema. Laboratory Data: H and H at 8.9 and 26.1. Sodium 140, potassium 3.5, bicarbonate 28, BUN 6, creatin ine 0.5, and magnesium 1.9. Current Medications: The patient on include digoxin, fluconazole, insulin, linezolid, Zofran. Assessment And Plan: 1.Acute kidney injury secondary to prerenal, recovered, resolved. 2.Hypertension, controlled optimal. We will keep holding blood pressure medication. 3.Urinary tract infection, cystitis. Continue current antibiotic. The patient cleared from the primo rodgers standpoint for discharge planning. MARCUS Voice ID: [id number] Report ID: [id number]
--- NOTE | 2019-06-03 03:01 | DS ---
Date of Discharge: 06/02/2019 Consultants: 1.Dr. Hamilton with Infectious Disease. 2.Dr. Segura and Dr. Hickey with Nephrology. 3.Dr. Blake with Psychiatry. 4.Dr. Rajan with GI. Procedures: 05/29/2019, EGD showed moderate edema, hypertrophy of the gastric mucosa in the body and antrum, anastomosis noted in the antrum with afferent and efferent jejunal limbs from Whipple surger y procedures on 05/31/[address] Rajan. Colonoscopy showed mild diverticulosis in the sigmoid colo n, anastomosis in the transverse colon. Internal hemorrhoids. No active bleeding. Admitting Diagnoses: 1.Sepsis. 2.Urinary tract infection. 3.Hypercoagulopathy secondary to Coumadin. 4.Hematuria. 5.Anemia of chronic disease. 6.Hypomagnesemia. 7.Hypokalemia. 8.Hypocalcemia. 9.Elevated liver enzymes. 10.Lactic acidosis. 11.Elevated lipase. 12.Elevated procalcitonin. 13.Diabetes. 14.Hypertension. 15.Chronic atrial fibrillation. 16.History of pancreatic cancer status post Whipple resection. Discharge Diagnoses: 1.Sepsis, resolved. 2.Acute cystitis without hematuria secondary to yeast, on Diflucan for 5 more days. 3.Essential hypertension. 4.Acute hypotension, resolved. 5.Chronic atrial fibrillation, Coumadin held due to GI bleed. 6.Acute blood loss anemia secondary to iron deficiency and blood loss. 7.GI bleed. 8.Fatty liver infiltration. 9.Hematuria. 10.History of disuse myopathy. 11.Generalized weakness. 12.Morbid obesity. 13.Hypomagnesemia, corrected. 14.Hypocalcemia corrected. 15.Hypokalemia, corrected. 16.History of pancreatic cancer status post Whipple's. Hospital Course: Patient is a 63-year-old male with complicated past medical history including morbi d obesity, partially sedentary and nonambulatory, history of diabetes, atrial fibrillation on Coumadi n, hypertension, pancreatic cancer status post Whipple procedure. The patient was admitted to the [facility] for abdominal pain and dark urine. He was noted to be septic secondary to urinary tract infec tion. Patient also had coagulopathy due to his Coumadin. Patient's INR was 6.43. Coumadin was disc ontinued. The patient's cultures were obtained. He was started on broad-spectrum IV antibiotics. H is blood cultures x2 different draws, one on the and one on the were negative final. His u rine culture came back positive for yeast. Patient was seen by Dr. Hamilton with Infectious Disease an d was recommended to start on Diflucan. Patient was on vancomycin and meropenem as well. His coagul opathy was corrected. His Coumadin was resumed, however, secondary to a drop in his hemoglobin and s ubsequent stool occult positive results, his Coumadin was again stopped. GI was consulted. Patient had colonoscopy and EGD as mentioned above with the findings as mentioned. No acute source of bleedi ng was found. However, GI recommended to discontinue Coumadin for now due to his anemia requiring bl ood transfusion. Patient does have history of atrial fibrillation. Overall, the patient had a protr acted course in the hospital and stayed in the hospital for over 2 weeks. He was also seen by Nephro logy due to his proteinuria. Workup was obtained, his C diff assay was also negative. Patient also had some hematuria, which resolved. He will need to follow up with Urology as an outpatient for his hematuria to rule out any occult malignancy. Patient was then switched over from vancomycin to Zyvox due to worsening condition, elevated white blood cell count, and worsening sepsis. His paroxetine h ad to be discontinued due to the interaction with Zyvox. Dr. Blake with Psychiatry was consulted . He recommended Wellbutrin instead of the Paxil in order to prevent serotonin syndrome. Patient di d well with Wellbutrin, did not have any side effects or interactions at this time. Patient was then initially being set up for LTAC placement as he was out of SNF days. Family initially did not wish to go to LTAC, however by the time they agreed to LTAC, one of his IV antibiotics course was complete d, specifically the Merrem and Zyvox was oral. Therefore, he would not meet criteria to go to LTAC. Patient was seen by physical therapy due to his generalized weakness; however, he did not participat e with PT much at all, he is largely sedentary and is weak. They understand that he is at risk for f alls largely, he does not ambulate, he just transfers to the chair. Patient was given the option of going to nursing facility placement for long-term, however, declined. Daughter does have home health with PT, OT, and caregiver present at the bedside along with nurse aide. Therefore, patient was set up for IV antibiotics at home. PICC line was placed. He will need 5 more days of IV Diflucan and 5 more days of Zyvox to complete treatment course. He will need to have repeat cultures obtained upon discontinuation of the antibiotics. PICC line care was also ordered and PICC line needs to be disco ntinued after antibiotics are completed. Overall, patient did well. However, long-term prognosis re abdi poor due to his chronic medical conditions and being mainly bed-bound and not really participat ing at all with PT, patient was then discharged home with IV infusion therapy with home health and PT . Followup: The patient to follow up with primary care physician in 2-3 days. Follow up with nephrolo gist, Dr. Hickey, in 2 weeks. Follow up with Infectious Disease, Dr. Hamilton, in 2 weeks. Follow u p with Urology in 2-4 weeks for hematuria. Follow up with GI, Dr. Rajan, in 2-4 weeks. Return to [facility] for worsening condition. Activity: Fall precautions, ambulate with assist. Diet: Low-sodium 15 mL fluid restriction. Medications: As per medication reconciliation list. Finish up course of Diflucan and Zyvox for 5 mo re days. Patient to stop his paroxetine while on Zyvox and to continue with Wellbutrin to avoid sero tonin syndrome and to resume paroxetine after the Zyvox has been completed and to discontinue the Wel lbutrin prior to restarting the paroxetine. Written instructions were given to the patient. Gualberto whitmore also at the bedside. All questions were answered. Total time spent discharging patient was 45 minutes. /ABISAI Voice ID: [id number] Report ID: [id number]
[2019-06-04 23:16] LABS: Albumin, (SPE) 1.4 g/dL (3.8-4.8); Alpha-1-Globulins 0.3 g/dL (0.2-0.3); Alpha-2-Globulins 0.4 g/dL (0.5-0.9); Gamma Globulins 2.2 g/dL (0.8-1.7); INTERPRETATION REPORT
[2019-06-05 22:36] LABS: Vitamin D 1,25-Dihydroxy Total 21 pg/mL (18-72); Vitamin D,1,25-OH2, D2 <8 pg/mL
[2019-06-06 20:31] LABS: Beta Globulin 24 HR Urine 24 %; Gamma Globulin, 24hr Urine 53 %; Interpretation: REPORT; Urine Alpha-2-Globulins, 24 Hr 16 %; Urine PEP Abn Protein Band1 REPORT; Urine Protein/Creat Ratio 24Hr 607 mg/g creat (<115); Urine Total Volume 24 Hours 1200 mL
== END 2019-06-02 21:03 | disposition home health service (06) | DRG 871 ==
LOC: ER 11:18 → ERHOLD 16:21 → 3RD-ICU 20:19 → 2ND 05-19 09:40 → 4TH 05-29 20:37
PROVIDERS: ADMIT Family Medicine; ATTEND Family Medicine
PROC: 30233N1 Transfusion of Nonautologous Red Blood Cells into Peripheral Vein, Percutaneous Approach (ICD-10-PCS; 2019-05-28)
PROC: 30233N1 Transfusion of Nonautologous Red Blood Cells into Peripheral Vein, Percutaneous Approach (ICD-10-PCS; 2019-05-29)
PROC: 0DB68ZX Excision of Stomach, Via Natural or Artificial Opening Endoscopic, Diagnostic (ICD-10-PCS; principal; 2019-05-29 11:00)
PROC: 30233N1 Transfusion of Nonautologous Red Blood Cells into Peripheral Vein, Percutaneous Approach (ICD-10-PCS; 2019-05-30)
PROC: 0DJD8ZZ Inspection of Lower Intestinal Tract, Via Natural or Artificial Opening Endoscopic (ICD-10-PCS; 2019-05-31)
DX: A41.9 Sepsis, unspecified organism (principal); E43 Unspecified severe protein-calorie malnutrition; N30.01 Acute cystitis with hematuria; E87.2 Acidosis; C25.9 Malignant neoplasm of pancreas, unspecified; Z68.41 Body mass index [BMI] 40.0-44.9, adult; I48.20 Chronic atrial fibrillation, unspecified; D68.59 Other primary thrombophilia; D62 Acute posthemorrhagic anemia; K92.1 Melena; N17.9 Acute kidney failure, unspecified; F33.40 Major depressive disorder, recurrent, in remission, unspecified; E87.6 Hypokalemia; E66.01 Morbid (severe) obesity due to excess calories; B96.89 Other specified bacterial agents as the cause of diseases classified elsewhere; K57.30 Diverticulosis of large intestine without perforation or abscess without bleeding; K64.8 Other hemorrhoids; F17.210 Nicotine dependence, cigarettes, uncomplicated; E11.618 Type 2 diabetes mellitus with other diabetic arthropathy; I11.0 Hypertensive heart disease with heart failure; I50.9 Heart failure, unspecified; E83.42 Hypomagnesemia; E83.51 Hypocalcemia; R74.8 Abnormal levels of other serum enzymes; K29.70 Gastritis, unspecified, without bleeding; G72.89 Other specified myopathies; K76.0 Fatty (change of) liver, not elsewhere classified; D50.9 Iron deficiency anemia, unspecified; Z86.718 Personal history of other venous thrombosis and embolism; F41.9 Anxiety disorder, unspecified
CPT/HCPCS: 36415; 36430; 36569; 51702; 71045; 74018; 74177; 74250; 76770; 80048; 80053; 80069; 80076; 80162; 80202; 81001; 81003; 81015; 82150; 82274; 82306; 82330; 82550; 82570; 82607; 82652; 82728; 82746; 82947; 83540; 83605; 83690; 83735; 83970; 84100; 84132; 84145; 84156; 84165; 84166; 84443; 84466; 84484; 84550; 85014; 85018; 85025; 85044; 85610; 85730; 86021; 86850; 86900; 86901; 87040; 87086; 87088; 87205; 87324; 87449; 88305; 88312; 93005; 94760; 96361; 96365; 96366; 96367; 96368; 96372; 96375; 97110; 97112; 97161; 97530; 99285; J0610; J0696; J1650; J1940; J2405; J2704; J2765; J3370; J3430; J3475; J3480; J7030; J7040; P9016; Q9967

== ENCOUNTER 2019-06-08 18:38 | Inpatient (IN) | payer OTHER ==
--- OUTSIDE RECORDS SUMMARY | 2019-06-08 18:39 | XMS REPORT ---
:1955 [facility] Address [address] [place] [address] Care Team Providers Name Role Phone Unavailable Unavailable Unavailable Problems This patient has no known problems. Allergies, Adverse Reactions, Alerts This patient has no known allergies or adverse reactions. Medications This patient has no known medications.
[2019-06-08] MEDS ORDERED: NA CHLORIDE 0.9% 1,000 ML ONE ×2 (18:59→21:38)
[2019-06-08] MEDS ORDERED: CEFTRIAXONE/SWI 1gm 1 GM/10 ML SYR ONE (19:00)
--- NOTE | 2019-06-08 19:24 | RAD REPORT ---
EXAM DESCRIPTION: RAD - Chest Single View - 06/08/2019 7:17 pm CLINICAL HISTORY: CONGESTION Chest pain. COMPARISON: Chest Single View dated 05/26/2019; Abdomen 1 View (KUB) dated 05/26/2019; Chest Single View dated 05/17/2019; Chest Single View dated 05/01/2019; Abdomen Pelvis W Contrast dated 05/28/2019 FINDINGS: Portable technique limits examination quality. The lungs are grossly clear. Small bilateral pleural effusions suspected. The heart is mildly promine nt. Left-sided PICC line remains unchanged in position. No displaced fractures.
[2019-06-08 19:55] LABS: Absolute Lymphocytes (CBC) 0.9 K/uL (0.7-4.9); Basophils % 0.7 % (0-1.3); Hematocrit 22.2 % (39.6-49.0); Lymphocytes % 20.9 % (15.3-44.8); MPV 8.3 fL (7.6-11.3); RBC Red Blood Cell Count 2.19 M/uL (4.33-5.43)
[2019-06-08 20:08] LABS: Protime INR 1.7
[2019-06-08] MEDS ORDERED: AZITHROMYCIN 500 MG INJ IVPB ONE (20:19)
[2019-06-08] MEDS ORDERED: NA CHLORIDE 0.9% 0 ML ONE (20:19)
[2019-06-08] MEDS ORDERED: NA CHLORIDE 0.9% 250 ML ONE (20:20)
[2019-06-08 20:41] LABS: ALT/SGPT 26 U/L (12-78); AST/SGOT 68 U/L (15-37); Albumin 1.1 g/dL (3.4-5.0); Alkaline Phosphatase 84 U/L (45-117); Amylase Level 23 U/L (25-115); BUN Blood Urea Nitrogen 7 mg/dL (7-18); Bicarbonate 24 mmol/L (21-32); Bilirubin Direct 0.5 mg/dL (0-0.2); Bilirubin Total 0.8 mg/dL (0.2-1.0); CKMB Creatine Kinase MB < 1.0 ng/mL (0.3-3.6); Creatine Phosphokinase 15 U/L (39-308); Glucose Level 97 mg/dL (74-106); Lipase 234 U/L (73-393); Protein, Total 5.7 g/dL (6.4-8.2); Sodium Level 141 mmol/L (136-145); Troponin (Emerg Dept Use Only) < 0.02 ng/mL (0.0-0.045)
[2019-06-08 20:44] LABS: Potassium 2.8 mmol/L (3.5-5.1)
[2019-06-08 20:47] LABS: Urine Blood 2+ (NEG); Urine Glucose NEGATIVE (NEG); Urine Protein NEGATIVE (NEG); Urine Specific Gravity 1.015 (1.005-1.030); Urine pH 6.5 (5.0-7.0)
--- NOTE | 2019-06-08 20:56 | ER ---
Nurse's Notes [facility] Name: Delroy Novoa Jr Age: 63 yrs Sex: Male : 1955 Arrival Date: 06/08/2019 Time: 18:40 Bed 3 Private MD: Diagnosis: Severe sepsis;Cystitis, unspecified Presentation: 06/07 18:40 Chief complaint: EMS states: Worsening lethargy x 2-3 days. Hx of anemia + frequent hb blood transfusions. Coronavirus screen: The patient has NOT traveled to a country currently being monitored by the CDC within the last 14 days. The patient has NOT had contact with any known and/or suspected case of coronavirus. Proceed with normal triage procedures. Ebola Screen: No symptoms or risks identified at this time. Initial Sepsis Screen: Does the patient meet any 2 criteria? Systolic BP < 90 mmHg. No. Patient's initial sepsis screen is negative. Does the patient have a suspected source of infection? No. Patient's initial sepsis screen is negative. Risk Assessment: Do you want to hurt yourself or someone else? Patient reports no desire to harm self or others. 18:40 Method Of Arrival: EMS: [facility] hb 18:40 Acuity: CHELSIE 2 hb Triage Assessment: 18:43 General: Appears in no apparent distress. Behavior is calm, cooperative, drowsy. Pain: hb Complains of pain in right leg Pain currently is 5 out of 10 on a pain scale. Is chronic. EENT: No signs and/or symptoms were reported regarding the EENT system. Neuro: Level of Consciousness is obeys commands, lethargic, Oriented to person, place, time, situation. Cardiovascular: Heart tones S1 S2 present Capillary refill < 3 seconds Patient's skin is warm and dry. Respiratory: Airway is patent Respiratory effort is even, unlabored, Respiratory pattern is regular, symmetrical, Breath sounds are clear bilaterally. GI: No signs and/or symptoms were reported involving the gastrointestinal system. : No signs and/or symptoms were reported regarding the genitourinary system. Derm: Skin is dry, Skin is pale, Skin temperature is warm. Musculoskeletal: Reports chronic hip pain. Historical: - Allergies: 18:43 Ativan; hb 18:43 Hydrocodone-Acetaminophen; hb 18:43 Zosyn; hb - Home Meds: 18:43 digoxin 125 mcg Oral tab 1 tab once daily [Active]; gabapentin 300 mg Oral cap twice a hb day [Active]; Lantus 100 unit/mL Sub-Q soln [Active]; metoprolol tartrate 25 mg Oral tab 1 tab 2 times per day [Active]; nicotine 21 mg/24 hr TD pt24 1 patch once daily [Active]; pantoprazole 40 mg Oral TbEC 1 tab once daily [Active]; paroxetine HCl 10 mg Oral tab 1 tab once daily [Active]; - PMHx: 18:43 Atrial Fib; Diabetes - IDDM; GI Bleed; Respiratory failure d/t sepsis; Sleep Apnea; hb toxic megacolon; - PSHx: 18:43 Whipple; hb - Immunization history:: Adult Immunizations up to date. - Social history:: Smoking status: Patient denies any tobacco usage or history of. Screenin:45 Abuse screen: Denies threats or abuse. Denies injuries from another. Nutritional hb screening: No deficits noted. Tuberculosis screening: No symptoms or risk factors identified. Fall Risk Total Mitchell Fall Scale indicates Low Risk Score (25-44 pts). Fall prevention measures have been instituted. Side Rails Up X 2 Frequent Obs/Assesments occuring As available Patient and Family Educated on Fall Prevention Program and strategies. Assessment: 18:45 General: see triage . hb 19:00 Reassessment: Patient appears in no apparent distress at this time. Patient and/or sg family updated on plan of care and expected duration. Pain level reassessed. Patient is alert, oriented x 3, equal unlabored respirations, skin warm/dry/pink. 19:50 Reassessment: Patient appears in no apparent distress at this time. notified sg of pt VS, pt IVF infusing at this time, no new orders received for pt at this time. 21:00 Reassessment: Patient appears in no apparent distress at this time. Patient and/or sg family updated on plan of care and expected duration. Pain level reassessed. Patient is alert, oriented x 3, equal unlabored respirations, skin warm/dry/pink. Neuro: Level of Consciousness is awake, alert, obeys commands, Oriented to person, place, time, Rn Radiology are equal bilaterally Speech is normal, Facial symmetry appears normal. Respiratory: Airway is patent Respiratory effort is even, unlabored, Respiratory pattern is regular, symmetrical. Derm: Skin is pink, warm \T\ dry. Musculoskeletal: Circulation, motion, and sensation intact. Range of motion: intact in all extremities. 23:00 Reassessment: pt to be admitted to the ICU, awaiting report at this time, pt denies any sg pain or nausea at this time. General: Behavior is calm, cooperative, appropriate for age, quiet. 23:45 Reassessment: Patient appears in no apparent distress at this time. pt reports feeling sg sleepy, a FSBG was obtained, a serum glucose has been obtained and sent to the lab per policy. Vital Signs: 18:40 BP 70 / 40; Pulse 69; Resp 16; Temp 97.9(TE); Pulse Ox 99% on R/A; Weight 120.2 kg; hb Height 5 ft. 11 in. (180.34 cm); Pain 5/10; 19:45 BP 80 / 51; Pulse 68; Resp 18; Pulse Ox 100% on R/A; sg 20:30 BP 77 / 43; Pulse 67; Resp 18 S; Pulse Ox 99% on R/A; sg 21:00 BP 81 / 44; Pulse 67 MON; Resp 18 S; Pulse Ox 100% on R/A; sg 21:30 BP 81 / 37; Pulse 65; Resp 18; Pulse Ox 99% on R/A; sg 21:45 BP 87 / 33; Pulse 67 MON; Resp 18 S; Pulse Ox 98% on R/A; sg 22:00 BP 73 / 30; Pulse 62; Resp 18; Pulse Ox 98% on R/A; sg 22:30 BP 133 / 57; Pulse 66; Resp 18 S; Pulse Ox 100% on R/A; sg 22:45 BP 142 / 57; Pulse 66; Resp 18; Pulse Ox 98% on R/A; sg 23:00 BP 125 / 54; Pulse 64 MON; Resp 18 S; Pulse Ox 100% on R/A; sg 23:15 BP 101 / 41; Pulse 66; Temp 98.2; Pulse Ox 98% on R/A; sg 18:40 Body Mass Index 36.96 (120.20 kg, 180.34 cm) hb ED Course: 18:40 Patient arrived in ED. hb 18:42 Triage completed. hb 18:43 Stef Nguyễn MD is Attending Physician. ma2 18:44 Arm band placed on. hb 18:45 Patient has correct armband on for positive identification. Bed in low position. Call hb light in reach. Side rails up X2. 18:52 Evan Wu, RN is Primary Nurse. bp 19:17 Chest Single View XRAY In Process Unspecified. EDMS 20:05 Notified ED physician of a critical lab result(s). Hgb 7.4. sg 20:47 Notified ED physician of a critical lab result(s). k+ 2.8. lw1 20:55 Hayden Lala MD is Hospitalizing Provider. ma2 23:31 No provider procedures requiring assistance completed. Patient admitted, IV remains in sg place. intact. Administered Medications: 19:15 Drug: NS 0.9% (30 ml/kg) 30 ml/kg Route: IV; Rate: bolus; Site: PICC; ao 21:30 Follow up: IV Status: Completed infusion; IV Intake: 1000ml lw1 19:15 Drug: Rocephin 1 grams Route: IV; Rate: calculated rate; Site: PICC; ao 20:20 Drug: AZITHromycin 500 mg Route: IVPB; Infused Over: 1 hrs; Site: PICC; sg 21:20 Drug: Potassium Chloride 10 mEq Route: IV; Rate: calculated rate; Site: PICC; sg 21:50 Drug: NS 0.9% 1000 ml Route: IV; Rate: 75 ml/hr; Site: PICC; sg 21:50 Drug: Levophed (4 mg/250 mL D5W 4 mcg/min Route: IV; Rate: calculated rate; Site: PICC; sg Intake: 21:30 IV: 1000ml; Total: 1000ml. lw1 Outcome: 20:55 Decision to Hospitalize by Provider. ma2 23:32 Admitted to ICU accompanied by tech, via stretcher, room 3, on monitor, with chart, sg Report called to Enedelia TRONCOSO 23:32 Condition: good 23:32 Instructed on the need for admit, safety practices. 0317 00:27 Patient left the ED. mw2 Signatures: Dispatcher [employer] EDMS Dominik Eid RN RN sg Ortiz, Alex, RN RN ao Baxter, Heather, RN RN hb Peltier, Brian, RN RN bp Alzahri, Mohammad, MD MD ma2 [place] mw2 Aakash Vernon RN RN lw1
--- NOTE | 2019-06-08 20:57 | EDPHYS ---
Physician Documentation [facility] Name: Delroy Novoa Jr Age: 63 yrs Sex: Male : 1955 Arrival Date: 06/08/2019 Time: 18:40 Bed 3 Private MD: ED Physician Stef Nguyễn HPI: 06/07 20:53 This 63 yrs old Male presents to ER via EMS with complaints of LETHARGY. ma2 20:53 Onset: The symptoms/episode began/occurred gradually, 2 day(s) ago. Severity of ma2 symptoms: At their worst the symptoms were moderate in the emergency department the symptoms have improved. The patient has experienced similar episodes in the past. Historical: - Allergies: 18:43 Ativan; hb 18:43 Hydrocodone-Acetaminophen; hb 18:43 Zosyn; hb - Home Meds: 18:43 digoxin 125 mcg Oral tab 1 tab once daily [Active]; gabapentin 300 mg Oral cap twice a hb day [Active]; Lantus 100 unit/mL Sub-Q soln [Active]; metoprolol tartrate 25 mg Oral tab 1 tab 2 times per day [Active]; nicotine 21 mg/24 hr TD pt24 1 patch once daily [Active]; pantoprazole 40 mg Oral TbEC 1 tab once daily [Active]; paroxetine HCl 10 mg Oral tab 1 tab once daily [Active]; - PMHx: 18:43 Atrial Fib; Diabetes - IDDM; GI Bleed; Respiratory failure d/t sepsis; Sleep Apnea; hb toxic megacolon; - PSHx: 18:43 Whipple; hb - Immunization history:: Adult Immunizations up to date. - Social history:: Smoking status: Patient denies any tobacco usage or history of. ROS: 20:53 Constitutional: Negative for fever, chills, and weight loss. ma2 20:53 All other systems are negative. Exam: 20:53 Constitutional: This is a well developed, well nourished patient who is awake, alert, ma2 and in no acute distress. Head/Face: Normocephalic, atraumatic. Eyes: Pupils equal round and reactive to light, extra-ocular motions intact. Lids and lashes normal. Conjunctiva and sclera are non-icteric and not injected. Cornea within normal limits. Periorbital areas with no swelling, redness, or edema. ENT: Nares patent. No nasal discharge, no septal abnormalities noted. Tympanic membranes are normal and external auditory canals are clear. Oropharynx with no redness, swelling, or masses, exudates, or evidence of obstruction, uvula midline. Mucous membranes moist. Neck: Trachea midline, no thyromegaly or masses palpated, and no cervical lymphadenopathy. Supple, full range of motion without nuchal rigidity, or vertebral point tenderness. No Meningismus. Chest/axilla: Normal chest wall appearance and motion. Nontender with no deformity. No lesions are appreciated. Cardiovascular: Regular rate and rhythm with a normal S1 and S2. No gallops, murmurs, or rubs. Normal PMI, no JVD. No pulse deficits. Respiratory: Lungs have equal breath sounds bilaterally, clear to auscultation and percussion. No rales, rhonchi or wheezes noted. No increased work of breathing, no retractions or nasal flaring. Abdomen/GI: Soft, non-tender, with normal bowel sounds. No distension or tympany. No guarding or rebound. No evidence of tenderness throughout. Back: No spinal tenderness. No costovertebral tenderness. Full range of motion. Skin: Warm, dry with normal turgor. Normal color with no rashes, no lesions, and no evidence of cellulitis. MS/ Extremity: Pulses equal, no cyanosis. Neurovascular intact. Full, normal range of motion. Neuro: Awake and alert, GCS 15, oriented to person, place, time, and situation. Cranial nerves II-XII grossly intact. Motor strength 5/5 in all extremities. Sensory grossly intact. Cerebellar exam normal. Normal gait. Vital Signs: 18:40 BP 70 / 40; Pulse 69; Resp 16; Temp 97.9(TE); Pulse Ox 99% on R/A; Weight 120.2 kg; hb Height 5 ft. 11 in. (180.34 cm); Pain 5/10; 19:45 BP 80 / 51; Pulse 68; Resp 18; Pulse Ox 100% on R/A; sg 20:30 BP 77 / 43; Pulse 67; Resp 18 S; Pulse Ox 99% on R/A; sg 21:00 BP 81 / 44; Pulse 67 MON; Resp 18 S; Pulse Ox 100% on R/A; sg 21:30 BP 81 / 37; Pulse 65; Resp 18; Pulse Ox 99% on R/A; sg 21:45 BP 87 / 33; Pulse 67 MON; Resp 18 S; Pulse Ox 98% on R/A; sg 22:00 BP 73 / 30; Pulse 62; Resp 18; Pulse Ox 98% on R/A; sg 22:30 BP 133 / 57; Pulse 66; Resp 18 S; Pulse Ox 100% on R/A; sg 22:45 BP 142 / 57; Pulse 66; Resp 18; Pulse Ox 98% on R/A; sg 23:00 BP 125 / 54; Pulse 64 MON; Resp 18 S; Pulse Ox 100% on R/A; sg 23:15 BP 101 / 41; Pulse 66; Temp 98.2; Pulse Ox 98% on R/A; sg 18:40 Body Mass Index 36.96 (120.20 kg, 180.34 cm) hb MDM: 18:43 Patient medically screened. ma2 20:53 Differential Diagnosis sepsis, flu, UTI. Data reviewed: vital signs, nurses notes, EMS mt2 record. Counseling: I had a detailed discussion with the patient and/or guardian regarding: the historical points, exam findings, and any diagnostic results supporting the discharge/admit diagnosis, the presence of at least one elevated blood pressure reading (>120/80) during this emergency department visit, radiology results, the need for outpatient follow up. Response to treatment: the patient's symptoms have markedly improved after treatment. 06/07 18:48 Order name: Amylase, Serum; Complete Time: 20:50 [facility] 06/07 18:48 Order name: Basic Metabolic Panel; Complete Time: 20:50 [facility] 06/07 18:48 Order name: Blood Culture Adult (2) mt2 06/07 18:48 Order name: CBC with Diff mt2 06/07 18:48 Order name: Ckmb; Complete Time: 20:50 [facility] 06/07 18:48 Order name: CPK; Complete Time: 20:50 [facility] 06/07 18:48 Order name: Lactate; Complete Time: 20:50 [facility] 06/07 18:48 Order name: LFT's; Complete Time: 20:50 [facility] 06/07 18:48 Order name: Lipase; Complete Time: 20:50 [facility] 06/07 18:48 Order name: Procalcitonin; Complete Time: 21:00 [facility] 06/07 18:48 Order name: Protime (+inr); Complete Time: 20:50 [facility] 06/07 18:48 Order name: Ptt, Activated; Complete Time: 20:50 [facility] 06/07 18:48 Order name: Troponin (emerg Dept Use Only); Complete Time: 20:50 [facility] 06/07 18:48 Order name: Urine Microscopic Only; Complete Time: 21:02 [facility] 06/07 20:07 Order name: CBC Smear Scan [facility] 06/07 20:33 Order name: Urine Dipstick--Ancillary (enter results); Complete Time: 20:50 [facility] 06/07 21:01 Order name: Urine Culture [facility] 06/07 21:01 Order name: TS lp1 06/07 22:30 Order name: Packed RBC Leukored [facility] 06/07 22:30 Order name: Cortisol [facility] 06/07 22:30 Order name: Hematocrit [facility] 06/07 22:30 Order name: Hemoglobin [facility] 06/07 22:30 Order name: Thyroid Stimulating Hormone [facility] 06/07 22:30 Order name: CBC with Automated Diff [facility] 06/07 22:30 Order name: CBC with Automated Diff [facility] 06/07 22:30 Order name: Comprehensive Metabolic Panel [facility] 06/07 22:31 Order name: Comprehensive Metabolic Panel [facility] 06/07 22:31 Order name: Magnesium [facility] 06/07 22:31 Order name: Magnesium [facility] 06/07 22:31 Order name: Magnesium [facility] 06/07 18:48 Order name: Chest Single View XRAY; Complete Time: 20:50 [facility] 06/07 18:48 Order name: Accucheck; Complete Time: 20:29 [facility] 06/07 18:48 Order name: Cardiac monitoring; Complete Time: 20:03 [facility] 06/07 18:48 Order name: EKG - Nurse/Tech; Complete Time: 20:29 [facility] 06/07 18:48 Order name: IV Saline Lock - Large Bore; Complete Time: 18:50 [facility] 06/07 18:48 Order name: Labs collected and sent; Complete Time: 19:28 [facility] 06/07 18:48 Order name: O2 Per Protocol; Complete Time: 18:50 [facility] 06/07 18:48 Order name: O2 Sat Monitoring; Complete Time: 18:50 mt2 06/07 18:48 Order name: Urine Dipstick-Ancillary (obtain specimen); Complete Time: 20:29 ma2 06/07 22:30 Order name: CONS Pharmacy Consult EDMS 06/07 22:30 Order name: CONS Pharmacy Consult EDMS 06/07 22:30 Order name: CONS Physician Consult EDMS 06/07 22:30 Order name: Consistent Carb (ADA) [address] EDMS 06/07 22:31 Order name: Magnesium EDMS 06/07 22:31 Order name: Vancomycin Level Trough EDMS 06/07 22:31 Order name: Vancomycin Level Trough EDMS 06/07 22:32 Order name: ABO/RH typing EDMS 06/07 22:32 Order name: Antibody Screen EDMS 06/07 22:35 Order name: Digoxin Level EDMS 06/07 23:48 Order name: Glucose ao 06/07 23:48 Order name: Lactate Sepsis 2 HR Follow-up EDMS 06/08 00:02 Order name: Glucose, Ancillary Testing EDMS 06/08 00:26 Order name: Glucose Level EDDC Administered Medications: 19:15 Drug: NS 0.9% (30 ml/kg) 30 ml/kg Route: IV; Rate: bolus; Site: PICC; ao 21:30 Follow up: IV Status: Completed infusion; IV Intake: 1000ml lw1 19:15 Drug: Rocephin 1 grams Route: IV; Rate: calculated rate; Site: PICC; ao 20:20 Drug: AZITHromycin 500 mg Route: IVPB; Infused Over: 1 hrs; Site: PICC; sg 21:20 Drug: Potassium Chloride 10 mEq Route: IV; Rate: calculated rate; Site: PICC; sg 21:50 Drug: NS 0.9% 1000 ml Route: IV; Rate: 75 ml/hr; Site: PICC; sg 21:50 Drug: Levophed (4 mg/250 mL D5W 4 mcg/min Route: IV; Rate: calculated rate; Site: PICC; sg Disposition: 06/08/19 20:55 Hospitalization ordered by Hayden Lala for Inpatient Admission. Preliminary diagnosis are Severe sepsis, Cystitis, unspecified. - Bed requested for Intensive Care Unit. - Status is Inpatient Admission. mw2 - Condition is Stable. - Problem is new. - Symptoms are unchanged. Signatures: Dispatcher [employer] EDDC Dominik Eid RN RN sg Mellissa Dillard RN RN lp1 Ibrahima Cummings RN Yolande Noriega RN RN hb Alzahri, Mohammad, MD MD mt2 Yasmin, Wilbur 2 Aakash Vernon RN lw1 Corrections: (The following items were deleted from the chart) 22:22 20:55 Hospitalization Ordered by Hayden Lala MD for Inpatient Admission. Preliminary lp1 diagnosis is Severe sepsis; Cystitis, unspecified. Bed requested for Telemetry/MedSurg (Inpatient). Status is Inpatient Admission. Condition is Stable. Problem is new. Symptoms are unchanged. [facility] 06/08 00:27 06/07 22:22 06/08/2019 20:55 Hospitalization Ordered by Hayden Lala MD for Inpatient 2 Admission. Preliminary diagnosis is Severe sepsis; Cystitis, unspecified. Bed requested for Intensive Care Unit. Status is Inpatient Admission. Condition is Stable. Problem is new. Symptoms are unchanged. lp1
[2019-06-08 20:59] LABS: Calcium Oxalate Crystals- Ur MODERATE (NONE SEEN); Urine Bacteria <20 /HPF (NONE SEEN); Urine Culture Reflex Order REFLEXED; Urine Mucus 1+ /HPF (NONE SEEN)
[2019-06-08] MEDS ORDERED: POTASSIUM CL SA 10 MEQ TAB PO ONE (21:10)
[2019-06-08] MEDS ORDERED: KCL 20 MEQ/100 mL IVPB 20 MEQ/100 ML BAG IV ONE (21:10)
[2019-06-08] MEDS ORDERED: NOREPINEPHRINE 4mg/D5W 250mL 4 MG/250 ML BAG IV ONE (21:38)
[2019-06-08] MEDS ORDERED: MORPHINE 2 MG/ML SYR IV PRN (22:16)
[2019-06-08] MEDS ORDERED: ONDANSETRON 4 MG/2 ML VIAL IV PRN (22:16)
[2019-06-08] MEDS ORDERED: ALBUTEROL 2.5 MG/3 ML NEB SOL NEB PRN (22:16)
[2019-06-08] MEDS ORDERED: HYDROCORTISONE SUC 100 MG INJ IV ONE (22:16)
[2019-06-08] MEDS ORDERED: FUROSEMIDE 20 MG/ 2ML VIAL IV ONE (22:16)
[2019-06-08] MEDS ORDERED: NOREPINEPHRINE 4 MG in D5W 250 ML IV PRN (22:23)
--- NOTE | 2019-06-08 22:34 | P.HP ---
Certification for Inpatient With expected LOS: >2 Midnights Patient will require the following post-hospital care: Correction Practitioner: I am a practitioner with admitting privileges, knowledge of patient current condition, hospital course, and medical plan of care. Services: Services provided to patient in accordance with Admission requirements found in Title 42 Section 412.3 of the Code of Federal Regulations Patient History Date of Service: 06/08/19 Reason for admission: Weakness History of Present Illness: 59 for [place] male with history of hypertension/diabetes mellitus/ pancreatic cancer status post Whipple's procedure, morbid obesity, progressive debility, AFib previously on Coumadin but recently taken off 2 weeks ago for positive occult blood and anemia during hospitalization 1 month ago, history of recent recurrent prolonged hospital stay lasting over 1 month and discharged 6 days ago after he was treated with Merrem/Zyvox /Diflucan for sepsis with yeast UTI. Patient has been at home receiving antibiotics via PICC line which he finished 3 days ago. He was an [facility] by the daughter via ambulance to the ER today because of increasing weakness. On arrival in the ED , his blood pressure was in the 80s. workup shows possible UTI. Patient received 3 L of NS but BP continue trending down to the 70s over 30s now. Patient is slightly drowsy but able to give history. His mentation is very slow. He denies any cough but admits to persistent body swelling. Chest x-ray shows evidence of bilateral interstitial pulmonary edema but patient is saturating well on room air. He was been started on antibiotics with Rocephin and Zithromax. Given his low blood pressure I am initiating patient on Levophed. He admits to no longer taking his Coumadin. His recent hospitalization record was reviewed. Allergies hydrocodone Allergy (Verified 05/01/19 21:30) unknown lorazepam [From Ativan] Allergy (Verified 05/01/19 21:30) biligerent piperacillin [From Zosyn] Allergy (Verified 05/01/19 21:30) Hives tazobactam [From Zosyn] Allergy (Verified 05/01/19 21:30) Hives Home medications list reviewed: Yes Home Medications: Codeine/APAP [Tylenol #3*] 2 tab PO BID PRN 05/17/19 Digoxin [Lanoxin*] 0.125 mg PO DAILY 05/17/19 Gabapentin 300 mg PO BID 05/17/19 Insulin Glargine Human [Lantus*] 5 units SQ DAILY PRN 05/17/19 Nicotine [Nicotine Patch] 21 mg TD DAILY 05/17/19 Pantoprazole [Protonix Tab*] 40 mg PO DAILY 05/17/19 Acidophilus/Bulgaricus [Lactinex Tablet Chewable] 1 each PO BID #30 tab.chew 01/11 Bupropion *Xl* [Wellbutrin XL] 150 mg PO DAILY #5 tab 06/02/19 Ensure Enlive 237 ml PO BID can 06/02/19 FLUCONAZOLE 200mg IVPB [Diflucan 200 MG IVPB (PREMIX)*] 200 mg IV DAILY #5 bag 06/02/19 Linezolid [Zyvox] 600 mg PO BID #10 tab 06/02/19 Metoprolol Tartrate [Lopressor*] 25 mg PO BID #60 tab 06/02/19 - Past Medical/Surgical History Diabetic: Yes -: DM type 2 -: Hypertension -: Atrial fibrillator -: pancreatic cancer -: History of toxic megacolon -: Pancreatic Ca -: Whipple's procedure -: Colostomy with reversal - Family History Mother -: Lung disease Brother -: Hypertension Sister -: Hypertension, Diabetes Father -: Cancer - Social History Alcohol use: Yes CD- Drugs: No Caffeine use: Yes Review of Systems is unable to be obtained (Due to drowsiness slow mentation) Physical Examination - Physical Exam General: In no apparent distress, Obese, Other (Drowsy) HEENT: Atraumatic, Normocephalic, Other (Dry oral mucosa) Neck: Supple, 2+ carotid pulse no bruit, JVD not distended Respiratory: Diminished, Crackles/rales Cardiovascular: Regular rate/rhythm, Normal S1 S2, Edema (2+ bilateral pitting edema) Capillary refill: <2 Seconds Gastrointestinal: No ascites, No tenderness, Distended (Obese, Old scars in anterior wall , ) Musculoskeletal: No clubbing, No erythema, Swelling Integumentary: No rashes, No breakdown Neurological: Cranial nerves 3-12 intact, Abnormal speech (Slow speech), Abnormal affect (Depressed) External genitalia: No edema, No lesions - Studies Laboratory Data (last 24 hrs) 06/08/19 19:50: Sodium 141, Potassium 2.8 L*, BUN 7, Creatinine 0.76, Glucose 97 , Total Bilirubin 0.8, AST 68 H, ALT 26, Alkaline Phosphatase 84, Amylase 23 L, Lipase 234 06/08/19 19:15: PT 19.7 H, INR 1.70, APTT 46.1 H 06/08/19 19:15: WBC 4.1 L D, Hgb 7.4 L*, Hct 22.2 L, Plt Count 98 L D Urinalysis shows 1+ leukocyte esterase, 5-10 WBC and RBC, Microbiology Data (last 24 hrs): Blood culture x2-pending urine culture-pain the Imagings Data: Chest x-ray with mild pulmonary edema Assessment and Plan - Problems (Diagnosis) (1) Septic shock Current Visit: Yes Status: Acute (2) Hypoalbuminemia Current Visit: Yes Status: Acute (3) Fluid overload Current Visit: Yes Status: Acute (4) Anemia Current Visit: Yes Status: Acute (5) Sepsis Current Visit: No Status: Acute Qualifiers: Sepsis type: sepsis due to unspecified organism (6) Chronic atrial fibrillation Current Visit: No Status: Chronic (7) DM type 2 (diabetes mellitus, type 2) Current Visit: No Status: Chronic Qualifiers: Diabetes mellitus complication status: with diabetic arthropathy (8) Hypotension Current Visit: No Status: Resolved (9) Supratherapeutic INR Current Visit: No Status: Resolved Discharge Plan: Correction - Advance Directives Does patient have a Living Will: Yes Does patient have a Durable POA for Healthcare: No - Code Status/Comfort Care Code Status Assessed: Yes Physician Review: Patient Assessed, Agree with Above Assessment and Plan Physician Review Additional Text: Septic shock-unclear etiology -may be due to persistent UTI -follow urine culture , will start empirical cefepime and vanco -we will hold off antifungals for now -will consult ID -we initiate patient on Levophed drip to maintain blood pressure. -start gentle IV fluid now despite CHF on chest x-ray -follow repeat lactic acid level -given recent prolonged hospitalization, possibility of adrenal insufficiency considered, we obtained a serum cortisol level -start empirical hydrocortisone for now Anemia-hemoglobin 7.4 -recent positive occult blood noted -start empirical Protonix IV drip -PRBC 2 units now since low blood pressure Supratherapeutic INR-off Coumadin since over 2 weeks with still elevated INR -will dose Vit K 10 mg IV x1 now -repeat INR in a.m. Hypokalemia-dose 40 mEq KCL now, start IVF with KCl -consult renal to follow Hypoalbuminemia/fluid overload-may need workup for liver cirrhosis since associated low platelets and low albumin -dose albumin 50 g x1 now DVT prophylaxis-INR still elevated, do SCDs avoid heparin for now since low platelets Critical Care: Yes Time Spent Managing Pts Care (In Minutes): 80
[2019-06-08 23:00] LABS: Anisocytosis 1+; Blood Morphology Comment NOTED (NOT SEEN); Platelet Estimate DECR; Urine White Blood Cell Casts OK
[2019-06-08] MEDS ORDERED: POTASSIUM CL 40 MEQ in NA CHLORIDE 0.9% 500 ML IV SCH (23:00)
[2019-06-08] MEDS ORDERED: VANCOMYCIN 1.25 GM in NA CHLORIDE 0.9% 250 ML IVPB SCH (23:00)
[2019-06-08] MEDS ORDERED: NS KCL 40MEQ 40 MEQ/1,000 ML BAG IV SCH (23:00)
[2019-06-08] MEDS ORDERED: VITAMIN K (ADULT) 10 MG/ML IVP SCH (23:00)
[2019-06-09 00:11] LABS: Digoxin Level 0.5 ng/mL (0.80-2.00); Thyroid Stimulating Hormone 1.14 uIU/mL (0.360-3.740)
[2019-06-09 00:16] LABS: Magnesium 1.1 mg/dL (1.8-2.4)
[2019-06-09 00:49] VITALS: BMI 39.9
[2019-06-09] MEDS ORDERED: Magnesium Sulfate 2gm IVPB 2 G/50 ML BAG IV ONE (01:09)
[2019-06-09] MEDS: IPRATROPIUM BROM 0.5MG/2.5ML NEB SCH ×4 (01:18→20:20)
[2019-06-09] MEDS: KCL 20 MEQ/100 mL IVPB 20 MEQ/100 ML BAG IV SCH ×2 (01:19→04:35)
[2019-06-09] MEDS ORDERED: WATER FOR INJ,STERILE 10 ML ONE (01:19)
[2019-06-09] MEDS: WATER FOR INJ,STERILE 10 ML IV PRN ×2 (01:20→10:14)
[2019-06-09] MEDS ORDERED: NA CHLORIDE 0.9% 500 ML ONE (01:25)
[2019-06-09] MEDS ORDERED: NA CHLORIDE 0.9% 250 ML ONE ×2 (01:25→02:47)
[2019-06-09] MEDS ORDERED: VANCOMYCIN 1 GM/VIAL ONE (01:25)
[2019-06-09] MEDS: NA CHLORIDE 0.9% 250 ML IV SCH ×3 (01:28→05:45)
[2019-06-09] MEDS: VANCOMYCIN 2 GM in NA CHLORIDE 0.9% 500 ML IVPB SCH ×2 (02:05→13:14)
[2019-06-09] MEDS ORDERED: NOREPINEPHRINE 4 MG/4 ML VIAL ONE (02:37)
[2019-06-09] MEDS ORDERED: D5W 250 ML IV ONE (02:37)
[2019-06-09] MEDS ORDERED: PANTOPRAZOLE 40 MG INJ ONE (02:47)
[2019-06-09] MEDS: PANTOPRAZOLE INJ 80 MG in NA CHLORIDE 0.9% 250 ML IV SCH ×4 (02:47→21:07)
[2019-06-09 05:16] LABS: Absolute Lymphocytes (CBC) 0.6 K/uL (0.7-4.9); Basophils % 0.9 % (0-1.3); Hematocrit 28.4 % (39.6-49.0); Lymphocytes % 4.3 % (15.3-44.8); RBC Red Blood Cell Count 2.88 M/uL (4.33-5.43)
[2019-06-09 05:49] LABS: Protime INR 1.7
[2019-06-09 05:54] LABS: ALT/SGPT 28 U/L (12-78); AST/SGOT 72 U/L (15-37); Albumin 1.3 g/dL (3.4-5.0); Alkaline Phosphatase 93 U/L (45-117); BUN Blood Urea Nitrogen 6 mg/dL (7-18); Bicarbonate 23 mmol/L (21-32); Bilirubin Total 1.4 mg/dL (0.2-1.0); Glucose Level 168 mg/dL (74-106); Magnesium 2.1 mg/dL (1.8-2.4); Potassium 3.1 mmol/L (3.5-5.1); Protein, Total 6.2 g/dL (6.4-8.2); Sodium Level 144 mmol/L (136-145)
[2019-06-09] MEDS ORDERED: POTASSIUM 25 MEQ EFFERV TAB PO ONE (06:24)
[2019-06-09] MEDS: INSULIN -REGULAR HUMAN 50 UNIT/0.5 ML ML SQ SCH ×4 (07:30→20:38)
[2019-06-09] MEDS ORDERED: CEFEPIME 1 GM/VIAL IV SCH (09:00)
[2019-06-09] MEDS: HYDROCORTISONE SUC 100 MG INJ IV SCH ×2 (10:14→20:38)
[2019-06-09] MEDS: CEFEPIME/SWI 1gm 10 ML IV SCH ×2 (10:15→20:38)
--- NOTE | 2019-06-09 10:30 | EKG ---
Test Date: 2019-06-08 Test Time: 20:09:50 Statistical Developer: SWG MEASUREMENT RESULTS: Intervals: Rate: 68 TN: 202 QRSD: 96 QT: 326 QTc: 346 [place]: P: 86 TN: 202 QRS: 18 T: 174 INTERPRETIVE STATEMENTS: Normal sinus rhythm Low voltage QRS Nonspecific ST and T wave abnormality Abnormal ECG Compared to ECG 05/17/2019 11:42:16 ST (T wave) deviation now present Sinus tachycardia no longer present T-wave abnormality no longer present Electronically Signed On 06-09-19 10:29:04 CDT by Ean Mo
[2019-06-09] MEDS ORDERED: FUROSEMIDE 40 MG/4 ML VIAL IV ONE (10:31)
--- NOTE | 2019-06-09 10:41 | P.CNS ---
Date of Consult: 06/09/19 Reason for Consult: toma, fluid management Chief Complaint: Weakness History of Present Illness: Pt is unable to provide HX Hx obtained from chart HPI A 59 with PMHx of DM, HTN , pancreatic CA S/P Whipple's surgery , Afib off coumadin due to anemia and FOBT +ve stool, pt presented for weakness pt was discharged recently after prolnoged hospitalization, he was treated for sepsis with Merrem/Zyvox /Diflucan for sepsis with yeast UTI. completed abx last week , in ER pt was hypotensive , recived 3l of NS , 1 PRBC and started on pressers, his CXR showed congestion and edema labs were significant for anemia, hypokalemia and BS of 732, manually BS was < 300 Allergies hydrocodone Allergy (Verified 05/01/19 21:30) unknown lorazepam [From Ativan] Allergy (Verified 05/01/19 21:30) biligerent piperacillin [From Zosyn] Allergy (Verified 05/01/19 21:30) Hives tazobactam [From Zosyn] Allergy (Verified 05/01/19 21:30) Hives Home medications list reviewed: Yes Home Medications: Codeine/APAP [Tylenol #3*] 2 tab PO BID PRN 05/17/19 Digoxin [Lanoxin*] 0.125 mg PO DAILY 05/17/19 Gabapentin 300 mg PO BID 05/17/19 Insulin Glargine Human [Lantus*] 5 units SQ DAILY PRN 05/17/19 Nicotine [Nicotine Patch] 21 mg TD DAILY 05/17/19 Pantoprazole [Protonix Tab*] 40 mg PO DAILY 05/17/19 Acidophilus/Bulgaricus [Lactinex Tablet Chewable] 1 each PO BID #30 tab.chew 01/11 Bupropion *Xl* [Wellbutrin XL] 150 mg PO DAILY #5 tab 06/02/19 Ensure Enlive 237 ml PO BID can 06/02/19 FLUCONAZOLE 200mg IVPB [Diflucan 200 MG IVPB (PREMIX)*] 200 mg IV DAILY #5 bag 06/02/19 Linezolid [Zyvox] 600 mg PO BID #10 tab 06/02/19 Metoprolol Tartrate [Lopressor*] 25 mg PO BID #60 tab 06/02/19 - Past Medical/Surgical History Diabetic: Yes -: DM type 2 -: Hypertension -: Atrial fibrillator -: pancreatic cancer -: History of toxic megacolon -: Pancreatic Ca -: Whipple's procedure -: Colostomy with reversal - Family History Mother -: Lung disease Brother -: Hypertension Sister -: Hypertension, Diabetes Father -: Cancer - Social History Alcohol use: Yes CD- Drugs: No Caffeine use: Yes Review of Systems is unable to be obtained Physical exam general: confused, NAD, obese Neck; Supple, No elevated JVD hear: RRR, normal S1,2 no murmur or rub Chest: diminshed B/l Abdomen: Soft , Nt Extremities +1 edema A/P Hypokalemia likely depletional replace prn will check Mg and TSH edema likely multifactorial very low albumin will give lasix X1 and start Albumin Septic shock Cont abx f/u xultures cont levophed acute on chronic anemia will order w/u Hx of FOBT +ve S/P prbc DM SSI prognosis guarded to poor Allergies hydrocodone Allergy (Verified 05/01/19 21:30) unknown lorazepam [From Ativan] Allergy (Verified 05/01/19 21:30) biligerent piperacillin [From Zosyn] Allergy (Verified 05/01/19 21:30) Hives tazobactam [From Zosyn] Allergy (Verified 05/01/19 21:30) Hives Home Medications: Codeine/APAP [Tylenol #3*] 2 tab PO BID PRN 05/17/19 Digoxin [Lanoxin*] 0.125 mg PO DAILY 05/17/19 Gabapentin 300 mg PO BID 05/17/19 Insulin Glargine Human [Lantus*] 5 units SQ DAILY PRN 05/17/19 Nicotine [Nicotine Patch] 21 mg TD DAILY 05/17/19 Pantoprazole [Protonix Tab*] 40 mg PO DAILY 05/17/19 Ensure Enlive 237 ml PO BID can 06/02/19 Chlorpromazine HCl [Thorazine*] 25 mg PO BID 06/09/19 PARoxetine HCl [Paxil] 30 mg PO DAILY 06/09/19 Pregabalin 100 mg PO BID 06/09/19 - Past Medical/Surgical History Diabetic: Yes -: DM type 2 -: Hypertension -: Atrial fibrillation -: pancreatic cancer -: History of toxic megacolon -: Pancreatic Ca -: DVT -: respiratory failure -: sleep apnea -: Whipple's procedure -: Colostomy with reversal - Family History Mother Medical History: Lung disease Brother Medical History: Hypertension Sister Medical History: Hypertension, Diabetes Father Medical History: Cancer - Social History Alcohol use: Yes CD- Drugs: No Caffeine use: Yes Place of Residence: Home Physical Examination Temp Pulse Resp BP Pulse Ox 98.3 F 73 10 L 116/60 98 06/09/19 00:15 06/09/19 07:15 06/09/19 07:15 06/09/19 07:15 06/09/19 07:15 Laboratory Data (last 24 hrs) 06/08/19 19:50: Sodium 141, Potassium 2.8 L*, BUN 7, Creatinine 0.76, Glucose 97 , Total Bilirubin 0.8, AST 68 H, ALT 26, Alkaline Phosphatase 84, Amylase 23 L, Lipase 234 06/08/19 19:15: PT 19.7 H, INR 1.70, APTT 46.1 H 06/08/19 19:15: WBC 4.1 L D, Hgb 7.4 L*, Hct 22.2 L, Plt Count 98 L D
--- NOTE | 2019-06-09 10:47 | P.PN ---
Subjective Date of Service: 06/09/19 Chief Complaint: Weakness Patient remain lethargic and confused. His blood pressure has improved with vasopressors. Vasopressors is being weaned down. Good urine output noted. Physical Examination - Vital Signs Temperature: 98.3 F Blood Pressure: 116/60 Pulse: 73 Respirations: 10 Pulse Ox (%): 98 - Physical Exam General: In no apparent distress, Confused, Other (Somnolent) HEENT: Mucous membr. moist/pink, Sclerae nonicteric Neck: Supple, JVD not distended Respiratory: Diminished (Diffuse) Cardiovascular: Normal S1 S2, Edema (Bilateral lower extremities), Irregular heart rate/rhythm Gastrointestinal: Hypoactive, Soft and benign, Tenderness Musculoskeletal: No tenderness Neurological: Other (Somnolent, unable to assess motor in the extremities) - Studies Laboratory Data (last 24 hrs) 06/08/19 19:50: Sodium 141, Potassium 2.8 L*, BUN 7, Creatinine 0.76, Glucose 97 , Total Bilirubin 0.8, AST 68 H, ALT 26, Alkaline Phosphatase 84, Amylase 23 L, Lipase 234 06/08/19 19:15: PT 19.7 H, INR 1.70, APTT 46.1 H 06/08/19 19:15: WBC 4.1 L D, Hgb 7.4 L*, Hct 22.2 L, Plt Count 98 L D Assessment And Plan Physician Review: Patient Assessed, Agree with Above Assessment and Plan Physician Review Additional Text: Septic shock; -may be due to persistent UTI and poor oral intake. -contain cefepime and vanco. Follow cultures - ID consult placed -weaned off Levophed drip as tolerated. -Gentle IV fluid. -normal serum cortisol level -overall poor prognosis Anemia-hemoglobin 7.4 -recent positive occult blood and hematuria noted. -urine is clear, no hematuria. -I suspect anemia secondary to poor nutrition. -Protonix IV -patient getting 2 units PRBC. Supratherapeutic INR-off Coumadin since over 2 weeks with still elevated INR -S/P vitamin K -elevated INR likely secondary to liver disease. History of pancreatic cancer -status post Whipple's procedure -poor functional status -multiple hospitalization -intercurrent infections -hypoalbuminemia -poor prognosis -had a discussion with the daughter regarding patient's prognosis and recommended hospice. -family yet to make a decision regarding goals of care. Hypoalbuminemia/fluid overload- -status post albumin infusion. -anasarca secondary to hypoalbuminemia. -poor prognosis.
[2019-06-09] MEDS: ALBUMIN HUMAN 25% 100 ML IV SCH ×2 (11:41→21:07)
[2019-06-09 13:46] LABS: Hematocrit 28.5 % (39.6-49.0)
[2019-06-09] MEDS: NS KCL 40MEQ 40 MEQ/1,000 ML BAG IV SCH (15:02)
--- NOTE | 2019-06-09 16:56 | CON ---
History Of Present Illness: Patient was recently discharged to home and brought in back with [facility] mental status. Patient has significant history of recurrent urinary tract infection, hypertension , diabetes mellitus, pancreatic cancer, status post Whipple procedure, morbid obesity, and progressiv e debility, atrial fibrillation. Patient feeling much better today. Denies any headache, nausea, vo miting, chest pain, abdominal pain, constipation, or diarrhea. Past Medical History: Diabetes mellitus, hypertension, atrial fibrillation, pancreatic cancer, histo ry of toxic megacolon, Whipple procedure, colostomy with reversal. Social History: Nonsmoker, nondrinker. Family History: Hypertension, diabetes, cancer, lung disease. Review of Systems: A 10-point review was performed. Physical Examination: General: This is a -vxeh-lii male, lying in bed, not in any acute cardiopulmonary distress . Vital Signs: Temperature 98, pulse 86, respirations 14, blood pressure 127/68. HEENT: Unremarkable. Neck: Supple. Lungs: Basal crackles. Heart: S1, S2. Regular. Abdomen: Soft, nontender. Bowel sounds present. Extremities: Edema to the lower and upper extremities of 2+. Laboratory Data: Shows WBC 15.1, hemoglobin 9.5 after 2 units of transfusion, platelets are 132 with increased neutrophil. Patient on initial admission, his eosinophil was elevated to 4.5. Micro data , blood cultures are pending. Urine is pending. Chest x-ray shows lungs are grossly clear. Small b ilateral pleural effusions suspected. Assessment And Plan: Recurrent urinary tract infection with elevated eosinophil and leukocytosis. C oncern about allergic reaction to one of the medication patient is on. Currently, patient is also ge tting IV antibiotics, cefepime and vancomycin. We will continue current treatment for at least 10 da ys as the patient is coming back for the recurrent urinary tract infection and repeat cultures before stopping the antibiotic. Also need a urology referral for further evaluation of his ureter and blad adrian and prostate. Continue supportive care. Thank you Dr. Gill for consult. NF/MODL Voice ID: [id number] Report ID: [id number]
[2019-06-09] MEDS: JUVEN PACKET PO SCH (20:39)
[2019-06-09] MEDS: ENSURE HIGH PROTEIN 237 ML CAN PO SCH (20:39)
[2019-06-10] MEDS: VANCOMYCIN 2 GM in NA CHLORIDE 0.9% 500 ML IVPB SCH ×2 (01:00→13:24)
[2019-06-10] MEDS: IPRATROPIUM BROM 0.5MG/2.5ML NEB SCH ×4 (02:00→19:45)
[2019-06-10] MEDS: ALBUMIN HUMAN 25% 100 ML IV SCH ×3 (03:02→22:10)
[2019-06-10] MEDS: PANTOPRAZOLE INJ 80 MG in NA CHLORIDE 0.9% 250 ML IV SCH ×2 (05:25→16:00)
[2019-06-10] MEDS: INSULIN -REGULAR HUMAN 50 UNIT/0.5 ML ML SQ SCH ×4 (07:30→21:00)
[2019-06-10 07:39] LABS: BUN Blood Urea Nitrogen 9 mg/dL (7-18); Bicarbonate 26 mmol/L (21-32); Ferritin 549.9 ng/mL (26-388); Folic Acid, (Folate) 5.2 ng/mL (3.1-17.5); Glucose Level 122 mg/dL (74-106); Magnesium 1.8 mg/dL (1.8-2.4); Sodium Level 145 mmol/L (136-145); Thyroid Stimulating Hormone 0.543 uIU/mL (0.360-3.740); Transferrin 47 mg/dL (200-360)
[2019-06-10] MEDS: HYDROCORTISONE SUC 100 MG INJ IV SCH ×2 (10:05→22:11)
[2019-06-10] MEDS: CEFEPIME/SWI 1gm 10 ML IV SCH ×2 (10:06→22:11)
[2019-06-10] MEDS: JUVEN PACKET PO SCH ×2 (10:07→21:00)
[2019-06-10] MEDS: ENSURE HIGH PROTEIN 237 ML CAN PO SCH ×2 (10:07→21:00)
[2019-06-10] MEDS ORDERED: WATER FOR INJ,STERILE 10 ML ONE (10:08)
[2019-06-10] MEDS ORDERED: POTASSIUM CL SA 10 MEQ TAB PO ONE (10:17)
--- NOTE | 2019-06-10 13:03 | PN ---
Date of Progress Note: 06/10/2019 Code Status: Full. Medication List: Reviewed. Subjective: Patient is seen and examined. Chart reviewed and case discussed with RN. Daughter at t he bedside. Treatment plan explained. All questions answered. Patient is still feeling weak, had i ntermittent hematuria. Physical Examination: Vital Signs: Temperature 97.8, heart rate 79, blood pressure 88/69, respirations 13, O2 sat 98% on r oom air. Blood pressure improved to 112/68, off pressors. General: Awake, alert, oriented x3. Elderly male, in some mild distress, ill-appearing male. Obese , BMI 39. CV: S1, S2. Peripheral pulses present. Regular rate and rhythm. Respiratory: Diminished breath sounds at the bases. No wheezing or stridor. Gastrointestinal: Abdomen is soft, nontender, nondistended. Positive bowel sounds. No guarding or rigidity. Extremities: No clubbing or cyanosis. Patient has peripheral edema. Neurologic: Nonfocal. Patient has generalized weakness. Laboratory Data: Sodium 145, potassium 3, chloride 111, CO2 of 26, BUN 9, creatinine was 0.72, gluco se 122, calcium 7, magnesium 1.8. Iron 71, TIBC 66, transferrin 47. Ferritin 549. CBC is pending. Blood cultures, no growth to date. Urine culture, prelim result, growing out 3+ gram-negative rods. Assessment And Plan: A 63-year-old male with: 1.Septic shock due to persistent urinary tract infection. Poor oral intake. Continue vanc and cefe pime. Urine culture growing out 3+ gram-negative rods. Appreciate Infectious Disease consultation. Now off Levophed. Overall poor prognosis. 2.Anemia, multifactorial due to iron deficiency. Patient had recent positive occult and hematuria, had esophagogastroduodenoscopy and colonoscopy on previous admission recently. No apparent source of bleeding. Was scheduled for [facility] as outpatient. Patient also has Whipple procedure, therefore, has poor nutrition. We will continue with Protonix. The patient transfused 2 units of PRBCs. We wi ll continue to monitor. 3.Supratherapeutic INR. Patient has been off Coumadin for 2 weeks with elevated INR, was given justa min K, likely due to his liver disease. 4.History of pancreatic cancer, status post Whipple procedure, poor functional status, multiple hosp italizations, hypoalbuminemia. Overall poor prognosis. Would recommend hospice for the patient. Wi ll speak with the daughter. 5.Hematuria. 6.Obesity, BMI 39. 7.Major depressive disorder. The patient completed treatment with Diflucan, was initially on Prozac , was switched over to Wellbutrin during the course of Zyvox. We will resume home medications as coco ropriate. /ABISAI Voice ID: [id number] Report ID: [id number]
[2019-06-10] MEDS: NS KCL 40MEQ 40 MEQ/1,000 ML BAG IV SCH (13:26)
[2019-06-10 13:33] LABS: Absolute Lymphocytes (CBC) 0.6 K/uL (0.7-4.9); Basophils % 0.6 % (0-1.3); Hematocrit 23.3 % (39.6-49.0); Lymphocytes % 15.6 % (15.3-44.8); MPV 8.2 fL (7.6-11.3); RBC Red Blood Cell Count 2.47 M/uL (4.33-5.43)
[2019-06-10 14:11] LABS: C.diff Antigen/Toxin Ag neg : Tox neg (NEG : NEG)
--- NOTE | 2019-06-10 15:12 | PN ---
Date of Progress Note: 06/10/2019 Subjective: The patient was admitted with acute kidney injury. Patient had some diarrhea. Physical Examination: Vital Signs: When I saw the patient, blood pressure of 112/68 pulse of 93. Chest: Clear to auscultation. Heart: S1, S2. Systolic murmur. Abdomen: Soft, nontender. Extremities: Plus edema. Laboratory Data: H and H 9.7/28.5. Sodium 145, potassium 3, bicarb 26, BUN 9, creatinine 0.7, calci um of 7. T-sat of 107, ferritin 549. Albumin is 1.3. Corrected calcium is 9.4. Current Medications: The patient is on, include: 1.Cefepime. 2.Vancomycin. 3.Gabapentin. 4.Lyrica. 5.Lasix. 6.Ensure. 7.Zofran. 8.Pantoprazole. 9.KCl. Assessment And Plan: 1.Acute kidney injury, on the recovery, still on the over volume side. I am going to continue Lasix . 2.Hypokalemia. We will supplement. 3.Septic shock, on the recovery. Continue current antibiotic. 4.Diarrhea. Follow up with Clostridium difficile. 5.Severe hypoalbuminemia with significant proteinuria. P/C ratio only 0.6, mostly secondary to maln ourished, has also TSH within normal limit. Serum protein electrophoresis from previous admission al so within normal limit. I am going to continue diuresis. 6.Hypocalcemia. Corrected calcium within normal limits. Continue to monitor. GHADA/ABISAI Voice ID: [id number] Report ID: [id number]
[2019-06-10] MEDS: KCL 20 MEQ/100 mL IVPB 20 MEQ/100 ML BAG IV SCH ×3 (18:33→23:21)
[2019-06-10] MEDS: ENSURE ENLIVE 237 ML CAN PO SCH (21:00)
[2019-06-10] MEDS: PREGABALIN 50 MG CAP PO SCH (21:00)
[2019-06-10] MEDS: GABAPENTIN 300 MG CAP PO SCH (22:12)
[2019-06-11] MEDS: IPRATROPIUM BROM 0.5MG/2.5ML NEB SCH ×3 (01:40→13:55)
[2019-06-11] MEDS: PANTOPRAZOLE INJ 80 MG in NA CHLORIDE 0.9% 250 ML IV SCH ×3 (02:06→21:35)
[2019-06-11] MEDS: ALBUMIN HUMAN 25% 100 ML IV SCH (04:11)
[2019-06-11 04:34] LABS: Absolute Lymphocytes (CBC) 0.4 K/uL (0.7-4.9); Basophils % 0.6 % (0-1.3); Lymphocytes % 12.2 % (15.3-44.8); MPV 7.6 fL (7.6-11.3); RBC Red Blood Cell Count 2.18 M/uL (4.33-5.43)
[2019-06-11 04:43] LABS: Hematocrit 20.7 % (39.6-49.0)
[2019-06-11 04:46] LABS: ALT/SGPT 24 U/L (12-78); AST/SGOT 53 U/L (15-37); Albumin 2.2 g/dL (3.4-5.0); Alkaline Phosphatase 63 U/L (45-117); BUN Blood Urea Nitrogen 13 mg/dL (7-18); Bicarbonate 27 mmol/L (21-32); Bilirubin Total 1.2 mg/dL (0.2-1.0); Glucose Level 137 mg/dL (74-106); Magnesium 1.7 mg/dL (1.8-2.4); Potassium 3.2 mmol/L (3.5-5.1); Protein, Total 5.7 g/dL (6.4-8.2); Sodium Level 147 mmol/L (136-145)
[2019-06-11] MEDS ORDERED: POTASSIUM CL SA 10 MEQ TAB PO ONE (06:00)
[2019-06-11] MEDS ORDERED: MAGNESIUM SULFATE 1 gm IVPB 1 GM/100 ML BAG IV ONE (06:00)
[2019-06-11] MEDS: NS KCL 40MEQ 40 MEQ/1,000 ML BAG IV SCH ×2 (06:35→21:34)
[2019-06-11] MEDS ORDERED: NA CHLORIDE 0.9% 250 ML ONE (07:25)
[2019-06-11] MEDS: INSULIN -REGULAR HUMAN 50 UNIT/0.5 ML ML SQ SCH ×4 (07:30→20:38)
[2019-06-11] MEDS: CEFEPIME/SWI 1gm 10 ML IV SCH ×2 (08:37→20:36)
[2019-06-11] MEDS: NICOTINE 21 MG/PAT TD SCH (08:38)
[2019-06-11] MEDS: PARoxetine HCL 10 MG TAB PO SCH (08:38)
[2019-06-11] MEDS: DIGOXIN 0.125 MG TABLET PO SCH (08:39)
[2019-06-11] MEDS: FUROSEMIDE 40 MG/4 ML VIAL IV SCH (08:39)
[2019-06-11] MEDS: GABAPENTIN 300 MG CAP PO SCH ×2 (08:39→20:36)
[2019-06-11] MEDS: HYDROCORTISONE SUC 100 MG INJ IV SCH ×2 (08:40→20:39)
[2019-06-11] MEDS: ENSURE HIGH PROTEIN 237 ML CAN PO SCH ×2 (08:41→20:37)
[2019-06-11] MEDS: JUVEN PACKET PO SCH ×2 (08:41→20:37)
--- NOTE | 2019-06-11 08:42 | PN ---
Subjective: Patient lying in bed. No new acute events since yesterday. Denies any headache, nausea , vomiting, chest pain, abdominal pain, constipation, or diarrhea. Patient is off vasopressors since this morning. Objective: Vital Signs: Temperature 98, respirations 17, blood pressure 112/68. HEENT: Unremarkable. Neck: Supple. Lungs: With some crackles. Heart: S1, S2. Regular. Abdomen: Soft, nontender. Bowel sounds present. Extremities: Trace edema. Gallagher in place. IV line in place. Laboratory Data: Shows WBC 15.1 from yesterday. No new labs today. Chemistry, sodium 145, potassiu m 3, chloride 111, bicarb 26, BUN 9, creatinine 0.7, glucose is 122. Assessment And Plan: Urinary tract infection with sepsis, now off the vasopressors. Continue antibi otic and supportive care. We will follow the patient as needed. Repeat CBC in the morning. NF/MODL Voice ID: [id number] Report ID: [id number]
[2019-06-11] MEDS: ALBUTEROL 2.5 MG/3 ML NEB SOL NEB PRN ×2 (08:50→13:55)
[2019-06-11] MEDS: ENSURE ENLIVE 237 ML CAN PO SCH ×2 (09:00→20:37)
[2019-06-11] MEDS ORDERED: NICOTINE 7 MG/PAT TD SCH (09:00)
[2019-06-11] MEDS ORDERED: Magnesium Sulfate 2gm IVPB 2 G/50 ML BAG IV ONE (10:05)
[2019-06-11] MEDS ORDERED: BUMETANIDE 1 MG/4 ML VIAL IV ONE (10:58)
[2019-06-11] MEDS: PREGABALIN 50 MG CAP PO SCH ×2 (11:37→20:36)
--- NOTE | 2019-06-11 13:39 | PN ---
Date of Progress Note: 06/11/2019 Subjective: Patient was admitted with anasarca, acute kidney injury, septic shock. Patient develope d diarrhea yesterday. Patient being on diuresis over the last 24 hours, started to have good urine o utput. Physical Examination: Vital Signs: Blood pressure 113/66, pulse 100, afebrile. Patient had good urine output of 4400, neg ative only 600. Weight ramires, patient lost 1 pound from yesterday. Chest: Decreased entry, bilateral bases. Heart: S1, S2. Regular. Systolic murmur. Abdomen: Soft, nontender. Extremities: Plus edema. Laboratory Data: WBC 3.7, H and H 7/20.7, platelets 88. Sodium 147, potassium 3.2, bicarb 27, BUN 1 3, creatinine 0.6, calcium 7.2, magnesium 1.7, albumin 2.2. TSH of 0.5. Current Medications: Lasix 40 b.i.d., cefepime, vancomycin, albumin, digoxin, spironolactone, gabape ntin 300 b.i.d., Lyrica, pantoprazole, hydrocortisone. Assessment And Plan: 1.Acute kidney injury, recovered, resolved. 2.Septic shock. Continue current antibiotic. We will follow up the culture. 3.Anasarca, severe hypoalbuminemia secondary to malnourished. No significant proteinuria. Normal T SH. Given the condition of the patient, discontinue albumin. Given the hypoalbuminemia, I am going to start the patient on Bumex instead of Lasix and we will continue to monitor the patient. 4.Hypokalemia and hypomagnesemia. We will start the patient on spironolactone. Continue supplement . 5.Hypocalcemia, corrected calcium with normal limit. We will follow up with primary. I am going to go ahead and send for vitamin D. MA/MODL Voice ID: [id number] Report ID: [id number]
[2019-06-11] MEDS ORDERED: VANCOMYCIN 2 GM in NA CHLORIDE 0.9% 500 ML IVPB SCH (14:00)
[2019-06-11] MEDS ORDERED: POTASSIUM 25 MEQ EFFERV TAB PO ONE (14:17)
[2019-06-11] MEDS: BUMETANIDE 1 MG/4 ML VIAL IV SCH ×2 (14:42→20:34)
[2019-06-11 16:19] LABS: Hematocrit 26.6 % (39.6-49.0)
--- NOTE | 2019-06-11 16:30 | PN ---
Date of Progress Note: 06/11/2019 Subjective: Patient seen and examined. Chart reviewed and case discussed with RN. I spoke with the daughter at length as well. They wish to continue active care, not ready for hospice at this time. Medications: List reviewed. Physical Examination: Vital Signs: Temperature 97.8, heart rate 96, blood pressure 113/61, respirations 18, O2 saturation 93% on room air. General: Awake, alert, oriented x3. Some mild distress. Ill-appearing male. Morbidly obese. CV: S1, S2. Regular rate and rhythm. Peripheral pulses present. Respiratory: Diminished breath sounds. No wheezing or stridor. Gastrointestinal: Abdomen is soft, nontender, nondistended. Positive bowel sounds. Extremities: No clubbing, cyanosis. Patient has diffuse peripheral edema. Neurologic: Nonfocal, however, has generalized weakness. Laboratory Data: Sodium 147, potassium 3.2, chloride 115, CO2 of 27, BUN 13, creatinine 0.67, glucos e 137, calcium 7.2, magnesium 1.7, total bilirubin 1.2, AST 53, ALT 24, albumin 2.2. WBC 3.7, H and H 7 and 20.7, platelets 88. C diff is negative. Blood cultures, no growth to date. Urine culture g rowing out 3+ gram-negative rods. ID and sensitivity pending. Assessment: A 63-year-old male with: 1.Septic shock secondary to persistent urinary tract infection, now off pressors, improving. We patrick l continue with broad-spectrum IV antibiotics. Urine culture growing out 3+ gram-negative rods. ID on board. 2.Acute cystitis with hematuria, recurrent secondary to gram-negative rods. ID and sensitivity pend ing. Continue with vancomycin and cefepime for a total of 10 days. 3.Sacral decubitus ulcer. We will continue with wound care and offloading. 4.Iron-deficiency anemia and blood loss anemia. Patient has hematuria, which is intermittent. Renetta ent's hemoglobin down to 7 this morning. We will transfuse unit of PRBCs. This will be his 3rd unit this admission. He needs continued outpatient workup including PillCam by GI and cystoscopy by Uronajma walker. No Urology available at this time. Patient had recent colonoscopy and esophagogastroduodenosco py, which did not show any source of bleeding. 5.Supratherapeutic INR. Coumadin is currently on hold, this is likely due to his chronic liver dysf unction. Patient also has low platelets. We will hold Lovenox for now. 6.History of pancreatic cancer, status post Whipple procedure. Poor functional status. 7.Hypoalbuminemia. We will discontinue albumin infusions, up to 2.2 today. Appreciate Nephrology i nput. 8.Hematuria, intermittent. Currently, clear urine. Outpatient followup with Urology for cystoscopy to rule out any occult bladder or renal malignancy. 9.Obesity, BMI of 39. 10.Major depressive disorder. Continue Prozac. 11.Deep vein thrombosis prophylaxis, SCDs. We will hold Lovenox due to thrombocytopenia. Plan: Refer to LTAC once medically stable for long-term IV antibiotics and wound care. /ABISAI Voice ID: [id number] Report ID: [id number]
[2019-06-11] MEDS ORDERED: IPRATROPIUM BROM 0.5MG/2.5ML NEB PRN (16:51)
[2019-06-11] MEDS: ACETAMINOPHEN 500 MG TAB PO PRN (20:41)
[2019-06-11] MEDS: POTASSIUM CL SA 10 MEQ TAB PO SCH (22:23)
[2019-06-11] MEDS: KCL 20 MEQ/100 mL IVPB 20 MEQ/100 ML BAG IV SCH ×2 (22:25→23:30)
[2019-06-12] MEDS: POTASSIUM CL SA 10 MEQ TAB PO SCH (02:00)
[2019-06-12] MEDS ORDERED: VANCOMYCIN 2 GM in NA CHLORIDE 0.9% 500 ML IVPB SCH (06:00)
[2019-06-12 07:03] LABS: Absolute Lymphocytes (CBC) 0.6 K/uL (0.7-4.9); Basophils % 0.4 % (0-1.3); Lymphocytes % 14.8 % (15.3-44.8); MPV 8.3 fL (7.6-11.3); RBC Red Blood Cell Count 2.56 M/uL (4.33-5.43)
[2019-06-12 07:22] LABS: BUN Blood Urea Nitrogen 14 mg/dL (7-18); Bicarbonate 32 mmol/L (21-32); Glucose Level 157 mg/dL (74-106); Sodium Level 148 mmol/L (136-145)
[2019-06-12 07:23] LABS: Magnesium 2.1 mg/dL (1.8-2.4); Potassium 3.5 mmol/L (3.5-5.1)
[2019-06-12] MEDS: INSULIN -REGULAR HUMAN 50 UNIT/0.5 ML ML SQ SCH ×4 (07:30→21:00)
[2019-06-12] MEDS: CEFEPIME/SWI 1gm 10 ML IV SCH (08:26)
[2019-06-12] MEDS: PANTOPRAZOLE INJ 80 MG in NA CHLORIDE 0.9% 250 ML IV SCH ×2 (08:26→18:12)
[2019-06-12] MEDS: NICOTINE 21 MG/PAT TD SCH (08:27)
[2019-06-12] MEDS: FUROSEMIDE 40 MG/4 ML VIAL IV SCH (08:27)
[2019-06-12] MEDS: ENSURE HIGH PROTEIN 237 ML CAN PO SCH ×2 (09:00→20:59)
[2019-06-12] MEDS: ENSURE ENLIVE 237 ML CAN PO SCH (09:00)
[2019-06-12] MEDS: PREGABALIN 50 MG CAP PO SCH ×2 (09:00→20:57)
[2019-06-12] MEDS: GABAPENTIN 300 MG CAP PO SCH ×2 (09:00→20:57)
[2019-06-12] MEDS: PARoxetine HCL 10 MG TAB PO SCH (09:00)
[2019-06-12] MEDS ORDERED: Meropenem 1000 MG/VIAL IV SCH (09:16)
[2019-06-12] MEDS ORDERED: Meropenem 1,000 MG in NA CHLORIDE 0.9% 100 ML IV SCH (09:30)
[2019-06-12] MEDS: JUVEN PACKET PO SCH ×2 (09:49→20:59)
[2019-06-12] MEDS: HYDROCORTISONE SUC 100 MG INJ IV SCH ×2 (09:52→20:59)
[2019-06-12] MEDS: BUMETANIDE 1 MG/4 ML VIAL IV SCH ×2 (09:52→20:58)
[2019-06-12] MEDS: WATER FOR INJ,STERILE 10 ML IV PRN (09:53)
[2019-06-12 10:00] LABS: Blood Morphology Comment NOTED (NOT SEEN); Platelet Estimate DECR; Urine White Blood Cell Casts OK
[2019-06-12 10:01] LABS: Anisocytosis 1+; Macrocytosis SLIGHT
[2019-06-12] MEDS: SPIRONOLACTONE 25 MG TABLET PO SCH (10:05)
[2019-06-12] MEDS: DIGOXIN 0.125 MG TABLET PO SCH (10:05)
--- NOTE | 2019-06-12 11:47 | P.PN ---
Subjective Date of Service: 06/12/19 Chief Complaint: Weakness subjective A 59 with PMHx of DM, HTN , pancreatic CA S/P Whipple's surgery , Afib off coumadin due to anemia and FOBT +ve stool, pt presented for weakness pt was discharged recently after prolnoged hospitalization, he was treated for sepsis with Merrem/Zyvox /Diflucan for sepsis with yeast UTI. completed abx last week , in ER pt was hypotensive , recived 3l of NS , 1 PRBC and started on pressers, his CXR showed congestion and edema labs were significant for anemia, hypokalemia and BS of 732, manually BS was < 300 today Cr normalized sodium 147, will dc lasix and reuce bumex will try to change merrem fluid to D5w Allergies hydrocodone Allergy (Verified 05/01/19 21:30) unknown lorazepam [From Ativan] Allergy (Verified 05/01/19 21:30) biligerent piperacillin [From Zosyn] Allergy (Verified 05/01/19 21:30) Hives tazobactam [From Zosyn] Allergy (Verified 05/01/19 21:30) Hives - Past Medical/Surgical History Diabetic: Yes -: DM type 2 -: Hypertension -: Atrial fibrillator -: pancreatic cancer -: History of toxic megacolon -: Pancreatic Ca -: Whipple's procedure -: Colostomy with reversal - Family History Mother -: Lung disease Brother -: Hypertension Sister -: Hypertension, Diabetes Father -: Cancer - Social History Alcohol use: Yes CD- Drugs: No Caffeine use: Yes Physical exam general: AAOX1, obese Neck; Supple, No elevated JVD hear: RRR, normal S1,2 no murmur or rub Chest: diminshed B/l Abdomen: Soft , Nt Extremities trace edema A/P Hypokalemia likely depletional replace prn edema likely multifactorial near resolved will dc lasix and reduce bumex cont aldactone Septic shock Cont abx acute on chronic anemia DM SSI Physical Examination - Vital Signs Temperature: 97.4 F Blood Pressure: 131/73 Pulse: 92 Respirations: 16 Pulse Ox (%): 98 - Studies Microbiology Data (last 24 hrs): 06/08/19 20:28 Clean Catch Urine [place] Count - Final BETWEEN 10,000 & 100,000 CFU/ML 06/08/19 20:28 Clean Catch Urine - Final Acinetobacter Ana/Haem Assessment And Plan Physician Review: Patient Assessed, Agree with Above Assessment and Plan
--- NOTE | 2019-06-12 12:50 | PN ---
Date of Progress Note: 06/12/2019 Subjective: Patient seen and examined. Chart reviewed and case discussed with RN and Dr. Hamilton. Camilo kelly is somewhat more somnolent today. Spoke with the daughter. Unfortunately, patient has no luis efits for SNF or LTAC, has used up his lifetime benefits, has no secondary. His cultures now requiri ng IV antibiotics with meropenem. Family unable to pay for antibiotics at home. Medication List: Reviewed. Physical Examination: Vital Signs: Temperature 97.4, heart rate 92, blood pressure 131/73, respirations 16, O2 96% on room air. General: Asleep, but arousable, ill-appearing, obese male. BMI 39. CV: S1, S2. Normal sinus rhythm. Peripheral pulses weak. Respiratory: Diminished breath sounds. Some crackles heard. Gastrointestinal: Abdomen is soft, nontender, nondistended. Positive bowel sounds. Extremities: No clubbing or cyanosis. Patient has diffuse edema. Neurologic: Nonfocal. Patient has generalized weakness. Laboratory Data: Sodium 148, potassium 3.5, chloride 109, CO2 of 32, BUN 14, creatinine 0.68, glucos e 157, calcium 7, magnesium 2.1. Vitamin D levels pending. WBC 4.1, H and H 8 and 24, platelets 88, neutrophils 70%. Assessment And Plan: A 63-year-old male with: 1.Septic shock secondary to recurrent urinary tract infection, improving. Continue with IV antibiot ics. We will switch to meropenem as the patient's urine cultures now growing out Acinetobacter bauma nnii. Appreciate ID input. Patient already has PICC line, will need a minimum of 10 days. We will reassess need for vancomycin. 2.Sacral decubitus ulcer. Continue with wound care and offloading. Continue with IV antibiotics. 3.Iron-deficiency anemia and blood loss anemia. Patient has had hematuria and gastrointestinal blee d from previous stay. He does need outpatient GI workup including PillCam and cystoscopy. 4.Coagulopathy. Patient has supratherapeutic INR despite being off Coumadin. Due to his anemia, re quiring blood transfusions. Coumadin has been held as of Lovenox. 5.Thrombocytopenia. 6.Anasarca. Patient is on Bumex. 7.History of pancreatic cancer, status post Whipple procedure. Poor nutritional status. 8.Hypoalbuminemia. 9.Liver dysfunction. 10.Hematuria, intermittent, outpatient cystoscopy. 11.Obesity, body mass index 39. 12.Major depressive disorder. We will continue SSRI. 13.Deep venous thrombosis prophylaxis, SCDs. Hold Lovenox due to thrombocytopenia. Plan: Patient unfortunately has used up his lifetime benefits for SNF and LTAC. Possibility is to c ontinue antibiotics here versus home if patient's family is able to afford it. We will continue disc ussions with case management. /ABISAI Voice ID: [id number] Report ID: [id number]
--- NOTE | 2019-06-12 13:17 | PN ---
Subjective: Patient lying in bed, feels much better today. Denies any headache, nausea, vomiting, c hest pain, abdominal pain, constipation, or diarrhea. Objective: Vital Signs: Temperature 97.4, pulse 92, respirations 16, blood pressure 131/73. Lungs: Basal crackles. Heart: S1, S2. Regular. Abdomen: Soft, nontender. Bowel sounds present. Extremities: No edema. Sacral area with stage II wound. Laboratory Data: Shows WBC 4.1, hemoglobin 8, platelets are 88. Chemistry shows sodium 148, potassi um 3.5, chloride 109, bicarb 32, BUN 14, creatinine 0.6, glucose 157. Micro data shows Acinetobacter baumannii in urine culture sensitive to tobramycin, meropenem, amikacin. Assessment And Plan: Patient is currently being treated with meropenem and vancomycin. We will foll ow the patient closely. Patient's possible transfer to long-term acute care, we will follow closely. NF/MODL Voice ID: [id number] Report ID: [id number]
[2019-06-12] MEDS: D5W IV SCH (16:43)
[2019-06-12] MEDS: MEROPENEM IV SCH (16:43)
[2019-06-12] MEDS ORDERED: POTASSIUM 25 MEQ EFFERV TAB PO ONE (18:59)
[2019-06-12] MEDS: LACTOBACILLUS/ACIDOPHILUS TAB PO SCH (20:57)
[2019-06-13] MEDS: MEROPENEM IV SCH ×3 (00:33→17:35)
[2019-06-13] MEDS: D5W IV SCH ×3 (00:33→17:35)
[2019-06-13] MEDS: PANTOPRAZOLE INJ 80 MG in NA CHLORIDE 0.9% 250 ML IV SCH ×2 (03:30→13:57)
[2019-06-13 05:42] LABS: Absolute Lymphocytes (CBC) 0.7 K/uL (0.7-4.9); Basophils % 0.1 % (0-1.3); Hematocrit 24.6 % (39.6-49.0); Lymphocytes % 17.4 % (15.3-44.8); MPV 8.8 fL (7.6-11.3); RBC Red Blood Cell Count 2.63 M/uL (4.33-5.43)
[2019-06-13 05:50] LABS: ALT/SGPT 40 U/L (12-78); AST/SGOT 88 U/L (15-37); Albumin 1.9 g/dL (3.4-5.0); Alkaline Phosphatase 67 U/L (45-117); BUN Blood Urea Nitrogen 16 mg/dL (7-18); Bicarbonate 37 mmol/L (21-32); Bilirubin Total 1.3 mg/dL (0.2-1.0); Glucose Level 137 mg/dL (74-106); Protein, Total 5.6 g/dL (6.4-8.2); Sodium Level 143 mmol/L (136-145)
[2019-06-13 05:53] LABS: Potassium 2.5 mmol/L (3.5-5.1)
[2019-06-13] MEDS: POTASSIUM CL SA 10 MEQ TAB PO SCH ×4 (06:28→13:41)
[2019-06-13 06:41] LABS: Protime INR 1.7
[2019-06-13 06:55] LABS: Magnesium 1.8 mg/dL (1.8-2.4)
[2019-06-13] MEDS: INSULIN -REGULAR HUMAN 50 UNIT/0.5 ML ML SQ SCH ×4 (07:30→21:00)
[2019-06-13] MEDS: DIGOXIN 0.125 MG TABLET PO SCH (08:59)
[2019-06-13] MEDS: NICOTINE 21 MG/PAT TD SCH (08:59)
[2019-06-13] MEDS: LACTOBACILLUS/ACIDOPHILUS TAB PO SCH ×2 (08:59→22:08)
[2019-06-13] MEDS ORDERED: CALCIUM GLUC 10% INJ 9.3 MEQ in NA CHLORIDE 0.9% 100 ML IV ONE (09:00)
[2019-06-13] MEDS: GABAPENTIN 300 MG CAP PO SCH ×3 (09:00→22:09)
[2019-06-13] MEDS: PARoxetine HCL 10 MG TAB PO SCH ×2 (09:00→13:10)
[2019-06-13] MEDS: PREGABALIN 50 MG CAP PO SCH ×2 (09:00→21:00)
[2019-06-13] MEDS: SPIRONOLACTONE 25 MG TABLET PO SCH ×2 (09:00→13:09)
[2019-06-13] MEDS: BUMETANIDE 1 MG/4 ML VIAL IV SCH ×3 (09:00→22:12)
[2019-06-13] MEDS: ENSURE HIGH PROTEIN 237 ML CAN PO SCH ×2 (09:01→21:00)
[2019-06-13] MEDS: JUVEN PACKET PO SCH ×2 (09:01→22:11)
[2019-06-13] MEDS: WATER FOR INJ,STERILE 10 ML IV PRN (09:11)
[2019-06-13] MEDS: HYDROCORTISONE SUC 100 MG INJ IV SCH (09:11)
[2019-06-13] MEDS: POTASSIUM 25 MEQ EFFERV TAB PO SCH (10:25)
[2019-06-13] MEDS ORDERED: MAGNESIUM SULFATE 1 gm IVPB 1 GM/100 ML BAG IV ONE (13:50)
[2019-06-13] MEDS: KCL 20 MEQ/100 mL IVPB 20 MEQ/100 ML BAG IV SCH ×3 (15:51→18:58)
--- NOTE | 2019-06-13 17:24 | PN ---
Date of Progress Note: 06/13/2019 Subjective: Patient seen and examined. Chart reviewed and case discussed with RN. Patient is somew hat more somnolent today. Denies any acute events overnight. No complaints. Medications: List reviewed. Physical Examination: Vital Signs: Temperature 97.5, heart rate 85, blood pressure 95/51, respirations 18, O2 93% on room air. General: Asleep but arousable, not in any acute distress, ill-appearing male, obese. CV: S1, S2. Regular rate and rhythm. Peripheral pulses weak. Respiratory: Diminished breath sounds. No wheezing or stridor. No use of accessory muscles. Gastrointestinal: Abdomen is somewhat distended. Positive bowel sounds. No tenderness. Extremities: No clubbing, cyanosis. Patient has peripheral edema. Neurologic: Nonfocal. Patient is very weak. Speech is normal. Laboratory Data: Sodium 143, potassium 2.5, chloride 101, CO2 of 37, BUN 16, creatinine 0.57, glucos e 137, calcium 6.6, magnesium 1.8, albumin 1.9. WBC 30.9, H and H 8.2 and 24.6, platelets 83, neutro phils 67%. Blood cultures, no growth to date. Urine culture growing out Acinetobacter baumannii. Assessment: 63-year-old male with: 1.Septic shock secondary to recurrent urinary tract infection, improving. Blood pressure is still i n the low 90s to 110s. We will continue to monitor closely. White blood cell count is low at 3.9. Patient is afebrile. Urine culture positive for Acinetobacter baumannii. Continue intravenous antib iotics for minimum of 10 days. 2.Sacral decubitus ulcer. Continue with wound care and offloading. Continue vancomycin. 3.Iron deficiency anemia and blood loss anemia secondary to hematuria and gastrointestinal bleed, st able. Transfuse as needed. Complete gastrointestinal workup including PillCam and also urology work up. Cystoscopy as an outpatient. Other services are available at this time. As patient is not havi ng any active gastrointestinal or genitourinary bleeding, no need for transfer at this time. Patient has already had a colonoscopy, esophagogastroduodenoscopy on previous admission. Continue proton pu mp inhibitor. 4.Coagulopathy. INR is 1.7. We will continue to hold his Coumadin. This is likely due to his live r dysfunction. 5.Thrombocytopenia. Continue to monitor. No need for transfusion at this time. 6.Anasarca. Continue Bumex. 7.Hypokalemia secondary to the diuretics. We will replace and monitor. 8.History of pancreatic cancer status post Whipple with poor nutritional status. 9.Hypoalbuminemia. 10.Hypocalcemia. 11.Liver dysfunction likely due to nonalcoholic fatty liver disease. 12.Intermittent hematuria. Currently no episode. 13.Obesity, BMI of 39. 14.Major depressive disorder. Continue selective serotonin reuptake inhibitor. 15.Deep venous thrombosis prophylaxis. Sequential compression devices. No Lovenox due to thrombocy topenia. Plan: Continue antibiotics. Case Management working on placement. /ABISAI Voice ID: [id number] Report ID: [id number]
[2019-06-13] MEDS ORDERED: NA CHLORIDE 0.9% 250 ML ONE (18:32)
[2019-06-13] MEDS: ACETAMINOPHEN 500 MG TAB PO PRN (18:33)
[2019-06-14] MEDS: PANTOPRAZOLE INJ 80 MG in NA CHLORIDE 0.9% 250 ML IV SCH ×4 (00:54→20:27)
[2019-06-14] MEDS: D5W IV SCH ×3 (00:56→16:45)
[2019-06-14] MEDS: MEROPENEM IV SCH ×3 (00:56→16:45)
--- NOTE | 2019-06-14 01:13 | P.PN ---
Date of Service: 06/14/19 stop giving lasix until potassium above 4
--- NOTE | 2019-06-14 01:48 | PN ---
Date of Progress Note: 06/13/2019 Chief Complaint: Edema, fluid overload History Of Present Illness: Patient has been treated with diuretics. Lasix was stopped and Bumex dose was reduced. Patient was found to have hypokalemia and hypernatremia. Urine culture was positive and patient is on treatment for urinary tract infection. Review of Systems: Denies fever or chills. Physical Examination: Lungs: Clear to auscultation bilaterally. Heart: S1, S2. Abdomen: Soft, benign. Extremities: Edema present. Impression And Plan: 1. Diabetes mellitus with history of chronic kidney disease due to diabetes mellitus and hypertension. Patient has multiple medical problems including history of pancreatic cancer status post Whipple surgery, atrial fibrillation, off Coumadin due to recent anemia and positive stool guaiacs. Patient has urinary tract infection, was treated with antibiotics for sepsis with yeast urinary tract infection. Patient was found to have anemia and received blood transfusion. Hemoglobin level is stabilizing. Patient is treated with potassium replacement. Potassium level is improving from 2.5 to 2.9. Continue treatment with potassium and re-evaluate magnesium level. On arrival to the hospital, magnesium level was 1.1. Today, magnesium is 1.8. Blood work will be obtained to check potassium. 2. Hypertension. Monitor blood pressure and adjust treatment accordingly. 3. Edema, fluid overload. Adjust diuretic accordingly. I spent total 36 min including 25 min to coordinate care plan. MONIK/ABISAI Voice ID: [id number] Report ID: [id number]
[2019-06-14] MEDS: POTASSIUM CL SA 10 MEQ TAB PO SCH ×4 (02:00→13:26)
[2019-06-14] MEDS: KCL 20 MEQ/100 mL IVPB 20 MEQ/100 ML BAG IV SCH ×3 (02:01→04:53)
[2019-06-14] MEDS: INSULIN -REGULAR HUMAN 50 UNIT/0.5 ML ML SQ SCH ×4 (07:30→21:00)
[2019-06-14] MEDS: NICOTINE 21 MG/PAT TD SCH (08:58)
[2019-06-14] MEDS: PARoxetine HCL 10 MG TAB PO SCH (08:59)
[2019-06-14] MEDS: PREGABALIN 50 MG CAP PO SCH ×2 (08:59→20:15)
[2019-06-14] MEDS: ENSURE HIGH PROTEIN 237 ML CAN PO SCH ×2 (09:00→22:41)
[2019-06-14] MEDS: JUVEN PACKET PO SCH ×2 (09:00→22:41)
[2019-06-14] MEDS: LACTOBACILLUS/ACIDOPHILUS TAB PO SCH ×2 (09:00→20:14)
[2019-06-14] MEDS: DIGOXIN 0.125 MG TABLET PO SCH (09:00)
[2019-06-14] MEDS: POTASSIUM 25 MEQ EFFERV TAB PO SCH (09:00)
[2019-06-14] MEDS: HYDROCORTISONE 10 MG TAB PO SCH (09:00)
[2019-06-14] MEDS: SPIRONOLACTONE 25 MG TABLET PO SCH (09:00)
[2019-06-14] MEDS: GABAPENTIN 300 MG CAP PO SCH ×2 (09:00→20:15)
[2019-06-14] MEDS ORDERED: MAGNESIUM SULFATE 1 gm IVPB 1 GM/100 ML BAG IV ONE (11:14)
--- NOTE | 2019-06-14 14:46 | PN ---
Date of Progress Note: 06/14/2019 Subjective: Patient is seen and examined. Chart reviewed and case discussed with RN. Patient has n o acute events overnight. Medications: List reviewed. Physical Examination: Vital Signs: Temperature 97.6, heart rate 89, blood pressure 122/61, respirations 18, O2 95% on room air. General: Awake, alert, oriented x3, not in any acute distress. An ill-appearing, frail male, weak, B VT 39. CV: S1, S2. Regular rate and rhythm. Peripheral pulses weak. Respiratory: Diminished breath sounds. No wheezing or stridor Gastrointestinal: Abdomen is soft, n ontender, nondistended. Positive bowel sounds. Extremities: No clubbing or cyanosis. Neuro next the patient has significant peripheral edema. Neurologic: Nonfocal. Laboratory Data: Potassium 3.1, magnesium 1.8. Urine culture, Acinetobacter baumannii. Assessment: A 63-year-old male with: 1.Septic shock secondary to recurrent urinary tract infection, improving. Blood pressure significan tly improved. Not on any pressors. We will continue to monitor secondary to urinary tract infection . Urine culture is positive for acinetobacter. IV antibiotics for 10 days. 2.Sacral decubitus ulcer. We will continue with wound care and a full offloading. 3.Iron-deficiency anemia and blood loss anemia secondary to hematuria and gastrointestinal bleed. M onitor H and H . Outpatient GI and urology workup. 4.Coagulopathy, likely due to liver dysfunction. 5.Thrombocytopenia. Continue to monitor platelets. 6.Anasarca. Continue Bumex. 7.Hypokalemia secondary to diuretics. We will continue to monitor. 8.History of pancreatic cancer, status post Whipple with poor nutritional status. Continue suppleme ntation. 9.Hypoalbuminemia. 10.Hypocalcemia. Replace. 11.Fatty liver disease. 12.Intermittent hematuria, currently resolved. 13.Obesity. Body mass index of 39. 14.Major depressive disorder. Continue selective serotonin reuptake inhibitor. 15.Deep venous thrombosis prophylaxis. Sequential compression devices. If platelets remain stable, we will restart Lovenox. Plan: Discharge planning. Overall, has a very poor prognosis. Spoken to the daughter multiple time s and they are not ready for hospice at this time. She feels that if the patient is able to get a Pi llCam study and cystoscopy and other workup as an outpatient, he may be able to improve. The patient 's functional status has very much deteriorated at home. He is nonambulatory, barely gets out of bed . Over here, he has not even attempted to work with PT. We will continue with PT as much as he can tolerate and continue antibiotics for a minimum of 10 days. Repeat cultures. /ABISAI Voice ID: [id number] Report ID: [id number]
[2019-06-14 18:20] LABS: BUN Blood Urea Nitrogen 13 mg/dL (7-18); Bicarbonate 36 mmol/L (21-32); Glucose Level 111 mg/dL (74-106); Potassium 4.6 mmol/L (3.5-5.1); Sodium Level 143 mmol/L (136-145)
[2019-06-14 18:22] LABS: Phosphorus 0.4 mg/dL (2.5-4.9)
[2019-06-14] MEDS ORDERED: POTASSIUM PHOS IN 0.9 % NACL 15 MMOL/250 ML BAG IV ONE (19:13)
[2019-06-14] MEDS: CALCIUM CARBONATE 500 MG TAB PO SCH (20:15)
--- NOTE | 2019-06-14 22:37 | PN ---
Date of Progress Note: 06/14/2019 Chief Complaint: Fluid overload. History: Patient is on diuretics. He received Lasix and subsequently it was switched to Bumex. Bumex dose was reduced. He was found to have hypernatremia and hypokalemia. Review of Systems: Denies fever or chills. Physical Examination: Lungs: Clear to auscultation bilaterally. Heart: S1, S2. Abdomen: Soft, benign. Extremities: Slight edema. Impression And Plan: 1. Diabetes mellitus with history of chronic kidney disease due to diabetes mellitus and hypertension. Patient has multiple medical problems including history of pancreatic cancer, status post Whipple surgery and atrial fibrillation. The patient developed acute on chronic anemia and was found to have positive stool guaiacs. He is undergoing workup to rule out GI bleeding. He has been off Coumadin due to positive stool guaiacs and possible bleeding. Potassium level was low when he came to the hospital. He is on potassium supplements today. He was found to have low magnesium and low phosphorus and replacement is ordered. He has hypocalcemia, which will be treated with calcium carbonate tablets. Plan is to monitor intact PTH, vitamin D level and adjust treatment accordingly. 2. Hypophosphatemia, was today 0.4 and patient received IV potassium phosphate 15 mmol over 6 to 8 hours. I discussed the case with the nurse. I spent total 36 min including 25 min to coordinate care plan. MONIK/ABISAI Voice ID: [id number] Report ID: [id number]
[2019-06-15] MEDS: D5W IV SCH ×3 (01:00→16:50)
[2019-06-15] MEDS: MEROPENEM IV SCH ×3 (01:00→16:50)
[2019-06-15 04:44] LABS: Absolute Lymphocytes (CBC) 1.2 K/uL (0.7-4.9); Basophils % 0.5 % (0-1.3); Hematocrit 25.6 % (39.6-49.0); Lymphocytes % 22.7 % (15.3-44.8); MPV 8.6 fL (7.6-11.3); RBC Red Blood Cell Count 2.72 M/uL (4.33-5.43)
[2019-06-15 05:00] LABS: ALT/SGPT 59 U/L (12-78); AST/SGOT 114 U/L (15-37); Albumin 1.7 g/dL (3.4-5.0); Alkaline Phosphatase 77 U/L (45-117); BUN Blood Urea Nitrogen 14 mg/dL (7-18); Bicarbonate 35 mmol/L (21-32); Bilirubin Total 0.9 mg/dL (0.2-1.0); Glucose Level 122 mg/dL (74-106); Magnesium 1.9 mg/dL (1.8-2.4); Potassium 4.3 mmol/L (3.5-5.1); Protein, Total 5.3 g/dL (6.4-8.2); Sodium Level 143 mmol/L (136-145)
[2019-06-15 05:29] LABS: Phosphorus 0.7 mg/dL (2.5-4.9)
[2019-06-15] MEDS: PANTOPRAZOLE INJ 80 MG in NA CHLORIDE 0.9% 250 ML IV SCH ×2 (06:32→16:37)
[2019-06-15] MEDS ORDERED: POTASSIUM PHOS IN 0.9 % NACL 15 MMOL/250 ML BAG IV ONE (06:40)
[2019-06-15] MEDS: INSULIN -REGULAR HUMAN 50 UNIT/0.5 ML ML SQ SCH ×5 (07:13→20:18)
[2019-06-15] MEDS: PARoxetine HCL 10 MG TAB PO SCH (08:47)
[2019-06-15] MEDS: PREGABALIN 50 MG CAP PO SCH ×2 (08:48→20:18)
[2019-06-15] MEDS: CALCIUM CARBONATE 500 MG TAB PO SCH ×2 (08:48→20:18)
[2019-06-15] MEDS: HYDROCORTISONE 10 MG TAB PO SCH (08:48)
[2019-06-15] MEDS: LACTOBACILLUS/ACIDOPHILUS TAB PO SCH ×2 (08:48→20:18)
[2019-06-15] MEDS: SPIRONOLACTONE 25 MG TABLET PO SCH (08:49)
[2019-06-15] MEDS: DIGOXIN 0.125 MG TABLET PO SCH (08:49)
[2019-06-15] MEDS: NICOTINE 21 MG/PAT TD SCH (08:50)
[2019-06-15] MEDS: GABAPENTIN 300 MG CAP PO SCH ×2 (08:50→20:18)
[2019-06-15] MEDS: ENSURE HIGH PROTEIN 237 ML CAN PO SCH ×3 (08:54→20:26)
[2019-06-15] MEDS: JUVEN PACKET PO SCH ×3 (08:55→20:27)
--- NOTE | 2019-06-15 10:41 | PN ---
Date of Progress Note: 06/15/2019 Subjective: Patient seen and examined. Chart reviewed and case discussed with RN. Patient has been somnolent; however, is easily awoken. Denies any acute events overnight. No complaints. Medications: List reviewed. Physical Examination: Vital Signs: Temperature 97.5, heart rate 85, blood pressure 110/61, respirations 16, O2 at 92% on room air. General: Asleep but arousable. Oriented x3. Elderly male, obese. CV: S1, S2. Regular rate and rhythm. Peripheral pulses weak. Respiratory: Diminished breath sounds at the bases. No wheezing or stridor. Gastrointestinal: Abdomen is soft, nontender, nondistended. Positive bowel sounds. Extremities: No clubbing or cyanosis. Patient has diffuse edema. Neurologic: Nonfocal. Laboratory Data: Sodium 143, potassium 4.3, chloride 106, CO2 of 35, BUN 14, creatinine 0.62, glucose 122, calcium 7.3, phosphorus 0.7, magnesium 1.9, AST 114, ALT 59, ammonia 34, albumin 1.7. WBC 5.3, H and H 8.5, 25.6, platelets 98 , neutrophils 59%. UA showing acinetobacter sensitive to meropenem. Assessment: 63-year-old male with: 1. Septic shock secondary to recurrent urinary tract infection, improving. Urine culture positive for acinetobacter. Patient is on day 3 of Merrem. 2. Sacral decubitus ulcer. Continue with wound care. Offloading. 3. Acute cystitis with hematuria secondary to. 4. Acinetobacter baumannii sensitive to meropenem. Continue antibiotics, today is day 3 of 10. 5. Iron-deficiency anemia and blood loss anemia secondary to previous gastrointestinal bleed and hematuria. H and H are stable. Patient will need outpatient GI and urology workup, already had colonoscopy and EGD on previous visit with no significant source of bleeding found. He needs a PillCam. 6. Coagulopathy due to liver dysfunction. 7. Thrombocytopenia, improved. Continue to monitor platelets. 8. Anasarca, improving with Bumex. Patient's fluid balance is negative. 9. Hypokalemia, replace and monitor. 10. Hypophosphatemia. We will replace and monitor. 11. Hypocalcemia, We will replace and monitor. 12. History of pancreatic cancer, status post Whipple. 13. Severe protein-calorie malnutrition. 14. Fatty liver disease. 15. Intermittent hematuria, resolved. 16. Obesity. BMI 39. 17. Major depressive disorder. Continue SSRI. 18. Deep venous thrombosis prophylaxis, SCDs, no chemical anticoagulation due to low platelets and coagulopathy. Plan: Overall poor prognosis. Daughter is not interested in hospice at this time. May need and does not have any benefits left for SNF or LTAC. Possibility of home health with IV antibiotics if family can afford it. We will repeat UA with culture today. We will consult with ID who has already seen the patient for a total duration which at this point is 10 days, 1 week remaining at this time. We will continue to work with case finishing machine adjuster regarding disposition. ADDENDUM: Spoke with urologist on-call Dr. Reeves. He does not recommend any cystoscopy at this time. Patient's hemoglobin is been trending up and no further hematuria. CT scan from May 28, 2019 did not show any stone hydronephrosis or mass. She recommends pro biotic 's which patient is already on and to follow up with him in the next month or 2 to schedule cystoscopy as an outpatient. He also recommended discharging patient on oral prophylactic antibiotics such as Keflex to prevent the recurrent UTIs. At this time patient is completing treatment for multi-drug resistant Acinetobacter with meropenem SA/MODL Voice ID: [id number] Report ID: [id number]
[2019-06-15 11:05] LABS: Vitamin D 1,25-Dihydroxy Total 22 pg/mL (18-72); Vitamin D,1,25-OH2, D2 <8 pg/mL
[2019-06-15 16:27] LABS: Urine Appearance CLEAR; Urine Bilirubin NEGATIVE (NEG); Urine Blood NEGATIVE (NEG); Urine Color YELLOW; Urine Glucose NEGATIVE (NEG); Urine Protein TRACE (NEG); Urine Urobilinogen 0.2 mg/dL (0.2-1.0)
[2019-06-15 16:51] LABS: Urine Bacteria <20 /HPF (NONE SEEN); Urine Culture Reflex Order REFLEXED; Urine Mucus 1+ /HPF (NONE SEEN); Urine RBC <5 /HPF (NONE SEEN)
[2019-06-15 16:52] LABS: Urine Yeast PRESENT (NONE SEEN)
[2019-06-15] MEDS: FLUCONAZOLE 100 MG TAB PO SCH (17:38)
--- NOTE | 2019-06-15 23:53 | PN ---
Date of Progress Note: 06/15/2019 Chief Complaint: Diabetes mellitus with renal manifestation. Patient has multiple medical problems including history of pancreatic cancer, status post Whipple procedure and history of atrial fibrillation. Patient has edema. He was taking Lasix. Subsequently, he was switched to Bumex. Bumex dose was reduced. Patient was found to have hypernatremia and hypokalemia. Adjustments were made and treatment for hypokalemia was initiated. Review of Systems: Denies fever, cough. Physical Examination: Lungs: Clear to auscultation bilaterally. Heart: S1, S2. Abdomen: Soft, benign. Extremities: Slight edema. Impression: 1. Diabetes mellitus with history of chronic kidney disease due to diabetic kidney disease and hypertension. Avoid nephrotoxic medication. Patient is off Coumadin for positive stool guaiac. Monitor hemoglobin level and monitor blood pressure. 2. Hypokalemia. Potassium replacement was ordered. 3. Hypocalcemia. Patient is treated with calcium carbonate tablet. Monitor intact PTH and 25-hydroxy vitamin D level and adjust treatment. 4. Hypophosphatemia. Patient received potassium phosphate infusion. Monitor and adjust treatment for hypophosphatemia. Patient needs replacement and phosphorus level will be re-evaluated. I spent total 36 min including 25 min to coordinate care plan. MONIK/ABISAI Voice ID: [id number] Report ID: [id number]
[2019-06-16] MEDS: MEROPENEM IV SCH ×3 (00:48→16:38)
[2019-06-16] MEDS: D5W IV SCH ×3 (00:48→16:38)
[2019-06-16] MEDS: PANTOPRAZOLE INJ 80 MG in NA CHLORIDE 0.9% 250 ML IV SCH ×3 (04:16→20:29)
[2019-06-16 04:57] LABS: BUN Blood Urea Nitrogen 11 mg/dL (7-18); Bicarbonate 32 mmol/L (21-32); Glucose Level 94 mg/dL (74-106); Phosphorus 1.6 mg/dL (2.5-4.9); Potassium 3.3 mmol/L (3.5-5.1); Sodium Level 141 mmol/L (136-145)
[2019-06-16] MEDS: INSULIN -REGULAR HUMAN 50 UNIT/0.5 ML ML SQ SCH ×4 (07:30→20:30)
[2019-06-16] MEDS: FLUCONAZOLE 100 MG TAB PO SCH (07:51)
[2019-06-16] MEDS: LACTOBACILLUS/ACIDOPHILUS TAB PO SCH ×2 (07:51→20:28)
[2019-06-16] MEDS: PARoxetine HCL 10 MG TAB PO SCH (07:51)
[2019-06-16] MEDS: GABAPENTIN 300 MG CAP PO SCH ×2 (07:51→20:28)
[2019-06-16] MEDS: DIGOXIN 0.125 MG TABLET PO SCH (07:51)
[2019-06-16] MEDS: NICOTINE 21 MG/PAT TD SCH (07:51)
[2019-06-16] MEDS: SPIRONOLACTONE 25 MG TABLET PO SCH (07:52)
[2019-06-16] MEDS: CALCIUM CARBONATE 500 MG TAB PO SCH ×2 (07:52→20:28)
[2019-06-16] MEDS: ENSURE HIGH PROTEIN 237 ML CAN PO SCH ×2 (07:53→20:29)
[2019-06-16] MEDS: JUVEN PACKET PO SCH ×2 (07:53→20:30)
[2019-06-16] MEDS: PREGABALIN 50 MG CAP PO SCH ×2 (08:11→20:28)
[2019-06-16] MEDS: HYDROCORTISONE 10 MG TAB PO SCH (08:11)
[2019-06-16] MEDS ORDERED: POTASSIUM PHOS IN 0.9 % NACL 15 MMOL/250 ML BAG IV ONE ×2 (09:00→21:04)
--- NOTE | 2019-06-16 12:06 | P.PN ---
Subjective Date of Service: 06/16/19 Chief Complaint: Weakness Review of Systems is unable to be obtained (mental status) Physical Examination - Vital Signs Temperature: 97.3 F Blood Pressure: 126/66 Pulse: 96 Respirations: 16 Pulse Ox (%): 93 - Physical Exam General: In no apparent distress HEENT: PERRLA, EOMI Neck: Supple, JVD not distended Respiratory: Diminished, Crackles/rales Cardiovascular: Regular rate/rhythm, Normal S1 S2 Gastrointestinal: Normal bowel sounds, No tenderness Musculoskeletal: No tenderness Integumentary: No rashes Neurological: Dementia Lymphatics: No axilla or inguinal lymphadenopathy - Studies Laboratory Tests 06/15/19 06/16/19 04:15 04:15 WBC 5.3 D RBC 2.72 L Hgb 8.5 L Hct 25.6 L RDW 19.4 H Monocytes % 12.8 H Sodium 141 Potassium 3.3 L BUN 11 Creatinine 0.56 Calcium 7.4 L Phosphorus 1.6 L D Assessment & Plan Physician Review: Patient Assessed, Agree with Above Assessment and Plan Physician Review Additional Text: # Septic shock secondary to recurrent urinary tract infection, improving. Urine culture positive for acinetobacter. Patient is on day 4 of Merrem. Repeated culture, pending. # Sacral decubitus ulcer. Continue with wound care. Offloading. # Acute cystitis with hematuria. # Acinetobacter baumannii sensitive to meropenem. Continue antibiotics, today is day 4 of 10. # Iron-deficiency anemia and blood loss anemia secondary to previous gastrointestinal bleed and hematuria. H and H are stable. No further work up per GI and urology workup, already had colonoscopy and EGD on previous visit with no significant source of bleeding found. - H&H is stable. # Coagulopathy due to liver dysfunction. # Thrombocytopenia, improved. Continue to monitor platelets. # Anasarca, improving with Bumex. Patient's fluid balance is negative. # Hypokalemia, replace and monitor. # Hypophosphatemia. We will replace and monitor. # Hypocalcemia, We will replace and monitor. # History of pancreatic cancer, status post Whipple. # Severe protein-calorie malnutrition. # Fatty liver disease. # Intermittent hematuria, resolved. # Obesity. BMI 39. #Major depressive disorder. Continue SSRI. # Deep venous thrombosis prophylaxis, SCDs, no chemical anticoagulation due to low platelets and coagulopathy. Plan: Overall poor prognosis. Daughter is not interested in hospice at this time. May need and does not have any benefits left for SNF or LTAC. Possibility of home health with IV antibiotics if family can afford it. We will consult with ID who has already seen the patient for a total duration which at this point is 10 days. We will continue to work with watch case polisher regarding disposition
--- NOTE | 2019-06-16 22:15 | PN ---
Date of Progress Note: 06/16/2019 Subjective: Patient was admitted with anasarca. Physical Examination: Vital Signs: When I saw the patient, blood pressure 110/64, pulse of 96. General: Patient feeling better, still sleepy. Chest: Faint rales in the base. Heart: S1, S2. Regular. Abdomen: Soft. Extremities: Trace edema. Laboratory Data: WBC 5.3, H and H 8.5 platelets 98. Sodium 141, potassium 3.3 , bicarb 32, BUN 11, creatinine 0.5, phosphorus 1.6, calcium 7.4. Current Medications: The patient is on include fluconazole, calcium carbonate, digoxin, spironolactone 25, Lyrica, Januvia, Zofran. Assessment And Plan: 1. Acute kidney injury, recovered, resolved. 2. Septic shock, recovered. 3. Anasarca secondary to hypoalbuminemia, malnourished. Patient was started on diuresis, responded very well. Currently on spironolactone. 4. Hypokalemia, hypophosphatemia. We will supplement. 5. Hypocalcemia. Corrected calcium within normal limit. Continue current supplement. 6. Vitamin D deficiency. Continue supplement. MARCUS Voice ID: [id number] Report ID: [id number]
[2019-06-17] MEDS: MEROPENEM IV SCH ×2 (01:50→09:32)
[2019-06-17] MEDS: D5W IV SCH ×2 (01:50→09:32)
[2019-06-17] MEDS: PANTOPRAZOLE INJ 80 MG in NA CHLORIDE 0.9% 250 ML IV SCH ×4 (02:09→17:15)
[2019-06-17 05:35] LABS: Absolute Lymphocytes (CBC) 1.4 K/uL (0.7-4.9); Basophils % 0.8 % (0-1.3); Hematocrit 27.8 % (39.6-49.0); Lymphocytes % 15.1 % (15.3-44.8); MPV 8.5 fL (7.6-11.3); RBC Red Blood Cell Count 2.93 M/uL (4.33-5.43)
[2019-06-17 05:48] LABS: BUN Blood Urea Nitrogen 8 mg/dL (7-18); Bicarbonate 28 mmol/L (21-32); Glucose Level 98 mg/dL (74-106); Magnesium 1.7 mg/dL (1.8-2.4); Potassium 3.2 mmol/L (3.5-5.1); Sodium Level 141 mmol/L (136-145)
[2019-06-17] MEDS ORDERED: MAGNESIUM SULFATE 1 gm IVPB 1 GM/100 ML BAG IV ONE (07:00)
[2019-06-17] MEDS: INSULIN -REGULAR HUMAN 50 UNIT/0.5 ML ML SQ SCH ×4 (07:30→21:00)
[2019-06-17] MEDS: FLUCONAZOLE 100 MG TAB PO SCH (08:03)
[2019-06-17] MEDS: PARoxetine HCL 10 MG TAB PO SCH (08:03)
[2019-06-17] MEDS: PREGABALIN 50 MG CAP PO SCH ×2 (08:03→21:39)
[2019-06-17] MEDS: KCL 20 MEQ/100 mL IVPB 20 MEQ/100 ML BAG IV SCH ×2 (08:03→10:15)
[2019-06-17] MEDS: HYDROCORTISONE 10 MG TAB PO SCH (08:03)
[2019-06-17] MEDS: DIGOXIN 0.125 MG TABLET PO SCH (08:04)
[2019-06-17] MEDS: LACTOBACILLUS/ACIDOPHILUS TAB PO SCH ×2 (08:04→21:39)
[2019-06-17] MEDS: SPIRONOLACTONE 25 MG TABLET PO SCH ×2 (08:04→21:00)
[2019-06-17] MEDS: CALCIUM CARBONATE 500 MG TAB PO SCH ×2 (08:04→21:40)
[2019-06-17] MEDS: GABAPENTIN 300 MG CAP PO SCH ×2 (08:04→21:39)
[2019-06-17] MEDS: NICOTINE 21 MG/PAT TD SCH (08:04)
[2019-06-17] MEDS: JUVEN PACKET PO SCH ×2 (08:05→21:00)
[2019-06-17] MEDS: ENSURE HIGH PROTEIN 237 ML CAN PO SCH ×2 (08:05→21:00)
[2019-06-17] MEDS: ACETAMINOPHEN 500 MG TAB PO PRN ×2 (08:34→17:51)
--- NOTE | 2019-06-17 12:23 | P.PN ---
Subjective Date of Service: 06/17/19 Chief Complaint: Weakness Subjective: No new changes Physical Examination - Vital Signs Temperature: 98.1 F Blood Pressure: 108/61 Pulse: 125 Respirations: 18 Pulse Ox (%): 92 - Physical Exam General: In no apparent distress, Other (drowsy but arousable) HEENT: Atraumatic, PERRLA, EOMI Neck: Supple Respiratory: Clear to auscultation bilaterally, Normal air movement, Diminished Cardiovascular: No edema, Normal pulses Gastrointestinal: Normal bowel sounds, Soft and benign, Other (obese) Musculoskeletal: No clubbing, No swelling, No contractures Integumentary: No significant lesion, No tenderness/swelling Assessment & Plan Physician Review: Patient Assessed, Agree with Above Assessment and Plan Physician Review Additional Text: # Septic shock secondary to recurrent urinary tract infection, improving. Urine culture positive for acinetobacter. Patient is on day 5 of Merrem. Repeated culture, pending. # Sacral decubitus ulcer. Continue with wound care. Offloading. # Acute cystitis with hematuria. # Acinetobacter baumannii sensitive to meropenem. Continue antibiotics, today is day 5 of 10. # Iron-deficiency anemia and blood loss anemia secondary to previous gastrointestinal bleed and hematuria. H and H are stable. No further work up per GI and urology workup, already had colonoscopy and EGD on previous visit with no significant source of bleeding found. - H&H is stable. # Coagulopathy due to liver dysfunction. # Thrombocytopenia, improved. Continue to monitor platelets. # Anasarca, improving with aldactone. Patient's fluid balance is negative. # Hypokalemia, replace and monitor. # Hypophosphatemia. We will replace and monitor. # Hypocalcemia, We will replace and monitor. # History of pancreatic cancer, status post Whipple. # Severe protein-calorie malnutrition. # Fatty liver disease. # Intermittent hematuria, resolved. # Obesity. BMI 39. #Major depressive disorder. Continue SSRI. # Deep venous thrombosis prophylaxis, SCDs, no chemical anticoagulation due to low platelets and coagulopathy. Plan: Overall poor prognosis. Daughter is not interested in hospice at this time. May need and does not have any benefits left for SNF or LTAC. Possibility of home health with IV antibiotics if family can afford it. We will continue to work with human services case manager regarding disposition
--- NOTE | 2019-06-17 13:07 | PN ---
Date of Progress Note: 06/17/2019 Subjective: Patient was admitted with acute kidney injury. Patient also had anasarca, been diuresed , responds very well. Physical Examination: Vital Signs: Blood pressure 108/60, pulse 125, afebrile. The patient had good urine output of 1500. Chest: Clear to auscultation. Heart: S1, S2 regular. Abdomen: Soft, nontender. Extremities: Trace edema. Laboratory Data: WBC 9.4, H and H 9.3/27.8, platelets 133. Sodium 141, potassium 3.2, bicarb 28, BU N 8, creatinine 0.5, calcium 7.3, magnesium 1.7. Current Medications: The patient on, include, 1.Fluconazole. 2.Meropenem. 3.Calcium carbonate 1000 b.i.d. 4.Spironolactone 25 daily. 5.Digoxin. 6.Paroxetine. 7.Hydrocortisone. Assessment And Plan: 1.Acute kidney injury secondary to prerenal, recovered, resolved. 2.Anasarca secondary to hypoalbuminemia secondary to malnourished, resolved. Continue current treat ment. I am going to go ahead and increase spironolactone to 25 b.i.d. 3.Hypokalemia. We will supplement, and we will increase spironolactone. 4.Hypomagnesemia. We will supplement. 5.Urinary tract infection, acinetobacter. Continue current antibiotic. Follow up with the primary. MARCUS Voice ID: [id number] Report ID: [id number]
--- NOTE | 2019-06-17 13:55 | PN ---
Subjective: Patient lying in bed. Continues to have abdominal pain. No other complaints except car[place] sea. Denies any chest pain or shortness of breath. Objective: Vital Signs: Temperature 98, pulse 125, respirations 18, blood pressure 108/61. Lungs: Basal crackles. Heart: S1, S2. Regular. Abdomen: Left upper quadrant tenderness. Bowel sounds present. Extremities: Trace edema. Laboratory Data: Shows WBC 9.4, hemoglobin 9.3, platelets are 133. Chemistry shows sodium 141, pota ssium 3.8, chloride 107, bicarb 28, BUN 8, creatinine 0.55, glucose is 144. Micro data, Acinetobacter baumannii in the urine, currently being treated with meropenem. Assessment/plan: The patient is a 63-year-old male with recurrent urinary tract infection, currently being treated with meropenem. Patient is also having severe abdominal discomfort. We will recommen d to get a CT abdomen and follow the patient closely. Continue supportive care and current treatment . NF/MODL Voice ID: [id number] Report ID: [id number]
--- NOTE | 2019-06-17 14:11 | RAD REPORT ---
EXAM DESCRIPTION: CT - Abdomen Wo Contrast CLINICAL HISTORY: abdominal pain Abdominal pain COMPARISON: Chest Single View dated 06/08/2019; Abdomen Pelvis W Contrast dated 05/28/2019; Small [place] el Series dated 05/31/[address] scans are performed using dose optimization technique as appropriate and may includ e automated exposure control or mA/KV adjustment according to patient size. FINDINGS: Small bilateral pleural effusions are seen with areas of atelectasis in both lung bases. Advanced fatty liver is seen. Spleen is unremarkable. The adrenal glands kidneys show no acute proces s. Exophytic cyst extends off the posterior aspect of the right kidney. Very prominent inflammation is seen about the stomach duodenum in the upper abdomen. There is postsur gical changes in the region all of previous Whipple procedure. The mild twisted appearance to the mes entery mesenteric edema present. The findings appear similar to the comparative study. No free intraperitoneal air seen. No bowel obstruction or abscess identified. No significant bony finding. IMPRESSION: Postsurgical changes of previous Whipple procedure noted. There is a generalized inflamm atory appearance to the stomach, postsurgical small bowel and adjacent mesenteric with a mild mesente jason twisting noted with mesenteric edema. Overall, appearance in this region has not changed since . No free air or abscess.
[2019-06-17] MEDS: Meropenem 1,000 MG in NA CHLORIDE 0.9% 100 ML IV SCH (17:15)
[2019-06-17] MEDS ORDERED: MORPHINE 4 MG/ML SYR IV ONE (18:37)
[2019-06-17] MEDS ORDERED: POTASSIUM 25 MEQ EFFERV TAB PO ONE (21:00)
[2019-06-18] MEDS: Meropenem 1,000 MG in NA CHLORIDE 0.9% 100 ML IV SCH ×3 (00:58→16:01)
[2019-06-18] MEDS: MORPHINE 2 MG/ML SYR IV PRN ×3 (01:38→22:51)
[2019-06-18] MEDS: PANTOPRAZOLE INJ 80 MG in NA CHLORIDE 0.9% 250 ML IV SCH ×2 (01:39→12:20)
[2019-06-18] MEDS: ACETAMINOPHEN 500 MG TAB PO PRN ×2 (04:33→12:01)
[2019-06-18 05:50] LABS: Absolute Lymphocytes (CBC) 1.2 K/uL (0.7-4.9); Basophils % 0.3 % (0-1.3); Hematocrit 31.1 % (39.6-49.0); Lymphocytes % 6.8 % (15.3-44.8); MPV 8.6 fL (7.6-11.3); RBC Red Blood Cell Count 3.22 M/uL (4.33-5.43)
[2019-06-18 06:16] LABS: BUN Blood Urea Nitrogen 10 mg/dL (7-18); Bicarbonate 28 mmol/L (21-32); Glucose Level 115 mg/dL (74-106); Magnesium 1.9 mg/dL (1.8-2.4); Potassium 3.8 mmol/L (3.5-5.1); Sodium Level 141 mmol/L (136-145)
[2019-06-18] MEDS: INSULIN -REGULAR HUMAN 50 UNIT/0.5 ML ML SQ SCH ×4 (07:30→21:00)
[2019-06-18] MEDS: HYDROCORTISONE 10 MG TAB PO SCH (08:21)
[2019-06-18] MEDS: PREGABALIN 50 MG CAP PO SCH ×2 (08:21→20:51)
[2019-06-18] MEDS: PARoxetine HCL 10 MG TAB PO SCH (08:22)
[2019-06-18] MEDS: FLUCONAZOLE 100 MG TAB PO SCH (08:22)
[2019-06-18] MEDS: LACTOBACILLUS/ACIDOPHILUS TAB PO SCH ×2 (08:22→20:50)
[2019-06-18] MEDS: GABAPENTIN 300 MG CAP PO SCH ×2 (08:23→20:53)
[2019-06-18] MEDS: DIGOXIN 0.125 MG TABLET PO SCH (08:23)
[2019-06-18] MEDS: CALCIUM CARBONATE 500 MG TAB PO SCH ×2 (08:23→20:51)
[2019-06-18] MEDS: NICOTINE 21 MG/PAT TD SCH (08:24)
[2019-06-18] MEDS: SPIRONOLACTONE 25 MG TABLET PO SCH ×2 (08:24→20:48)
[2019-06-18] MEDS: ENSURE HIGH PROTEIN 237 ML CAN PO SCH ×2 (08:26→21:00)
[2019-06-18] MEDS: JUVEN PACKET PO SCH ×2 (08:27→21:00)
[2019-06-18] MEDS ORDERED: POTASSIUM 25 MEQ EFFERV TAB PO ONE (09:00)
--- NOTE | 2019-06-18 13:00 | P.PN ---
Subjective Date of Service: 06/18/19 Chief Complaint: Weakness Abdominal pain Review of Systems Gastrointestinal: Abdominal Pain Physical Examination - Vital Signs Temperature: 98.2 F Blood Pressure: 130/60 Pulse: 87 Respirations: 16 Pulse Ox (%): 89 - Physical Exam General: Alert, In no apparent distress HEENT: Atraumatic, PERRLA, EOMI Neck: Supple, JVD not distended Respiratory: Clear to auscultation bilaterally, Normal air movement Cardiovascular: Regular rate/rhythm, Normal S1 S2 Gastrointestinal: Normal bowel sounds, Distended, Tenderness, Masses Musculoskeletal: No tenderness Integumentary: No rashes Neurological: Normal speech, Normal tone Lymphatics: No axilla or inguinal lymphadenopathy - Studies Laboratory Tests 06/18/19 06/18/19 04:50 04:50 WBC 17.7 H D Hgb 10.3 L Hct 31.1 L RDW 21.0 H Plt Count 149 L Neutrophils % 82.6 H Lymphocytes % 6.8 L Absolute Neutrophils 14.6 H Absolute Monocytes 1.7 H Sodium 141 Chloride 106 Carbon Dioxide 28 BUN 10 Creatinine 0.78 Glucose 115 H Calcium 7.6 L Magnesium 1.9 Imagings Data: IMPRESSION: Postsurgical changes of previous Whipple procedure noted. There is a generalized inflammatory appearance to the stomach, postsurgical small bowel and adjacent mesenteric with a mild mesenteric twisting noted with mesenteric edema. Overall, appearance in this region has not changed since 05/28/2019. Assessment & Plan Physician Review: Patient Assessed, Agree with Above Assessment and Plan Physician Review Additional Text: # Septic shock secondary to recurrent urinary tract infection, improving. Urine culture positive for acinetobacter. Patient is on day 6 of Merrem. Repeated culture showed no growth. -Leukocytosis overnight. Abd pain. -afebrile.check procal. continue IV abx. # History of pancreatic cancer, status post Whipple- area is now tender & more swollen. Repeat CT is unremarkable - gen surgeon, will evaluate. -pain control. # Sacral decubitus ulcer. Continue with wound care. Offloading. # Acute cystitis with hematuria. # Acinetobacter baumannii sensitive to meropenem. Continue antibiotics, today is day 6 of 10. # Iron-deficiency anemia and blood loss anemia secondary to previous gastrointestinal bleed and hematuria. H and H are stable. No further work up per GI and urology workup, already had colonoscopy and EGD on previous visit with no significant source of bleeding found. - H&H is stable. -on PPT gtt; will change to po. # Coagulopathy due to liver dysfunction. # Thrombocytopenia, improved. Continue to monitor platelets. # Anasarca, improved with aldactone. Patient's fluid balance is negative. # Hypokalemia, replace and monitor. # Hypophosphatemia. We will replace and monitor. # Hypocalcemia, We will replace and monitor. # Severe protein-calorie malnutrition. # Fatty liver disease. # Intermittent hematuria, resolved. # Obesity. BMI 39. #Major depressive disorder. Continue SSRI. # Deep venous thrombosis prophylaxis, SCDs, no chemical anticoagulation due to low platelets and coagulopathy. Plan: Overall poor prognosis. Daughter is not interested in hospice at this time. May need and does not have any benefits left for SNF or LTAC. Possibility of home health with IV antibiotics if family can afford it. We will continue to work with case investigator regarding disposition
--- NOTE | 2019-06-18 13:17 | PN ---
Date of Progress Note: 06/18/2019 Subjective: Patient is complaining of abdominal pain. No nausea or vomiting. Patient still has loo se stool. Physical Examination: Vital Signs: Blood pressure 102/55, pulse of 126, afebrile. Chest: Clear to auscultation. Heart: S1, S2. Regular. Abdomen: Soft. Tenderness on the epigastric area and right and left upper quadrants. Extremities: Trace edema. Laboratory Data: WBC 17.7, H and H 10.3/31.1, platelets 149. Sodium 141, potassium 3.8, bicarb 28, BUN 10, creatinine 0.7, calcium 7.6, magnesium 1.9. Current Medications: The patient on, include fluconazole, meropenem, calcium carbonate, digoxin, spi ronolactone 25 b.i.d., gabapentin, Lyrica, Zofran, pantoprazole, hydrocortisone, morphine, magnesium sulfate. Assessment And Plan: 1.Acute kidney injury, secondary to prerenal, recovered, resolved. 2.Anasarca, secondary to malnourished, responding very well to current diuresis. We will continue s pironolactone. 3.Abdominal pain. Patient still has diarrhea. Continue current antibiotic. We will follow up with primary. 4.Edema, responds very well to current diuresis. We will follow up. GHADA/ABISAI Voice ID: [id number] Report ID: [id number]
[2019-06-18] MEDS ORDERED: NA CHLORIDE 0.9% 500 ML IV ONE (17:00)
[2019-06-18] MEDS: PANTOPRAZOLE 40MG TABLET PO SCH (17:34)
--- NOTE | 2019-06-18 21:23 | CON ---
Date of Consultation: 06/18/2019 Reason For Consultation: Sepsis, diabetes, pancreatic cancer, hypertension, heart disease. History Of Present Illness: This is the case of a 63-year-old patient with multiple medical problems . He comes to the hospital, initially admitted with change in mental status, diagnosed with sepsis, UTI, he has been treated for this. His history is that he has a Whipple disease about 8 months ago. After that has been on and off he has a long stay in the hospital, on and off having this epigastric pain. The medical doctor, although understand that may be a chronic condition, they want the surgeo n to take a look at that area and give some advice. The patient has been already on antibiotics at [facility] with a PICC line. When he was found to be hypotensive, then he was sent to this institution. He claimed his surgery was done about [address] Garland at [facility] in [place]. He says that even though he had this surgery done he has been having on and off, this pain is not new f or him. Allergies: INCLUDE HYDROCODONE, ATIVAN, ZOSYN. Current Medications: Reviewed including meropenem. He was also on Zyvox. Past Medical History: Hypertension, diabetes, atrial fibrillation, pancreatic cancer, toxic megacolo n. Past Surgical History: Include a Whipple procedure, colostomy reversal. Family History: Hypertension, lung disease, diabetes, and cancer, although not specified which one. Review of Systems: Ten points otherwise unremarkable. Physical Examination: General: Patient is awake and alert. He is cooperating with us. He is oriented to time, place, and person. He is not in any distress at this moment. He is able to communicate with me. He is findin g although sometimes he is having issue recollecting details. Eyes: Pupils anicteric. Neck: Supple. Abdomen: Softly distended. Midline incision. Generalized mild tenderness mainly in the epigastric area and lower abdomen. He stated there is nothing new for him, this has been before. No evidence o f cellulitis present, no evidence of any obvious hernias at this moment. Rectal: Deferred. Genitalia: Deferred. Extremities: Good capillary refill. Laboratory Data: Blood work shows a WBC count of 17 coming up from 9.4 previously, hemoglobin of 10. 3, and platelets of 149. INR is 1.7, bicarb is 28, potassium 3.8, sodium is 141, chloride is 106, gl ucose 115. Phosphate 3.0, magnesium 1.7. Creatinine is 0.5. CAT scan of the abdomen and pelvis rev iewed by Dr. Duenas shows postsurgical changes after previous Whipple, generalized inflammatory appeara nce to the stomach and small bowel. Overall appearance in this region have not changed since the laurence t done several weeks ago on 05/28/2019. No free air. No abscess. Assessment And Plan: This is a 63-year-old patient, multiple medical problems, had a Whipple before, long recovery about 8 months ago. Always has this abdominal pain, some days worse than other one. Admitted to the hospital with sepsis, urinary tract infection being treated with antibiotics at this moment. The primary doctor in this case, Dr. Nunez, asked me to take a look at the patient from th e surgical standpoint. Patient information is somehow limited, he does not have all the details. We asked the front edger right now to contact [facility] and at least sent us the operative repo rt that can give us an idea about surgery he had done and the details in it to see if these abnormali ties are acceptable or not. We always going to have abnormalities in the CAT scan after Whipple dise ase, the sauer here is trying to make sure there is nothing else other than what we supposed to be seen . CAT scan was the same for several weeks, so I am going to try to get some of the CAT scan, at as t the more recent one that he had done in his institution, so we can compare apples to apples, CT sca n to CT scan to see there is anything new right now that was not seen before that require addressing the issue some other way. I agree with the antibiotics. We will follow the patient with you and giv e more recommendations as the case develop. We are in national emergency right now, we have no famil y members at bedside, but we are trying to see if through the phone they can be contacted, see if the y can give us some information about this case since the patient stated that the family, especially t he daughter, may have his chart. HM/MODL Voice ID: [id number] Report ID: [id number]
[2019-06-19] MEDS: Meropenem 1,000 MG in NA CHLORIDE 0.9% 100 ML IV SCH ×3 (01:36→17:14)
[2019-06-19] MEDS ORDERED: NA CHLORIDE 0.9% 250 ML IV ONE (04:33)
[2019-06-19] MEDS: MORPHINE 2 MG/ML SYR IV PRN ×2 (04:39→23:50)
[2019-06-19 05:04] LABS: Absolute Lymphocytes (CBC) 1.4 K/uL (0.7-4.9); Basophils % 0.3 % (0-1.3); Lymphocytes % 9.7 % (15.3-44.8); MPV 8.8 fL (7.6-11.3); RBC Red Blood Cell Count 2.82 M/uL (4.33-5.43)
[2019-06-19 05:23] LABS: BUN Blood Urea Nitrogen 16 mg/dL (7-18); Bicarbonate 26 mmol/L (21-32); Glucose Level 118 mg/dL (74-106); Sodium Level 137 mmol/L (136-145)
[2019-06-19 05:24] LABS: Anisocytosis 1+; Blood Morphology Comment NOTED (NOT SEEN); Macrocytosis 1+; Platelet Estimate ADEQ; Urine White Blood Cell Casts OK
[2019-06-19] MEDS ORDERED: MAGNESIUM SULFATE 1 gm IVPB 1 GM/100 ML BAG IV ONE (06:10)
[2019-06-19] MEDS: INSULIN -REGULAR HUMAN 50 UNIT/0.5 ML ML SQ SCH ×4 (07:30→20:18)
[2019-06-19] MEDS: SPIRONOLACTONE 25 MG TABLET PO SCH (09:00)
[2019-06-19] MEDS: HYDROCORTISONE 10 MG TAB PO SCH (09:28)
[2019-06-19] MEDS: CALCIUM CARBONATE 500 MG TAB PO SCH ×2 (09:29→20:43)
[2019-06-19] MEDS: FLUCONAZOLE 100 MG TAB PO SCH (09:29)
[2019-06-19] MEDS: DIGOXIN 0.125 MG TABLET PO SCH (09:29)
[2019-06-19] MEDS: PARoxetine HCL 10 MG TAB PO SCH (09:29)
[2019-06-19] MEDS: GABAPENTIN 300 MG CAP PO SCH ×2 (09:29→20:43)
[2019-06-19] MEDS: PANTOPRAZOLE 40MG TABLET PO SCH ×2 (09:29→17:14)
[2019-06-19] MEDS: LACTOBACILLUS/ACIDOPHILUS TAB PO SCH ×2 (09:29→20:43)
[2019-06-19] MEDS: PREGABALIN 50 MG CAP PO SCH ×2 (09:32→20:43)
[2019-06-19] MEDS: NICOTINE 21 MG/PAT TD SCH (09:33)
[2019-06-19] MEDS: ENSURE HIGH PROTEIN 237 ML CAN PO SCH ×2 (09:39→20:46)
[2019-06-19] MEDS: JUVEN PACKET PO SCH ×2 (09:39→20:46)
--- NOTE | 2019-06-19 11:55 | P.PN ---
Subjective Date of Service: 06/19/19 Chief Complaint: Weakness Sleepy pain arousable this morning. Physical Examination - Vital Signs Temperature: 97.3 F Blood Pressure: 95/53 Pulse: 114 Respirations: 18 Pulse Ox (%): 90 - Physical Exam General: In no apparent distress, Other HEENT: Atraumatic, PERRLA, EOMI Neck: Supple, JVD not distended Respiratory: Clear to auscultation bilaterally, Normal air movement Cardiovascular: Regular rate/rhythm, Normal S1 S2 Gastrointestinal: Normal bowel sounds, No ascites, No rebound, Tenderness, Masses Musculoskeletal: No tenderness Integumentary: No rashes Neurological: Normal speech, Normal tone, Normal affect Lymphatics: No axilla or inguinal lymphadenopathy - Studies Laboratory Tests 06/19/19 06/19/19 06/19/19 04:42 04:42 04:42 WBC 14.7 H D RBC 2.82 L Hgb 8.9 L Hct 27.0 L RDW 21.9 H Plt Count 147 L Neutrophils % 78.8 H Lymphocytes % 9.7 L Sodium 137 Potassium 4.0 Chloride 104 BUN 16 Glucose 118 H Calcium 7.7 L Magnesium 1.7 L Assessment & Plan Physician Review: Patient Assessed, Agree with Above Assessment and Plan Physician Review Additional Text: # Septic shock secondary to recurrent urinary tract infection, improving. Urine culture positive for acinetobacter. Patient is on day 7 of Merrem. Repeated culture showed no growth. -Leukocytosis improving. -afebrile. Procalcitonin remains this same. continue IV abx. # History of pancreatic cancer, status post Whipple- area remains tender & left swollen. Repeat CT with the same findings noted earlier. -consulted with general surgeon, awaiting CT report from [facility] for comparison. -pain control. # Sacral decubitus ulcer. Continue with wound care. Offloading. # Acute cystitis with hematuria. # Acinetobacter baumannii sensitive to meropenem. Continue antibiotics, today is day 7 of 10. # Iron-deficiency anemia and blood loss anemia secondary to previous gastrointestinal bleed and hematuria. H and H are stable. No further work up per GI and urology workup, already had colonoscopy and EGD on previous visit with no significant source of bleeding found. - H&H is stable. -on PPT gtt; changed to p.o. # Coagulopathy due to liver dysfunction. # Thrombocytopenia, improved. Continue to monitor platelets. # Anasarca, improved with aldactone. Patient's fluid balance is negative. # Hypokalemia, replace and monitor. # Hypophosphatemia. We will replace and monitor. # Hypocalcemia, We will replace and monitor. # Severe protein-calorie malnutrition. # Fatty liver disease. # Intermittent hematuria, resolved. # Obesity. BMI 39. #Major depressive disorder. Continue SSRI. # Deep venous thrombosis prophylaxis, SCDs, no chemical anticoagulation due to low platelets and coagulopathy. Plan: Overall poor prognosis. Patient is hospice appropriate. Daughter is not interested in hospice at this time. May need and does not have any benefits left for SNF or LTAC. Possibility of home health with IV antibiotics if family can afford it. We will continue to work with human services case manager regarding disposition
--- NOTE | 2019-06-19 12:39 | PN ---
Subjective: Patient lying in bed. No new acute event. Chart reviewed. Objective: Vital Signs: Temperature 97, pulse 114, respirations 18, blood pressure 95/53. HEENT: Unremarkable. Neck: Supple. Lungs: Basal crackles. Heart: S1, S2. Regular. Abdomen: Tenderness in upper quadrant. Bowel sounds present. Hyperactive. Extremities: Trace edema. Laboratory Data: Shows WBC 14.7, hemoglobin 8.9, platelets 147. Chemistry shows sodium 137, potassi um 4, chloride 104, bicarb 26, BUN 16, creatinine 0.8, glucose . CT abdomen which was done on showed that the patient has postsurgical changes. Previous Whipple procedure noted, there i s a generalized inflammatory appearance to the stomach. Postsurgical, small bowel and adjacent mesen teric with mild mesenteric twisting noted with mesenteric edema. Overall appearance in the region bhat s not changed. No free air or abscess. Current Medications: Include patient is on Merrem. Assessment And Plan: A 63-year-old male with possible mesenteric inflammation secondary to obstructi on causing leukocytosis. Patient is on empiric antibiotic. We will recommend adding Flagyl if neede d and surgical evaluation. Continue supportive care. We will follow the patient closely. NF/MODL Voice ID: [id number] Report ID: [id number]
--- NOTE | 2019-06-19 12:47 | P.PN ---
Subjective Date of Service: 06/19/19 Chief Complaint: Weakness subjective A 59 with PMHx of DM, HTN , pancreatic CA S/P Whipple's surgery , Afib off coumadin due to anemia and FOBT +ve stool, pt presented for weakness pt was discharged recently after prolnoged hospitalization, he was treated for sepsis with Merrem/Zyvox /Diflucan for sepsis with yeast UTI. completed abx last week , in ER pt was hypotensive , recived 3l of NS , 1 PRBC and started on pressers, his CXR showed congestion and edema labs were significant for anemia, hypokalemia and BS of 732, manually BS was < 300 today still have abdominal tenderness on exam Surgery evaluation appreciated oliguric , will hold aldatone and give NS bolus Allergies hydrocodone Allergy (Verified 05/01/19 21:30) unknown lorazepam [From Ativan] Allergy (Verified 05/01/19 21:30) biligerent piperacillin [From Zosyn] Allergy (Verified 05/01/19 21:30) Hives tazobactam [From Zosyn] Allergy (Verified 05/01/19 21:30) Hives - Past Medical/Surgical History Diabetic: Yes -: DM type 2 -: Hypertension -: Atrial fibrillator -: pancreatic cancer -: History of toxic megacolon -: Pancreatic Ca -: Whipple's procedure -: Colostomy with reversal - Family History Mother -: Lung disease Brother -: Hypertension Sister -: Hypertension, Diabetes Father -: Cancer - Social History Alcohol use: Yes CD- Drugs: No Caffeine use: Yes Physical exam general: AAOX1, obese Neck; Supple, No elevated JVD hear: RRR, normal S1,2 no murmur or rub Chest: diminshed B/l Abdomen: Soft , tenderness on exam Extremities no edema A/P FABIANA cr now wnl oliguric will dc diuretics NS bolus HX of pancreatic CA Surgery on board edema likely multifactorial resolved will dc aldacotne acute on chronic anemia DM SSI Physical Examination - Vital Signs Temperature: 97.3 F Blood Pressure: 95/53 Pulse: 114 Respirations: 18 Pulse Ox (%): 90 Assessment And Plan Physician Review: Patient Assessed, Agree with Above Assessment and Plan
[2019-06-19] MEDS: ACETAMINOPHEN 500 MG TAB PO PRN (17:16)
[2019-06-20] MEDS: Meropenem 1,000 MG in NA CHLORIDE 0.9% 100 ML IV SCH ×3 (00:01→17:49)
[2019-06-20] MEDS: ACETAMINOPHEN 500 MG TAB PO PRN (04:36)
[2019-06-20 05:03] LABS: BUN Blood Urea Nitrogen 16 mg/dL (7-18); Bicarbonate 28 mmol/L (21-32); Glucose Level 98 mg/dL (74-106); Magnesium 1.9 mg/dL (1.8-2.4); Potassium 3.8 mmol/L (3.5-5.1); Sodium Level 137 mmol/L (136-145)
[2019-06-20 05:05] LABS: Absolute Lymphocytes (CBC) 1.3 K/uL (0.7-4.9)
[2019-06-20 05:18] LABS: Basophils % 0.4 % (0-1.3); Hematocrit 27.2 % (39.6-49.0); Lymphocytes % 10.2 % (15.3-44.8); MPV 8.6 fL (7.6-11.3); RBC Red Blood Cell Count 2.84 M/uL (4.33-5.43)
[2019-06-20] MEDS: MORPHINE 2 MG/ML SYR IV PRN ×3 (06:21→20:31)
[2019-06-20] MEDS: INSULIN -REGULAR HUMAN 50 UNIT/0.5 ML ML SQ SCH ×4 (07:30→20:41)
[2019-06-20] MEDS: PANTOPRAZOLE 40MG TABLET PO SCH ×2 (08:47→17:48)
[2019-06-20] MEDS: CALCIUM CARBONATE 500 MG TAB PO SCH ×2 (08:47→20:32)
[2019-06-20] MEDS: PREGABALIN 50 MG CAP PO SCH ×2 (08:47→20:36)
[2019-06-20] MEDS: HYDROCORTISONE 10 MG TAB PO SCH (08:47)
[2019-06-20] MEDS: DIGOXIN 0.125 MG TABLET PO SCH (08:48)
[2019-06-20] MEDS: FLUCONAZOLE 100 MG TAB PO SCH (08:48)
[2019-06-20] MEDS: PARoxetine HCL 10 MG TAB PO SCH (08:49)
[2019-06-20] MEDS: GABAPENTIN 300 MG CAP PO SCH ×2 (08:49→20:32)
[2019-06-20] MEDS: NICOTINE 21 MG/PAT TD SCH (08:49)
[2019-06-20] MEDS: LACTOBACILLUS/ACIDOPHILUS TAB PO SCH ×2 (08:49→20:32)
[2019-06-20] MEDS: ENSURE HIGH PROTEIN 237 ML CAN PO SCH ×2 (08:51→20:33)
[2019-06-20] MEDS: JUVEN PACKET PO SCH ×2 (08:52→20:33)
[2019-06-20] MEDS ORDERED: POTASSIUM CL SA 10 MEQ TAB PO ONE (09:00)
[2019-06-20] MEDS ORDERED: MAGNESIUM SULFATE 1 gm IVPB 1 GM/100 ML BAG IV ONE (11:00)
--- NOTE | 2019-06-20 11:21 | PN ---
Date of Progress Note: 06/20/2019 Subjective: Patient was admitted with acute kidney injury, anasarca. Patient being on diuresis. Sherman simons responding very well. Physical Examination: Vital Signs: Blood pressure 105/58, pulse of 110, afebrile. Chest: Decreased entry bilateral base. No crackles. Heart: S1, S2. Regular. Abdomen: Tender on the upper part. No guarding or rebound. Extremities: Trace edema. Laboratory Data: WBC 12.8, H and H 9.1/27.2, platelets 156. Sodium 137, potassium 3.8, bicarb 28, B UN 16, creatinine 0.6, calcium 7.9, magnesium 1.9. Assessment And Plan: 1.Acute kidney injury secondary to prerenal, recovered, resolved. 2.Anasarca secondary to malnourished, hypoalbuminemia, currently normal volume. Discontinue diuresi s. 3.Septic shock secondary to urinary tract infection, urosepsis secondary to acinetobacter, being liz ated, multidrug resistant, stabilized currently. Continue current antibiotic. Will follow up with Camilo rizo. 4.Abdominal pain. No constipation. Given the urinary tract infection, continue current antibiotic. I going to go ahead and get a followup with the Primary. MARCUS Voice ID: [id number] Report ID: [id number]
--- NOTE | 2019-06-20 14:04 | P.PN ---
Subjective Date of Service: 06/20/19 Chief Complaint: Weakness more awake this morning. less abd pain. worried that he made the wrong choice of agreeing to whipple procedure. Physical Examination - Vital Signs Temperature: 97 F Blood Pressure: 107/50 Pulse: 110 Respirations: 18 Pulse Ox (%): 97 - Physical Exam General: Alert, In no apparent distress HEENT: Atraumatic, PERRLA, EOMI Neck: Supple, JVD not distended Respiratory: Clear to auscultation bilaterally, Normal air movement Cardiovascular: Regular rate/rhythm, Normal S1 S2 Gastrointestinal: Normal bowel sounds, No tenderness Musculoskeletal: No tenderness Integumentary: No rashes Neurological: Normal speech, Normal tone, Normal affect Lymphatics: No axilla or inguinal lymphadenopathy - Studies Laboratory Tests 06/20/19 06/20/19 04:42 04:42 WBC 12.8 H RBC 2.84 L Hgb 9.1 L Hct 27.2 L RDW 22.4 H Plt Count 156 Sodium 137 Potassium 3.8 Chloride 105 BUN 16 Creatinine 0.63 Calcium 7.9 L Assessment & Plan Physician Review: Patient Assessed, Agree with Above Assessment and Plan Physician Review Additional Text: # Septic shock secondary to recurrent urinary tract infection, improving. Urine culture positive for acinetobacter. Patient is on day 8 of Merrem. Repeated culture showed no growth. -Leukocytosis improving. -afebrile. Procalcitonin remains this same. continue IV abx. # History of pancreatic cancer, status post Whipple- area remains tender & left swollen. Repeat CT with the same findings noted earlier. -consulted with general surgeon, awaiting CT report from [facility] for comparison. -pain control. # Sacral decubitus ulcer. Continue with wound care. Offloading. # Acute cystitis with hematuria. # Acinetobacter baumannii sensitive to meropenem. Continue antibiotics, today is day 8 of 10. # Iron-deficiency anemia and blood loss anemia secondary to previous gastrointestinal bleed and hematuria. H and H are stable. No further work up per GI and urology workup, already had colonoscopy and EGD on previous visit with no significant source of bleeding found. - H&H is stable. -on PPT gtt; changed to p.o. # Coagulopathy due to liver dysfunction. # Thrombocytopenia, improved. Continue to monitor platelets. # Anasarca, improved with aldactone. Patient's fluid balance is negative. # Hypokalemia, replace and monitor. # Hypophosphatemia. We will replace and monitor. # Hypocalcemia, We will replace and monitor. # Severe protein-calorie malnutrition. # Fatty liver disease. # Intermittent hematuria, resolved. # Obesity. BMI 39. #Major depressive disorder. Continue SSRI. # Deep venous thrombosis prophylaxis, SCDs, no chemical anticoagulation due to low platelets and coagulopathy. Plan: Overall poor prognosis. Patient is hospice appropriate. Daughter is not interested in hospice at this time. May need and does not have any benefits left for SNF or LTAC. Possibility of home health with IV antibiotics if family can afford it. We will continue to work with pillowcase sewer regarding disposition
[2019-06-21] MEDS: Meropenem 1,000 MG in NA CHLORIDE 0.9% 100 ML IV SCH ×3 (00:35→16:25)
[2019-06-21] MEDS: MORPHINE 2 MG/ML SYR IV PRN ×3 (04:50→21:30)
[2019-06-21 05:48] LABS: BUN Blood Urea Nitrogen 16 mg/dL (7-18); Bicarbonate 28 mmol/L (21-32); Glucose Level 107 mg/dL (74-106); Potassium 3.8 mmol/L (3.5-5.1); Sodium Level 137 mmol/L (136-145)
[2019-06-21] MEDS: INSULIN -REGULAR HUMAN 50 UNIT/0.5 ML ML SQ SCH ×4 (07:30→21:00)
[2019-06-21] MEDS ORDERED: POTASSIUM CL SA 10 MEQ TAB PO ONE (08:00)
[2019-06-21] MEDS ORDERED: KCL 20 MEQ/100 mL IVPB 20 MEQ/100 ML BAG IV SCH (09:00)
[2019-06-21] MEDS: PREGABALIN 50 MG CAP PO SCH ×2 (09:03→21:31)
[2019-06-21] MEDS: PANTOPRAZOLE 40MG TABLET PO SCH ×2 (09:03→16:25)
[2019-06-21] MEDS: LACTOBACILLUS/ACIDOPHILUS TAB PO SCH ×2 (09:03→21:31)
[2019-06-21] MEDS: CALCIUM CARBONATE 500 MG TAB PO SCH ×2 (09:04→21:31)
[2019-06-21] MEDS: NICOTINE 21 MG/PAT TD SCH (09:04)
[2019-06-21] MEDS: DIGOXIN 0.125 MG TABLET PO SCH (09:04)
[2019-06-21] MEDS: FLUCONAZOLE 100 MG TAB PO SCH (09:04)
[2019-06-21] MEDS: PARoxetine HCL 10 MG TAB PO SCH (09:04)
[2019-06-21] MEDS: GABAPENTIN 300 MG CAP PO SCH ×2 (09:04→21:31)
[2019-06-21] MEDS: JUVEN PACKET PO SCH ×2 (09:05→21:00)
[2019-06-21] MEDS: ENSURE HIGH PROTEIN 237 ML CAN PO SCH ×2 (09:06→21:00)
--- NOTE | 2019-06-21 10:38 | P.PN ---
Subjective Date of Service: 06/21/19 Chief Complaint: Weakness Denies any new complaints. stable. Physical Examination - Vital Signs Temperature: 97.8 F Blood Pressure: 138/74 Pulse: 115 Respirations: 18 Pulse Ox (%): 98 - Physical Exam General: In no apparent distress HEENT: Atraumatic, PERRLA, EOMI Neck: Supple, JVD not distended Respiratory: Clear to auscultation bilaterally, Normal air movement Cardiovascular: Regular rate/rhythm, Normal S1 S2 Gastrointestinal: Normal bowel sounds, Tenderness Musculoskeletal: No tenderness Integumentary: No rashes Neurological: Normal speech, Normal tone, Normal affect Lymphatics: No axilla or inguinal lymphadenopathy - Studies Laboratory Tests 06/21/19 04:40 Sodium 137 Potassium 3.8 Carbon Dioxide 28 BUN 16 Glucose 107 H Calcium 8.0 L Medications List Reviewed: Yes Assessment & Plan Physician Review: Patient Assessed, Agree with Above Assessment and Plan Physician Review Additional Text: # Septic shock secondary to recurrent urinary tract infection, improving. Urine culture positive for acinetobacter. Patient is on day 9 of Merrem. Repeated culture showed no growth. -Leukocytosis improving. -afebrile. Procalcitonin remains this same. continue IV abx. # History of pancreatic cancer, status post Whipple- area remains tender & left swollen. Repeat CT with the same findings noted earlier. -consulted with general surgeon, awaiting CT report from [facility] for comparison. -pain control. # Sacral decubitus ulcer. Continue with wound care. Offloading. # Acute cystitis with hematuria. # Acinetobacter baumannii sensitive to meropenem. Continue antibiotics, today is day 9 of 10. # Iron-deficiency anemia and blood loss anemia secondary to previous gastrointestinal bleed and hematuria. H and H are stable. No further work up per GI and urology workup, already had colonoscopy and EGD on previous visit with no significant source of bleeding found. - H&H is stable. -on PPT gtt; changed to p.o. # Coagulopathy due to liver dysfunction. # Thrombocytopenia, improved. Continue to monitor platelets. # Anasarca, improved with aldactone. Patient's fluid balance is negative. # Hypokalemia, replace and monitor. # Hypophosphatemia. We will replace and monitor. # Hypocalcemia, We will replace and monitor. # Severe protein-calorie malnutrition. # Fatty liver disease. # Intermittent hematuria, resolved. # Obesity. BMI 39. #Major depressive disorder. Continue SSRI. # Deep venous thrombosis prophylaxis, SCDs, no chemical anticoagulation due to low platelets and coagulopathy. Plan: Overall poor prognosis. Patient is hospice appropriate. Daughter is not interested in hospice at this time. May need and does not have any benefits left for SNF or LTAC. Possibility of home health with IV antibiotics if family can afford it. We will continue to work with disease case manager regarding disposition
[2019-06-21] MEDS: SUCRALFATE 1GM/10ML UCUP FT SCH ×3 (14:12→21:31)
--- NOTE | 2019-06-21 14:32 | PN ---
Date of Progress Note: 06/21/2019 Subjective: The patient had no event, still complaining of abdominal pain otherwise. Objective: Vital Signs: Blood pressure 138/74, pulse of 115, afebrile. Patient had urine output of 900. Chest: Clear to auscultation. Heart: S1, S2, regular. Abdomen: Mild tenderness in the right upper quadrant. No guarding or rebound. Neurologic: Alert and oriented. No focal. Extremity: Trace edema. Laboratory Data: WBC 12.8, H and H 9.1/27.2, platelets 156. Sodium 137, potassium 3.8, bicarb 28, B UN 16, creatinine 0.5, calcium of 8. Medications: Current medications the patient is on include, nicotine patch, meropenem, fluconazole, gabapentin, Lyrica, ipratropium, pantoprazole 40 b.i.d., KCl. Assessment And Plan: 1.Acute kidney injury secondary to prerenal, recovered, resolved. 2.Anasarca, secondary to malnourished. Has been responding very well to diuresis. Off diuresis cur rently, stable, resolved. 3.Epigastric pain. I am going to place the patient on Carafate. Continue proton pump inhibitor. W e will follow up with primary. 4.Hypokalemia. We will supplement. 5.Urinary tract infection, multi organism. Continue current antibiotic. We will follow up with the primary. MARCUS Voice ID: [id number] Report ID: [id number]
[2019-06-22] MEDS: Meropenem 1,000 MG in NA CHLORIDE 0.9% 100 ML IV SCH ×3 (00:44→17:02)
[2019-06-22 04:57] LABS: Absolute Lymphocytes (CBC) 1.4 K/uL (0.7-4.9); Basophils % 0.7 % (0-1.3); Hematocrit 27.1 % (39.6-49.0); Lymphocytes % 9.2 % (15.3-44.8); MPV 8.2 fL (7.6-11.3); RBC Red Blood Cell Count 2.85 M/uL (4.33-5.43)
[2019-06-22 05:06] LABS: BUN Blood Urea Nitrogen 16 mg/dL (7-18); Bicarbonate 27 mmol/L (21-32); Glucose Level 111 mg/dL (74-106); Magnesium 1.9 mg/dL (1.8-2.4); Phosphorus 2.6 mg/dL (2.5-4.9); Potassium 4.2 mmol/L (3.5-5.1); Sodium Level 138 mmol/L (136-145)
[2019-06-22] MEDS: INSULIN -REGULAR HUMAN 50 UNIT/0.5 ML ML SQ SCH ×4 (07:30→21:00)
[2019-06-22] MEDS ORDERED: IPRATROPIUM BROM 0.5MG/2.5ML NEB PRN (09:00)
[2019-06-22] MEDS: LACTOBACILLUS/ACIDOPHILUS TAB PO SCH ×2 (10:15→21:15)
[2019-06-22] MEDS: FLUCONAZOLE 100 MG TAB PO SCH (10:15)
[2019-06-22] MEDS: CALCIUM CARBONATE 500 MG TAB PO SCH ×2 (10:15→21:15)
[2019-06-22] MEDS: NICOTINE 21 MG/PAT TD SCH (10:15)
[2019-06-22] MEDS: PARoxetine HCL 10 MG TAB PO SCH (10:16)
[2019-06-22] MEDS: GABAPENTIN 300 MG CAP PO SCH ×2 (10:16→21:15)
[2019-06-22] MEDS: DIGOXIN 0.125 MG TABLET PO SCH (10:16)
[2019-06-22] MEDS: PREGABALIN 50 MG CAP PO SCH ×2 (10:16→21:15)
[2019-06-22] MEDS: PANTOPRAZOLE 40MG TABLET PO SCH ×2 (10:16→17:02)
[2019-06-22] MEDS: SUCRALFATE 1GM/10ML UCUP FT SCH ×4 (10:16→21:19)
[2019-06-22] MEDS: ENSURE HIGH PROTEIN 237 ML CAN PO SCH ×2 (10:17→21:00)
[2019-06-22] MEDS: JUVEN PACKET PO SCH ×2 (10:17→21:00)
[2019-06-22] MEDS ORDERED: NA CHLORIDE 0.9% 250 ML IV PRN (11:05)
--- NOTE | 2019-06-22 11:44 | P.PN ---
Subjective Date of Service: 06/22/19 Chief Complaint: Weakness Denies any new complaints. Still with intermittent abd pain. No acute event overnight. Physical Examination - Vital Signs Temperature: 97.9 F Blood Pressure: 97/54 Pulse: 120 Respirations: 18 Pulse Ox (%): 97 - Physical Exam General: Alert, In no apparent distress HEENT: Atraumatic, PERRLA, EOMI Neck: Supple, JVD not distended Respiratory: Clear to auscultation bilaterally, Diminished Cardiovascular: Normal S1 S2, Irregular heart rate/rhythm Gastrointestinal: Normal bowel sounds, Tenderness Musculoskeletal: No tenderness Integumentary: No rashes Neurological: Normal speech, Normal tone, Normal affect Lymphatics: No axilla or inguinal lymphadenopathy - Studies Laboratory Tests 06/13/19 06/22/19 06/22/19 06:00 04:30 04:30 WBC 15.1 H D RBC 2.85 L Hgb 9.0 L Hct 27.1 L RDW 21.9 H Neutrophils % 75.9 H Lymphocytes % 9.2 L PT 19.9 H INR 1.70 Sodium 138 Potassium 4.2 Carbon Dioxide 27 BUN 16 Glucose 111 H Calcium 8.0 L Phosphorus 2.6 Medications List Reviewed: Yes Assessment & Plan Physician Review: Patient Assessed, Agree with Above Assessment and Plan Physician Review Additional Text: # Septic shock secondary to recurrent urinary tract infection, improving. Urine culture positive for acinetobacter. Patient is on day 11. Repeated culture showed no growth. -Leukocytosis improving. -afebrile. Procalcitonin pending. -DW ID, will consider holding off antibiotics and monitor # History of pancreatic cancer, status post Whipple- area remains tender & left swollen. Repeat CT with the same findings noted earlier. -consulted with general surgeon, awaiting CT report from [facility] [place] [place] for comparison. -pain control. -DW with surgeon today again. # Sacral decubitus ulcer. Continue with wound care. Offloading. # Acute cystitis with hematuria. # Acinetobacter baumannii sensitive to meropenem. Completed merrem, still on abx due to persistent leukocytosis. -multiple abx in the recent months. -ID on consult. will revisit with patient. # Iron-deficiency anemia and blood loss anemia secondary to previous gastrointestinal bleed and hematuria. H and H are stable. No further work up per GI and urology workup, already had colonoscopy and EGD on previous visit with no significant source of bleeding found. - H&H is stable. -on PPT gtt; changed to p.o. # Coagulopathy due to liver dysfunction. # Thrombocytopenia, improved. Continue to monitor platelets. # Anasarca, improved with aldactone. Patient's fluid balance is negative. - now hypovolemic. -IV bolus hydration. # Hypokalemia, replace and monitor. # Hypophosphatemia. We will replace and monitor. # Hypocalcemia, We will replace and monitor. # Severe protein-calorie malnutrition. # Fatty liver disease. # Intermittent hematuria, resolved. # Obesity. BMI 39. #Major depressive disorder. Continue SSRI. # Deep venous thrombosis prophylaxis, SCDs, no chemical anticoagulation due to low platelets and coagulopathy. Plan: Overall poor prognosis. Patient is hospice appropriate. Daughter is not interested in hospice at this time. May need and does not have any benefits left for SNF or LTAC. Discussed hospice again with patient today and he is not ready. Since no previous CT abdomen for comparison with current findings, awaiting records from [facility] where surgery was done. Dr. Mg on consult. The records will help in determining the next plan of action.
[2019-06-22 12:34] LABS: Protime INR 1.5
--- NOTE | 2019-06-22 14:15 | PN ---
Subjective: This patient has history of abdominal pain. He has a Whipple surgery done about 8 month s ago. Since then, he has been having chronic epigastric pain, also UTI. Has a long recovery in [facility]. He has been admitted for antibiotics IV in another hospital, came here the other day. I have been treating him for the UTI. The CAT scan shows also some swelling over the area of the pancreati c region where the surgery was done, but not different from the CAT scan done previously [facility]. Patient is feeling okay. He is comfortable right now. Objective: Abdomen: Soft and depressible. Some epigastric tenderness. He is not different from at he has for the last 8 months. No rebound. Extremities: Good capillary refill. Laboratory Data: Blood work shows a WBC count of 15.1; variation between 17, 14, 12, and then 15. _ WBC count, hemoglobin is 9.0. INR is 1.5. Potassium is 4.2. Assessment: This is a 63-year-old patient with a history of pancreatic cancer, also cystitis treated with antibiotics. He has a complicated recovery. He says he spent many months in the hospital in a nd out with IV antibiotics. He is presenting the same case in this institution when he came here. T his institution does not perform that kind of a surgery. The CAT scan shows the same findings we had several days ago and reach out to [facility] trying to get some information on his previous tests, so we can confirm with the new ones right now. We are in national emergency with coronavirus problems with some limitations in the way we conduct patients normally. We still believe the last CT scan he had at [facility] and we compared that to the one we have right now, then we will understand that there are any changes since the CAT scan will be abnormal any given time due to the massive amou nt of surgery he had before. So far, he has not changed clinically. We are going to continue the an tibiotics. Etiology of that WBC count is hard to say at this moment. We will reach out to [facility] once again to see if they can give us any followup from their doctors or their report. MILADY/ABISAI Voice ID: [id number] Report ID: [id number]
[2019-06-22] MEDS: MORPHINE 2 MG/ML SYR IV PRN (17:43)
[2019-06-22] MEDS: ACETAMINOPHEN 500 MG TAB PO PRN (21:19)
--- NOTE | 2019-06-22 21:28 | PN ---
Date of Progress Note: 06/22/2019 Subjective: Acute kidney injury secondary to prerenal azotemia, nonoliguric acute kidney injury. The patient has multiple medical problems including history of diabetes mellitus, hypertension, atrial fibrillation, pancreatic cancer, toxic megacolon, underwent Whipple procedure and colostomy reversal. Patient has history of abdominal pain. He underwent Whipple surgery 8 months ago. He has epigastric pain, which is chronic. Has also urinary tract infection, has been treated with antibiotics. CT scan of the abdomen shows same findings, and surgical team is following the patient. Review of Systems: He is complaining of some epigastric pain. Physical Examination: Lungs: Clear to auscultation bilaterally. Heart: S1-S2. Abdomen: Soft. Extremities: Edema trace in both legs. Laboratory Data: WBC 12.8, hemoglobin 9.1. Potassium 3.8, bicarbonate 28, BUN 16, creatinine 0.5. Current Medications: Nicotine patch, meropenem, fluconazole, gabapentin, Lyrica , Protonix and potassium supplements. Impression And Plan: 1. Acute kidney injury, recovered. Patient will continue adequate hydration. Patient may benefit from IV infusion. 2. Anasarca, secondary to hypoalbuminemia and malnutrition. Patient is responding to diuretic. Currently, he is off diuretic and fluid balance stable. 3. Epigastric pain. Patient will continue Carafate and Protonix. 4. Hypokalemia. Supplementation adjusted. 5. Urinary tract infection secondary to multi organism infection. Continue antibiotics. MONIK/MODL Voice ID: [id number] Report ID: [id number]
[2019-06-23] MEDS: Meropenem 1,000 MG in NA CHLORIDE 0.9% 100 ML IV SCH ×3 (00:26→16:51)
[2019-06-23 05:01] LABS: Absolute Lymphocytes (CBC) 1.2 K/uL (0.7-4.9); Basophils % 1.2 % (0-1.3); Hematocrit 23.2 % (39.6-49.0); Lymphocytes % 11.3 % (15.3-44.8); MPV 8.5 fL (7.6-11.3); RBC Red Blood Cell Count 2.44 M/uL (4.33-5.43)
[2019-06-23 05:26] LABS: Anisocytosis 1+; Blood Morphology Comment NOTED (NOT SEEN); Platelet Estimate ADEQ
[2019-06-23] MEDS: INSULIN -REGULAR HUMAN 50 UNIT/0.5 ML ML SQ SCH ×4 (07:30→21:00)
[2019-06-23] MEDS: PARoxetine HCL 10 MG TAB PO SCH (08:14)
[2019-06-23] MEDS: JUVEN PACKET PO SCH ×2 (08:14→20:00)
[2019-06-23] MEDS: SUCRALFATE 1GM/10ML UCUP FT SCH ×4 (08:14→19:58)
[2019-06-23] MEDS: FLUCONAZOLE 100 MG TAB PO SCH (08:14)
[2019-06-23] MEDS: DIGOXIN 0.125 MG TABLET PO SCH (08:14)
[2019-06-23] MEDS: PREGABALIN 50 MG CAP PO SCH ×2 (08:15→19:59)
[2019-06-23] MEDS: NICOTINE 21 MG/PAT TD SCH (08:15)
[2019-06-23] MEDS: GABAPENTIN 300 MG CAP PO SCH ×2 (08:15→19:59)
[2019-06-23] MEDS: PANTOPRAZOLE 40MG TABLET PO SCH ×2 (08:15→16:51)
[2019-06-23] MEDS: ENSURE HIGH PROTEIN 237 ML CAN PO SCH ×2 (08:16→19:59)
[2019-06-23] MEDS: CALCIUM CARBONATE 500 MG TAB PO SCH ×2 (08:18→19:59)
[2019-06-23] MEDS: LACTOBACILLUS/ACIDOPHILUS TAB PO SCH ×2 (08:18→19:59)
--- NOTE | 2019-06-23 09:56 | P.PN ---
Subjective Date of Service: 06/23/19 Chief Complaint: Weakness Subjective: No new changes Patient seen and examined chart reviewed and case discussed with RN. Patient does have intermittent confusion. Does answer some questions appropriately. No family at the bedside Review of Systems 10-point ROS is otherwise unremarkable Gastrointestinal: As per HPI Physical Examination - Vital Signs Temperature: 98.4 F Blood Pressure: 105/62 Pulse: 116 Respirations: 19 Pulse Ox (%): 90 - Physical Exam General: Alert, Oriented x2, Mild distress, Obese, Other (Ill-appearing elderly male) HEENT: Atraumatic, PERRLA, EOMI Neck: Supple, JVD not distended Respiratory: Diminished, Other (No wheezing or stridor) Cardiovascular: Regular rate/rhythm, Normal S1 S2, Edema Gastrointestinal: Normal bowel sounds, Soft and benign, Non-distended, Tenderness Musculoskeletal: No tenderness Integumentary: Pressure ulcer (Sacral decubitus) Neurological: Normal speech, Normal tone, Cranial nerves 3-12 intact, Normal affect - Studies Laboratory Last Values WBC 10.5 K/uL (4.3-10.9) D 06/23/19 04:30 RBC 2.44 M/uL (4.33-5.43) L 06/23/19 04:30 Hgb 7.8 g/dL (13.6-17.9) L* 06/23/19 04:30 Hct 23.2 % (39.6-49.0) L 06/23/19 04:30 MCV 95.2 fL (80-100) 06/23/19 04:30 MCH 32.1 pg (27.0-35.0) 06/23/19 04:30 MCHC 33.7 g/dL (32.0-36.0) 06/23/19 04:30 RDW 21.9 % (12.1-15.2) H 06/23/19 04:30 Plt Count 162 K/uL (152-406) 06/23/19 04:30 MPV 8.5 fL (7.6-11.3) 06/23/19 04:30 Neutrophils % 74.0 % (41.7-73.7) H 06/23/19 04:30 Lymphocytes % 11.3 % (15.3-44.8) L 06/23/19 04:30 Monocytes % 11.2 % (3.3-12.3) 06/23/19 04:30 Eosinophils % 2.3 % (0-4.4) 06/23/19 04:30 Basophils % 1.2 % (0-1.3) 06/23/19 04:30 Absolute Neutrophils 7.8 K/uL (1.8-8.0) 06/23/19 04:30 Segmented Neutrophils 79 % (40-80) 06/23/19 04:30 Band Neutrophils 3 % (0-1) H 06/23/19 04:30 Absolute Lymphocytes 1.2 K/uL (0.7-4.9) 06/23/19 04:30 Lymphocytes 9 % (15-42) L 06/23/19 04:30 Monocytes 3 % (0-10) 06/23/19 04:30 Absolute Monocytes 1.2 K/uL (0.1-1.3) 06/23/19 04:30 Eosinophils 5 % (0-3) H 06/23/19 04:30 Absolute Eosinophils 0.2 K/uL (0-0.5) 06/23/19 04:30 Absolute Basophils 0.1 K/uL (0-0.5) 06/23/19 04:30 Reactive Lymphocytes 1 % 06/23/19 04:30 Anisocytosis 1+ 06/23/19 04:30 Macrocytosis 1+ 06/19/19 04:42 Morphology Comment Noted (NOT SEEN) 06/23/19 04:30 PT 17.6 SECONDS (9.5-12.5) H 06/22/19 12:12 INR 1.50 06/22/19 12:12 APTT 46.1 SECONDS (24.3-36.9) H 06/08/19 19:15 Sodium 138 mmol/L (136-145) 06/22/19 04:30 Potassium 4.2 mmol/L (3.5-5.1) 06/22/19 04:30 Chloride 106 mmol/L (98-107) 06/22/19 04:30 Carbon Dioxide 27 mmol/L (21-32) 06/22/19 04:30 BUN 16 mg/dL (7-18) 06/22/19 04:30 Creatinine 0.62 mg/dL (0.55-1.3) 06/22/19 04:30 Estimated GFR > 90 mL/min (=/>90) 06/22/19 04:30 Glucose 111 mg/dL (74-106) H 06/22/19 04:30 POC Glucose 91 mg/dl (65-120) 06/23/19 07:37 Lactic Acid 1.6 mmol/L (0.4-2.0) 06/18/19 18:40 Calcium 8.0 mg/dL (8.5-10.1) L 06/22/19 04:30 Phosphorus 2.6 mg/dL (2.5-4.9) 06/22/19 04:30 Magnesium 1.9 mg/dL (1.8-2.4) 06/22/19 04:30 Iron 71.0 ug/dL (65-175) 06/10/19 06:11 TIBC 66 ug/dL (250-460) L 06/10/19 06:11 Transferrin 47 mg/dL (200-360) L 06/10/19 06:11 Transferrin % Sat 107.6 % (20.0-50.0) H 06/10/19 06:11 Ferritin 549.9 ng/mL (26-388) H 06/10/19 06:11 Total Bilirubin 0.9 mg/dL (0.2-1.0) 06/15/19 04:15 Direct Bilirubin 0.5 mg/dL (0-0.2) H 06/08/19 19:50 AST 114 U/L (15-37) H 06/15/19 04:15 ALT 59 U/L (12-78) 06/15/19 04:15 Alkaline Phosphatase 77 U/L (45-117) 06/15/19 04:15 Ammonia 34 umol/L (19-54) 06/15/19 09:09 Lactate Dehydrogenase 160 U/L (87-241) 06/18/19 16:31 Creatine Kinase 15 U/L (39-308) L 06/08/19 19:50 CK-MB (CK-2) < 1.0 ng/mL (0.3-3.6) 06/08/19 19:50 Rapid Troponin I < 0.02 ng/mL (0.0-0.045) 06/08/19 19:50 Serum Total Protein 5.3 g/dL (6.4-8.2) L 06/15/19 04:15 NT-Pro-B Natriuret Pep Cancelled 06/19/19 05:00 Albumin 1.7 g/dL (3.4-5.0) L 06/15/19 04:15 Globulin 3.6 g/dL (2.3-3.5) H 06/15/19 04:15 Albumin/Globulin Ratio 0.5 (1.1-1.8) L 06/15/19 04:15 Amylase 23 U/L (25-115) L 06/08/19 19:50 Lipase 234 U/L (73-393) 06/08/19 19:50 Vitamin B12 759 pg/mL (193-986) 06/10/19 06:11 Vit D 1,25-Dihyd Total 22 pg/mL (18-72) 06/12/19 06:00 1,25 Dihydroxy Vit D2 <8 pg/mL 06/12/19 06:00 1,25 Dihydroxy Vit D3 22 pg/mL 06/12/19 06:00 Serum Folate 5.2 ng/mL (3.1-17.5) 06/10/19 06:11 Procalcitonin 0.38 ng/mL (<0.50) 06/22/19 12:12 TSH 0.543 uIU/mL (0.360-3.740) 06/10/19 06:11 Cortisol 6.58 ug/dL (SEE COMMENT) 06/08/19 23:18 Urine Color Yellow 06/15/19 16:15 Urine Appearance Clear 06/15/19 16:15 Urine pH 8.0 (5.0-7.0) H 06/15/19 16:15 Ur Specific [place] 1.020 (1.005-1.030) 06/15/19 16:15 Glucose (UA)(Auto) Negative (NEG) 06/15/19 16:15 Urine Ketones Negative (NEG) 06/15/19 16:15 Urine Blood Negative (NEG) 06/15/19 16:15 Urine Nitrite Positive (NEG) H 06/15/19 16:15 Urine Bilirubin Negative (NEG) 06/15/19 16:15 Urine Urobilinogen 0.2 mg/dL (0.2-1.0) 06/15/19 16:15 Ur Leukocyte Esterase 1+ (NEG) H 06/15/19 16:15 Urine RBC <5 /HPF (NONE SEEN) 06/15/19 16:15 Urine WBC 5-10 /HPF (<5) H 06/15/19 16:15 Ur Squamous Epith Cells <5 /HPF (NONE SEEN) 06/15/19 16:15 Calcium Oxalate Crystal Moderate (NONE SEEN) H 06/08/19 20:28 Urine Bacteria <20 /HPF (NONE SEEN) 06/15/19 16:15 Urine Mucus 1+ /HPF (NONE SEEN) 06/15/19 16:15 Urine Yeast Present (NONE SEEN) H 06/15/19 16:15 Urine Culture Reflexed Reflexed 06/15/19 16:15 Urine Total Protein Trace (NEG) 06/15/19 16:15 Vancomycin Trough 16.7 ug/mL (5.0-20.0) 06/12/19 06:00 Digoxin 0.50 ng/mL (0.80-2.00) L 06/08/19 23:16 C. difficile Ag & Toxin Ag neg : tox neg (NEG : NEG) 06/09/19 17:40 ABO/Rh AB POSITIVE 06/08/19 20:48 Solid Phase Ab Screen Negative 06/08/19 20:48 Crossmatch See Detail 06/08/19 22:19 Microbiology Data (last 24 hrs): Initial urine culture growing Acinetobacter Repeat urine culture no growth Medications List Reviewed: Yes Assessment And Plan - Code Status/Comfort Care Code Status Assessed: Yes Physician Review: Patient Assessed, Agree with Above Assessment and Plan Physician Review Additional Text: # Septic shock secondary to recurrent urinary tract infection, improving. Urine culture positive for acinetobacter. Patient is on day 6 of meropenem after re-initiation. Had finished earlier course Repeated culture showed no growth. -Leukocytosis improving. WBC count back to normal -afebrile. Procalcitonin normal and trending down to 0.38 from 0.44 -will discuss further with infectious disease # History of pancreatic cancer, status post Whipple- area remains tender & left swollen. Repeat CT with the same findings noted earlier. -consulted with general surgeon, awaiting CT report from [facility] for comparison. -pain control. -DW with surgeon today again. # Sacral decubitus ulcer. Continue with wound care. Offloading. # Acute cystitis with hematuria. # Acinetobacter baumannii sensitive to meropenem. Completed merrem, still on abx due to persistent leukocytosis. -multiple abx in the recent months. -ID on consult. will revisit with patient. # Iron-deficiency anemia and blood loss anemia secondary to previous gastrointestinal bleed and hematuria. H and H are stable. No further work up per GI and urology workup, already had colonoscopy and EGD on previous visit with no significant source of bleeding found. - H&H dropped today to 7.8. Will continue to monitor H&H and transfuse for hemoglobin less than 7 -on PPT gtt; changed to p.o. # Coagulopathy due to liver dysfunction. # Thrombocytopenia, improved. Continue to monitor platelets. # Anasarca, improved with aldactone. Patient's fluid balance is negative. - secondary to liver disease and third-spacing # Hypokalemia, replace and monitor. # Hypophosphatemia. We will replace and monitor. # Hypocalcemia, We will replace and monitor. # Severe protein-calorie malnutrition. # Fatty liver disease. # Intermittent hematuria, resolved. # Obesity. BMI 39. #Major depressive disorder. Continue SSRI. # Deep venous thrombosis prophylaxis, SCDs, no chemical anticoagulation due to coagulopathy. Platelets have normalized. Plan: Overall poor prognosis. Patient is hospice appropriate. Daughter is not interested in hospice at this time. May need and does not have any benefits left for SNF or LTAC. Discussed hospice again with patient today and he is not ready. Since no previous CT abdomen for comparison with current findings, awaiting records from [facility] where surgery was done. Dr. Mg on consult. The records will help in determining the next plan of action.
--- NOTE | 2019-06-23 13:09 | PN ---
Date of Progress Note: 06/23/2019 Subjective: Patient was admitted with acute kidney injury, anasarca. Patient is malnourished. Renetta ent was diuresed, responded well. Objective: Vital Signs: Blood pressure 105/62, pulse of 119. Chest: Decreased entry bilateral base. Heart: S1, S2. Regular. Abdomen: Mild tenderness in the epigastric area. Extremities: Trace edema. Laboratory Data: WBC 10.5, H and H 7.8/23.2, platelets 162. Sodium 138, potassium 4.2, bicarb 27, B UN 16, creatinine 0.6, calcium of 8, phosphorus 2.6, magnesium 1.9. Current Medications: Current medications the patient is on include; fluconazole, meropenem, calcium carbonate, Tylenol, gabapentin, Lyrica, Pantoprazole, Carafate. Assessment And Plan: 1.Acute kidney injury secondary to prerenal, recovered, resolved. 2.Anasarca secondary to malnourished, resolved. 3.Urinary tract infection. Continue current antibiotic, will follow up with the primary. MARCUS Voice ID: [id number] Report ID: [id number]
--- NOTE | 2019-06-23 14:27 | PN ---
Subjective: Patient lying in bed. No new acute event. Continued to have abdominal pain. Objective: Vital Signs: Temperature 98, pulse 119, respirations 18, blood pressure 99/63. Lungs: Basal crackles. Heart: S1, S2. Regular. Abdomen: Soft. Bowel sounds present. Tenderness in midepigastric and left upper quadrant area. Extremities: No edema. Laboratory Data: Shows WBC 10.5 down from 15,000, hemoglobin 7.8, platelets are 162. Chemistry show s 138 sodium, potassium 4.2, chloride 106, bicarb 27, BUN 16, creatinine 0.6, glucose is 111. Micro data urine culture from 06/14 is negative. Assessment And Plan: Abdominal pain, possible secondary to obstructive pattern from previous surgery . Continue meropenem. Possible transfer to [facility] where the patient had previous surger y done. Continue supportive care and monitor for signs of infection. NF/MODL Voice ID: [id number] Report ID: [id number]
[2019-06-23] MEDS ORDERED: IPRATROPIUM BROM 0.5MG/2.5ML NEB PRN (15:00)
--- NOTE | 2019-06-23 20:26 | RAD REPORT ---
EXAM DESCRIPTION: CT - Abdomen Pelvis W Contrast - 06/23/2019 7:38 pm CLINICAL HISTORY: possible ischemic bowel COMPARISON: Abdomen Pelvis W Contrast dated 05/28/2019; Abdomen Pelvis W Contrast dated 05/17/2019 TECHNIQUE: Biphasic, helical CT imaging of the abdomen and pelvis was performed following 100 ml non -ionic IV contrast. Oral contrast was administered. All CT scans are performed using dose optimization technique as appropriate and may include automated exposure control or mA/KV adjustment according to patient size. FINDINGS: Small right-side and moderate left-side pleural effusions are present. The left pleural fl uid collection is probably loculated. Diffuse fatty infiltration of the liver is again noted. No suspicious finding within the hepatic pare nchyma. No portal vein abnormality. No splenic abnormality seen. Primary pancreatic process is not co nfirmed. Pancreas is poorly visualized. History from prior imaging indicates pancreatic cancer histor y with Whipple procedure. Gallbladder is not identified in believed absent. No pneumobilia. No biliar y tree dilatation. Symmetric renal function is seen with no hydronephrosis or suspicious renal mass. No pyelonephritis o r acute parenchymal process. Urinary bladder is contracted around a Gallagher catheter. Air within the germán men is presumed to be part of the catheter placement procedure rather than a gas-forming organism. No adrenal abnormalities. Stomach is decompressed. Harkins appear edematous. Along the left lateral and superolateral margin of t he stomach and 18 centimeter x 12 centimeter fluid collection has developed. This is a homogeneous fl uid attenuation. No contrast extravasation into this structure. No air within this structure. An keri tional 5 centimeter fluid attenuation mass is present near the bowel stomach anastomosis in the midli ne. Elsewhere there is no extravasation of oral contrast. Contrast has reached the colon. Moderately larg e stool volume distends the rectosigmoid colon. Findings are not considered suspicious for large or s mall bowel ischemia. No free air or pneumatosis. No bulky lymphadenopathy. No suspicious bony findings. IMPRESSION: Since May 27 imaging and large 18 x 12 centimeter fluid collection has developed along the left lateral and superolateral margin of the stomach. This has a homogeneous fluid attenuation. N o contrast, air or bowel content seen within this structure. This perigastric mass may be a large pseudocyst. Abscess is possible but would likely have a more he terogeneous attenuation pattern. An additional 5 centimeter low-density mass is seen near the bowel s tomach anastomosis in the midline. No extravasation of contrast. Gastric harkins are edematous. No large or small bowel ischemia suspected . Small right-side and moderate left-sided pleural effusions with atelectasis. Left side is probably lo culated.
[2019-06-23 20:54] VITALS: TEMP 97.7
--- NOTE | 2019-06-23 21:45 | P.DS ---
Admission Date: 06/08/19 Discharge Date: 06/23/19 Disposition: TRANSFER TO [facility] Condition: FAIR Reason for Admission: Weakness - Problems (1) Septic shock Current Visit: Yes Status: Acute (2) Hypoalbuminemia Current Visit: Yes Status: Acute (3) Fluid overload Current Visit: Yes Status: Acute (4) Anemia Current Visit: Yes Status: Acute (5) Sepsis Current Visit: No Status: Acute Qualifiers: Sepsis type: sepsis due to unspecified organism (6) Chronic atrial fibrillation Current Visit: No Status: Chronic (7) DM type 2 (diabetes mellitus, type 2) Current Visit: No Status: Chronic Qualifiers: Diabetes mellitus complication status: with diabetic arthropathy (8) Hypotension Current Visit: No Status: Resolved (9) Supratherapeutic INR Current Visit: No Status: Resolved Brief History of Present Illness: 59 for [place] male with history of hypertension/diabetes mellitus/ pancreatic cancer status post Whipple's procedure, morbid obesity, progressive debility, AFib previously on Coumadin but recently taken off 2 weeks ago for positive occult blood and anemia during hospitalization 1 month ago, history of recent recurrent prolonged hospital stay lasting over 1 month and discharged 6 days ago after he was treated with Merrem/Zyvox /Diflucan for sepsis with yeast UTI. Patient has been at home receiving antibiotics via PICC line which he finished 3 days ago. He was an [facility] by the daughter via ambulance to the ER today because of increasing weakness. On arrival in the ED , his blood pressure was in the 80s. workup shows possible UTI. Patient received 3 L of NS but BP continue trending down to the 70s over 30s now. Patient is slightly drowsy but able to give history. His mentation is very slow. He denies any cough but admits to persistent body swelling. Chest x-ray shows evidence of bilateral interstitial pulmonary edema but patient is saturating well on room air. He was been started on antibiotics with Rocephin and Zithromax. Given his low blood pressure I am initiating patient on Levophed. He admits to no longer taking his Coumadin. His recent hospitalization record was reviewed. Hospital Course: patient transferred to [facility] for eval of his abnormal CT scan of the [facility] showing a mass in the area of the prior post surgical resection around the pancreas. others -# Septic shock secondary to recurrent urinary tract infection, improving. Urine culture positive for acinetobacter. Patient is on day 6 of meropenem after re-initiation. Had finished earlier course Repeated culture showed no growth. -Leukocytosis improving. WBC count back to normal -afebrile. Procalcitonin normal and trending down to 0.38 from 0.44 -will discuss further with infectious disease # History of pancreatic cancer, status post Whipple- area remains tender & left swollen. Repeat CT with the same findings noted earlier. -consulted with general surgeon, awaiting CT report from [facility] for comparison. -pain control. -DW with surgeon today again. # Sacral decubitus ulcer. Continue with wound care. Offloading. # Acute cystitis with hematuria. # Acinetobacter baumannii sensitive to meropenem. Completed merrem, still on abx due to persistent leukocytosis. -multiple abx in the recent months. -ID on consult. will revisit with patient. # Iron-deficiency anemia and blood loss anemia secondary to previous gastrointestinal bleed and hematuria. H and H are stable. No further work up per GI and urology workup, already had colonoscopy and EGD on previous visit with no significant source of bleeding found. - H&H dropped today to 7.8. Will continue to monitor H&H and transfuse for hemoglobin less than 7 -on PPT gtt; changed to p.o. # Coagulopathy due to liver dysfunction. # Thrombocytopenia, improved. Continue to monitor platelets. # Anasarca, improved with aldactone. Patient's fluid balance is negative. - secondary to liver disease and third-spacing # Hypokalemia, replace and monitor. # Hypophosphatemia. We will replace and monitor. # Hypocalcemia, We will replace and monitor. # Severe protein-calorie malnutrition. # Fatty liver disease. # Intermittent hematuria, resolved. # Obesity. BMI 39. #Major depressive disorder. Continue SSRI. # Deep venous thrombosis prophylaxis, SCDs, no chemical anticoagulation due to coagulopathy. Platelets have normalized. Vital Signs/Physical Exam: Temp Pulse Resp BP Pulse Ox 97.7 F 122 H 17 107/64 98 06/23/19 20:00 06/23/19 20:00 06/23/19 20:00 06/23/19 20:00 06/23/19 20:00 Laboratory Data at Discharge: WBC 10.5 K/uL (4.3-10.9) D 06/23/19 04:30 Hgb 7.8 g/dL (13.6-17.9) L* 06/23/19 04:30 Hct 23.2 % (39.6-49.0) L 06/23/19 04:30 Plt Count 162 K/uL (152-406) 06/23/19 04:30 PT 17.6 SECONDS (9.5-12.5) H 06/22/19 12:12 INR 1.50 06/22/19 12:12 APTT 46.1 SECONDS (24.3-36.9) H 06/08/19 19:15 Sodium 138 mmol/L (136-145) 06/22/19 04:30 Potassium 4.2 mmol/L (3.5-5.1) 06/22/19 04:30 BUN 16 mg/dL (7-18) 06/22/19 04:30 Creatinine 0.62 mg/dL (0.55-1.3) 06/22/19 04:30 Glucose 111 mg/dL (74-106) H 06/22/19 04:30 Phosphorus 2.6 mg/dL (2.5-4.9) 06/22/19 04:30 Magnesium 1.9 mg/dL (1.8-2.4) 06/22/19 04:30 Total Bilirubin 0.9 mg/dL (0.2-1.0) 06/15/19 04:15 AST 114 U/L (15-37) H 06/15/19 04:15 ALT 59 U/L (12-78) 06/15/19 04:15 Alkaline Phosphatase 77 U/L (45-117) 06/15/19 04:15 Amylase 23 U/L (25-115) L 06/08/19 19:50 Lipase 234 U/L (73-393) 06/08/19 19:50 Home Medications: Codeine/APAP [Tylenol #3*] 2 tab PO BID PRN 05/17/19 Digoxin [Lanoxin*] 0.125 mg PO DAILY 05/17/19 Gabapentin 300 mg PO BID 05/17/19 Insulin Glargine Human [Lantus*] 5 units SQ DAILY PRN 05/17/19 Nicotine [Nicotine Patch] 21 mg TD DAILY 05/17/19 Pantoprazole [Protonix Tab*] 40 mg PO DAILY 05/17/19 Ensure Enlive 237 ml PO BID can 06/02/19 Chlorpromazine HCl [Thorazine*] 25 mg PO BID 06/09/19 PARoxetine HCl [Paxil] 30 mg PO DAILY 06/09/19 Pregabalin 100 mg PO BID 06/09/19 Activity: Ad gabe
[2019-06-23 22:54] VITALS: O2SAT 98
[2019-06-24 00:14] LABS: Absolute Lymphocytes (CBC) 1.3 K/uL (0.7-4.9); Basophils % 1.4 % (0-1.3); Hematocrit 25.2 % (39.6-49.0); Lymphocytes % 11.1 % (15.3-44.8); MPV 7.7 fL (7.6-11.3); RBC Red Blood Cell Count 2.61 M/uL (4.33-5.43)
[2019-06-24 00:29] LABS: ALT/SGPT 62 U/L (12-78); AST/SGOT 112 U/L (15-37); Albumin 1.3 g/dL (3.4-5.0); Alkaline Phosphatase 123 U/L (45-117); BUN Blood Urea Nitrogen 12 mg/dL (7-18); Bicarbonate 27 mmol/L (21-32); Glucose Level 106 mg/dL (74-106); Potassium 3.1 mmol/L (3.5-5.1); Protein, Total 5.3 g/dL (6.4-8.2); Sodium Level 140 mmol/L (136-145)
[2019-06-24 00:32] VITALS: BP 100/58
[2019-06-24] MEDS: Meropenem 1,000 MG in NA CHLORIDE 0.9% 100 ML IV SCH (00:51)
[2019-06-24] MEDS: KCL 20 MEQ/100 mL IVPB 20 MEQ/100 ML BAG IV SCH ×2 (01:48→03:00)
[2019-06-24] MEDS ORDERED: NA CHLORIDE 0.9% 500 ML ONE (01:51)
--- NOTE | 2019-06-24 18:47 | PN ---
Date of Progress Note: 06/23/2019 Reason For Service: Leukocytosis and also abdominal pain. History Of Present Illness: Mr. Novoa is a 63-year-old patient, about 8 month ago had a Whipple ____ for pancreatic cancer. He has been on and off the hospital since then. Recently admitted to this hospital, has some leukocytosis, some abdominal pain. We requested [facility] to have their prev ious CT scan so we can compare with the one we have here in the last week to see if there is anything new on the area of the Whipple that may be contributing to this pain. Today, we were bertram enough t hat one of the hospitalist, Dr. Russo has access to the [facility] system since we have not got anythi ng from them or from the family, and then we discussed the case. We saw the results of the previous tests, the previous CT scan. Physical Examination: General: Patient is awake and alert. Abdomen: Soft and depressible. He always has this abdominal pain. He has it for a long time. Laboratory Data: WBC count even though is lower today is still on and off, every day is different. Plan: I discussed this with Dr. Russo, we were there, saw the previous CT scan report, we do not hav e the images. Previous also blood work for the last one that we can see and that documentation when he opened with his access. We compared that with the previous CT scan and they do not seem to be the same, looked like there is cry of inflammation now and several weeks ago in this institution. When you see that test done in February at [facility], the inflammation was not there or at least was not d escribed, so I talked to Dr. Russo and also the patient. We do not do this kind of surgery at this [facility]. We see some changes in this CAT scan. He may or may not need a special treatment for th at, but since we cannot do in this institution, he is going to have to go to an institution where the y can see those CT scans and see if the new changes are something expected or not. For that reason, we recommend once again to be transferred. MILADY/ABISAI Voice ID: [id number] Report ID: [id number]
== END 2019-06-24 03:20 | disposition short-term general hospital (02) | DRG 871 ==
LOC: ER 18:38 → ERHOLD 22:41 → 3RD-ICU 23:49 → 2ND 06-10 13:45
PROVIDERS: ADMIT Internal Medicine; ATTEND Family Medicine
PROC: 30233N1 Transfusion of Nonautologous Red Blood Cells into Peripheral Vein, Percutaneous Approach (ICD-10-PCS; principal; 2019-06-09)
DX: A41.9 Sepsis, unspecified organism (principal); R65.21 Severe sepsis with septic shock; G93.41 Metabolic encephalopathy; E43 Unspecified severe protein-calorie malnutrition; I48.20 Chronic atrial fibrillation, unspecified; N17.9 Acute kidney failure, unspecified; N30.01 Acute cystitis with hematuria; D68.4 Acquired coagulation factor deficiency; E88.09 Other disorders of plasma-protein metabolism, not elsewhere classified; E87.70 Fluid overload, unspecified; E11.618 Type 2 diabetes mellitus with other diabetic arthropathy; Z85.07 Personal history of malignant neoplasm of pancreas; Z90.49 Acquired absence of other specified parts of digestive tract; L89.159 Pressure ulcer of sacral region, unspecified stage; D50.0 Iron deficiency anemia secondary to blood loss (chronic); D69.6 Thrombocytopenia, unspecified; E87.6 Hypokalemia; E83.39 Other disorders of phosphorus metabolism; E83.51 Hypocalcemia; Z68.39 Body mass index [BMI] 39.0-39.9, adult; K76.0 Fatty (change of) liver, not elsewhere classified; E66.9 Obesity, unspecified; F32.9 Major depressive disorder, single episode, unspecified; Z79.4 Long term (current) use of insulin; Z79.899 Other long term (current) drug therapy; Z88.1 Allergy status to other antibiotic agents; Z88.5 Allergy status to narcotic agent; Z88.8 Allergy status to other drugs, medicaments and biological substances; B96.89 Other specified bacterial agents as the cause of diseases classified elsewhere; E11.22 Type 2 diabetes mellitus with diabetic chronic kidney disease; N18.9 Chronic kidney disease, unspecified; I12.9 Hypertensive chronic kidney disease with stage 1 through stage 4 chronic kidney disease, or unspecified chronic kidney disease
CPT/HCPCS: 36415; 36430; 71045; 74150; 74177; 80048; 80053; 80076; 80162; 80202; 81001; 81003; 81015; 82140; 82150; 82533; 82550; 82553; 82607; 82652; 82728; 82746; 82947; 83540; 83605; 83615; 83690; 83735; 84100; 84132; 84145; 84443; 84466; 84484; 85014; 85018; 85025; 85610; 85730; 86850; 86900; 86901; 87040; 87077; 87086; 87088; 87186; 87324; 87449; 93005; 94640; 96365; 96366; 96375; 97110; 97161; 97530; 99285; C9113; J0456; J0610; J0692; J0696; J1720; J1940; J2270; J2405; J3430; J3475; J7030; J7040; J7060; P9016; P9047; Q9967